=== PATIENT | male | born 1950 | race Caucasian/White ===

== ENCOUNTER 2019-05-10 15:56 | Emergency (ER) | payer OTHER, SELFPAY ==
[2019-05-10 16:48] VITALS: BP 106/58; PULSE 54; RESP 16; TEMP 36.8; O2SAT 94; BMI 34.9
--- NOTE | 2019-05-10 21:15 | W.ED.EXTPRO ---
HPI - Extremity Problem General: Chief complaint: Extremity Injury, Lower Stated complaint: Fractured R ankle-needs cast Time Seen by Provider: 05/10/19 21:09 History of Present Illness: HPI Narrative: Patient comes in for injury to the right lower extremity. Patient was seen [place] [facility] earlier today and was referred to the ER for splinting of the extremity. Patient appears well. Patient appears in no acute distress. Patient reports that he got up and walked through the house and became faint and twisted his ankle when he went to fall. Patient states they have been working to control his blood pressure and has been reducing the medication but it still causes him to become really lightheaded at times. Review of Systems General: Reports: 10 or more systems reviewed and unremarkable except in HPI and below Musc: Reports: joint pain PFSH ED PFSH: Social History Smoking and tobacco status: never smoked Physical Exam Const: COMMON NORMALS: no apparent distress and oriented x3 GENERAL APPEARANCE: cooperative HENMT: COMMON NORMALS: normocephalic, external ears normal, EAC's normal, TM's normal bilaterally and external nose normal HEAD & SCALP: normal to inspection and normocephalic FACE & SINUS: normal facial exam NOSE: external nose normal GENERAL EAR: hearing not grossly impaired EXTERNAL EAR: Yes external ears normal EXTERNAL AUDITORY CANAL: EAC's normal TYMPANIC MEMBRANE: TM's normal bilaterally MOUTH: oral and palatal mucosa normal THROAT: posterior oropharynx normal Eye: COMMON NORMALS: PERRL and EOMs intact bilaterally PUPIL: Yes PERRL Neck/C-Spine: COMMON NORMALS: full ROM and no lymphadenopathy Lymph: LYMPHATIC: no lymphedema noted Chest: COMMONS NORMALS: inspection of chest normal and palpation of chest normal Resp: COMMON NORMALS: normal respiratory effort and clear to auscultation bilaterally AUSCULTATION: clear to auscultation bilaterally Cardio: COMMON NORMALS: regular rate and regular rhythm RATE: regular rate RHYTHM: regular rhythm GI: COMMON NORMALS: normal to inspection, nondistended, normoactive bowel sounds and non-tender : COMMON NORMALS: Yes no CVA tenderness BLADDER/KIDNEY EXAM: Yes no CVA tenderness Back/Pelvis: COMMON NORMALS: no CVA tenderness and thoracic and lumbar spine normal to inspection Extremity: COMMON NORMALS: normal to inspection GENERAL: Yes edema (right lateral ankle, mild ecchymosis) Neuro: COMMON NORMALS: oriented x3, moves all extremities and no focal motor deficits Psych: COMMON NORMALS: mental status grossly normal and cooperative Skin: COMMON NORMALS: no rashes or lesions noted GENERAL SKIN EXAM: no rashes or lesions noted Course Vital Signs: Vital signs: Vital Signs Temperature 98.3 F 05/10/19 16:48 Pulse Rate 54 L 05/10/19 16:48 Respiratory Rate 16 05/10/19 16:48 Blood Pressure 106/58 05/10/19 16:48 Pulse Oximetry 94 05/10/19 16:48 MDM - Extremity (Nontraumatic) MDM Narrative: Medical decision making narrative: Medical decision statement. Well-appearing adult male comes in for evaluation and treatment of fractured distal fibula in the right lower extremity. Patient was seen at the [facility] earlier and was referred here for casting of his fracture. Exam notes some mild ecchymosis and swelling to the lateral right ankle. Pulses are intact. Prompt capillary refill is noted. Differential diagnosis includes fracture, sprain, dislocation. Review of printed x-ray films that patient brought with him from the [facility] noted nondisplaced fracture of the distal fibula. Patient has been weightbearing to the extremity. The injury occurred early this morning. Reviewed the exam with patient patient was Rosalio wrapped and put in a stirrup splint. Patient was recommended to limit activity and use crutches or a walker to assist with ambulation. Patient reports understanding and agreed to plan. Case management was requested for referral to orthopedics. Discharge Plan Discharge Patient Disposition: Home, Self-Care Clinical Impression: Ankle fracture Qualifiers: Encounter type: initial encounter Fracture type: closed Laterality: right Qualified Code(s): S82.891A - Other fracture of right lower leg, initial encounter for closed fracture Condition: Stable Prescriptions: New hydrocodone-acetaminophen 5-325 mg tablet 1 tab PO Q6H PRN (Reason: pain (scale score 7-10)) Qty: 7 RF: 0 Discharge Orders: Discharge Order (Routine); Ordered 05/10/19 Ordered By: Aki Downey Referrals: Grey Bingham [Primary Care Provider] - Discharge Diet: Usual diet Discharge Activity: Increase activity as tolerated Patient Instructions: Ankle Fracture (ED) Activity Restrictions/Additional Instructions: use elastic wrap until swelling is resolved Use stirrup splint until orthopedic boot can be fitted Crutches or walker for ambulation assist use acetaminophen or ibuprofen to control pain, use hydrocodone for severe pain medication as directed Follow-up with orthopedics Coding Level of Care Code ED Database Programmer Analyst for Natalie Fwd Exam Comprehensive
[2019-05-10] MEDS: HYDROcodone-acetaminophen 5-325 mg Tablet 1 TAB PO (21:35)
[2019-05-10 21:59] VITALS: BP 156/79; PULSE 57; RESP 18; O2SAT 99
--- NOTE | 2019-05-11 09:43 | DCPLANNER ---
assistant front office manager had message to schedule a follow up appointment for patient with ortho. assistant front office manager called the ortho clinic, spoke with Pat, gave clinic patients information. assistant front office manager was told that patients information would be printed and reviewed. Clinic will call foster care case manager and patient with appointment information. Patient has [facility], assistant front office manager called [facility], reported that patient was seen in the ER and that he needs a consult placed for ortho. assistant front office manager faxed [facility] to the [facility].
--- NOTE | 2019-05-11 14:19 | DCPLANNER ---
Patient has a follow up appointment scheduled for Sunday, May 12, 2019 at 12:00. assistant farm operations manager called June with the [facility] to inform her that a follow up appointment has been scheduled for patient. Clinic will call patient with appointment information.
--- NOTE | 2019-05-20 10:03 | DCPLANNER ---
Patient did attend appointment scheduled for 05.12.19 with ortho.
== END 2019-05-10 21:53 | disposition home or self-care (01) ==
PROVIDERS: Emergency Provider Nurse Practitioner Family; Family Provider Internal Medicine; PCP Internal Medicine
DX: S82.831A Other fracture of upper and lower end of right fibula, initial encounter for closed fracture (principal); W18.30XA Fall on same level, unspecified, initial encounter; Y92.009 Unspecified place in unspecified non-institutional (private) residence as the place of occurrence of the external cause
CPT/HCPCS: 29515; 99281; 99283

== ENCOUNTER → 2019-05-12 12:44 | Outpatient (BNVA) | payer OTHER, SELFPAY | PROVIDERS: Family Provider Internal Medicine; PCP Internal Medicine; Referring Provider Nurse Practitioner Family; Visit Provider Specialist | DX: S82.831A Other fracture of upper and lower end of right fibula, initial encounter for closed fracture (principal); X58.XXXA Exposure to other specified factors, initial encounter | CPT/HCPCS: 73610 ==

== ENCOUNTER 2019-05-12 15:59 | Outpatient (CLI) | payer OTHER, SELFPAY | END 2019-05-12 16:00 | disposition home or self-care (01) | LOC: SPT 15:59 | PROVIDERS: Family Provider Internal Medicine; PCP Internal Medicine; Visit Provider Specialist | DX: S82.61XD Displaced fracture of lateral malleolus of right fibula, subsequent encounter for closed fracture with routine healing (principal); X58.XXXD Exposure to other specified factors, subsequent encounter | CPT/HCPCS: L4361 ==

== ENCOUNTER → 2019-05-17 14:21 | Outpatient (BNVA) | payer OTHER, SELFPAY | PROVIDERS: Family Provider Internal Medicine; PCP Internal Medicine; Visit Provider Specialist | DX: S82.831A Other fracture of upper and lower end of right fibula, initial encounter for closed fracture (principal); X58.XXXA Exposure to other specified factors, initial encounter | CPT/HCPCS: 73610 ==

== ENCOUNTER → 2019-06-03 11:54 | Outpatient (BNVA) | payer OTHER, SELFPAY | PROVIDERS: Family Provider Internal Medicine; PCP Internal Medicine; Visit Provider Specialist | DX: S82.831A Other fracture of upper and lower end of right fibula, initial encounter for closed fracture (principal); X58.XXXA Exposure to other specified factors, initial encounter | CPT/HCPCS: 73610 ==

== ENCOUNTER → 2019-07-14 08:14 | Outpatient (BNVA) | payer OTHER, SELFPAY | PROVIDERS: Family Provider Internal Medicine; PCP Internal Medicine; Visit Provider Specialist | DX: T14.8XXA Other injury of unspecified body region, initial encounter (principal); S82.831A Other fracture of upper and lower end of right fibula, initial encounter for closed fracture | CPT/HCPCS: 73610 ==

== ENCOUNTER 2019-07-17 23:03 | Emergency (ER) | payer OTHER, SELFPAY ==
[2019-07-17 23:04] VITALS: BP 144/63; PULSE 73; RESP 18; TEMP 37.4; O2SAT 96; BMI 33.0
--- NOTE | 2019-07-17 23:34 | CTR_ITS ---
PROCEDURE INFORMATION: Exam: CT Abdomen And Pelvis With Contrast Exam date and time: 07/17/2019 1:54 AM Age: 69 years old Clinical indication: Abdominal pain; Flank; Right; Prior surgery; Surgery date: 6+ months; Surgery type: Gb, hernia; Additional info: R flank pain TECHNIQUE: Imaging protocol: Computed tomography of the abdomen and pelvis with intravenous contrast. Radiation optimization: All CT scans at this facility use at least one of these dose optimization techniques: automated exposure control; mA and/or kV adjustment per patient size (includes targeted exams where dose is matched to clinical indication); or iterative reconstruction. Contrast material: OMNI 300; Contrast volume: 95 ml; Contrast route: IV; COMPARISON: [place] [id number] 12/25/2012 7:37 AM RADIATION DOSE METRICS: Total DLP: 1964.11 mGy-cm FINDINGS: Lungs: There is compressive atelectasis in the left lung. Pleural space: Small left pleural effusion. Liver: There is mild hypertrophy and subtle nodularity of the left lobe of the liver. There is no focal liver abnormality. Gallbladder and bile ducts: The gallbladder is absent. There is no intrahepatic or extrahepatic bile duct dilation. Pancreas: There is mild atrophy of the pancreas. Spleen: The spleen is unremarkable. Adrenals: The adrenal glands are unremarkable. Kidneys and ureters: There are simple cysts in the right kidney measuring up to 5.7 cm diameter. There is no hydronephrosis or stones. The right ureter is nondilated. The left kidney and ureter are unremarkable. Stomach and bowel: The stomach is unremarkable. The small bowel is nondilated. There is no sign of inflammation. There is moderate distal descending and sigmoid colonic diverticulosis without evidence of diverticulitis. Appendix: The appendix is not definitively identified, although there are no secondary signs of appendicitis. Intraperitoneal space: There is no free air or significant intraperitoneal free fluid. Vasculature: There is severe aortic atherosclerotic disease. Lymph nodes: There is no lymphadenopathy in the retroperitoneum, mesentery, pelvis or inguinal regions. Bladder: The urinary bladder is unremarkable. Reproductive: The prostate and seminal vesicles are unremarkable. Bones/joints: There is moderate degenerative disease in the lumbar spine. The pelvis and hips are unremarkable. Soft tissues: Large multifocal fat containing ventral hernia. CT/CT abdomen pelvis w con* [id number] IMPRESSION: 1. No acute findings. No obstructive uropathy. 2. Small left pleural effusion. 3. Left lobe hypertrophy and subtle nodularity of the liver surface. Possible cirrhosis. COMMENTS: Consistent with the [employer]'s Incidental Findings Committee white paper (J Am Luis Fernando Radiol 2018): Any incidental cystic renal lesion classified in this report as too small to characterize or simple appearing is likely a benign cyst. No follow-up imaging is recommended for these lesions per consensus recommendations based on imaging criteria. Radiation Dose CTDIVOL = (mGy): DLP = 1964.11 (mGy-cm)
--- NOTE | 2019-07-17 23:34 | XR_ITS ---
WS: [id number] XR chest 1V portable [id number] REASON FOR EXAM: weakness FINDINGS: Previous sternotomy changes and coronary bypass findings. Comparisons were made to March 24, 2017 with no interval changes. The peripheral lung show no definite pneumonia, pleural effusion, pulmonary edema, no pneumothorax or mass effect. The hilum and apices normal. XR/XR chest 1V portable [id number] IMPRESSION: Negative chest for acute findings Coronary bypass changes.
[2019-07-17 23:43] VITALS: O2SAT 96
[2019-07-17 23:45] VITALS: O2SAT 90
[2019-07-17 23:50] VITALS: O2SAT 96
[2019-07-17 23:55] VITALS: O2SAT 96
[2019-07-17] MEDS: sodium chloride 0.9% 1,000 ML 999 ML IV (23:59)
[2019-07-17] MEDS: ondansetron 2 mg/ML SDV 2 mL 4 MG IVP (23:59)
[2019-07-18] VITALS (18 sets, daily range): O2SAT 90–97
[2019-07-18 00:30] LABS: Basophils # 0.1 10^3/uL (0.0-0.1); Basophils % 0.4 %; Eosinophils % 0.2 %; Hematocrit 43.2 % (42.0-52.0); Hemoglobin 14.1 g/dL (11.7-16.6); Lymphocytes # 3.1 10^3/uL (0.8-4.8); Lymphocytes % 22.5 %; Mean Corpuscular HGB Conc 32.6 g/dL (30.0-36.0); Mean Corpuscular Hemoglobin 30.5 pg (28.0-34.0); Mean Corpuscular Volume 93.5 fL (80-94); Mean Platelet Volume 10.2 fL (7.4-10.4); Monocytes # 1.1 10^3/uL (0.2-0.9); Monocytes % 7.8 %; Neutrophils # 9.4 10^3/uL (1.8-7.7); Neutrophils % 68.7 %; Nucleated Red Blood Cells % 0 %; Platelet Count 180 10^3/cmm (130-400); Red Blood Count 4.62 10^6/uL (4.1-5.3); Red Cell Distribution Width 13.5 % (12.1-15.1); White Blood Count 13.7 10^3/uL (4.0-10.0)
[2019-07-18 01:19] LABS: Alanine Aminotransferase 17 U/L (0-41); Albumin Level 3.7 g/dL (3.5-5.2); Alkaline Phosphatase 64 IU/L (40-130); Anion Gap 12.8 (5-19); Aspartate Amino Transferase 20 U/L (0-40); Blood Urea Nitrogen 19 mg/dL (8-23); Calcium 8.9 mg/dL (8.5-10.5); Carbon Dioxide 29 mmol/L (22-29); Chloride 102 mmol/L (98-107); Globulin 4.1 g/dL (1.3-4.6); Glomerular Filtration Rate 73.9 mL/min (90-130); Glucose 79 mg/dL (65-115); Lipase 12 U/L (13-60); Osmolality Calculated 285 mOsm/kg (285-295); Potassium 3.8 mmol/L (3.5-5.1); Sodium 140 mmol/L (136-145); Total Bilirubin 0.9 mg/dL (0.15-1.2); Total Protein 7.8 g/dL (6.6-8.7)
[2019-07-18] MEDS: morphine 4 mg/mL SDV 1 mL IVP (01:42)
[2019-07-18 01:46] LABS: C Reactive Protein 84.3 mg/L (0.0-4.9)
[2019-07-18 01:55] LABS: Urine Appearance Cloudy (CLEAR); Urine Color Yellow (Yellow); pH Urine 5 (5-7)
[2019-07-18 01:56] LABS: Add Urine Microscopic? YES; Bilirubin Urine Neg (NEGATIVE); Blood Urine Trace (Negative); Glucose Urine UA Norm (Normal); Ketones Urine Negative (Negative); Leukocyte Esterase Urine 2+ (Negative); Nitrate Urine Positive (Negative); Protein Urine Neg (Negative); Urobilinogen Urine Norm (Negative)
[2019-07-18 01:57] LABS: Add Urine Culture? Yes; Bacteria Urine 3+; RBC Urine 0-4 /hpf (0-2); Squamous Epithelial Cell Urine 0-4 (0-5); WBC Urine >100 /hpf (0-5)
[2019-07-18] MEDS: iohexol 300 mg/mL 100 mL Btl IV (02:05)
[2019-07-18] MEDS: cefTRIAXone 1,000 MG in sodium chloride 0.9% (plus) 50 ML 100 MG IV (03:26)
--- NOTE | 2019-07-18 03:26 | ED_ITS ---
HPI - Weakness General: Chief complaint: Weakness Stated complaint: WEAKNESS Time Seen by Provider: 07/17/19 23:17 History of Present Illness: HPI Narrative: 69-year-old male who has been at home for 3 days. He is experienced increasing weakness over those 3 days. He has not eaten. He has been nauseated. No vomiting. No fever that he knows of, no cough. MD Complaint: generalized weakness Onset (ago): day(s) (3) Duration: constant Location: generalized Migration: none Severity: similar to previous episodes Relieving factors: rest Exacerbating factors: none Associated symptoms: Reports confusion; Denies chest pain, chills, dysuria or vomiting Review of Systems Const: Denies: chills Eyes: Denies: change in vision or blurry vision ENMT: Denies: painful swallowing, bleeding gums, dental pain or facial/sinus pain Card: Denies: chest pain Resp: Denies: shortness of breath, productive cough, non-productive cough or wheezing GI: Denies: vomiting : Reports: difficulty urinating; Denies: painful urination, urinary frequency, urinary urgency or blood in urine Musc: Denies: neck pain, back pain, redness or joint warmth Skin/Breast: Denies: rash, itching or redness Neuro: Reports: confusion Psych: Denies: anxiety PFSH ED PFSH: Medical History (Updated 07/18/19 @ 03:20 by Agus Rivera DO) Closed fracture of distal end of right fibula Diabetes Social History Smoking and tobacco status: never smoked Alcohol intake: never Physical Exam Const: GENERAL APPEARANCE: well developed ORIENTATION/CONSCIOUSNESS: Yes oriented to person, Yes oriented to place and Yes oriented to time HENMT: COMMON NORMALS: normocephalic, external ears normal and external nose normal HEAD & SCALP: normocephalic and scalp tenderness NOSE: external nose normal and no nasal discharge EXTERNAL EAR: Yes external ears normal MOUTH: tongue normal TEETH & GINGIVA: no abnormal tooth and associated gingiva Eye: COMMON NORMALS: PERRL, EOMs intact bilaterally and conjunctivae normal EYELID: eyelids normal CONJUNCTIVA: Yes conjunctivae normal PUPIL: Yes PERRL Neck/C-Spine: COMMON NORMALS: full ROM GENERAL: No tracheal deviation Chest: COMMONS NORMALS: inspection of chest normal CHEST: No tenderness Resp: COMMON NORMALS: clear to auscultation bilaterally EFFORT & INSPECTION: No tachypneic, No respiratory distress, No retractions, No uses accessory muscles and No tracheal deviation AUSCULTATION: clear to auscultation bilaterally, no rhonchi, no wheezes and lung sounds not diminished Cardio: COMMON NORMALS: regular rate and regular rhythm RATE: regular rate RHYTHM: regular rhythm HEART SOUNDS: no murmurs PERIPHERAL PULSES: radial pulses present GI: INSPECTION: No abdominal distension AUSCULTATION: No hyperactive bowel sounds and No hypoactive bowel sounds PALPATION: No guarding and No rigid PERCUSSION: no dullness to percussion and no tympanic to percussion : COMMON NORMALS: Yes no CVA tenderness BLADDER/KIDNEY EXAM: Yes no CVA tenderness and Yes CVA tenderness on the right Back/Pelvis: COMMON NORMALS: no CVA tenderness GENERAL BACK: Yes CVA tenderness Neuro: SENSORIUM/ORIENTATION: Yes oriented to person, Yes oriented to place and Yes oriented to time Psych: COMMON NORMALS: mental status grossly normal Skin: COMMON NORMALS: no rashes or lesions noted GENERAL SKIN EXAM: no rashes or lesions noted Course Vital Signs: Vital signs: Vital Signs Temperature 99.3 F 07/17/19 23:04 Pulse Rate 73 07/17/19 23:04 Respiratory Rate 18 07/17/19 23:04 Blood Pressure 144/63 07/17/19 23:04 Pulse Oximetry 93 07/18/19 03:30 MDM - Weakness MDM Narrative: Medical decision making narrative: 69-year-old male with generalized weakness, white blood cell count of 13.7, and a significant urinary tract infection. His chest x-ray does not show a infiltrate. CT of the abdomen pelvis does not show a renal abscess, or any other significant abnormality. He is not been vomiting. He is received a gram of Rocephin and some fluid here he is feeling better. He will go home on Omnicef. He will be prescribed Zofran for nausea. Lab Data: Labs: Lab Results 07/18/19 07/18/19 07/18/19 Range/Units 00:23 00:55 01:30 WBC 13.7 H (4.0-10.0) 10^3/ uL RBC 4.62 (4.1-5.3) 10^6/u L Hgb 14.1 (11.7-16.6) g/dL Hct 43.2 (42.0-52.0) % MCV 93.5 (80-94) fL MCH 30.5 (28.0-34.0) pg MCHC 32.6 (30.0-36.0) g/dL RDW 13.5 (12.1-15.1) % Plt Count 180 (130-400) 10^3/c mm MPV 10.2 (7.4-10.4) fL Neut % (Auto) 68.7 % Lymph % (Auto) 22.5 % [place] % (Auto) 7.8 % Eos % (Auto) 0.2 % Baso % (Auto) 0.4 % Neut # (Auto) 9.4 H (1.8-7.7) 10^3/u L Lymph # (Auto) 3.1 (0.8-4.8) 10^3/u L [place] # (Auto) 1.1 H (0.2-0.9) 10^3/u L Eos # (Auto) 0.0 (0.0-0.8) 10^3/u L Baso # (Auto) 0.1 (0.0-0.1) 10^3/u L Nucleated RBC % (a uto) 0 % Nucleated RBCs # 0.0 /100WBC Sodium 140 (136-145) mmol/L Potassium 3.8 (3.5-5.1) mmol/L Chloride 102 (98-107) mmol/L Carbon Dioxide 29 (22-29) mmol/L Anion Gap 12.8 (5-19) BUN 19 (8-23) mg/dL Creatinine 1.0 (0.7-1.2) mg/dL GFR Calculation 73.9 L (90-130) mL/min Glucose 79 (65-115) mg/dL Calculated Osmolal ity 285 (285-295) mOsm/k g Calcium 8.9 (8.5-10.5) mg/dL Total Bilirubin 0.9 (0.15-1.2) mg/dL AST 20 (0-40) U/L ALT 17 (0-41) U/L Alkaline Phosphata se 64 (40-130) IU/L C-Reactive Protein 84.3 H (0.0-4.9) mg/L Total Protein 7.8 (6.6-8.7) g/dL Albumin 3.7 (3.5-5.2) g/dL Globulin 4.1 (1.3-4.6) g/dL Lipase 12 L (13-60) U/L Urine Color Yellow (Yellow) Urine Appearance Cloudy (CLEAR) Urine pH 5 (5-7) Ur Specific Gravit y 1.020 (1.005-1.030) Urine Protein Neg (Negative) Urine Glucose (UA) Norm (Normal) Urine Ketones Negative (Negative) Urine Blood Trace H (Negative) Urine Nitrate Positive H (Negative) Urine Bilirubin Neg (NEGATIVE) Urine Urobilinogen Norm (Negative) mg/dL Ur Leukocyte Linda ase 2+ H (Negative) Urine RBC 0-4 H (0-2) /hpf Urine WBC >100 H (0-5) /hpf Ur Squamous Epith Cells 0-4 H (0-5) Urine Bacteria 3+ H (NONE) Discharge Plan Discharge Patient Disposition: Home, Self-Care Clinical Impression: Urinary tract infection Qualifiers: Urinary tract infection type: acute cystitis Hematuria presence: with hematuria Qualified Code(s): N30.01 - Acute cystitis with hematuria Condition: Stable Prescriptions: New Zofran 4 mg tablet 4 mg PO Q6H PRN (Reason: nausea and vomiting) Qty: 10 RF: 0 cefdinir 300 mg capsule 300 mg PO Q12H 10 Days Qty: 20 RF: 0 No Action hydrocodone-acetaminophen [[place]] 7.5-325 mg tablet 1 tab PO Q6H PRNRF: 0 (DME) Cam Walker Qty: 1 RF: 0 Discharge Orders: Discharge Order (Routine); Ordered 07/18/19 Ordered By: Agus Rivera Discharge Diet: Advance as tolerated Discharge Activity: Increase activity as tolerated Patient Instructions: Urinary Tract Infection in Men (ED) Activity Restrictions/Additional Instructions: Return for fever despite 2-3 doses of antibiotics, worsening mental status, worsening weakness, vomiting liquids or medications, other concerning symptoms. Coding Level of Care Code ED Head Athletic Trainer for Natalie Chu
== END 2019-07-18 04:00 | disposition home or self-care (01) ==
PROVIDERS: Emergency Provider Emergency Medicine
DX: N30.01 Acute cystitis with hematuria (principal); E11.9 Type 2 diabetes mellitus without complications
CPT/HCPCS: 12345; 71045; 74177; 80053; 81001; 83690; 85025; 86140; 87077; 87086; 87186; 96365; 96375; 99283; 99284; J0696; J2270; J2405; J7030; Q9967

== ENCOUNTER 2019-09-06 11:00 | Outpatient (CLI) | payer OTHER, SELFPAY ==
--- NOTE | 2019-09-06 11:00 | USCV_ITS ---
Victorino Stevenson Age: 69 Gender: M : 1950 Exam Date: 09/06/2019 11:05 Ordering Phys: Ludmila Gilbert MD ([email or web address]) Technologist: Dionisio Bermudez Exam Location: [facility] [place] Indication: HISTORY: Lower extremity pain. PROCEDURES: Bilateral duplex Venous Insufficiency study of the Deep and Superficial systems was carried out according to normal protocol with the patient in supine positon for deep system and dependent position for the superficial system. FINDINGS: There is no evidence of bilateral deep vein thrombosis. No evidence of superficial thrombosis in the bilateral saphenous system. No venous reflux noted in the bilateral greater saphenous vein. No venous reflux noted in the bilateral small saphenous vein. Venous reflux was demonstrated in the RIGHT SFJ with a spectral display of greater than 500 milliseconds. Venous reflux was demonstrated in the LEFT SFJ with a spectral display of greater than 500 milliseconds. Left GSV below the proximal level is to small to follow. CONCLUSIONS No evidence of DVT in the above-mentioned identifiable veins. Significant venous reflux of greater than 500 ms were noted at the saphenofemoral junction bilaterally-839 ms on the right and 650 ms on the left. The saphenofemoral junctions were greater than 1 cm deep from the surface . The greater saphenous vein distal to the saphenofemoral junction and also the proximal greater saphenous vein segments were 0.6 to 0.9 cm in diameter. The venous dimensions, depth from the surface and reflux times are as mentioned above. No similar previous studies are available for comparison Dr Patricia Joy MD [facility] (Electronically Signed) Final Date: 06 September 2019 19:30 S
== END 2019-09-06 11:01 | disposition home or self-care (01) ==
LOC: RAD 11:02
PROVIDERS: PCP Nurse Practitioner; Visit Provider Internal Medicine Cardiovascular Disease
DX: I83.892 Varicose veins of left lower extremity with other complications (principal); I83.891 Varicose veins of right lower extremity with other complications
CPT/HCPCS: 93970

== ENCOUNTER 2019-09-21 09:00 | Outpatient (CLI) | payer OTHER, SELFPAY ==
--- NOTE | 2019-09-21 09:09 | USCV_ITS ---
Victorino Stevenson Age: 69 Gender: M : 1950 Exam Date: 09/21/2019 09:18 Ordering Phys: Sujata Macedo MD Technologist: Dionisio Bermudez Exam Location: [facility] [place] Indication: AAA HISTORY: AAA Diameter (cm) AP x Transverse x Length Velocity (cm/s) Waveform Prox Aorta: 2.20 x 2.24 x 77.20 Biphasic Mid Aorta: 2.36 x 2.00 x 89.80 Biphasic Distal Aorta: 3.08 x 2.91 x 144.40 Biphasic Right Iliac Prox: 1.37 x 1.71 x 103.20 Biphasic Left Iliac Prox: 1.71 x 1.58 x 105.60 Biphasic Stent Prox Landing x x Aneurysmal Sac Max x x Lt Lat Sac Dim Rt Lat Sac Dim Stent Dist Landing x x Right Iliac Stent x x Left Iliac Stent x x Right Renal Art Left Renal Art FINDINGS: Fusiform dilatation of the distal abdominal aorta measuring 3.08 x 2.91 cm Diffuse plaques in the iliac arteries Near normal Doppler flow velocities CONCLUSIONS 1. Small fusiform aneurysm of the distal abdominal aorta, measuring 3.8 x 2.9 or centimeter. 2. Ectatic proximal, iliac common arteries bilaterally measuring 1.37 x 1.71 on the right side and 1.71 x 1.58 cm on the left side 3. Minimal dense plaques in the common iliac arteries bilaterally. 4. No similar previous studies available for comparison Dr Patricia Joy MD [facility] (Electronically Signed) Final Date: 22 September 2019 21:49 S
== END 2019-09-21 09:01 | disposition home or self-care (01) ==
LOC: US 09:01
PROVIDERS: Family Provider Family Medicine; PCP Nurse Practitioner; Visit Provider Family Medicine
DX: I71.4 Abdominal aortic aneurysm, without rupture (principal)
CPT/HCPCS: 93978

== ENCOUNTER → 2019-10-14 14:17 | Outpatient (BNVA) | payer OTHER, SELFPAY | PROVIDERS: Family Provider Family Medicine; PCP Family Medicine; Referring Provider Family Medicine; Visit Provider Anesthesiology Pain Medicine | DX: M54.16 Radiculopathy, lumbar region (principal); M54.9 Dorsalgia, unspecified; M25.561 Pain in right knee; M25.562 Pain in left knee; Z79.891 Long term (current) use of opiate analgesic | CPT/HCPCS: 99205 ==

== ENCOUNTER 2019-10-21 14:35 | Outpatient (CLI) | payer OTHER, SELFPAY ==
--- NOTE | 2019-10-21 15:15 | MR_ITS ---
WS: [id number] MRI LUMBAR SPINE NONCONTRAST TECHNIQUE: Sagittal T1, T2 and STIR imaging. Axial T1 and T2 imaging. CLINICAL INFORMATION: M54.16 Radiculopathy, lumbar region COMPARISON: None. FINDINGS: Mild lumbar curve. No acute compression. Slight retrolisthesis L1 on L2 and L2 on L3. Disc bulging wo rse at L1-2 and L2-3. L1-L2: Mild disc bulging with moderate central canal stenosis. Small amount of herniated disc materia l with Impingement left subarticular recess. Moderate facet arthropathy. Foramen are patent. L2-L3: Slight retrolisthesis L2 on L3. Moderate to severe central canal stenosis with moderate facet arthropathy. Impingement traversing L3 nerve roots bilaterally. Moderate bilateral foraminal narrowin g. L3-L4: Mild disc bulging with mild central canal stenosis. Impingement traversing right greater than left L4 nerve roots. Moderate facet arthropathy. Moderate right and mild left foraminal narrowing. L4-L5: Mild disc bulging with mild/moderate central canal stenosis. Moderate facet arthropathy with l igamentum flavum hypertrophy. Mild right greater than left foraminal narrowing. L5-S1: Mild disc bulging with slight effacement of ventral thecal sac. Mild facet arthropathy. Spinal canal and foramen are patent. Visualized pelvic bony structures: Normal. Paravertebral soft tissues: Normal. MR/MR lumbar spine wo con* [id number] IMPRESSION: 1. Mild lumbar curve. No acute compression. 2. Moderate central canal stenosis L1-2 and moderate to severe central canal s tenosis L2-3 due to disc bulging with slight retrolisthesis and facet arthropat hy. 3. Mild central canal stenosis L3-4 and [id number] at L4-5. 4. Mild to moderate foraminal narrowing worse at bilateral L2-3 and right L3-4 . 5. Disc bulging L1-2 with a small amount of herniated disc material extending inferiorly. Impingement on the traversing left L2 nerve root in the subarticula r recess with moderate central canal stenosis. 6. Moderate facet arthropathy L3-L5.
== END 2019-10-21 14:36 | disposition home or self-care (01) ==
LOC: RADSHAW 14:38
PROVIDERS: Family Provider Family Medicine; PCP Family Medicine; Visit Provider Anesthesiology Pain Medicine
DX: M54.16 Radiculopathy, lumbar region (principal); M48.061 Spinal stenosis, lumbar region without neurogenic claudication; M47.816 Spondylosis without myelopathy or radiculopathy, lumbar region; M51.26 Other intervertebral disc displacement, lumbar region
CPT/HCPCS: 72148

== ENCOUNTER → 2019-11-12 10:42 | Outpatient (BNVA) | payer OTHER, SELFPAY | PROVIDERS: Family Provider Family Medicine; PCP Family Medicine; Visit Provider Anesthesiology Pain Medicine | DX: M48.062 Spinal stenosis, lumbar region with neurogenic claudication (principal); M54.9 Dorsalgia, unspecified; Z79.891 Long term (current) use of opiate analgesic | CPT/HCPCS: 99213; 99214 ==

== ENCOUNTER → 2019-11-24 13:21 | Outpatient (BNVA) | payer OTHER, SELFPAY | PROVIDERS: Family Provider Family Medicine; PCP Family Medicine; Visit Provider Anesthesiology Pain Medicine | DX: M54.42 Lumbago with sciatica, left side (principal); M54.41 Lumbago with sciatica, right side; M48.062 Spinal stenosis, lumbar region with neurogenic claudication; M54.16 Radiculopathy, lumbar region; M54.9 Dorsalgia, unspecified; Z79.891 Long term (current) use of opiate analgesic | CPT/HCPCS: 64483; 64484; G0463 ==

== ENCOUNTER → 2019-12-10 09:25 | Outpatient (BNVA) | payer OTHER, SELFPAY | PROVIDERS: Family Provider Family Medicine; PCP Family Medicine; Visit Provider Anesthesiology Pain Medicine | DX: M51.16 Intervertebral disc disorders with radiculopathy, lumbar region (principal); M48.062 Spinal stenosis, lumbar region with neurogenic claudication; M47.816 Spondylosis without myelopathy or radiculopathy, lumbar region; M54.9 Dorsalgia, unspecified; I25.810 Atherosclerosis of coronary artery bypass graft(s) without angina pectoris; I10 Essential (primary) hypertension; Z79.891 Long term (current) use of opiate analgesic | CPT/HCPCS: 99213 ==

== ENCOUNTER → 2020-01-07 12:04 | Outpatient (BNVA) | payer OTHER, SELFPAY | PROVIDERS: Family Provider Family Medicine; PCP Family Medicine; Visit Provider Anesthesiology Pain Medicine | DX: G89.29 Other chronic pain (principal); M48.062 Spinal stenosis, lumbar region with neurogenic claudication; M47.816 Spondylosis without myelopathy or radiculopathy, lumbar region; M51.16 Intervertebral disc disorders with radiculopathy, lumbar region; M54.9 Dorsalgia, unspecified; I25.810 Atherosclerosis of coronary artery bypass graft(s) without angina pectoris; I10 Essential (primary) hypertension; Z79.891 Long term (current) use of opiate analgesic | CPT/HCPCS: 99213 ==

== ENCOUNTER 2020-01-27 12:53 | Outpatient (CLI) | payer OTHER, SELFPAY ==
--- NOTE | 2020-01-27 14:00 | CT_ITS ---
WS: [id number] CTA ABDOMINAL AORTA WITH RUNOFF TECHNIQUE: Contrast enhanced CTA of the abdominal aorta with bilateral lower extremity runoff. Multip lanar reformatted images were obtained. MIP reformats were also reviewed. CLINICAL INFORMATION: I83.893 - Varicose veins of bilateral lower extremities with other complication s COMPARISON: CT July 18, 2019 DLP: 1589.[address] scans at [facility] use at least one of these dose optimization techniques: automat ed exposure control; mA and/or kV adjustment per patient size (includes targeted exams where dose is matched to clinical indication); or iterative reconstruction. FINDINGS: Mild aortic calcification. Slightly lobulated bilobed infrarenal abdominal aorta with aneur ysmal dilatation measuring 3.0 x 3.0 CM. Moderate to severe stenosis at the celiac origin. Mild to moderate stenosis at the SMA origin. Mild c alcification both renal artery origins. Small to moderate left pleural effusion. Right lung base is well aerated. Mild diffuse fatty infiltra tion of the liver. Normal spleen. Normal GE junction. Pancreas is unremarkable. Prior cholecystectomy . Adrenal glands are normal. Normal renal parenchymal enhancement. Right renal cysts the largest invo lving the lower pole measuring 5.4 CM. Sigmoid diverticulosis. No evidence of acute diverticulitis. No evidence of small or large bowel obst ruction. Wide mouth umbilical and supraumbilical hernia. Hernia mouth measures approximately 8.7 x 7. 5 CM. Herniated omental fat. No herniated bowel. Incidental fat-containing left inguinal hernia. Disc osteophyte complex L1-2 with severe central canal stenosis. RIGHT: Mild stenosis of the right common iliac artery origin which is patent. External and internal i liac arteries are patent. Common femoral and deep femoral arteries are patent. Superficial femoral ar kevin is patent to the adductor hiatus. Moderate to severe stenosis involving the distal SFA at the ad ductor hiatus with dense calcification. Popliteal artery is patent to the trifurcation. Three-vessel runoff to the ankle with dominant posterior tibial artery. LEFT: Left common iliac artery is patent. External and internal iliac arteries are patent. Common fem oral artery is patent. Superficial femoral artery and deep femoral arteries are patent. Mild to moder ate segmental stenosis involving the superficial femoral artery which is patent to the adductor hiatu s. Popliteal artery is patent to the trifurcation. Segmental two-vessel runoff to the ankle with poor flow in the anterior tibial artery. Tiny peroneal artery. Dominant posterior tibial artery. CT/CT angio abd aorta runof [id number] IMPRESSION: 1. Aneurysmal infrarenal abdominal aorta with bilobed infrarenal aneurysmal di latation measuring 3.0 x 3.0 cm in maximum dimension. 2. RIGHT: Mild stenosis right common iliac artery origin which remains patent. Common femoral and superficial femoral arteries are patent. Moderate to severe stenosis involving the distal SFA at the adductor hiatus. Popliteal artery is patent to the trifurcation with segmental three-vessel runoff to the ankle. Dom inant posterior tibial artery. 3. LEFT: Iliac and femoral arteries are patent. Superficial femoral artery is patent to the adductor hiatus. Popliteal artery is patent to the trifurcation.T hree-vessel runoff to the ankle with occlusion of the anterior tibial artery an d tiny peroneal artery. Dominant posterior tibial artery remains patent. 4. Small to moderate left pleural effusion 5. Large right renal cyst measuring 5.4 CCM. 6. Large umbilical and supraumbilical hernia with wide mouth. Herniated omenta l fat. No herniated bowel. 7. Incidental fat-containing left inguinal hernia. 8. Moderate to severe stenosis at L1-2 due to disc osteophyte complex.
[2020-01-27 14:22] LABS: Blood Urea Nitrogen 11 mg/dL (8-23)
[2020-01-27] MEDS: iohexol 350 mg/mL 100 mL Btl IV (14:35)
== END 2020-01-27 12:54 | disposition home or self-care (01) ==
LOC: RADWPI 12:56
PROVIDERS: PCP Family Medicine; Visit Provider Internal Medicine Cardiovascular Disease
DX: I83.893 Varicose veins of bilateral lower extremities with other complications (principal); I71.4 Abdominal aortic aneurysm, without rupture; M48.061 Spinal stenosis, lumbar region without neurogenic claudication; K40.90 Unilateral inguinal hernia, without obstruction or gangrene, not specified as recurrent; K42.9 Umbilical hernia without obstruction or gangrene; N28.1 Cyst of kidney, acquired; J90 Pleural effusion, not elsewhere classified
CPT/HCPCS: 75635; 82565; 84520; Q9967

== ENCOUNTER → 2020-02-18 07:34 | Outpatient (BNVA) | payer OTHER, SELFPAY | PROVIDERS: PCP Family Medicine; Visit Provider Internal Medicine Cardiovascular Disease | DX: Z20.828 Contact with and (suspected) exposure to other viral communicable diseases (principal); Z01.812 Encounter for preprocedural laboratory examination | CPT/HCPCS: 87635 ==

== ENCOUNTER 2020-02-23 06:59 | Day surgery (SDC) | payer OTHER, SELFPAY ==
[2020-02-22 11:07] VITALS: BMI 34.2
[2020-02-23] VITALS (27 sets, daily range): BP systolic 108–165; BP diastolic 57–98; PULSE 50–65; RESP 13–20; TEMP 36–37; O2SAT 90–96
--- NOTE | 2020-02-23 07:30 | XACV_ITS ---
Wt: 118 kg BSA: 2.47 m2 Any Known Allergies: No known allergies Gender: Male : 1950 Exam Type: Invasive Peripheral Vascular Procedure(s): Procedure Description: Peripheral Cath Diagnostic Procedure Exam Priority: Routine Conclusions Reason for peripheral angiogram: Lifestyle limiting claudication abnormal CTA Abdominal aortogram: Normal abdominal aorta without significant stenosisRight and left renal artery did not show any significant stenosisRight and left common, external and internal iliac arteries did not have any significant stenosisRight and left common femoral arteries has no renal artery stenosisRight and left profunda femoral artery has luminal irregularitiesRight and left SFA has luminal irregularity without significant stenosisRight and left popliteal arteries has no significant stenosisRight and left tibioperoneal trunk has no significant stenosis. Right side below the knee anterior tibial artery is patent throughout its course, right peroneal artery has luminal irregularity without significant stenosis, right posterior tibial artery is occluded in the mid segment with some collaterals in the distal segment without significant reconstitution.Chronically occluded proximal left anterior tibial artery, posterior tibial and peroneal artery is pretty much patent throughout its course except proximally there is mild lesion in the proximal peroneal artery.. Recommendations Continue medical management and usual post-cath care.. Access Site Site: Left Femoral artery Sheath Size: 6 Fr Hemost... Method: Suture Hemost... Success: Successful Procedure Details Findings Procedure Consent Obtained. Admit Source: Out Patient. Pre-Procedure Time Out. Identified patient by full name and date of as verbalized by the patient/guarantor. Does the consent match the physician's order: Yes. Accurate & Complete Informed Consent: Yes. Inpatient/Outpatient History & Physical on Chart: Yes. If H&P is completed, is and addenduem needed: N/A; If yes, is the addendum complete: N/A. Visualize and Verify Site with Patient/Guarantor: N/A. Relevant Radiology Images available: N/A. Pre-op teaching completed and patient verbalized understanding. The risks, benefits, and alternatives of sedation and/or procedure were discussed by physician. The patient agrees to continue. Procedure started. Correct patient, site and procedure confirmed by cath team. PERRLA. Strong, equal hand road driver bilaterally. Lungs clear x 5 lobes. IV Site on Arrival: 20 gauge in the left anticubital. Pre Procedural Pulses: bilateral dorsalis pedis was Doppled. Pre Procedural Pulses: right posterior tibial was Doppled. Pre Procedural Pulses: left posterior tibial was 1+. Pre Procedural Pulses: bilateral radial was Doppled. Oxygen started at 2liters/min via nasal canula. bilateral groins was prepped with chloroprep then draped in the usual sterile fashion. Physician notified. Baseline sample Acquired. HR: 71 BPM. Physician arrived. Physician scrubbed in. Time out performed with cath team. Lidocaine 1% infiltrated to the left groin. Arterial access obtained with micropuncture set. A 5FrFr UF catheter in over wire. Abdominal aortogram performed in AP @ 10 mL/sec for a total of 30 mL. glidewire inserted. glide wire out. runoff performed of the right leg 10mL for a total of 30mL. runoff performed of the right leg 10mL for a total of 30mL. Catheter out. runoff performed of the left leg 10mL for a total of 30mL. Sheath injected in Left common femoral artery and runoff performed. Sheath(s) sutured into position with 2-0 silk and sterile 4x4's and Op-site applied over the site. No oozing or signs and symptoms of hematoma noted. Post Procedure: Pulses reassessed and unchanged. PERRLA. Strong, equal hand road driver bilaterally. No VTE prophylaxis required. Medication's Wasted: Other = versed 1 mg. Medication's Wasted: Heparin = 4000 units. Total IV fluids: 75 mL. Contrast type used: Visipaque 320 mgI/mL, 500 mL bottle. Contrast Material : Visipaque 122 ml. Complications: none. Post-op diagnosis: chronic LE occluded bilaterally and tibial. A Suture was successful obtaining hemostatsis at the Left Femoral artery insertion site. Estimated blood loss: 5mL-10mL. Procedure completed. Patient transferred by bed to ICU. Vital chart was stopped. Procedure Medications Start: 9:28 AM Stop: 9:28 AM Medication: Versed Amount: 1 mg Route: I.V. Start: 9:28 AM Stop: 9:28 AM Medication: Fentanyl Amount: 50 mcg Route: I.V. Start: 9:31 AM Stop: 9:31 AM Medication: Versed Amount: 1 mg Route: I.V. Start: 9:40 AM Stop: 9:40 AM Medication: Versed Amount: 1 mg Route: I.V. Start: 9:55 AM Stop: 9:55 AM Medication: Versed Amount: 1 mg Route: I.V. I, the attending physician, have reviewed and verified all procedure medications. Yes, all medications given per verbal order History/Risk Factors Hypertension: Yes Dyslipidemia: Yes Renal Disease: No Tobacco Use: Former Prior Interventions PCI: No CABG: Yes Report Signatures Finalized by Ludmila Gilbert MD on 02/27/2020 07:24 PM
[2020-02-23] MEDS: diphenhydrAMINE 50 mg Capsule PO (08:01)
[2020-02-23 08:21] LABS: Blood Urea Nitrogen 23 mg/dL (8-23); Calcium 9.3 mg/dL (8.5-10.5); Carbon Dioxide 28 mmol/L (22-29); Chloride 99 mmol/L (98-107); Glucose 228 mg/dL (65-115); Osmolality Calculated 295 mOsm/kg (285-295); Sodium 137 mmol/L (136-145)
[2020-02-23 08:33] LABS: Hematocrit 42.3 % (42.0-52.0); Hemoglobin 13.8 g/dL (11.7-16.6); Mean Corpuscular HGB Conc 32.6 g/dL (30.0-36.0); Mean Corpuscular Hemoglobin 30.5 pg (28.0-34.0); Mean Corpuscular Volume 93.6 fL (80-94); Mean Platelet Volume 11.3 fL (7.4-10.4); Platelet Count 157 10^3/cmm (130-400); Red Blood Count 4.52 10^6/uL (4.1-5.3); Red Cell Distribution Width 12.9 % (12.1-15.1); White Blood Count 5.2 10^3/uL (4.0-10.0)
--- NOTE | 2020-02-23 08:58 | P.HP_ITS ---
Providers/Chief Complaint Primary Care Provider: Sujata Macedo MD Chief Complaint: peripheral diagnostic History of Present Illness Victorino Stevenson is a 70 year old male past medical history significant for coronary artery disease status post CABG, peripheral vascular disease, hypertension hyperlipidemia for worsening of lifestyle limiting claudication patient underwent CTA revealed severe peripheral vascular disease of right SFA and left anterior tibial occluded vessel. It is the reason patient came today for peripheral angiogram and intervention. He continues to have cramps pain of legs walking 100 to 200 feet. He has varicose vein as well. He does not has developed any ulcers for now. Patient understand all the risk benefit and alternative for the procedure. Patient has been discussed in detail regarding drug-coated balloon warning of FDA that it increases mortality in subset of population. If necessary he would like to proceed with it. Patient has been explained in detail by myself all risk benefit and alternative for the procedure. He would like to proceed with it. Review of Systems Musc: Denies: joint warmth All/Imm: Denies: acute wheezing Medications/Allergies Home Medications Medication Instructions Recorded Confirmed Last Taken Type ondansetron HCl [Zofran] 4 mg PO Q6H PRN #10 tab 07/18/19 02/22/20 Unknown Rx clopidogrel 75 mg tablet 75 mg PO DAILY 08/04/19 02/22/20 Unknown History furosemide 20 mg tablet 20 mg PO DAILY 08/04/19 02/22/20 Unknown History insulin glargine 100 unit/mL 100 unit SUBCUT DAILY 08/04/19 02/22/20 Unknown History subcutaneous solution metoprolol tartrate 25 mg tablet 12.5 mg PO BID 08/04/19 02/22/20 Unknown History tamsulosin 0.4 mg capsule 0.4 mg PO DAILY 08/04/19 02/22/20 Unknown History citalopram 40 mg tablet 20 mg PO DAILY 08/05/19 02/22/20 Unknown History nitroglycerin 0.4 mg sublingual 0.4 mg SUBLINGUAL Q5M PRN #25 tab 08/10/19 02/22/20 Unknown Rx tablet aspirin 81 mg tablet,delayed 81 mg PO DAILY 11/08/19 02/22/20 Unknown History release atorvastatin 20 mg tablet 40 mg PO DAILY tab 11/08/19 02/22/20 Unknown History cholecalciferol (vitamin D3) 25 25 mcg PO DAILY 11/08/19 02/22/20 Unknown History mcg (1,000 unit) capsule pantoprazole 40 mg tablet,delayed 40 mg PO DAILY #90 tab 11/08/19 02/22/20 Unknown Rx release gabapentin 300 mg capsule 300 mg PO TID #90 cap 01/07/20 02/22/20 Unknown Rx hydrocodone 10 mg-acetaminophen 1 tab PO Q8H PRN 30 Days #90 tab 01/07/20 1 04/24/19 Unknown Rx 325 mg tablet ascorbic acid (vitamin C) 500 mg mg PO 01/17/20 01/17/20 Unknown History capsule elderberry fruit 200 mg capsule mg PO 01/17/20 01/17/20 Unknown History levalbuterol HCl 0.63 mg/3 mL 0.63 mg INHALATION TID PRN 01/17/20 02/22/20 Unknown History solution for nebulization omega-3 fatty acids 1,000 mg 1,000 mg PO DAILY 01/17/20 02/22/20 Unknown History capsule zinc 50 mg tablet 50 mg PO DAILY 01/17/20 02/22/20 Unknown History Allergies Allergy/AdvReac Type Severity Reaction Status Date / Time No Known Allergies Allergy Verified 01/07/20 12:27 PFSH Acute PFSH: Medical History Accelerated essential hypertension CAD (coronary artery disease) Closed fracture of distal end of right fibula COPD (chronic obstructive pulmonary disease) Diabetes Dyslipidemia GERD (gastroesophageal reflux disease) HTN (hypertension) Lower extremity edema Peripheral Vascular Disease Varicose veins of bilateral lower extremities with other complications Surgical History H/O heart bypass surgery Hx of CABG Hx of cholecystectomy Hx of cholecystectomy Family History Father CAD (coronary artery disease) Diabetes Hypertension Lung disease Grandfather CAD (coronary artery disease) Diabetes Hypertension Son CAD (coronary artery disease) Family history of premature coronary artery disease Grandmother Cancer Denies family history of Clotting disorder Dementia Hyperlipidemia Psychiatric illness Chronic kidney disease (CKD) Suicide Anesthesia complication Bleeding disorder Stroke Social History Smoking and tobacco status: former smoker Alcohol intake: former 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 Vitals/I&O/Wt Last Vital Signs Temp 98.6 F 02/23/20 07:29 Pulse 62 02/23/20 07:29 Resp 18 02/23/20 07:29 BP 159/78 02/23/20 07:29 Pulse Ox 95 02/23/20 07:29 Weight last 48 hrs Weight 260 lb Physical Exam Narrative: EXAM NARRATIVE: GENERAL: Patient is alert, awake and oriented x3. NECK: No jugular vein distension. HEENT: No cyanosis. No icterus. No pallor. HEART: Regular S1 and S2. No murmur, rub or gallop. LUNGS: Clear to auscultate bilaterally. ABDOMEN: Soft, nontender and nondistended. Positive bowel sounds. No guarding, rebound or tenderness. CENTRAL NERVOUS SYSTEM: Grossly nonfocal. EXTREMITIES: Lower extremities without edema bilaterally. Pulses not palpable in the right foot Data : 02/23/20 07:27 02/23/20 07:27 Other Labs: CTA ABDOMINAL AORTA WITH RUNOFF TECHNIQUE: Contrast enhanced CTA of the abdominal aorta with bilateral lower extremity runoff. Multiplanar reformatted images were obtained. MIP reformats were also reviewed. CLINICAL INFORMATION: I83.893 - Varicose veins of bilateral lower extremities with other complications COMPARISON: CT July 18, 2019 DLP: 1589.[address] scans at [facility] use at least one of these dose optimization techniques: automated exposure control; mA and/or kV adjustment per patient size (includes targeted exams where dose is matched to clinical indication); or iterative reconstruction. FINDINGS: Mild aortic calcification. Slightly lobulated bilobed infrarenal abdominal aorta with aneurysmal dilatation measuring 3.0 x 3.0 CM. Moderate to severe stenosis at the celiac origin. Mild to moderate stenosis at the SMA origin. Mild calcification both renal artery origins. Small to moderate left pleural effusion. Right lung base is well aerated. Mild diffuse fatty infiltration of the liver. Normal spleen. Normal GE junction. Pancreas is unremarkable. Prior cholecystectomy. Adrenal glands are normal. Normal renal parenchymal enhancement. Right renal cysts the largest involving the lower pole measuring 5.4 CM. Sigmoid diverticulosis. No evidence of acute diverticulitis. No evidence of small or large bowel obstruction. Wide mouth umbilical and supraumbilical hernia. Hernia mouth measures approximately 8.7 x 7.5 CM. Herniated omental fat. No herniated bowel. Incidental fat-containing left inguinal hernia. Disc osteophyte complex L1-2 with severe central canal stenosis. RIGHT: Mild stenosis of the right common iliac artery origin which is patent. External and internal iliac arteries are patent. Common femoral and deep femoral arteries are patent. Superficial femoral artery is patent to the adductor hiatus. Moderate to severe stenosis involving the distal SFA at the adductor hiatus with dense calcification. Popliteal artery is patent to the trifurcation. Three-vessel runoff to the ankle with dominant posterior tibial artery. LEFT: Left common iliac artery is patent. External and internal iliac arteries are patent. Common femoral artery is patent. Superficial femoral artery and deep femoral arteries are patent. Mild to moderate segmental stenosis involving the superficial femoral artery which is patent to the adductor hiatus. Popliteal artery is patent to the trifurcation. Segmental two-vessel runoff to the ankle with poor flow in the anterior tibial artery. Tiny peroneal artery. Dominant posterior tibial artery. CT/CT angio abd aorta runof [id number] IMPRESSION: 1. Aneurysmal infrarenal abdominal aorta with bilobed infrarenal aneurysmal dilatation measuring 3.0 x 3.0 cm in maximum dimension. 2. RIGHT: Mild stenosis right common iliac artery origin which remains patent. Common femoral and superficial femoral arteries are patent. Moderate to severe stenosis involving the distal SFA at the adductor hiatus. Popliteal artery is patent to the trifurcation with segmental three-vessel runoff to the ankle. Dominant posterior tibial artery. 3. LEFT: Iliac and femoral arteries are patent. Superficial femoral artery is patent to the adductor hiatus. Popliteal artery is patent to the trifurcation.Three-vessel runoff to the ankle with occlusion of the anterior ti bial artery and tiny peroneal artery. Dominant posterior tibial artery remains patent. 4. Small to moderate left pleural effusion 5. Large right renal cyst measuring 5.4 CCM. 6. Large umbilical and supraumbilical hernia with wide mouth. Herniated omental fat. No herniated bowel. 7. Incidental fat-containing left inguinal hernia. 8. Moderate to severe stenosis at L1-2 due to disc osteophyte complex. A&P Assessment and plan (1) Peripheral Vascular Disease: Patient has lifestyle limiting claudication he has a severe distal right SFA disease. We will proceed with peripheral angiogram and intervention such as atherectomy/balloon angioplasty or if needed stent. Patient has been explained all risk benefit and alternative for drug-coated balloon. He would like to proceed with it. Status: Acute (2) CAD (coronary artery disease): Stable doing fine from a cardiac perspective. Continue current regimen Status: Acute Qualifiers: Coronary Disease-Associated Artery/Lesion type: bypass graft Tribal vs. transplanted heart: [place] heart Associated angina: without angina Qualified Code(s): I25.810 - Atherosclerosis of coronary artery bypass graft(s) without angina pectoris (3) HTN (hypertension): Mildly elevated we will optimize his medicine. Status: Acute Qualifiers: Hypertension type: essential hypertension Qualified Code(s): I10 - Essential (primary) hypertension Attestations Medical Necessity Statement*: Expecting his stay not to cross more than 2 midnights. Coding Level of Care Code New Pt Acute Wallpaper Consultant for Natalie Chu Patient Type New History Detailed Exam Detailed Medical Decision Making Moderate Complexity Diagnoses Peripheral Vascular Disease I73.9 CAD (coronary artery disease) I25.810 Coronary Disease-Associated Artery/Lesion type: bypass graft [place] vs. transplanted heart: [place] heart Associated angina: without angina HTN (hypertension) I10 Hypertension type: essential hypertension
--- NOTE | 2020-02-23 09:31 | W.PM.OPSUD ---
Surgery/Procedure H&P Update DATE OF PROCEDURE: February 23, 2020 DATE H&P PERFORMED: 02/23/20 H&P UPDATE INFORMATION: I have examined patient prior to procedure, No changes to prior documentation and Changes to prior documentation as noted here PREOP DIAGNOSIS: life Limiting claudication PLANNED PROCEDURE: Operation Date: 02/23/20 08:30 Proposed Procedures p Peripheral Diagnostic 24016 I73.9(Bilateral) - Ludmila Gilbert MD PATIENT REASSESSED PRIOR TO SEDATION, WITH NO CHANGE NOTED: Yes PHYSICAL EXAM: alert, oriented x 3 and clear to auscultation bilaterally AIRWAY EVAL/ANESTHESIA PLAN: ASA II, Risks, benefits & alternatives of sedation and/or procedure discussed and Patient agrees to continue as planned
[2020-02-23 10:11] LABS: Absolute Eosinophils 0.2 10^3/cmm (0.0-0.7); Absolute Neutrophil 2.5 10^3/cmm (1.4-6.5); Absolute Segmented Neutrophil 2.1 10/cmm (1.6-7.1); Band Neutrophils Absolute 0.4 10^3/cmm (0.0-1.2); Eosinophils 5 %; Lymphocytes 41 %; Monocytes Absolute 0.3 10^3/cmm (0.1-0.6); Platelet Estimate Normal (Normal); Segmented Neutrophils 40 %; Total Cells Counted 100 (0-100)
[2020-02-23] MEDS: sodium chloride 0.9% 1,000 ML 100 ML IV (10:30)
--- NOTE | 2020-02-23 10:30 | PC.NURSE ---
Patient to ICU from semiconductor lab technician at 1030. 2 nurse verification of left groin, asymptomatic. Patient oriented to room and call light and educated on activity restrictions. Verbalized understanding. Nurse to continue to monitor.
--- NOTE | 2020-02-23 11:15 | NUR.SHIFT ---
Sheath pulled at 1050 per verbal order to pull now. Direct pressure held for 20 minutes, hemostasis achieved. Patient tolerated well. Patient reeducated on activity restrictions. Verbalized understanding. Nurse to continue to monitor.
[2020-02-23 15:57] LABS: Glucose Point of Care 233 mg/dL (70-110)
--- NOTE | 2020-02-23 17:30 | PC.NURSE ---
patient ambulated in hallway with nursing staff. insertion site reassessed, asymptomatic. Nurse to continue to monitor.
--- NOTE | 2020-02-23 18:00 | PC.NURSE ---
Discharge instructions given per the physician's orders. Patient verbalized understanding of teaching and did not have any further questions. IV has been removed. Patient dressed self. No further needs identified at this time.
== END 2020-02-23 17:45 | disposition home or self-care (01) ==
LOC: CCL 06:59 → CSU 16:15 → ICU 02-25 10:00 → CSU 02-25 10:01
PROVIDERS: PCP Family Medicine; Visit Provider Internal Medicine Cardiovascular Disease
DX: I73.9 Peripheral vascular disease, unspecified (principal); I77.1 Stricture of artery; I25.810 Atherosclerosis of coronary artery bypass graft(s) without angina pectoris; I10 Essential (primary) hypertension; Z95.1 Presence of aortocoronary bypass graft; E78.5 Hyperlipidemia, unspecified; Z79.82 Long term (current) use of aspirin; E11.9 Type 2 diabetes mellitus without complications; K21.9 Gastro-esophageal reflux disease without esophagitis; Z82.49 Family history of ischemic heart disease and other diseases of the circulatory system; Z87.891 Personal history of nicotine dependence
CPT/HCPCS: 12345; 36415; 36416; 75625; 75716; 80048; 82962; 85007; 85027; C1769; C1887; C1894; J1644; J2250; J3010; J7030; Q0163; Q9967

== ENCOUNTER → 2020-02-29 08:16 | Outpatient (BNVA) | payer OTHER, SELFPAY | PROVIDERS: PCP Family Medicine; Visit Provider Anesthesiology Pain Medicine | DX: M48.062 Spinal stenosis, lumbar region with neurogenic claudication (principal); M54.9 Dorsalgia, unspecified; M47.816 Spondylosis without myelopathy or radiculopathy, lumbar region; M51.16 Intervertebral disc disorders with radiculopathy, lumbar region; I25.10 Atherosclerotic heart disease of native coronary artery without angina pectoris; I10 Essential (primary) hypertension; Z87.891 Personal history of nicotine dependence | CPT/HCPCS: 99213 ==

== ENCOUNTER 2020-03-13 16:09 | Observation (INO) | payer OTHER, MEDICARE, SELFPAY ==
[2020-03-13] VITALS (10 sets, daily range): BP systolic 121–170; BP diastolic 70–84; PULSE 55–103; RESP 12–29; TEMP 36.2–36.9; O2SAT 92–100; BMI 34.8
--- NOTE | 2020-03-13 18:37 | XRR_ITS ---
PROCEDURE INFORMATION: Exam: XR Chest, 1 View Exam date and time: 03/13/2020 6:43 PM Age: 70 years old Clinical indication: Other: Right arm numbness; Prior surgery; Surgery type: Open heart; Additional info: CVA TECHNIQUE: Imaging protocol: XR of the chest Views: 1 view. COMPARISON: CR XR chest 1V portable [id number] 07/17/2019 11:59 PM FINDINGS: Lungs: COPD, interstitial prominence, and questionable left basilar airspace disease. PA and lateral chest radiographs can be performed for improved characterization if clinically indicated. Pleural space: No significant pleural effusion. Heart/Mediastinum: Borderline cardiomegaly and epicardial fat. Bones/joints: Median sternotomy. osteopenia and degenerative change. XR/XR chest 1V portable [id number] IMPRESSION: COPD, interstitial prominence, and questionable left basilar airspace disease. PA and lateral chest radiographs can be performed for improved characterization if clinically indicated.
--- NOTE | 2020-03-13 18:38 | ECG_ITS ---
[facility] Test Date: 2020-03-13 Pat Name: Victorino Stevenson Department: Room: 277 Gender: Male Desulfurizer Hand: : 1950 Requested By: Presley Taylor Order Number: [id number] Katie MD: SHIRA MARES Measurements Intervals [place] Rate: 59 P: 50 [place]: 168 QRS: 51 QRSD: 84 T: 75 QT: 420 QTc: 419 Interpretive Statements SINUS BRADYCARDIA POSSIBLE LEFT ATRIAL ENLARGEMENT [-0.1mV P WAVE IN V1/V2] SEPTAL MYOCARDIAL INFARCTION , OF INDETERMINATE AGE [40+ ms Q WAVE IN V1/V2] Compared to ECG 04/01/2016 02:30:50 Myocardial infarct finding now present Sinus rhythm no longer present Electronically Signed On 03-14-2020 19:59:06 HOUSESMITH by SHIRA MARES [email or web address]/store/[id number]
--- NOTE | 2020-03-13 18:38 | W.ED.NEUROSD ---
HPI - Neuro Symptoms/Deficit General: Chief Complaint: Neuro Symptoms/Deficit Stated Complaint: r arm going numb, history of heart issues Time Seen by Provider: 03/13/20 18:34 Source: patient Mode of arrival: ambulatory Limitations: no limitations History of Present Illness: HPI Narrative: 70-year-old male who states that he woke up this morning at 5 AM with numbness and weakness to his right arm and hand. He states he has been dropping things all day and has not been able to lift his right arm at times. He states he has numbness to the arm as well. Denies any chest pain or neck pain. Denies any headache. Denies any worsening improving factors. Associated symptoms: Deny chest pain, headache(s), nausea or vomiting Review of Systems Const: Denies: fever(s), chills, body aches or change in appetite Eyes: Denies: blurry vision or eye discomfort ENMT: Denies: throat pain or dental pain Card: Denies: chest pain Resp: Denies: dyspnea GI: Denies: abdominal pain, nausea, vomiting or diarrhea : Denies: dysuria Musc: Denies: neck pain or back pain Skin/Breast: Denies: rash Neuro: Reports: numbness in extremities and weakness in extremities; Denies: headache(s) Psych: Denies: depression Redd/Lymph: Denies: easy bruising All/Imm: Denies: urticaria PFSH ED PFSH: Medical History Accelerated essential hypertension CAD (coronary artery disease) Closed fracture of distal end of right fibula COPD (chronic obstructive pulmonary disease) Diabetes Dyslipidemia GERD (gastroesophageal reflux disease) HTN (hypertension) Lower extremity edema Peripheral Vascular Disease Varicose veins of bilateral lower extremities with other complications Surgical History H/O heart bypass surgery Hx of CABG Hx of cholecystectomy Hx of cholecystectomy Family History Father CAD (coronary artery disease) Diabetes Hypertension Lung disease Grandfather CAD (coronary artery disease) Diabetes Hypertension Son CAD (coronary artery disease) Family history of premature coronary artery disease Grandmother Cancer Denies family history of Clotting disorder Dementia Hyperlipidemia Psychiatric illness Chronic kidney disease (CKD) Suicide Anesthesia complication Bleeding disorder Stroke Social History Smoking and tobacco status: former smoker Alcohol intake: former 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 History of recent travel: No NIH stroke score NIHSS: Level Of Consciousness - 1a: 0 Level Of Consciousness Questions - 1b: Both Correct Level Of Consciousness Commands - 1c: Both Correct Best Gaze - 2: Normal Visual Mast - 3: No Visual Loss Facial Palsy - 4: Normal Motor Arm Right - 5: Drift Motor Arm Left - 5: No Drift Motor Leg Right - 6: No Drift Motor Leg Left - 6: No Drift Limb Ataxia - 7: Absent Sensory - 8: Mild To Moderate Loss Best Language - 9: No Aphasia Dysarthia - 10: Normal Extinction And Inattention - 11: 0 Score: Total Score: 2 Physical Exam Const: COMMON NORMALS: no acute distress, patient oriented x3 and healthy appearing HENMT: COMMON NORMALS: normocephalic and atraumatic HEAD & SCALP: normocephalic and atraumatic Eye: COMMON NORMALS: Equal, round and reactive pupils present and EOMs intact bilaterally PUPIL: Yes Equal, round and reactive pupils present Neck/C-Spine: COMMON NORMALS: full ROM and supple Chest: COMMONS NORMALS: normal inspection of the chest and normal palpation of entire chest wall Resp: COMMON NORMALS: normal respiratory effort, No retractions, No use of accessory muscles and clear to auscultation bilaterally AUSCULTATION: clear to auscultation bilaterally Cardio: COMMON NORMALS: regular rate, regular rhythm and No murmurs present (Cardio) RATE: regular rate RHYTHM: regular rhythm GI: COMMON NORMALS: Normal to inspection, nondistended, normoactive bowel sounds present, Soft to palpation, non-tender and no masses PALPATION: Yes Soft to palpation Extremity: COMMON NORMALS: normal to inspection and full ROM Neuro: COMMON NORMALS: patient oriented x3 CRANIAL NERVES: Yes CN normal except as noted SPEECH: speech normal GAIT: Yes Normal gait present OTHER: 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 and does have a arm drift with the right arm numbness to the right arm as well Psych: COMMON NORMALS: mental status grossly normal, Normal thought process present and cooperative THOUGHT PROCESS: Normal thought process present Skin: COMMON NORMALS: no rashes or lesions noted and no wounds GENERAL SKIN EXAM: no rashes or lesions noted Course Vital Signs: Vital signs: Vital Signs Temperature 97.1 F L 03/13/20 16:19 Pulse Rate 58 L 03/13/20 20:30 Respiratory Rate 20 H 03/13/20 20:30 Blood Pressure 146/70 03/13/20 20:30 Pulse Oximetry 100 03/13/20 20:30 MDM - Neuro Symptoms/Deficit MDM Narrative: Medical decision making narrative: Patient presents here with a possible CVA. He does have right-handed weakness and is not a TPA candidate as his last known normal is 5 AM. Patient's work-up here is normal so far. Spoke to hospitalist will admit for observation. Lab Data: Labs: Lab Results 03/13/20 03/13/20 03/13/20 Range/Units 19:22 19:22 19:22 WBC 5.9 (4.0-10.0) 10^3/ uL RBC 4.43 (4.1-5.3) 10^6/u L Hgb 13.6 (11.7-16.6) g/dL Hct 41.5 L (42.0-52.0) % MCV 93.7 (80-94) fL MCH 30.7 (28.0-34.0) pg MCHC 32.8 (30.0-36.0) g/dL RDW 12.8 (12.1-15.1) % Plt Count 151 (130-400) 10^3/c mm MPV 10.5 H (7.4-10.4) fL Neut % (Auto) 40.2 % Lymph % (Auto) 48.4 % Calloway % (Auto) 8.3 % Eos % (Auto) 1.9 % Baso % (Auto) 1.0 % Neut # (Auto) 2.38 (1.8-7.7) 10^3/u L Lymph # (Auto) 2.9 (0.8-4.8) 10^3/u L Calloway # (Auto) 0.5 (0.2-0.9) 10^3/u L Eos # (Auto) 0.1 (0.0-0.8) 10^3/u L Baso # (Auto) 0.1 (0.0-0.1) 10^3/u L Nucleated RBC % (a uto) 0 % Nucleated RBCs # 0.0 /100WBC PT 14.20 (12.1-14.9) SECO NDS INR 1.07 (0.8-1.2) Sodium 138 (136-145) mmol/L Potassium 4.1 (3.5-5.1) mmol/L Chloride 101 (98-107) mmol/L Carbon Dioxide 29 (22-29) mmol/L Anion Gap 12.1 (5-19) BUN 25 H (8-23) mg/dL Creatinine 1.0 (0.7-1.2) mg/dL GFR Calculation Not Reportable Glucose 274 H (65-115) mg/dL Calculated Osmolal ity 300 H (285-295) mOsm/k g Calcium 9.1 (8.5-10.5) mg/dL Total Bilirubin 0.5 (0.15-1.2) mg/dL AST 20 (0-40) U/L ALT 26 (0-41) U/L Alkaline Phosphata se 107 (40-130) IU/L Total Protein 7.7 (6.6-8.7) g/dL Albumin 3.7 (3.5-5.2) g/dL Globulin 4.0 (1.3-4.6) g/dL Imaging Data^: CT Head: Radiologist's impression: [address] [address] [address] Scan Report Signed Patient: Victorino Stevenson Unit #: [id number] : 1950 Age/Sex: 70 / M ADM Date: 03/13/20 Loc: ER Room/Bed: Attending Dr: Ordering Provider/Ordering MD: Presley Taylor MD Date of Service: 03/13/20 Procedure(s): CT head wo con* [id number] Accession Number(s): [id number] Report Number: [id number] PROCEDURE INFORMATION: Exam: CT Head Without Contrast Exam date and time: 03/13/2020 6:43 PM Age: 70 years old Clinical indication: Dizziness and visual disturbance and weakness, extremity; Right; Additional info: CVA TECHNIQUE: Imaging protocol: Computed tomography of the head without contrast. Radiation optimization: All CT scans at this facility use at least one of these dose optimization techniques: automated exposure control; mA and/or kV adjustment per patient size (includes targeted exams where dose is matched to clinical indication); or iterative reconstruction. COMPARISON: No relevant prior studies available. RADIATION DOSE METRICS: Total DLP (mGy-cm): 856.6 FINDINGS: Brain: One or more chronic left lacunar basal ganglia infarcts. Mild cerebral atrophy and ischemic leukoencephalopathy. Cerebral ventricles: No ventriculomegaly. Bones/joints: Severe thoracic spondylosis. Paranasal sinuses: Mild left maxillary sinus disease. Mastoid air cells: Visualized mastoid air cells are well aerated. Vasculature: Severe calcified intracranial atherosclerotic vessel disease. Soft tissues: Unremarkable. CT/CT head wo con* [id number] IMPRESSION: 1. Mild left maxillary sinus disease. 2. No acute intracranial findings. CXR: Attestation: I personally reviewed and interpreted this imaging study as follows: My impression: No acute abnormality EKG Data^: EKG 1: Attestation: I personally reviewed and interpreted this EKG as follows: EKG interpretation date: 03/13/20 EKG interpretation time: 19:23 Interpretation: sinus marta hr [address] or t wave abnormalities qrs 84 qtc 420 Discharge Plan Discharge Patient Disposition: Admitted As Inpatient Clinical Impression: Cerebrovascular accident Condition: Stable Coding Level of Care Code ED Transportation Dispatch Manager for Chg Fwd Exam Comprehensive
[2020-03-13 19:29] LABS: Basophils # 0.1 10^3/uL (0.0-0.1); Eosinophils # 0.1 10^3/uL (0.0-0.8); Eosinophils % 1.9 %; Hematocrit 41.5 % (42.0-52.0); Hemoglobin 13.6 g/dL (11.7-16.6); Lymphocytes # 2.9 10^3/uL (0.8-4.8); Lymphocytes % 48.4 %; Mean Corpuscular HGB Conc 32.8 g/dL (30.0-36.0); Mean Corpuscular Hemoglobin 30.7 pg (28.0-34.0); Mean Corpuscular Volume 93.7 fL (80-94); Mean Platelet Volume 10.5 fL (7.4-10.4); Monocytes # 0.5 10^3/uL (0.2-0.9); Monocytes % 8.3 %; Neutrophils # 2.38 10^3/uL (1.8-7.7); Neutrophils % 40.2 %; Nucleated Red Blood Cells % 0 %; Platelet Count 151 10^3/cmm (130-400); Red Blood Count 4.43 10^6/uL (4.1-5.3); Red Cell Distribution Width 12.8 % (12.1-15.1); White Blood Count 5.9 10^3/uL (4.0-10.0)
[2020-03-13 19:42] LABS: INR 1.07 (0.8-1.2)
[2020-03-13 19:55] LABS: Alanine Aminotransferase 26 U/L (0-41); Albumin Level 3.7 g/dL (3.5-5.2); Alkaline Phosphatase 107 IU/L (40-130); Anion Gap 12.1 (5-19); Aspartate Amino Transferase 20 U/L (0-40); Blood Urea Nitrogen 25 mg/dL (8-23); Calcium 9.1 mg/dL (8.5-10.5); Carbon Dioxide 29 mmol/L (22-29); Chloride 101 mmol/L (98-107); Glucose 274 mg/dL (65-115); Osmolality Calculated 300 mOsm/kg (285-295); Potassium 4.1 mmol/L (3.5-5.1); Sodium 138 mmol/L (136-145); Total Bilirubin 0.5 mg/dL (0.15-1.2); Total Protein 7.7 g/dL (6.6-8.7)
--- NOTE | 2020-03-13 20:11 | PC.NURSE ---
pt to room with c/o numbness to right hand to shoulder since 8AM today
--- NOTE | 2020-03-13 20:11 | PC.NURSE ---
waiting for results, no needs, no change in assessment.
[2020-03-13] MEDS: aspirin 81 mg Chew Tablet 324 MG PO (20:32)
--- NOTE | 2020-03-13 21:28 | PC.NURSE ---
call to . request pt to maintain all rails up secondary to pt's PTSD, he may fall out of bed. Notified LUCIA Reid
--- NOTE | 2020-03-13 22:12 | PM.HP ---
Providers/Chief Complaint Admitting Physician: Luciano Moore Primary Care Provider: Sujata Macedo MD Chief Complaint: r arm going numb, history of heart issues History of Present Illness Very pleasant 70-year-old gentleman with history of CAD, status post CABG, HTN, HLD, PVD, DM 2, HLD, reported COPD, although he is not aware, but does use occasional nebulizer, presents to the hospital due to numbness, weak information assurance analyst in the right hand which started around 5 AM yesterday morning. In ER he underwent assessment by CT of the head with finding of mild left maxillary sinus disease, no acute findings, but with finding of 1 or more chronic left lacunar basal ganglia infarcts, mild cerebral atrophy and ischemic leukoencephalopathy. He received 325 mg aspirin. He reports currently symptoms are little better. He denies knowledge of prior stroke. He says he recently had a visit with his mortar carrier and that his heart was doing well. He says that he occasionally monitors his blood pressure at home. He says that he had quit smoking a while back and has not restarted. Glucose is noted 274. Chest x-ray is pending reading, appears to show cardiomegaly. He otherwise does not have signs or symptoms of acute CHF. Review of Systems Const: Denies: fever(s), chills, body aches or malaise Eyes: Denies: change in vision or eye redness ENMT: Denies: throat pain, oral sores or ear or mastoid pain Card: Denies: chest pain, edema, pre-syncope or dyspnea on exertion Resp: Denies: productive cough, change in phlegm color or hemoptysis GI: Denies: abdominal pain, nausea, vomiting, diarrhea, constipation, hematochezia or melena : Denies: flank pain, difficulty urinating, urinary frequency or hematuria Musc: Denies: back pain, joint swelling or joint redness Skin/Breast: Denies: rash, sores or new lesions Neuro: Reports: numbness in extremities (R hand), weakness in extremities and lack of coordination (R hand); Denies: headache(s), dizziness, vertigo, confusion, Slurred speech present or seizure-like activity Endo: Denies: polyuria or polydipsia Redd/Lymph: Denies: easy bleeding or purpura All/Imm: Denies: urticaria, throat swelling or tongue swelling Medications/Allergies Home Medications Medication Instructions Recorded Confirmed Last Taken Type ondansetron HCl [Zofran] 4 mg PO Q6H PRN #10 tab 07/18/19 03/13/20 Unknown Rx clopidogrel 75 mg tablet 75 mg PO DAILY@99908/04/19 03/13/20 03/13/20 History furosemide 20 mg tablet 20 mg PO DAILY@99908/04/19 03/13/20 03/13/20 History insulin glargine 100 unit/mL 100 unit SUBCUT DAILY@99908/04/19 03/13/20 03/13/20 History subcutaneous solution metoprolol tartrate 25 mg tablet 12.5 mg PO Q12H 08/04/19 03/13/20 03/13/20 History tamsulosin 0.4 mg capsule 0.4 mg PO DAILY@99908/04/19 03/13/20 03/13/20 History citalopram 40 mg tablet 20 mg PO DAILY@99908/05/19 03/13/20 03/13/20 History nitroglycerin 0.4 mg sublingual 0.4 mg SUBLINGUAL Q5M PRN #25 tab 08/10/19 03/13/20 Unknown Rx tablet aspirin 81 mg tablet,delayed 81 mg PO DAILY@99911/08/19 03/13/20 03/13/20 History release atorvastatin 20 mg tablet 40 mg PO DAILY@1000 tab 11/08/19 03/13/20 03/13/20 History cholecalciferol (vitamin D3) 25 25 mcg PO DAILY@99911/08/19 03/13/20 03/13/20 History mcg (1,000 unit) capsule ascorbic acid (vitamin C) 500 mg 500 mg PO DAILY@99901/17/20 03/13/20 03/13/20 History capsule levalbuterol HCl 0.63 mg/3 mL 0.63 mg INHALATION TID PRN 01/17/20 03/13/20 Unknown History solution for nebulization omega-3 fatty acids 1,000 mg 1,000 mg PO DAILY@99901/17/20 03/13/20 03/13/20 History capsule zinc 50 mg tablet 50 mg PO DAILY@99901/17/20 03/13/20 03/13/20 History hydrocodone 10 mg-acetaminophen 1 tab PO Q8H PRN 30 Days #90 tab 02/29/20 03/13/20 03/13/20 Rx 325 mg tablet Protonix 40 mg PO DAILY@1000 03/13/20 03/13/20 03/13/20 History elderberry fruit and flower 1 cap PO DAILY@1000 03/13/20 03/13/20 03/13/20 History gabapentin 300 mg PO TID@10,15,18 03/13/20 03/13/20 03/13/20 History Allergies Allergy/AdvReac Type Severity Reaction Status Date / Time No Known Allergies Allergy Verified 03/13/20 16:22 PFSH Acute PFSH: Medical History Accelerated essential hypertension CAD (coronary artery disease) Closed fracture of distal end of right fibula COPD (chronic obstructive pulmonary disease) Diabetes Dyslipidemia GERD (gastroesophageal reflux disease) HTN (hypertension) Lower extremity edema Peripheral Vascular Disease Varicose veins of bilateral lower extremities with other complications Surgical History H/O heart bypass surgery Hx of CABG Hx of cholecystectomy Hx of cholecystectomy Family History Father CAD (coronary artery disease) Diabetes Hypertension Lung disease Grandfather CAD (coronary artery disease) Diabetes Hypertension Son CAD (coronary artery disease) Family history of premature coronary artery disease Grandmother Cancer Denies family history of Clotting disorder Dementia Hyperlipidemia Psychiatric illness Chronic kidney disease (CKD) Suicide Anesthesia complication Bleeding disorder Stroke Social History Smoking and tobacco status: former smoker Alcohol intake: former 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 Lives independently: Yes History of recent travel: No Vitals/I&O/Wt Last Vital Signs Temp 98.3 F 03/13/20 21:44 Pulse 70 03/13/20 21:44 Resp 14 03/13/20 21:44 BP 170/77 03/13/20 21:44 Pulse Ox 94 03/13/20 21:44 03/13/20 03/13/20 03/13/20 06:59 14:59 22:59 Intake Total 0 / 0 Balance 0 / 0 Weight last 48 hrs Weight 119.748 kg Physical Exam Const: COMMON NORMALS: no acute distress and patient oriented x3 HENMT: COMMON NORMALS: oropharynx normal Neck/C-Spine: COMMON NORMALS: no JVD Resp: COMMON NORMALS: normal respiratory effort and clear to auscultation bilaterally AUSCULTATION: clear to auscultation bilaterally Cardio: COMMON NORMALS: no JVD, regular rhythm, S1 normal heart sound present, S2 normal heart sound present and No murmurs present (Cardio) RHYTHM: regular rhythm HEART SOUNDS: S1 normal heart sound present and S2 normal heart sound present GI: COMMON NORMALS: Normal to inspection, nondistended, normoactive bowel sounds present, Soft to palpation and non-tender PALPATION: Yes Soft to palpation Extremity: COMMON NORMALS: no joint enlargement and no pedal edema Neuro: COMMON NORMALS: patient oriented x3 and moves all extremities MENINGEAL SIGNS: Yes no meningeal signs COORDINATION/BALANCE: other (FNF with minimal dysmetria on the R) SPEECH: speech normal SENSORY EXAM: Yes extremities (Reports sensation symmetrical on exam.) and Normal double simultaneous stimulation for sensation MOTOR EXAM: Pronator motor function not present and Other motor observations present (Power 4/5 RUE, 5/5 otherwise) OTHER: Visual brizuela full to confrontation. Skin: COMMON NORMALS: no rashes or lesions noted GENERAL SKIN EXAM: no rashes or lesions noted Data : 03/13/20 19:22 03/13/20 19:22 A&P Assessment and plan (1) Cerebrovascular accident: He does note some improvement in his symptoms, but says they are not completely gone. He does have it appears some minimal dysmetria in the right upper extremity. Power is 4/5 compared to the left. This appears to have pretty well recovered recovered. He denies numbness asymmetry on exam currently. This symptom appears to have improved as well. Discussed with him finding of prior lacunar infarcts in his left basal ganglia on CT of the head. He says was not aware of prior CVA. Discussed with him importance of management of risk factors as he is at elevated CVA going forward, and especially in the next several weeks. He verbalized understanding. He could definitely benefit from more frequent blood pressure checks at home. Initially his blood pressure was in 120s over 80s-70s, but does have an episode of 170/77. Discussed with him concern regarding possible episodic hypertension. We also discussed other risk factors. His glucose is 274. Will request for A1c. Appears this may benefit from better control. As it appears his CVA has been more than 24 hours ago we will resume his antihypertensive measures. He denies history of atrial fibrillation. Will monitor on telemetry. He does have quite extensive history of vascular disease including CABG, PVD. Discussed with him concern regarding vascular disease at other sites. Will assess carotid duplex. For tomorrow we will also request MRI and MRA of the brain. TTE. Discussed with him that a longer-term monitor may be considered. Encouraged him to follow-up with a neurologist as well. At this time we will continue aspirin, he is also on Plavix will continue this. Discussed with him increasing the dose of atorvastatin and he is agreeable. We will obtain PT, OT evaluation. Bedside swallow evaluation. Status: Acute Additional A&P Information CAD, status post CABG, continue follow-up with cardiology, continue medications HTN HLD DM2: Resume Lantus, although for now at reduced dosing, please monitor glucose and adjust as appropriate. Insulin sliding scale. COPD: He reports is not aware of this diagnosis. Does use occasional nebs at home if he gets more short of breath. Currently does not appear in exacerbation. GERD PVD Other chronic conditions. Attestations Medical Necessity Statement*: Place in observation. Coding Level of Care Code Acute Email Production Specialist for Natalie Chu Diagnoses Cerebrovascular accident I63.9
[2020-03-13] MEDS: metoprolol tartrate 25 mg Tablet 12.5 MG PO (23:32)
[2020-03-14] VITALS (8 sets, daily range): BP systolic 134–170; BP diastolic 68–84; PULSE 54–75; RESP 17–18; TEMP 36.6–36.9; O2SAT 94–97
[2020-03-14 06:15] LABS: Estmated Average Glucose 209; Hemoglobin A1C 8.9 % (4.0-6.0)
[2020-03-14 07:02] LABS: Glucose Point of Care 194 mg/dL (70-110)
--- NOTE | 2020-03-14 09:10 | CT_ITS ---
WS: [id number] CT ANGIOGRAM CEREBRAL AND CAROTID ARTERIES HISTORY: right hand clumsiness TECHNIQUE: CT angiogram is performed of the carotid and cerebral arteries. During arterial injection imaging is obtained from the skull vertex to the aortic arch in 1.25 mm imaging. Coronal and sagittal reformats are submitted. Additional multi planar reformats of the carotid and cerebral arteries are submitted, MIP imaging also reviewed. NASCET criteria utilized. All CT scans at [facility] use at least one of these dose optimization techniques: automated exposure control; mA and/or kV ad justment per patient size (includes targeted exams where dose is matched to clinical indication); or iterative reconstruction. CONTRAST: Omnipaque 350; 95 mL IV. DLP: 2910.65 mGy.cm COMPARISON: Noncontrast CT head 03/13/2020 Carotid Angiogram: Right carotid: Common carotid artery: Arises normally from the innominate artery. No significant plaque or stenosis. Internal carotid artery: Small amount of calcified plaque at the RIGHT bifurcation. External carotid artery: Patent. Left carotid: Common carotid artery: Common carotid artery arises at the base of the innominate. Internal carotid artery: There is extensive soft tissue plaque at the bifurcation and calcified plaqu e and soft plaque measures up to 3.4 mm. There is a small ulceration extending into the lumen of the proximal LEFT ICA. External carotid artery: Patent. Right vertebral artery: Unremarkable. Left vertebral artery: Small caliber LEFT vertebral artery is arising from the aortic arch. Significa nt narrowing of the lumen proximally at the origin from the arch. High-grade stenosis suspected. Subclavian arteries: No stenosis or significant abnormality. Upper thorax: Normal. Thyroid gland: Normal. Osseous structures: Cervical spondylosis. No fractures. CEREBRAL ANGIOGRAM: Intracranial vertebral arteries: Tortuous LEFT vertebral artery crosses the midline and joins the RIG HT vertebral artery. Basilar artery: Small caliber but patent. Intracranial Internal carotid arteries: Scattered calcified plaque through the cavernous sinuses. No aneurysm or occlusion. There is a large dominant artery that arises from the basilar tip extends to t he LEFT to join the cavernous ICA. No occlusions or stenosis. Middle cerebral arteries: Normal. Anterior cerebral arteries and ACOM: Normal. Posterior cerebral arteries and PCOM's: Normal. Dural venous sinuses are normally enhancing. Mastoid air cells: Normal. Paranasal sinuses: Moderate mucoperiosteal thickening in the LEFT maxillary sinus. Calvarium: Normal. CT/CT angio headne* [id number] IMPRESSION: 1. LEFT ICA stenosis 59%. There is a large amount of circumferential soft plaq ue and a few scattered calcified plaques. 2. Less than 50% RIGHT ICA stenosis. 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 4. High-grade stenosis involving the proximal LEFT vertebral artery at its rey gin from the aorta. Otherwise small caliber LEFT vertebral artery.
--- NOTE | 2020-03-14 09:26 | PC.CHAP ---
Pastoral Care Encounter/Spiritual Assessment Type of Contact [] Declined careers counsellor visit [] Patient/Family/Request visit [] Outpatient visit [] Follow-up visit [] Physician referral [] Code/Alert [] Routine visit [] Staff referral [] Actively dying [] Patient sleeping [] Family support [] [] Out of room [] Palliative care [] [] Receiving care in room [] Pre-surgical visit [] Trauma [] Long length of stay [] ICU visit [] Other: Relational/Emotional Strength [] Patient feels connected with others/family/visitors/staff [] Distress [] Loneliness/isolation [] Abandonment Spirituality of Patient [] Person of [place] [] Attends Mandaeism of their [place] [] Believes in Prayer [] Reads Bible or Congregation materials [] There are Spiritual issues to be addressed International Marketing Intern Interventions [] Prayer [] Active listening [] Non-anxious presence [] Spiritual/emotional support [] Crisis/trauma care [] Spiritual counseling [] Bereavement support [] Provided bereavement packet [] Provided Bible/devotional materials [] Provided toy/stuffed animal, coloring book to patient or family member [] Provided Communion [] Anointing/[place] [] Salvation [] Completed spiritual assessment [] Other: Impact on Illness or Injury [] Angry [] Fearful [] Anxious [] Often cries [] Exhaustion [] Unable to work [] Unable to attend shinto [] Unable to walk/stand [] Unable to read [] Unable to drive [] Unable to eat/drink [] Unable to sleep [] Unable to be with family [] Patient intubated [] Other: Summary Time spent with patient
[2020-03-14] MEDS: iohexol 350 mg/mL 100 mL Btl IV (09:53)
[2020-03-14] MEDS: tamsulosin 0.4 mg Capsule PO (10:17)
[2020-03-14] MEDS: atorvastatin 40 mg Tablet 80 MG PO (10:17)
[2020-03-14] MEDS: aspirin 81 mg EC Tablet PO (10:17)
[2020-03-14] MEDS: FUROsemide 20 mg Tablet PO (10:18)
[2020-03-14] MEDS: citalopram 20 mg Tablet PO (10:18)
[2020-03-14] MEDS: clopidogrel 75 mg Tablet PO (10:18)
[2020-03-14] MEDS: pantoprazole DR 40 mg Tablet PO (10:18)
[2020-03-14] MEDS: metoprolol tartrate 25 mg Tablet 12.5 MG PO (10:18)
[2020-03-14] MEDS: insulin glargine 100 units/1 mL 60 UNIT SUBCUT (10:23)
--- NOTE | 2020-03-14 10:55 | PM.DCS ---
Discharge Providers Date of Admission: 03/13/20 20:33 Date of Discharge: March 14, 2020 Attending Provider at Admission: Luciano Moore Attending Provider at Discharge: Adam Willams MD Primary Care Provider: Sujata Macedo MD Diagnoses at Discharge Discharge Diagnosis (1) Cerebrovascular accident: Status: Acute Reason for Visit Reason for Visit: r arm going numb, history of heart issues Hospital Course Hospital Course This is a 70-year-old male with a past medical history of insulin-dependent type 2 diabetes mellitus, hypertension, hyperlipidemia, CHF, vasculopathy, CAD status post CABG, peripheral vascular disease, carotid artery disease, COPD, quit smoking over 20 years ago who presents to [facility] for right hand weakness and clumsiness, dropping, slight right facial droop since 5 AM on 03/13/2020. Likely lacunar infarct. NIH stroke scale was 2-3, patient was out of TPA window, CT of the head showed chronic left lacunar basal ganglia infarcts, mild cerebral atrophy and ischemic leukoencephalopathy, CT angiogram of the head and neck showed left ICA stenosis 59%, large amount of circumferential soft plaque and few scattered calcific plaques, less than 50% right ICA stenosis, high-grade stenosis involving the proximal left vertebral artery at its origin from the aorta. Patient was managed as inpatient with aspirin, statin, Plavix, fluid therapy, blood pressure monitoring. EKG did not show any evidence of atrial fibrillation. Echocardiogram is pending on day of discharge. On the day of discharge, he continued to have right hand weakness, right hand clumsiness, trouble coordinating, slight right facial droop, no other focal neurologic deficits. Ambulating, no slurring of his speech, no visual loss, no trouble swallowing. Patient will be discharged with aspirin and Plavix dual antiplatelet therapy for at least 21 days, followed by 81 mg of aspirin, high-dose statin, physical therapy, and outpatient MRI has been ordered, with follow-up with neurology. I have discussed the case with Dr. Winter, she agrees with the plan. Physical Exam Const: COMMON NORMALS: no acute distress and patient oriented x3 GENERAL APPEARANCE: cooperative and comfortable HENMT: COMMON NORMALS: normocephalic HEAD & SCALP: normocephalic Eye: COMMON NORMALS: Equal, round and reactive pupils present, EOMs intact bilaterally and no papilledema GENERAL EYE: appearance normal, both eyes and all related structures PUPIL: Yes Equal, round and reactive pupils present DIRECT OPHTHALMOSCOPY: Yes no papilledema Neck/C-Spine: COMMON NORMALS: full ROM, no lymphadenopathy, no JVD and Thyroid normal THYROID: Thyroid normal Lymph: LYMPHATIC: no lymphadenopathy noted Resp: COMMON NORMALS: normal respiratory effort, No retractions, No use of accessory muscles and clear to auscultation bilaterally AUSCULTATION: clear to auscultation bilaterally Cardio: COMMON NORMALS: no JVD, regular rate, regular rhythm, S1 normal heart sound present, S2 normal heart sound present, No gallops present (Cardio), No clicks present (Cardio) and No murmurs present (Cardio) RATE: regular rate RHYTHM: regular rhythm HEART SOUNDS: S1 normal heart sound present and S2 normal heart sound present GI: COMMON NORMALS: Normal to inspection, nondistended, normoactive bowel sounds present, Soft to palpation, non-tender and No hepatosplenomegaly present PALPATION: Yes Soft to palpation and Yes No hepatosplenomegaly present Extremity: COMMON NORMALS: normal to inspection, full ROM and no pedal edema Neuro: COMMON NORMALS: patient oriented x3, CN's II-XII intact bilaterally and moves all extremities OTHER: Right hand clumsiness, strength 3 out of 5 compared to 5 out of 5 on the left, trouble coordinating right hand, no loss of sensation, abnormal [id number] on the right slight right facial droop, no forearm weakness, no shoulder weakness compared to the left, no right leg weakness compared to the left nose, no slurring of his speech, no visual loss Psych: COMMON NORMALS: mental status grossly normal, Normal thought process present and cooperative THOUGHT PROCESS: Normal thought process present Discharge Data Data Completed and Pending: Completed Studies During Hospitalization Category Date Time Status CT angio headneck * [id number] Stat Cat Scan 03/14/20 09:[address] head wo con* [id number] Urgent Cat Scan 03/13/20 18:37 Completed XR chest 1V fay ble [id number] Urgent Exams 03/13/20 18:37 Completed Pending at discharge Category Date Time Status CV carotid duplex BI* [id number] Routine Ultrasound 03/14/20 22:09 Ordered CV echo complete* [id number] Routine Ultrasound 03/14/20 22:09 Ordered Labs from last 24 hours 03/14/20 03/14/20 03/13/20 06:52 04:42 19:22 WBC RBC Hgb Hct MCV MCH MCHC RDW Plt Count MPV Neut % (Auto) Lymph % (Auto) [place] % (Auto) Eos % (Auto) Baso % (Auto) Neut # (Auto) Lymph # (Auto) [place] # (Auto) Eos # (Auto) Baso # (Auto) Nucleated RBC % (a uto) Nucleated RBCs # PT INR Sodium 138 Potassium 4.1 Chloride 101 Carbon Dioxide 29 Anion Gap 12.1 BUN 25 H Creatinine 1.0 GFR Calculation Not Reportable Glucose 274 H POC Glucose 194 H Estimat Average Gl ucose 209 Hemoglobin A1c 8.9 H Calculated Osmolal ity 300 H Calcium 9.1 Total Bilirubin 0.5 AST 20 ALT 26 Alkaline Phosphata se 107 Total Protein 7.7 Albumin 3.7 Globulin 4.0 03/13/20 03/13/20 19:22 19:22 WBC 5.9 RBC 4.43 Hgb 13.6 Hct 41.5 L MCV 93.7 MCH 30.7 MCHC 32.8 RDW 12.8 Plt Count 151 MPV 10.5 H Neut % (Auto) 40.2 Lymph % (Auto) 48.4 [place] % (Auto) 8.3 Eos % (Auto) 1.9 Baso % (Auto) 1.0 Neut # (Auto) 2.38 Lymph # (Auto) 2.9 [place] # (Auto) 0.5 Eos # (Auto) 0.1 Baso # (Auto) 0.1 Nucleated RBC % (a uto) 0 Nucleated RBCs # 0.0 PT 14.20 INR 1.07 Sodium Potassium Chloride Carbon Dioxide Anion Gap BUN Creatinine GFR Calculation Glucose POC Glucose Estimat Average Gl ucose Hemoglobin A1c Calculated Osmolal ity Calcium Total Bilirubin AST ALT Alkaline Phosphata se Total Protein Albumin Globulin Vitals: Last Vital Signs Temp 97.9 F 03/14/20 07:44 Pulse 54 L 03/14/20 07:44 Resp 17 03/14/20 07:44 BP 161/78 03/14/20 07:44 Pulse Ox 94 03/14/20 07:44 Discharge Plan Discharge Patient Disposition: Home Condition: Stable Prescriptions: No Action citalopram 40 mg tablet 20 mg PO DAILY@1000 RF: 0 nitroglycerin [Nitrostat] 0.4 mg tablet, sublingual 0.4 mg SUBLINGUAL Q5M PRN (Reason: chest pain) Qty: 25 RF: 4 atorvastatin 20 mg tablet 40 mg PO DAILY@1000 RF: 0 zinc 50 mg tablet 50 mg PO DAILY@1000 RF: 0 omega-3 fatty acids [Fish Oil Concentrate] 1,000 mg capsule 1,000 mg PO DAILY@1000 RF: 0 ascorbic acid (vitamin C) 500 mg capsule 500 mg PO DAILY@1000 RF: 0 aspirin [Adult Aspirin Regimen] 81 mg tablet,delayed release (DR/EC) 81 mg PO DAILY@1000 RF: 0 cholecalciferol (vitamin D3) 25 mcg (1,000 unit) capsule 25 mcg PO DAILY@1000 RF: 0 hydrocodone-acetaminophen 10-325 mg tablet 1 tab PO Q8H PRN (Reason: pain (scale score 7-10)) 30 Days Qty: 90 RF: 0 clopidogrel 75 mg tablet 75 mg PO DAILY@1000 RF: 0 furosemide 20 mg tablet 20 mg PO DAILY@1000 RF: 0 insulin glargine 100 unit/mL solution 100 unit SUBCUT DAILY@1000 RF: 0 metoprolol tartrate 25 mg tablet 12.5 mg PO Q12H RF: 0 tamsulosin 0.4 mg capsule 0.4 mg PO DAILY@1000 RF: 0 levalbuterol HCl 0.63 mg/3 mL solution for nebulization 0.63 mg INHALATION TID PRN (Reason: Shortness Of Breath) RF: 0 elderberry fruit and flower 460-115 mg Capsule 1 cap PO DAILY@1000 RF: 0 Protonix 40 mg tablet,delayed release (DR/EC) 40 mg PO DAILY@1000 RF: 0 gabapentin 300 mg capsule 300 mg PO TID@10,15,18 RF: 0 ondansetron HCl [Zofran] 4 mg tablet 4 mg PO Q6H PRN (Reason: nausea and vomiting) Qty: 10 RF: 0 Referrals: Sujata Macedo MD [Primary Care Provider] - Discharge Attestations Time Spent in Discharge Care*: greater than 30 min Quality Metrics Clinical Quality Measures During this hospital stay, did patient experience: Stroke Contraindication to Antithrombotic: Antithrombotic prescribed Contraindication to Anticoagulation: Overlap treatment not indicated Contraindication to Statin: Statin prescribed Coding Level of Care Code Acute Transplant Immunologist for [facility] Diagnoses Cerebrovascular accident I63.9
[2020-03-14 11:04] LABS: Glucose Point of Care 205 mg/dL (70-110)
--- NOTE | 2020-03-14 11:16 | PC.NURSE ---
DR MERINO PT COMPLAINED OF BRIEF NUMBNESS IN RIGHT UPPER LIP AREA - DR HUSTON - REORDERING MRI
[2020-03-14] MEDS: gabapentin 300 mg Capsule PO (11:18)
[2020-03-14] MEDS: LORazepam 2 mg/mL INJ 1 mL 0.5 MG IVP ×2 (11:40→13:11)
--- NOTE | 2020-03-14 13:12 | PC.NURSE ---
MRI PER [facility] - PT UNABLE TO HOLD STILL DURING MRI - PER THIS NURSE - SECOND DOSE GIVEN IN [facility]
--- NOTE | 2020-03-14 13:56 | PC.NURSE ---
MRI DR MERINO NOTIFIED PER [place] IN MRI - PT UNABLE TO COMPLETE MRI - CANCELLED PER
--- NOTE | 2020-03-14 14:03 | PC.NURSE ---
RETURN FROM MRI RETURN FROM MRI - PT NOTED TO HAVE SLIGHT CONFUSION - AT SIDE - X3 RAILS UP
--- NOTE | 2020-03-14 22:09 | USCV_ITS ---
Graham Victorino Age: 70 Gender: M : 1950 Exam Date: 03/14/2020 14:03 Ordering Phys: Luciano Moore MD Technologist: Dionisio Bermudez Exam Location: [facility] [place] Indication: cva BP: 134 / 76 HR: 80 Rhythm: Sinus Technical Quality: Fair MEASUREMENTS (Male / Female) Normal Values 2D ECHO LV Diastolic Diameter PLAX 3.7 cm 4.2 - 5.9 / 3.9 - 5.3 cm LV Systolic Diameter PLAX 2.0 cm IVS Diastolic Thickness 1.4 cm 0.6 - 1.0 / 0.6 - 0.9 cm IVS Systolic Thickness 1.7 cm LVPW Diastolic Thickness 1.2 cm 0.6 - 1.0 / 0.6 - 0.9 cm LVPW Systolic Thickness 2.0 cm LVOT Diameter 2.0 cm LV Ejection Fraction 2D Teich 77.5 % LA Diameter 4.3 cm LA Width 3.8 cm LA Height 5.5 cm RA Width 4.2 cm RA Height 5.1 cm M-MODE LV Diastolic Diameter MM 4.2 cm 4.2 - 5.9 / 3.9 - 5.3 cm LV Systolic Diameter MM 2.6 cm LV Ejection Fraction MM Teich 67.2 % IVS Diastolic Thickness MM 1.2 cm 0.6 - 1.0 / 0.6 - 0.9 cm IVS Systolic Thickness MM 1.6 cm LVPW Diastolic Thickness MM 1.3 cm 0.6 - 1.0 / 0.6 - 0.9 cm LVPW Systolic Thickness MM 2.1 cm RV Diastolic Diameter MM 2.5 cm Aortic Annulus Diameter 3.6 cm LA Ao Ratio MM 1.4 MV E Point Septal Separation 0.9 cm DOPPLER AV Peak Velocity 142.0 cm/s LVOT Peak Velocity 88.0 cm/s AV Area Cont Eq vti 2.7 cm squared AV Area Cont Eq pk 2.0 cm squared MV Area PHT 5.0 cm squared Mitral E to A Ratio 1.1 MV E' Velocity 47.5 cm/s Mitral E to MV E' Ratio 11.8 Mitral E to LV E' Lateral Ratio 10.2 Mitral E to LV E' Septal Ratio 14.4 TR Peak Velocity 173.3 cm/s TR Peak Gradient 12.0 mmHg TV Peak E Velocity 99.0 cm/s Right Atrial Pressure 3.0 mmHg Pulmonary Artery Systolic Pressu 15.0 mmHg FINDINGS Left Ventricle Normal left ventricular size and systolic function, EF 65% . Mild left ventricular hypertrophy. No gross wall motion abnormalities noted Right Ventricle Normal right ventricular size and systolic function. Right Atrium Normal right atrial size. Left Atrium Mildly increased left atrial size. Mitral Valve Thickened mitral valve. Mild mitral annular calcification. Mild mitral valve regurgitation. Aortic Valve Thickened aortic valve. Tricuspid Valve Not visualized well Pulmonic Valve No gross abnormalities noted Pericardium No pericardial effusion. Aorta Normal aortic annulus size. CONCLUSIONS Normal left ventricular size and systolic function, EF 65% . Mild left ventricular hypertrophy. No gross wall motion abnormalities noted. Normal right ventricular size and systolic function. Mildly increased left atrial size. Thickened mitral valve. Mild mitral annular calcification. Mild mitral valve regurgitation. Thickened aortic valve. There is no pericardial effusion. There are no intracardiac masses. Compared to the previous study from May 13, 2015, there may not be a significant change Dr Patricia Joy MD [facility] (Electronically Signed) Final Date: 14 March 2020 17:49 S
--- NOTE | 2020-03-14 22:09 | USCV_ITS ---
Victorino Stevenson Age: 70 Gender: M : 1950 Exam Date: 03/14/2020 14:16 Ordering Phys: Luciano Moore MD Technologist: Dionisio Bermudez Exam Location: [facility] [place] Indication: cva Risk Factors: smoker Previous Vascular Surgery: Right Brachial BP: / Left Brachial BP: / Right Left Velocity (cm/s) Spectral Plaque Velocity (cm/s) Spectral Plaque Syst/Diast Broadening Syst/Diast Broadening 48.90/ 8.00 Prox CCA 92.10 / 14.20 35.30/ 3.00 Hetro Mid CCA 82.00 / 14.20 Hetro 38.90/ 6.00 Hetro Distal CCA 87.00 / 18.20 Hetro 34.10/ 4.20 Hetro Prox ICA 94.30 / 15.40 Hetro 30.50/ 4.80 Hetro Mid ICA 71.20 / 15.40 Hetro 182.90/47.40 Distal ICA 84.00 / 17.20 None 44.30 ECA 98.20 3.74 ICA/CCA 1.02 Antegrade Vertebral Occluded 81.40/ 12.10 cm/s / cm/s Bi Subclavian Bi 93.00 92.60 FINDINGS Minimal plaques at the right bifurcation and proximal internal carotid artery. Low velocity Doppler waveforms in the right common carotid internal carotid arteries The mid and distal ICA on the right side could not be visualized well. Elevated velocity in the distal right internal carotid artery Moderate heterogeneous plaques at the left bifurcation and proximal internal carotid artery. No Doppler flow signals were noted in the left vertebral artery. Intimal thickening in the common carotid arteries bilaterally. CONCLUSIONS 1. Relatively diminished Doppler velocities in the right common carotid and internal carotid arteries, suggestive of proximal high-grade stenosis. 2. Elevated velocity in the distal right internal carotid artery may suggest hemodynamically significant stenosis 3. Features of occlusion of the left vertebral artery. 4. Moderate heterogeneous plaques at the left bifurcation and proximal internal carotid artery with velocity elevation consistent with 16-49% stenosis. Consider CTA, to better evaluate the proximal arch vessels and the distal ICA on the right side. No similar previous studies are available for comparison Dr Patricia Joy MD [facility] (Electronically Signed) Final Date: 14 March 2020 20:27 S
--- NOTE | 2020-03-15 10:03 | PC.RESP ---
Pulmonary Rehab information sent to patient.
--- NOTE | 2020-03-15 10:03 | PC.RESP ---
Pulmonary Rehab information sent to patient.
== END 2020-03-14 16:30 | disposition home or self-care (01) ==
LOC: ER 20:34 → MEDSURG 21:02
PROVIDERS: Admitting Provider Internal Medicine; Emergency Provider Emergency Medicine; PCP Family Medicine; Visit Provider Family Medicine
DX: I63.9 Cerebral infarction, unspecified (principal); I25.10 Atherosclerotic heart disease of native coronary artery without angina pectoris; I65.23 Occlusion and stenosis of bilateral carotid arteries; Z95.1 Presence of aortocoronary bypass graft; I10 Essential (primary) hypertension; E78.5 Hyperlipidemia, unspecified; E11.9 Type 2 diabetes mellitus without complications; J44.9 Chronic obstructive pulmonary disease, unspecified; Z79.82 Long term (current) use of aspirin; Z79.4 Long term (current) use of insulin; Z87.891 Personal history of nicotine dependence
CPT/HCPCS: 12345; 36415; 36416; 70450; 70496; 70498; 71045; 80053; 82962; 83036; 85025; 85610; 93005; 93306; 93880; 96372; 96374; 97161; 97165; 99283; 99285; G0378; J1815 ×2; J2060; Q9967

== ENCOUNTER → 2020-03-28 08:48 | Outpatient (BNVA) | payer OTHER, SELFPAY | PROVIDERS: PCP Family Medicine; Visit Provider Anesthesiology Pain Medicine | DX: M48.062 Spinal stenosis, lumbar region with neurogenic claudication (principal); M47.816 Spondylosis without myelopathy or radiculopathy, lumbar region; M51.16 Intervertebral disc disorders with radiculopathy, lumbar region; M54.9 Dorsalgia, unspecified; I25.810 Atherosclerosis of coronary artery bypass graft(s) without angina pectoris; I10 Essential (primary) hypertension; I63.9 Cerebral infarction, unspecified; Z79.891 Long term (current) use of opiate analgesic | CPT/HCPCS: 99214 ==

== ENCOUNTER → 2020-04-03 14:19 | Outpatient (BNVA) | payer OTHER, SELFPAY | PROVIDERS: PCP Family Medicine; Visit Provider Nurse Practitioner | DX: I99.8 Other disorder of circulatory system (principal); I65.29 Occlusion and stenosis of unspecified carotid artery; Z87.891 Personal history of nicotine dependence | CPT/HCPCS: 99205 ==

== ENCOUNTER 2020-04-10 20:36 | Emergency (ER) | payer OTHER, MEDICARE, SELFPAY ==
--- NOTE | 2020-04-10 20:40 | ECG_ITS ---
[facility] Test Date: 2020-04-10 Pat Name: Victorino Stevenson Department: Room: Gender: Male [employer]: : 1950 Requested By: Presley Taylor Order Number: [id number] Reading MD: SHIRA MARES Measurements Intervals [place] Rate: 54 P: 51 KS: 186 QRS: 51 QRSD: 93 T: 79 QT: 432 QTc: 411 Interpretive Statements SINUS BRADYCARDIA POSSIBLE LEFT ATRIAL ENLARGEMENT [-0.1mV P WAVE IN V1/V2] Compared to ECG 03/13/2020 19:23:20 Myocardial infarct finding no longer present Electronically Signed On 04-11-2020 18:03:07 INSIGHTS STRATEGIST by SHIRA MARES [id number] f
--- NOTE | 2020-04-10 20:40 | CTR_ITS ---
PROCEDURE INFORMATION: Exam: CT Head Without Contrast Exam date and time: 04/10/2020 8:44 PM Age: 70 years old Clinical indication: Visual disturbance; Additional info: CVA TECHNIQUE: Imaging protocol: Computed tomography of the head without contrast. Radiation optimization: All CT scans at this facility use at least one of these dose optimization techniques: automated exposure control; mA and/or kV adjustment per patient size (includes targeted exams where dose is matched to clinical indication); or iterative reconstruction. COMPARISON: CT head wo con* [id number] 03/13/2020 6:41 PM RADIATION DOSE METRICS: Total DLP (mGy-cm): 893.12 FINDINGS: Brain: Chronic lacune left caudate head. No hemorrhage. Unchanged white matter. No mass effect. Cerebral ventricles: No ventriculomegaly. Bones/joints: No acute findings. Paranasal sinuses: Left maxillary sinus wall thickening and mucosal thickening similar to prior study. Mastoid air cells: Visualized mastoid air cells are well aerated. Soft tissues: Unremarkable. Nasopharynx: Pneumatized middle turbinates. CT/CT head wo con* [id number] IMPRESSION: No acute intracranial abnormality. Radiation Dose CTDIVOL = (mGy): DLP = 893.12 (mGy-cm)
[2020-04-10 20:44] VITALS: BP 128/72; PULSE 56; RESP 17; TEMP 36.9; O2SAT 97; BMI 33.9
[2020-04-10 20:47] VITALS: BP 128/72; PULSE 55; RESP 17; O2SAT 95
--- NOTE | 2020-04-10 20:52 | ED_ITS ---
HPI - Neuro Symptoms/Deficit General: Chief Complaint: Neuro Symptoms/Deficit Stated Complaint: DOUBLE VISON Time Seen by Provider: 04/10/20 20:39 Source: patient and EMS Mode of arrival: EMS Limitations: no limitations History of Present Illness: HPI Narrative: 70-year-old male has a history of a stroke in the past. He states that starting tonight at 7 he had double vision that lasted roughly 30 minutes to an hour. He states since resolved and he feels completely fine. He had no numbness or weakness with his double vision. Denies any difficulty talking. Denies any worsening improving factors. He denies headache. Denies vomiting or diarrhea. Associated symptoms: Deny chest pain, headache(s), nausea or vomiting Review of Systems Const: Denies: fever(s), chills, body aches or change in appetite Eyes: Reports: blurry vision; Denies: eye discomfort ENMT: Denies: throat pain or dental pain Card: Denies: chest pain Resp: Denies: dyspnea GI: Denies: abdominal pain, nausea, vomiting or diarrhea : Denies: dysuria Musc: Denies: neck pain or back pain Skin/Breast: Denies: rash Neuro: Denies: headache(s) Psych: Denies: depression Redd/Lymph: Denies: easy bruising All/Imm: Denies: urticaria PFSH ED PFSH: Medical History Accelerated essential hypertension CAD (coronary artery disease) Carotid artery stenosis, symptomatic Closed fracture of distal end of right fibula COPD (chronic obstructive pulmonary disease) Diabetes Dyslipidemia GERD (gastroesophageal reflux disease) HTN (hypertension) Lower extremity edema Peripheral Vascular Disease Varicose veins of bilateral lower extremities with other complications Surgical History H/O heart bypass surgery Hx of CABG Hx of cholecystectomy Hx of cholecystectomy Family History Father CAD (coronary artery disease) Diabetes Hypertension Lung disease Grandfather CAD (coronary artery disease) Diabetes Hypertension Son CAD (coronary artery disease) Family history of premature coronary artery disease Grandmother Cancer Denies family history of Clotting disorder Dementia Hyperlipidemia Psychiatric illness Chronic kidney disease (CKD) Suicide Anesthesia complication Bleeding disorder Stroke Social History Smoking and tobacco status: former smoker Alcohol intake: former 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 Lives independently: Yes History of recent travel: No NIH stroke score NIHSS: Level Of Consciousness - 1a: 0 Level Of Consciousness Questions - 1b: Both Correct Level Of Consciousness Commands - 1c: Both Correct Best Gaze - 2: Normal Visual Mast - 3: No Visual Loss Facial Palsy - 4: Normal Motor Arm Right - 5: No Drift Motor Arm Left - 5: No Drift Motor Leg Right - 6: No Drift Motor Leg Left - 6: No Drift Limb Ataxia - 7: Absent Sensory - 8: Normal Best Language - 9: No Aphasia Dysarthia - 10: Normal Extinction And Inattention - 11: 0 Score: Total Score: 0 Physical Exam Const: COMMON NORMALS: no acute distress, patient oriented x3 and healthy appearing HENMT: COMMON NORMALS: normocephalic and atraumatic HEAD & SCALP: normocephalic and atraumatic Eye: COMMON NORMALS: Equal, round and reactive pupils present and EOMs intact bilaterally PUPIL: Yes Equal, round and reactive pupils present Neck/C-Spine: COMMON NORMALS: full ROM and supple Chest: COMMONS NORMALS: normal inspection of the chest and normal palpation of entire chest wall Resp: COMMON NORMALS: normal respiratory effort, No retractions, No use of accessory muscles and clear to auscultation bilaterally AUSCULTATION: clear to auscultation bilaterally Cardio: COMMON NORMALS: regular rate, regular rhythm and No murmurs present (Cardio) RATE: regular rate RHYTHM: regular rhythm GI: COMMON NORMALS: Normal to inspection, nondistended, normoactive bowel sounds present, Soft to palpation, non-tender and no masses PALPATION: Yes Soft to palpation Extremity: COMMON NORMALS: normal to inspection and full ROM Neuro: COMMON NORMALS: patient oriented x3, moves all extremities and no focal motor deficits CRANIAL NERVES: Yes CN normal except as noted SPEECH: speech normal GAIT: Yes Normal gait present MOTOR EXAM: 5/5 motor strength present throughout Psych: COMMON NORMALS: mental status grossly normal, Normal thought process present and cooperative THOUGHT PROCESS: Normal thought process present Skin: COMMON NORMALS: no rashes or lesions noted and no wounds GENERAL SKIN EXAM: no rashes or lesions noted Course Vital Signs: Vital signs: Vital Signs Temperature 98.5 F 04/10/20 20:44 Pulse Rate 4 L 04/10/20 22:01 Respiratory Rate 17 04/10/20 20:47 Blood Pressure 123/82 04/10/20 22:01 Pulse Oximetry 95 04/10/20 22:01 MDM - Neuro Symptoms/Deficit MDM Narrative: Medical decision making narrative: Victorino presents here with likely TIA. He had some blurred vision. He has no visual deficits here and his NIH is 0. He is on aspirin and a blood thinner along with atorvastatin. He is to follow-up this week with Dr. Trujillo. He is stable for discharge is return if he has any further symptoms. He understands and agrees the plan. Lab Data: Labs: Lab Results 04/10/20 04/10/20 04/10/20 Range/Units 21:00 21:00 21:00 WBC 5.4 (4.0-10.0) 10^3/ uL RBC 4.33 (4.1-5.3) 10^6/u L Hgb 13.0 (11.7-16.6) g/dL Hct 40.4 L (42.0-52.0) % MCV 93.3 (80-94) fL MCH 30.0 (28.0-34.0) pg MCHC 32.2 (30.0-36.0) g/dL RDW 13.0 (12.1-15.1) % Plt Count 158 (130-400) 10^3/c mm MPV 10.7 H (7.4-10.4) fL Neut % (Auto) 40.0 % Lymph % (Auto) 47.8 % Braxton % (Auto) 9.2 % Eos % (Auto) 1.7 % Baso % (Auto) 0.9 % Neut # (Auto) 2.18 (1.8-7.7) 10^3/u L Lymph # (Auto) 2.6 (0.8-4.8) 10^3/u L Braxton # (Auto) 0.5 (0.2-0.9) 10^3/u L Eos # (Auto) 0.1 (0.0-0.8) 10^3/u L Baso # (Auto) 0.1 (0.0-0.1) 10^3/u L Nucleated RBC % (a uto) 0 % Nucleated RBCs # 0.0 /100WBC PT 14.10 (12.1-14.9) SECO NDS INR 1.05 (0.8-1.2) Sodium 136 (136-145) mmol/L Potassium 4.0 (3.5-5.1) mmol/L Chloride 102 (98-107) mmol/L Carbon Dioxide 28 (22-29) mmol/L Anion Gap 10.0 (5-19) BUN 22 (8-23) mg/dL Creatinine 1.0 (0.7-1.2) mg/dL GFR Calculation Not Reportable Glucose 265 H (65-115) mg/dL Calculated Osmolal ity 295 (285-295) mOsm/k g Calcium 9.0 (8.5-10.5) mg/dL Total Bilirubin 0.3 (0.15-1.2) mg/dL AST 27 (0-40) U/L ALT 33 (0-41) U/L Alkaline Phosphata se 111 (40-130) IU/L Total Protein 7.3 (6.6-8.7) g/dL Albumin 3.5 (3.5-5.2) g/dL Globulin 3.8 (1.3-4.6) g/dL Imaging Data^: CT Head: Attestation: I personally reviewed and interpreted this imaging study as follows: Radiologist's impression: [address] [address] [address] Scan Report Signed Patient: Victorino Stevenson Unit #: [id number] : 1950 Age/Sex: 70 / M ADM Date: 04/10/20 Loc: ER Room/Bed: Attending Dr: Ordering Provider/Ordering MD: Presley Taylor MD Date of Service: 04/10/20 Procedure(s): CT head wo con* [id number] Accession Number(s): [id number] Report Number: [id number] PROCEDURE INFORMATION: Exam: CT Head Without Contrast Exam date and time: 04/10/2020 8:44 PM Age: 70 years old Clinical indication: Visual disturbance; Additional info: CVA TECHNIQUE: Imaging protocol: Computed tomography of the head without contrast. Radiation optimization: All CT scans at this facility use at least one of these dose optimization techniques: automated exposure control; mA and/or kV adjustment per patient size (includes targeted exams where dose is matched to clinical indication); or iterative reconstruction. COMPARISON: CT head wo con* [id number] 03/13/2020 6:41 PM RADIATION DOSE METRICS: Total DLP (mGy-cm): 893.12 FINDINGS: Brain: Chronic lacune left caudate head. No hemorrhage. Unchanged white matter. No mass effect. Cerebral ventricles: No ventriculomegaly. Bones/joints: No acute findings. Paranasal sinuses: Left maxillary sinus wall thickening and mucosal thickening similar to prior study. Mastoid air cells: Visualized mastoid air cells are well aerated. Soft tissues: Unremarkable. Nasopharynx: Pneumatized middle turbinates. CT/CT head wo con* [id number] IMPRESSION: No acute intracranial abnormality. Discharge Plan Discharge Patient Disposition: Home Clinical Impression: Transient cerebral ischemia Condition: Stable Prescriptions: No Action citalopram 40 mg tablet 20 mg PO DAILY@1000 RF: 0 nitroglycerin [Nitrostat] 0.4 mg tablet, sublingual 0.4 mg SUBLINGUAL Q5M PRN (Reason: chest pain) Qty: 25 RF: 4 zinc 50 mg tablet 50 mg PO DAILY@1000 RF: 0 omega-3 fatty acids [Fish Oil Concentrate] 1,000 mg capsule 1,000 mg PO DAILY@1000 RF: 0 ascorbic acid (vitamin C) 500 mg capsule 500 mg PO DAILY@1000 RF: 0 cholecalciferol (vitamin D3) 25 mcg (1,000 unit) capsule 25 mcg PO DAILY@1000 RF: 0 clopidogrel 75 mg tablet 75 mg PO DAILY@1000 RF: 0 furosemide 20 mg tablet 20 mg PO DAILY@1000 RF: 0 insulin glargine 100 unit/mL solution 90 unit SUBCUT BID@1000,2200 RF: 0 metoprolol tartrate 25 mg tablet 12.5 mg PO Q12H RF: 0 tamsulosin 0.4 mg capsule 0.4 mg PO DAILY@1000 RF: 0 levalbuterol HCl 0.63 mg/3 mL solution for nebulization 0.63 mg INHALATION TID PRN (Reason: Shortness Of Breath) RF: 0 hydrocodone-acetaminophen 10-325 mg tablet 1 tab PO Q8H PRN (Reason: pain (scale score 7-10)) 30 Days Qty: 90 RF: 0 aspirin 325 mg tablet 325 mg PO DAILY@1000 RF: 0 atorvastatin 40 mg tablet 80 mg PO DAILY@1000 Qty: 180 RF: 3 elderberry fruit and flower 460-115 mg Capsule 1 cap PO DAILY@1000 RF: 0 pantoprazole [Protonix] 40 mg tablet,delayed release (DR/EC) 40 mg PO DAILY@1000 RF: 0 gabapentin 300 mg capsule 300 mg PO TID@10,15,18 RF: 0 ondansetron HCl [Zofran] 4 mg tablet 4 mg PO Q6H PRN (Reason: nausea and vomiting) Qty: 10 RF: 0 Discharge Orders: Discharge ED (Routine); Ordered 04/10/20 Ordered By: Presley Taylor Referrals: Sujata Macedo MD [Primary Care Provider] - Discharge Diet: Advance as tolerated Discharge Activity: Resume usual activity Patient Instructions: Transient Ischemic Attack (ED) Coding Level of Care Code 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
[2020-04-10 21:16] LABS: Basophils # 0.1 10^3/uL (0.0-0.1); Basophils % 0.9 %; Eosinophils # 0.1 10^3/uL (0.0-0.8); Eosinophils % 1.7 %; Hematocrit 40.4 % (42.0-52.0); Lymphocytes # 2.6 10^3/uL (0.8-4.8); Lymphocytes % 47.8 %; Mean Corpuscular HGB Conc 32.2 g/dL (30.0-36.0); Mean Corpuscular Volume 93.3 fL (80-94); Mean Platelet Volume 10.7 fL (7.4-10.4); Monocytes # 0.5 10^3/uL (0.2-0.9); Monocytes % 9.2 %; Neutrophils # 2.18 10^3/uL (1.8-7.7); Nucleated Red Blood Cells % 0 %; Platelet Count 158 10^3/cmm (130-400); Red Blood Count 4.33 10^6/uL (4.1-5.3); White Blood Count 5.4 10^3/uL (4.0-10.0)
[2020-04-10 21:43] LABS: Alanine Aminotransferase 33 U/L (0-41); Albumin Level 3.5 g/dL (3.5-5.2); Alkaline Phosphatase 111 IU/L (40-130); Aspartate Amino Transferase 27 U/L (0-40); Blood Urea Nitrogen 22 mg/dL (8-23); Carbon Dioxide 28 mmol/L (22-29); Chloride 102 mmol/L (98-107); Creatinine Clr Calc Pharmacy 90.6288; Globulin 3.8 g/dL (1.3-4.6); Glucose 265 mg/dL (65-115); Osmolality Calculated 295 mOsm/kg (285-295); Sodium 136 mmol/L (136-145); Total Bilirubin 0.3 mg/dL (0.15-1.2); Total Protein 7.3 g/dL (6.6-8.7)
[2020-04-10 22:01] VITALS: BP 123/82; PULSE 4; O2SAT 95
[2020-04-10 22:15] LABS: INR 1.05 (0.8-1.2)
[2020-04-10 22:47] VITALS: BP 124/63; PULSE 62; PULSE 75; RESP 16; RESP 17; O2SAT 97
== END 2020-04-10 22:48 | disposition home or self-care (01) ==
PROVIDERS: Emergency Provider Emergency Medicine; PCP Family Medicine
DX: G45.9 Transient cerebral ischemic attack, unspecified (principal); Z79.02 Long term (current) use of antithrombotics/antiplatelets; Z79.82 Long term (current) use of aspirin; Z79.4 Long term (current) use of insulin; I25.10 Atherosclerotic heart disease of native coronary artery without angina pectoris; J44.9 Chronic obstructive pulmonary disease, unspecified; E11.9 Type 2 diabetes mellitus without complications; E78.5 Hyperlipidemia, unspecified; I10 Essential (primary) hypertension; Z95.1 Presence of aortocoronary bypass graft; Z87.891 Personal history of nicotine dependence
CPT/HCPCS: 12345; 70450; 80053; 85025; 85610; 93005; 99282; 99283

== ENCOUNTER 2020-05-02 14:02 | Outpatient (CLI) | payer OTHER, MEDICARE, SELFPAY ==
--- NOTE | 2020-05-02 15:00 | CT_ITS ---
WS: [id number] CTA THORACIC AORTA WITH AND WITHOUT CONTRAST. HISTORY: I65.21 - Occlusion and stenosis of right carotid artery TECHNIQUE: CT imaging of the thorax is performed with and without contrast. After noncontrast imaging is performed, CT angiogram is performed during injection of Omnipaque 300; 95 mL IV.. Sagittal and c oronal reconstructions, sagittal and coronal MIP imaging is submitted. All CT scans at [facility] use at least one of these dose optimization techniques: automated exposure control; mA and/o r kV adjustment per patient size (includes targeted exams where dose is matched to clinical indicatio n); or iterative reconstruction. DLP: 1529.63 mGycm COMPARISON: 06/25/2015 Atherosclerosis aorta. No aneurysmal dilatation. Intimal thickening and a few scattered calcified navin ques. Normal size pulmonary artery. Heart size is normal. Moderate coronary artery atherosclerosis. B ovine arch. Patient has a known occluded RIGHT carotid artery. Normal RIGHT vertebral artery is not i dentified and may be very small caliber or occluded. There is a small layering LEFT pleural effusion. No mass or pulmonary nodules. There are several smal l mediastinal and hilar lymph nodes. No adenopathy. Prior CABG. Cyst upper pole RIGHT kidney measures 2.3 cm. Visualized liver and spleen are normal on this early ar terial enhancement phase. Gallbladder appears to have been surgically removed. Atherosclerotic plaque at the origin of the celiac axis and SMA. Moderate spondylitic changes in the thoracic spine. CT/CT angio chest [id number] IMPRESSION: 1. Mild atherosclerosis thoracic aorta. No aneurysm. 2. Small layering LEFT pleural effusion. 3. Prior CABG.
[2020-05-02] MEDS: iohexol 350 mg/mL 100 mL Btl IV (15:18)
== END 2020-05-02 14:03 | disposition home or self-care (01) ==
PROVIDERS: PCP Family Medicine; Visit Provider Thoracic Surgery (Cardiothoracic Vascular Surgery)
DX: I65.21 Occlusion and stenosis of right carotid artery (principal); I70.0 Atherosclerosis of aorta; J90 Pleural effusion, not elsewhere classified; Z95.1 Presence of aortocoronary bypass graft
CPT/HCPCS: 71275; Q9967

== ENCOUNTER → 2020-05-03 09:46 | Outpatient (BNVA) | payer OTHER, SELFPAY | PROVIDERS: PCP Family Medicine; Visit Provider Anesthesiology Pain Medicine | DX: M51.16 Intervertebral disc disorders with radiculopathy, lumbar region (principal); M47.816 Spondylosis without myelopathy or radiculopathy, lumbar region; M48.062 Spinal stenosis, lumbar region with neurogenic claudication; M54.9 Dorsalgia, unspecified; I63.9 Cerebral infarction, unspecified; I25.810 Atherosclerosis of coronary artery bypass graft(s) without angina pectoris; I10 Essential (primary) hypertension; Z79.899 Other long term (current) drug therapy; Z79.891 Long term (current) use of opiate analgesic | CPT/HCPCS: 99214 ==

== ENCOUNTER 2020-06-01 11:16 | Observation (INO) | payer OTHER, MEDICARE, SELFPAY ==
[2020-06-01] VITALS (8 sets, daily range): BP systolic 116–165; BP diastolic 63–91; PULSE 54–64; RESP 15–18; TEMP 36.1–37; O2SAT 92–96; BMI 33.0
--- NOTE | 2020-06-01 11:35 | XR_ITS ---
WS: [id number] Exam: XR chest 1V portable [id number] Date/Time of Exam: 06/01/2020 11:35 AM Reason For Exam: AMS Comparison 03/13/2020 There is increased density in the left retrocardiac region medially that may represent infiltrate in the left lower lobe. This is an equivocal finding. Remaining lung brizuela are clear. Heart and mediast inal contours are unremarkable. Signs of previous CABG surgery. Recommendations: A detailed PA and lateral chest radiograph would yield more detailed information if thought to be clinically warranted. XR/XR chest 1V portable [id number] IMPRESSION: 1. Increased pulmonary density in the left retrocardiac region. This could repr esent infiltrate in the left lower lobe. Remaining aspects the chest are unrema rkable.
--- NOTE | 2020-06-01 11:35 | CT_ITS ---
WS: [id number] CT HEAD NONCONTRAST HISTORY: Fluctuating sensorium TECHNIQUE: Contiguous axial imaging performed through the brain in 2.5 mm imaging. Bone and soft tiss ue windows. Sagittal and coronal reformats reviewed. All CT scans at [facility] use at ast one of these dose optimization techniques: automated exposure control; mA and/or kV adjustment pe r patient size (includes targeted exams where dose is matched to clinical indication); or iterative r econstruction. DLP: 992.56 mGy.cm COMPARISON: 04/10/2020 No acute intracranial hemorrhage, midline shift or mass effect. Mild atrophy and mild chronic microvascular ischemic disease. Prior lacunar infarct in the LEFT cauda te head. Mild small vessel ischemic disease otherwise. Ventricles: Normal size with no hydrocephalus. Extensive atherosclerotic plaque within the intracranial carotid arteries, greatest on the LEFT. Paranasal sinuses: Diffuse mucoperiosteal thickening throughout the LEFT visualized maxillary sinus c avity. Mastoid air cells: Well pneumatized. Calvarium and scalp: Hyperostosis frontalis interna. CT/CT head wo con* [id number] IMPRESSION: 1. No acute intracranial hemorrhage or edema. 2. Remote LEFT caudate head lacunar infarct. 3. Moderate to severe intracranial carotid artery atherosclerosis.
--- NOTE | 2020-06-01 11:57 | W.ED.AMS ---
HPI - Altered Mental Status General: Chief Complaint: Altered Mental Status Stated Complaint: ALOC/ CONFUSED Time Seen by Provider: 06/01/20 11:26 History of Present Illness: HPI narrative: Patient is a 70-year-old male with poorly controlled diabetes who presents to the emergency department with confusion. He states that he woke up this morning and was confused and so called for an ambulance. The EMS crew said he was initially confused but got better, when he got to the emergency department the nurse said he was alert and oriented to her. However when I spoke to him he did have some confusion and memory issues. He denies any pain, cough, difficulty breathing, chest pain, nausea or vomiting. He denies any urinary symptoms. He says his blood sugar is always elevated, normal for him is in the 300s and when EMS arrived it was only about 192. He has lost his appetite and has not eaten anything today and has not used any of his medications. MD complaint: confusion Timing confirmed by: spouse Severity: moderate Consistency of symptoms: Waxing and Waning Associated symptoms: Deny auditory hallucinations, visual hallucinations, delusions, depression, homicidal ideation, racing thoughts or suicidal ideation Review of Systems General: Reports: 10 or more systems reviewed and unremarkable except in HPI and below Const: Denies: fever(s), chills or body aches Eyes: Denies: change in vision or blurry vision ENMT: Denies: throat pain, enlarged tonsils, odynophagia, hoarseness, mouth pain or swelling of lips/tongue Card: Denies: palpitations, irregular heart rhythm, edema or swelling of feet/ankles Resp: Denies: dyspnea, productive cough or non-productive cough GI: Denies: abdominal pain, nausea or vomiting : Denies: flank pain, dysuria, urinary frequency, urinary urgency or urinary hesitancy Musc: Denies: neck pain, back pain or extremity swelling Skin/Breast: Denies: rash, pruritus or erythema Neuro: Reports: confusion; Denies: headache(s), numbness in extremities or weakness in extremities Psych: Denies: depression, visual hallucinations, auditory hallucinations, suicidal ideation or homicidal ideation Endo: Denies: polyuria, polydipsia or tired all the time [facility] ED PFSH: Medical History (Reviewed 06/01/20 @ 17:59 by Maira Shen [place] [facility] [place] Accelerated essential hypertension CAD (coronary artery disease) Carotid artery stenosis, symptomatic Closed fracture of distal end of right fibula COPD (chronic obstructive pulmonary disease) Diabetes Dyslipidemia GERD (gastroesophageal reflux disease) HTN (hypertension) Lower extremity edema Peripheral Vascular Disease Varicose veins of bilateral lower extremities with other complications Surgical History (Reviewed 06/01/20 @ 17:59 by Maira Shen [place], [facility] [place] H/O heart bypass surgery Hx of CABG Hx of cholecystectomy Hx of cholecystectomy Family History (Reviewed 06/01/20 @ 17:59 by Maira Shen [place], [facility] [place] Father CAD (coronary artery disease) Diabetes Hypertension Lung disease Grandfather CAD (coronary artery disease) Diabetes Hypertension Son CAD (coronary artery disease) Family history of premature coronary artery disease Grandmother Cancer Denies family history of Clotting disorder Dementia Hyperlipidemia Psychiatric illness Chronic kidney disease (CKD) Suicide Anesthesia complication Bleeding disorder Stroke Social History (Reviewed 06/01/20 @ 17:59 by Maira Shen [place], [facility] [place] Smoking and tobacco status: former smoker Alcohol intake: former 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 Lives independently: Yes History of recent travel: No Physical Exam Const: COMMON NORMALS: no acute distress, average body habitus, no limitations, healthy appearing, alert and well nourished ORIENTATION/CONSCIOUSNESS: Yes oriented to place and Yes oriented to time; not oriented to person HENMT: COMMON NORMALS: normocephalic, atraumatic and moist oral mucous membranes HEAD & SCALP: normocephalic and atraumatic Neck/C-Spine: COMMON NORMALS: full ROM, supple, no meningeal signs, no JVD and No carotid bruits Resp: COMMON NORMALS: normal respiratory effort, No retractions, No use of accessory muscles, clear to auscultation bilaterally and percussion normal AUSCULTATION: clear to auscultation bilaterally PERCUSSION: percussion normal Cardio: COMMON NORMALS: no JVD, regular rate, regular rhythm, S1 normal heart sound present, S2 normal heart sound present, No gallops present (Cardio), No clicks present (Cardio), No murmurs present (Cardio), No rub (Cardio) and Peripheral pulses 2+ throughout RATE: regular rate RHYTHM: regular rhythm HEART SOUNDS: S1 normal heart sound present and S2 normal heart sound present PERIPHERAL PULSES: Peripheral pulses 2+ throughout GI: COMMON NORMALS: Normal to inspection, nondistended, normoactive bowel sounds present, Soft to palpation, non-tender, No hepatosplenomegaly present, no masses and no bruits PALPATION: Yes Soft to palpation and Yes No hepatosplenomegaly present Extremity: COMMON NORMALS: normal to inspection, full ROM, capillary refill normal, no calf tenderness and no pedal edema Neuro: SENSORIUM/ORIENTATION: Yes alert, No oriented to person, Yes oriented to place, Yes oriented to time and Yes Orientation impaired (He was unable to tell me his date of or age) MENINGEAL SIGNS: Yes no meningeal signs Psych: THOUGHT CONTENT: No delusions Skin: COMMON NORMALS: no rashes or lesions noted, no wounds, turgor normal, no jaundice, no petechiae and no mottling GENERAL SKIN EXAM: no rashes or lesions noted and turgor normal Course Reevaluation(s): Reevaluation #1: Discussed his lab and imaging findings with the patient and his . Explained that he has pneumonia and his curb 65 score is 3 which is concerning and would require inpatient management. Will admit to the hospitalist service for further evaluation and management. He voiced understanding and they are in agreement with the plan. Time: 13:30 Consultations: Consultation #1: Discussed the patient with Dr. Willams, hospitalist and he kindly accepted patient to his service. Time: 13:33 Vital Signs: Vital signs: Vital Signs Temperature 98.2 F 06/01/20 19:57 Pulse Rate 64 06/01/20 19:57 Respiratory Rate 18 06/01/20 19:57 Blood Pressure 146/76 06/01/20 19:57 Pulse Oximetry 94 06/01/20 19:57 MDM - Altered Mental Status MDM Narrative: Medical decision making narrative: 70-year-old male who presented to the emergency department with confusion. He also has carotid artery disease and he is states that he is being worked up for surgery by the vascular surgeon. Evaluation in the emergency department showed he has a left lower lobe pneumonia and his curb 65 score is 3 for confusion, uremia and age. He therefore meets criteria for inpatient admission and he is being admitted for IV antibiotics and other management. Medical Records: Attestation: I reviewed the patient's medical records. Lab Data: Attestation: I reviewed the patient's lab results. Labs: Lab Results 06/01/20 06/01/20 06/01/20 Range/Units 12:25 12:25 12:50 WBC 4.6 (4.0-10.0) 10^3/ uL RBC 4.61 (4.1-5.3) 10^6/u L Hgb 13.8 (11.7-16.6) g/dL Hct 43.1 (42.0-52.0) % MCV 93.5 (80-94) fL MCH 29.9 (28.0-34.0) pg MCHC 32.0 (30.0-36.0) g/dL RDW 13.2 (12.1-15.1) % Plt Count 166 (130-400) 10^3/c mm MPV 10.3 (7.4-10.4) fL Neut % (Auto) 42.3 % Lymph % (Auto) 41.4 % [place] % (Auto) 11.5 % Eos % (Auto) 3.5 % Baso % (Auto) 1.1 % Neut # (Auto) 1.95 (1.8-7.7) 10^3/u L Lymph # (Auto) 1.9 (0.8-4.8) 10^3/u L [place] # (Auto) 0.5 (0.2-0.9) 10^3/u L Eos # (Auto) 0.2 (0.0-0.8) 10^3/u L Baso # (Auto) 0.1 (0.0-0.1) 10^3/u L Nucleated RBC % (a uto) 0 % Nucleated RBCs # 0.0 /100WBC Sodium 138 (136-145) mmol/L Potassium 4.6 (3.5-5.1) mmol/L Chloride 102 (98-107) mmol/L Carbon Dioxide 29 (22-29) mmol/L Anion Gap 11.6 (5-19) BUN 27 H (8-23) mg/dL Creatinine 1.1 (0.7-1.2) mg/dL GFR Calculation Not Reportable Glucose 166 H (65-115) mg/dL Calculated Osmolal ity 295 (285-295) mOsm/k g Calcium 9.1 (8.5-10.5) mg/dL Total Bilirubin 0.6 (0.15-1.2) mg/dL AST 39 (0-40) U/L ALT 41 (0-41) U/L Alkaline Phosphata se 88 (40-130) IU/L C-Reactive Protein 1.7 (0.0-4.9) mg/L Total Protein 8.0 (6.6-8.7) g/dL Albumin 3.9 (3.5-5.2) g/dL Globulin 4.1 (1.3-4.6) g/dL TSH 5.52 H (0.27-4.20) uIU/ mL Urine Color Yellow (Yellow) Urine Appearance Clear (CLEAR) Urine pH 5 (5-7) Ur Specific Gravit y 1.025 (1.005-1.030) Urine Protein Neg (Negative) Urine Glucose (UA) Norm (Normal) Urine Ketones Negative (Negative) Urine Blood Neg (Negative) Urine Nitrate Negative (Negative) Urine Bilirubin Neg (Negative) Urine Urobilinogen Norm (Negative) mg/dL Ur Leukocyte Linda ase Negative (Negative) Urine Opiates Scre en (Negative) ng/mL Ur Barbiturates Sc reen (Negative) ng/mL Ur Phencyclidine S crn (Negative) ng/mL Ur Amphetamines Sc reen (Negative) ng/mL U Benzodiazepines Scrn (Negative) ng/mL Urine Cocaine Scre en (Negative) ng/mL U Marijuana (THC) Screen (Negative) ng/mL Ethyl Alcohol < 10 (0-10) mg/dL 06/01/20 Range/Units 12:50 WBC (4.0-10.0) 10^3/ uL RBC (4.1-5.3) 10^6/u L Hgb (11.7-16.6) g/dL Hct (42.0-52.0) % MCV (80-94) fL MCH (28.0-34.0) pg MCHC (30.0-36.0) g/dL RDW (12.1-15.1) % Plt Count (130-400) 10^3/c mm MPV (7.4-10.4) fL Neut % (Auto) % Lymph % (Auto) % [place] % (Auto) % Eos % (Auto) % Baso % (Auto) % Neut # (Auto) (1.8-7.7) 10^3/u L Lymph # (Auto) (0.8-4.8) 10^3/u L [place] # (Auto) (0.2-0.9) 10^3/u L Eos # (Auto) (0.0-0.8) 10^3/u L Baso # (Auto) (0.0-0.1) 10^3/u L Nucleated RBC % (a uto) % Nucleated RBCs # /100WBC Sodium (136-145) mmol/L Potassium (3.5-5.1) mmol/L Chloride (98-107) mmol/L Carbon Dioxide (22-29) mmol/L Anion Gap (5-19) BUN (8-23) mg/dL Creatinine (0.7-1.2) mg/dL GFR Calculation Glucose (65-115) mg/dL Calculated Osmolal ity (285-295) mOsm/k g Calcium (8.5-10.5) mg/dL Total Bilirubin (0.15-1.2) mg/dL AST (0-40) U/L ALT (0-41) U/L Alkaline Phosphata se (40-130) IU/L C-Reactive Protein (0.0-4.9) mg/L Total Protein (6.6-8.7) g/dL Albumin (3.5-5.2) g/dL Globulin (1.3-4.6) g/dL TSH (0.27-4.20) uIU/ mL Urine Color (Yellow) Urine Appearance (CLEAR) Urine pH (5-7) Ur Specific Gravit y (1.005-1.030) Urine Protein (Negative) Urine Glucose (UA) (Normal) Urine Ketones (Negative) Urine Blood (Negative) Urine Nitrate (Negative) Urine Bilirubin (Negative) Urine Urobilinogen (Negative) mg/dL Ur Leukocyte Linda ase (Negative) Urine Opiates Scre en Positive H (Negative) ng/mL Ur Barbiturates Sc reen Negative (Negative) ng/mL Ur Phencyclidine S crn Negative (Negative) ng/mL Ur Amphetamines Sc reen Negative (Negative) ng/mL U Benzodiazepines Scrn Negative (Negative) ng/mL Urine Cocaine Scre en Negative (Negative) ng/mL U Marijuana (THC) Screen Negative (Negative) ng/mL Ethyl Alcohol (0-10) mg/dL Imaging Data^: CXR: Attestation: I personally reviewed and interpreted this imaging study as follows: Radiologist's impression: [employer] [address] [place] [address]. [place] [address] XRay Report Signed Patient: Victorino Stevenson #: [id number] : 1950cct#:[id number] Age/Sex: 70 / MADM Date: 06/01/20 Loc: ERRoom/Bed: Attending Dr: Ordering Provider/Ordering MD: Maira Shen [place], [facility] [place] of Service: 06/01/20 Procedure(s): XR chest 1V portable [id number] Accession Number(s): [id number] Report Number: [id number] WS: [id number] Exam: XR chest 1V portable [id number] Date/Time of Exam: 06/01/2020 11:35 AM Reason For Exam: AMS Comparison 03/13/2020 There is increased density in the left retrocardiac region medially that may represent infiltrate in the left lower lobe. This is an equivocal finding. Remaining lung brizuela are clear. Heart and mediastinal contours are unremarkable. Signs of previous CABG surgery. Recommendations: A detailed PA and lateral chest radiograph would yield more detailed information if thought to be clinically warranted. XR/XR chest 1V portable [id number] IMPRESSION: 1. Increased pulmonary density in the left retrocardiac region. This could represent infiltrate in the left lower lobe. Remaining aspects the chest are unremarkable. Dictated By:Rufino Slaughter DO Signed By:Kayla Tariq Date/Time:06/01/20 1204 DD/ 1154 CT Head: Attestation: I personally reviewed and interpreted this imaging study as follows: Radiologist's impression: [employer] [address] [place] [address]. [place] [address] CT Scan Report Signed Patient: Victorino Stevenson #: [id number] : 9Acct#:[id number] Age/Sex: 70 / MADM Date: 06/01/20 Loc: ERRoom/Bed: Attending Dr: Ordering Provider/Ordering MD: Maira Shen MD, [facility] [place] of Service: 06/01/20 Procedure(s): CT head wo con* [id number] Accession Number(s): [id number] Report Number: [id number] WS: [id number] CT HEAD NONCONTRAST HISTORY: Fluctuating sensorium TECHNIQUE: Contiguous axial imaging performed through the brain in 2.5 mm imaging. Bone and soft tissue windows. Sagittal and coronal reformats reviewed. All CT scans at use at least one of these dose optimization techniques: automated exposure control; mA and/or kV adjustment per patient size (includes targeted exams where dose is matched to clinical indication); or iterative reconstruction. DLP: 992.56 mGy.cm COMPARISON: 04/10/2020 No acute intracranial hemorrhage, midline shift or mass effect. Mild atrophy and mild chronic microvascular ischemic disease. Prior lacunar infarct in the LEFT caudate head. Mild small vessel ischemic disease otherwise. Ventricles: Normal size with no hydrocephalus. Extensive atherosclerotic plaque within the intracranial carotid arteries, greatest on the LEFT. Paranasal sinuses: Diffuse mucoperiosteal thickening throughout the LEFT visualized maxillary sinus cavity. Mastoid air cells: Well pneumatized. Calvarium and scalp: Hyperostosis frontalis interna. CT/CT head wo con* [id number] IMPRESSION: 1. No acute intracranial hemorrhage or edema. 2. Remote LEFT caudate head lacunar infarct. 3. Moderate to severe intracranial carotid artery atherosclerosis. Dictated By:Celsa Anderson DO Signed By:Celsa Anderson DOSigned Date/Time:06/01/20 1222 DD/ 1218 Discharge Plan Discharge Patient Disposition: Admitted As Inpatient Admit Provider: Adam Willams Clinical Impression: Delirium due to general medical condition Pneumonia Qualifiers: Pneumonia type: due to unspecified organism Laterality: left Lung location: lower lobe of lung Qualified Code(s): J18.9 - Pneumonia, unspecified organism Condition: Stable Coding Level of Care Code ED Profiling Machine Setup Operator for g Fwd Exam Comprehensive
[2020-06-01 12:38] LABS: Basophils # 0.1 10^3/uL (0.0-0.1); Basophils % 1.1 %; Eosinophils # 0.2 10^3/uL (0.0-0.8); Eosinophils % 3.5 %; Hematocrit 43.1 % (42.0-52.0); Hemoglobin 13.8 g/dL (11.7-16.6); Lymphocytes # 1.9 10^3/uL (0.8-4.8); Lymphocytes % 41.4 %; Mean Corpuscular Hemoglobin 29.9 pg (28.0-34.0); Mean Corpuscular Volume 93.5 fL (80-94); Mean Platelet Volume 10.3 fL (7.4-10.4); Monocytes # 0.5 10^3/uL (0.2-0.9); Monocytes % 11.5 %; Neutrophils # 1.95 10^3/uL (1.8-7.7); Neutrophils % 42.3 %; Nucleated Red Blood Cells % 0 %; Platelet Count 166 10^3/cmm (130-400); Red Blood Count 4.61 10^6/uL (4.1-5.3); Red Cell Distribution Width 13.2 % (12.1-15.1); White Blood Count 4.6 10^3/uL (4.0-10.0)
[2020-06-01 13:02] LABS: Add Urine Microscopic? NO
[2020-06-01 13:07] LABS: Alanine Aminotransferase 41 U/L (0-41); Albumin Level 3.9 g/dL (3.5-5.2); Alkaline Phosphatase 88 IU/L (40-130); Anion Gap 11.6 (5-19); Aspartate Amino Transferase 39 U/L (0-40); Blood Urea Nitrogen 27 mg/dL (8-23); C Reactive Protein 1.7 mg/L (0.0-4.9); Calcium 9.1 mg/dL (8.5-10.5); Carbon Dioxide 29 mmol/L (22-29); Chloride 102 mmol/L (98-107); Globulin 4.1 g/dL (1.3-4.6); Glucose 166 mg/dL (65-115); Osmolality Calculated 295 mOsm/kg (285-295); Potassium 4.6 mmol/L (3.5-5.1); Sodium 138 mmol/L (136-145); Thyroid Stimulating Hormone 5.52 uIU/mL (0.27-4.20); Total Bilirubin 0.6 mg/dL (0.15-1.2)
[2020-06-01 13:07] LABS: Bilirubin Urine Neg (Negative); Blood Urine Neg (Negative); Glucose Urine UA Norm (Normal); Ketones Urine Negative (Negative); Leukocyte Esterase Urine Negative (Negative); Nitrate Urine Negative (Negative); Protein Urine Neg (Negative); Specific Gravity, Urine 1.025 (1.005-1.030); Urine Appearance Clear (CLEAR); Urine Color Yellow (Yellow); Urobilinogen Urine Norm (Negative); pH Urine 5 (5-7)
[2020-06-01 13:09] LABS: Alcohol Level < 10 mg/dL (0-10)
[2020-06-01 13:15] LABS: Amphetamines Screen Urine Negative (Negative); Barbiturates Screen Urine Negative (Negative); Benzodiazepines Screen Urine Negative (Negative); Cocaine Screen Urine Negative (Negative); Opiate Screen Urine Positive (Negative); PCP Screen Urine Negative (Negative); THC Screen Urine Negative (Negative)
[2020-06-01] MEDS: cefTRIAXone 2,000 MG in sodium chloride 0.9% (plus) 50 ML 100 MG IV (13:43)
--- NOTE | 2020-06-01 14:47 | PM.HP ---
Providers/Chief Complaint Primary Care Provider: Sujata Macedo MD Chief Complaint: ALOC/ CONFUSED History of Present Illness Victorino Stevenson is a 70 year old male with a past medical history of insulin-dependent type 2 diabetes mellitus, on insulin, hypertension, hyperlipidemia, CHF, vasculopath, CAD status post CABG, peripheral vascular disease, carotid artery disease, COPD, recent history of CVA on dual antiplatelet therapy who presents to [facility] due to confusion. Patient tells me that he has been doing fine since his stroke, nothing out of the ordinary, this morning he was sleeping, when his woke him up, she tells him that he just was not acting appropriately, she told him that they needed to go to his appointment with Dr. Shrestha, again he was not responding appropriately, no slurring of speech, no facial droop, no paralysis, no seizure-like episode, no focal neurologic deficits, EMS was called patient was brought to the emergency room. Here in the emergency room according to emergency room physician, patient was alert to person, to place, but not to time, was having intermittent episodes of confusion, but the confusion is significantly improved, chest x-ray showed infiltrate on the left side, given his confusion and his age greater than 65 they were concerned for pneumonia, and hospitalist team was called for admission. Upon my arrival patient is alert oriented x3, answers all questions appropriately no focal logic deficits, no paresthesias, he tells me just does not remember the morning, his long-term memory is intact, upon questioning, I can discern some short-term memory lapses, no slurring of her speech, no facial droop, no focal neurologic deficits no paresthesias, no muscle aches or pains, no falls, no injuries, no bruising, no shortness of breath, no cough, no fevers, no known exposure to COVID-19 Review of Systems Const: Denies: fever(s), chills, fatigue or malaise Eyes: Denies: change in vision or blurry vision ENMT: Denies: nasal congestion Card: Denies: chest pain Resp: Denies: dyspnea, productive cough, non-productive cough or wheezing GI: Denies: abdominal pain, nausea, vomiting, hematemesis, diarrhea, constipation, hematochezia or melena : Denies: flank pain, difficulty urinating, dysuria or urinary frequency Musc: Denies: neck pain or back pain Skin/Breast: Denies: rash Neuro: Reports: confusion; Denies: headache(s), numbness in extremities, weakness in extremities, sensory changes, lack of coordination, difficulty walking, frequent falls, dizziness, vertigo, behavioral changes, Slurred speech present, difficulty communicating thoughts, seizure-like activity or involuntary movements Psych: Denies: anxiety or depression Endo: Denies: polyuria or polydipsia Medications/Allergies Home Medications Medication Instructions Recorded Confirmed Last Taken Type ondansetron HCl [Zofran] 4 mg PO Q6H PRN #10 tab 07/18/19 05/03/20 Unknown Rx clopidogrel 75 mg tablet 75 mg PO DAILY@99908/04/19 05/03/20 04/10/20 History furosemide 20 mg tablet 20 mg PO DAILY@99908/04/19 05/03/20 03/13/20 History insulin glargine 100 unit/mL 90 unit SUBCUT BID@1000,2200 08/04/19 05/03/20 04/10/20 History subcutaneous solution metoprolol tartrate 25 mg tablet 12.5 mg PO Q12H 08/04/19 05/03/20 04/10/20 History tamsulosin 0.4 mg capsule 0.4 mg PO DAILY@99908/04/19 05/03/20 04/10/20 History citalopram 40 mg tablet 20 mg PO DAILY@99908/05/19 05/03/20 04/10/20 History nitroglycerin 0.4 mg sublingual 0.4 mg SUBLINGUAL Q5M PRN #25 tab 08/10/19 05/03/20 Unknown Rx tablet cholecalciferol (vitamin D3) 25 25 mcg PO DAILY@99911/08/19 05/03/20 04/10/20 History mcg (1,000 unit) capsule ascorbic acid (vitamin C) 500 mg 500 mg PO DAILY@99901/17/20 05/03/20 04/10/20 History capsule levalbuterol HCl 0.63 mg/3 mL 0.63 mg INHALATION TID PRN 01/17/20 05/03/20 Unknown History solution for nebulization omega-3 fatty acids 1,000 mg 1,000 mg PO DAILY@99901/17/20 05/03/20 04/10/20 History capsule zinc 50 mg tablet 50 mg PO DAILY@1000 01/17/20 05/03/20 03/13/20 History elderberry fruit and flower 1 cap PO DAILY@1000 03/13/20 05/03/20 03/13/20 History gabapentin 300 mg PO TID@10,15,18 03/13/20 05/03/20 04/10/20 History pantoprazole [Protonix] 40 mg PO DAILY@1000 03/13/20 05/03/20 04/10/20 History aspirin 325 mg tablet 325 mg PO DAILY@1000 04/03/20 05/03/20 04/10/20 History atorvastatin 40 mg tablet 80 mg PO DAILY@1000 #180 tab 04/24/20 05/03/20 Unknown Rx hydrocodone 10 mg-acetaminophen 1 tab PO Q8H PRN 30 Days #90 tab 05/03/20 05/03/20 Unknown Rx 325 mg tablet Allergies Allergy/AdvReac Type Severity Reaction Status Date / Time fluoxetine [From Prozac] AdvReac Intermediate ADR-Irritab Verified 05/03/20 10:58 le PFSH Acute PFSH: Medical History Accelerated essential hypertension CAD (coronary artery disease) Carotid artery stenosis, symptomatic Closed fracture of distal end of right fibula COPD (chronic obstructive pulmonary disease) Diabetes Dyslipidemia GERD (gastroesophageal reflux disease) HTN (hypertension) Lower extremity edema Peripheral Vascular Disease Varicose veins of bilateral lower extremities with other complications Surgical History H/O heart bypass surgery Hx of CABG Hx of cholecystectomy Hx of cholecystectomy Family History Father CAD (coronary artery disease) Diabetes Hypertension Lung disease Grandfather CAD (coronary artery disease) Diabetes Hypertension Son CAD (coronary artery disease) Family history of premature coronary artery disease Grandmother Cancer Denies family history of Clotting disorder Dementia Hyperlipidemia Psychiatric illness Chronic kidney disease (CKD) Suicide Anesthesia complication Bleeding disorder Stroke Social History Smoking and tobacco status: former smoker Alcohol intake: former 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 Lives independently: Yes History of recent travel: No Vitals/I&O/Wt Last Vital Signs Temp 98.6 F 06/01/20 11:18 Pulse 54 L 06/01/20 12:27 Resp 17 06/01/20 12:27 BP 116/63 06/01/20 11:18 Pulse Ox 94 06/01/20 12:27 Weight last 48 hrs Weight 113.398 kg Physical Exam Const: COMMON NORMALS: no acute distress and patient oriented x3 GENERAL APPEARANCE: cooperative and comfortable HENMT: COMMON NORMALS: normocephalic HEAD & SCALP: normocephalic Eye: COMMON NORMALS: Equal, round and reactive pupils present and EOMs intact bilaterally GENERAL EYE: appearance normal, both eyes and all related structures PUPIL: Yes Equal, round and reactive pupils present Neck/C-Spine: COMMON NORMALS: full ROM, no lymphadenopathy, no JVD and Thyroid normal THYROID: Thyroid normal Lymph: LYMPHATIC: no lymphadenopathy noted Resp: COMMON NORMALS: normal respiratory effort, No retractions, No use of accessory muscles and clear to auscultation bilaterally AUSCULTATION: clear to auscultation bilaterally Cardio: COMMON NORMALS: no JVD, regular rate, regular rhythm, S1 normal heart sound present, S2 normal heart sound present, No gallops present (Cardio), No clicks present (Cardio) and No murmurs present (Cardio) RATE: regular rate RHYTHM: regular rhythm HEART SOUNDS: S1 normal heart sound present and S2 normal heart sound present GI: COMMON NORMALS: Normal to inspection, nondistended, normoactive bowel sounds present, Soft to palpation, non-tender and No hepatosplenomegaly present PALPATION: Yes Soft to palpation and Yes No hepatosplenomegaly present Extremity: COMMON NORMALS: normal to inspection, full ROM and no pedal edema Neuro: COMMON NORMALS: patient oriented x3, CN's II-XII intact bilaterally, moves all extremities and no focal motor deficits Psych: COMMON NORMALS: mental status grossly normal, Normal thought process present and cooperative THOUGHT PROCESS: Normal thought process present Data : 06/01/20 12:25 06/01/20 12:25 A&P Assessment and plan (1) Altered mental status: -Based upon patient's symptomatology sounds a lot like a transient global amnesia -CT of the head shows old lacunar infarct, no new infarct, no intracranial bleed -Will admit, neurochecks, NIH stroke evaluation, seizure precautions, will perform EEG -Patient is unable to tolerate an MRI on last admission, will be unable to tolerate MRI on this admission -Possibly could be related to pneumonia, although I feel unlikely, will do a CT of the chest -Continue aspirin, statin, Plavix, Lovenox for DVT prophylaxis full code Status: Acute (2) Transient global amnesia: -Clinically sounds a lot like transient global amnesia Status: Acute (3) Pneumonia: Will do CT of the chest Sputum cultures, blood cultures, urine bacterial antigens Rocephin azithromycin Status: Acute (4) Carotid artery stenosis, symptomatic: Status: Acute (5) Accelerated essential hypertension: Status: Acute (6) Peripheral Vascular Disease: Status: Acute (7) Hx of CABG: Status: Acute (8) Lumbar stenosis with neurogenic claudication: Status: Acute (9) CAD (coronary artery disease): Status: Acute Qualifiers: Coronary Disease-Associated Artery/Lesion type: bypass graft [place] vs. 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 transplanted heart: [place] heart Associated angina: without angina HTN (hypertension) I10 Hypertension type: essential hypertension
--- NOTE | 2020-06-01 15:55 | CTR_ITS ---
PROCEDURE INFORMATION: Exam: CT Chest Without Contrast; Diagnostic Exam date and time: 06/01/2020 4:23 PM Age: 70 years old Clinical indication: Shortness of breath; Prior surgery; Surgery type: Cabg, gb TECHNIQUE: Imaging protocol: Diagnostic computed tomography of the chest without contrast. Radiation optimization: All CT scans at this facility use at least one of these dose optimization techniques: automated exposure control; mA and/or kV adjustment per patient size (includes targeted exams where dose is matched to clinical indication); or iterative reconstruction. COMPARISON: CT angio chest [id number] 05/02/2020 3:12 PM RADIATION DOSE METRICS: Total DLP (mGy-cm): 1128.09 FINDINGS: Lungs: Mild emphysema. No focal pulmonary consolidation. Mild left lower lobe compressive atelectasis. Pleural spaces: Small right pleural effusion. Negative for pneumothorax. Heart: Prior CABG. Mediastinal space: No mediastinal collection. Aorta: Scattered atherosclerotic wall plaques of thoracic aorta. No aneurysm. Lymph nodes: Unremarkable. No enlarged lymph nodes. Bones/joints: Unremarkable. No acute fracture. Soft tissues: Soft tissue chest wall are unremarkable. CT/CT chest [facility] [address] IMPRESSION: 1. Small left pleural effusion. 2. No significant airspace disease identified. Radiation Dose CTDIVOL = (mGy): DLP = 1128.09 (mGy-cm)
[2020-06-01 16:52] LABS: Glucose Point of Care 209 mg/dL (70-110)
[2020-06-01] MEDS: azithromycin 500 MG in sodium chloride 0.9% 250 ML 250 MG IV (18:19)
[2020-06-01] MEDS: enoxaparin 40 mg/0.4 mL Syringe SUBCUT (18:19)
[2020-06-01] MEDS: gabapentin 300 mg Capsule PO (18:20)
[2020-06-01 20:05] LABS: Procalcitonin 0.07 ng/mL (0-0.5)
[2020-06-01 20:09] LABS: Glucose Point of Care 251 mg/dL (70-110)
[2020-06-01] MEDS: metoprolol tartrate 25 mg Tablet 12.5 MG PO (20:24)
[2020-06-01] MEDS: insulin glargine 100 units/1 mL 80 UNIT SUBCUT (21:49)
[2020-06-02 03:59] VITALS: BP 120/72; PULSE 62; RESP 18; TEMP 36.9; O2SAT 90
[2020-06-02 06:41] LABS: Thyroid Stimulating Hormone 2.12 uIU/mL (0.27-4.20)
[2020-06-02 07:25] LABS: Glucose Point of Care 76 mg/dL (70-110)
[2020-06-02 07:55] VITALS: BP 160/75; PULSE 64; RESP 18; TEMP 36.5; O2SAT 93
[2020-06-02] MEDS: metoprolol tartrate 25 mg Tablet 12.5 MG PO (08:14)
[2020-06-02] MEDS: clopidogrel 75 mg Tablet PO (09:12)
[2020-06-02] MEDS: tamsulosin 0.4 mg Capsule PO (09:12)
[2020-06-02] MEDS: ascorbic acid 500 mg Tablet PO (09:12)
[2020-06-02] MEDS: cholecalciferol (vitamin D3) 1,000 unit Tablet 1000 UNIT PO (09:12)
[2020-06-02] MEDS: gabapentin 300 mg Capsule PO (09:12)
[2020-06-02] MEDS: FUROsemide 20 mg Tablet PO (09:12)
[2020-06-02] MEDS: aspirin 81 mg EC Tablet PO (09:12)
[2020-06-02] MEDS: atorvastatin 40 mg Tablet 80 MG PO (09:12)
[2020-06-02] MEDS: pantoprazole DR 40 mg Tablet PO (09:12)
[2020-06-02] MEDS: citalopram 20 mg Tablet PO (09:13)
[2020-06-02] MEDS: insulin glargine 100 units/1 mL 80 UNIT SUBCUT (09:13)
--- NOTE | 2020-06-02 09:48 | PC.OT ---
OT NOTE: OT EVALUATION ORDERS RECEIVED. OT SCREEN COMPLETED. PATIENT DOES NOT REQUIRE FURTHER SKILLED OT.
[2020-06-02 10:40] LABS: Glucose Point of Care 210 mg/dL (70-110)
[2020-06-02 11:13] VITALS: BP 136/69; PULSE 56; RESP 18; TEMP 36.6; O2SAT 94
[2020-06-02 11:17] VITALS: BP 138/84; PULSE 73; RESP 18; TEMP 36.6; O2SAT 97
--- NOTE | 2020-06-02 11:41 | P.DS_ITS ---
Discharge Providers Date of Admission: 06/01/20 14:11 Date of Discharge: June 02, 2020 Attending Provider at Admission: Adam Willams MD Attending Provider at Discharge: Adam Willams MD Primary Care Provider: Sujata Macedo MD Diagnoses at Discharge Discharge Diagnosis (1) Altered mental status: Status: Acute (2) Transient global amnesia: Status: Acute (3) Pneumonia: Status: Acute Qualifiers: Laterality: left Lung location: lower lobe of lung Pneumonia type: due to unspecified organism Qualified Code(s): J18.9 - Pneumonia, unspecified organism (4) Carotid artery stenosis, symptomatic: Status: Acute (5) Accelerated essential hypertension: Status: Acute (6) Peripheral Vascular Disease: Status: Acute (7) Hx of CABG: Status: Acute (8) Lumbar stenosis with neurogenic claudication: Status: Acute (9) CAD (coronary artery disease): Status: Acute Qualifiers: Coronary Disease-Associated Artery/Lesion type: bypass graft [place] vs. transplanted heart: [place] heart Associated angina: without angina Qualified Code(s): I25.810 - Atherosclerosis of coronary artery bypass graft(s) without angina pectoris (10) HTN (hypertension): Status: Acute Qualifiers: Hypertension type: essential hypertension Qualified Code(s): I10 - Essential (primary) hypertension Reason for Visit Reason for Visit: ALOC/ CONFUSED Hospital Course Hospital Course Victorino Stevenson is a 70 year old male with a past medical history of insulin- dependent type 2 diabetes mellitus, on insulin, hypertension, hyperlipidemia, CHF, vasculopath, CAD status post CABG, peripheral vascular disease, carotid artery disease, COPD, recent history of CVA on dual antiplatelet therapy who presents to [facility] due to confusion. Confusion, likely secondary to transient global amnesia, patient did not have any focal neurologic deficits, no paresthesia, no facial droop, no slurring of her speech, CT of the head showed remote left caudate head lacunar infarct, UA no evidence of UTI, no significant metabolic abnormalities, he possibly had a pneumonia on imaging which required antibiotic therapy. Patient was monitored for the next 24 hours, no significant changes, no focal neurologic deficits, no paresthesias, no facial droop, no memory lapses, no slurring of her speech. Patient was discharged with close follow-up with neurology as outpatient, with decision to pursue EEG, he is already on aspirin, statin, Plavix which he should continue Patient was found to have a pneumonia on imaging, CT of the chest was really not convincing, no significant leukocytosis, he was kept as inpatient received IV antibiotic therapy, discharged on 5 remaining days of doxycycline Physical Exam Const: COMMON NORMALS: no acute distress and patient oriented x3 HENMT: COMMON NORMALS: normocephalic HEAD & SCALP: normocephalic Neck/C-Spine: COMMON NORMALS: no JVD Resp: COMMON NORMALS: normal respiratory effort, No retractions, No use of accessory muscles and clear to auscultation bilaterally AUSCULTATION: clear to auscultation bilaterally Cardio: COMMON NORMALS: no JVD, regular rate, regular rhythm, S1 normal heart sound present and S2 normal heart sound present RATE: regular rate RHYTHM: regular rhythm HEART SOUNDS: S1 normal heart sound present and S2 normal heart sound present GI: COMMON NORMALS: Normal to inspection, nondistended, normoactive bowel sounds present, Soft to palpation, non-tender, No hepatosplenomegaly present, no masses and no bruits PALPATION: Yes Soft to palpation and Yes No hepatosplenomegaly present Extremity: COMMON NORMALS: capillary refill normal, no clubbing, cyanosis or edema, no calf tenderness and no pedal edema Neuro: COMMON NORMALS: patient oriented x3 Psych: COMMON NORMALS: mental status grossly normal Discharge Data Data Completed and Pending: Completed Studies During Hospitalization Category Date Time Status CT chest wo con 7 1250 Urgent Cat Scan 06/01/20 15:[address] head wo con* 7 0450 Urgent Cat Scan 06/01/20 11:35 Completed XR chest 1V fay ble [id number] Urgent Exams 06/01/20 11:35 Completed Pending at discharge Category Date Time Status EEG electroenceph alogram Routine Exams 06/01/20 15:55 Ordered Bacterial Antigen Stat Lab 06/01/20 15:55 Uncollected Blood Culture Sta t Lab 06/01/20 19:11 Results Sputum Culture an d Gram Stain Stat Lab 06/01/20 15:55 Uncollected Labs from last 24 hours 06/02/20 06/02/20 06/02/20 10:33 06:54 05:40 WBC RBC Hgb Hct MCV MCH MCHC RDW Plt Count MPV Neut % (Auto) Lymph % (Auto) Summers % (Auto) Eos % (Auto) Baso % (Auto) Neut # (Auto) Lymph # (Auto) Summers # (Auto) Eos # (Auto) Baso # (Auto) Nucleated RBC % (a uto) Nucleated RBCs # Sodium Potassium Chloride Carbon Dioxide Anion Gap BUN Creatinine GFR Calculation Glucose POC Glucose 210 H 76 Calculated Osmolal ity Calcium Total Bilirubin AST ALT Alkaline Phosphata se C-Reactive Protein Total Protein Albumin Globulin Procalcitonin TSH 2.12 Urine Color Urine Appearance Urine pH Ur Specific Gravit y Urine Protein Urine Glucose (UA) Urine Ketones Urine Blood Urine Nitrate Urine Bilirubin Urine Urobilinogen Ur Leukocyte Linda ase Urine Opiates Scre en Ur Barbiturates Sc reen Ur Phencyclidine S crn Ur Amphetamines Sc reen U Benzodiazepines Scrn Urine Cocaine Scre en U Marijuana (THC) Screen Ethyl Alcohol 06/01/20 06/01/20 06/01/20 19:55 19:07 16:38 WBC RBC Hgb Hct MCV MCH MCHC RDW Plt Count MPV Neut % (Auto) Lymph % (Auto) Summers % (Auto) Eos % (Auto) Baso % (Auto) Neut # (Auto) Lymph # (Auto) Summers # (Auto) Eos # (Auto) Baso # (Auto) Nucleated RBC % (a uto) Nucleated RBCs # Sodium Potassium Chloride Carbon Dioxide Anion Gap BUN Creatinine GFR Calculation Glucose POC Glucose 251 H 209 H Calculated Osmolal ity Calcium Total Bilirubin AST ALT Alkaline Phosphata se C-Reactive Protein Total Protein Albumin Globulin Procalcitonin 0.07 TSH Urine Color Urine Appearance Urine pH Ur Specific Gravit y Urine Protein Urine Glucose (UA) Urine Ketones Urine Blood Urine Nitrate Urine Bilirubin Urine Urobilinogen Ur Leukocyte [place] Urine Opiates Scre en Ur Barbiturates Sc reen Ur Phencyclidine S crn Ur Amphetamines Sc reen U Benzodiazepines Scrn Urine Cocaine Scre en U Marijuana (THC) Screen Ethyl Alcohol 06/01/20 06/01/20 06/01/20 12:50 12:50 12:25 WBC RBC Hgb Hct MCV MCH MCHC RDW Plt Count MPV Neut % (Auto) Lymph % (Auto) Summers % (Auto) Eos % (Auto) Baso % (Auto) Neut # (Auto) Lymph # (Auto) Summers # (Auto) Eos # (Auto) Baso # (Auto) Nucleated RBC % (a uto) Nucleated RBCs # Sodium 138 Potassium 4.6 Chloride 102 Carbon Dioxide 29 Anion Gap 11.6 BUN 27 H Creatinine 1.1 GFR Calculation Not Reportable Glucose 166 H POC Glucose Calculated Osmolal ity 295 Calcium 9.1 Total Bilirubin 0.6 AST 39 ALT 41 Alkaline Phosphata se 88 C-Reactive Protein 1.7 Total Protein 8.0 Albumin 3.9 Globulin 4.1 Procalcitonin TSH 5.52 H Urine Color Yellow Urine Appearance Clear Urine pH 5 Ur Specific Gravit y 1.025 Urine Protein Neg Urine Glucose (UA) Norm Urine Ketones Negative Urine Blood Neg Urine Nitrate Negative Urine Bilirubin Neg Urine Urobilinogen Norm Ur Leukocyte Linda ase Negative Urine Opiates Scre en Positive H Ur Barbiturates Sc reen Negative Ur Phencyclidine S crn Negative Ur Amphetamines Sc reen Negative U Benzodiazepines Scrn Negative Urine Cocaine Scre en Negative U Marijuana (THC) Screen Negative Ethyl Alcohol < 10 06/01/20 12:25 WBC 4.6 RBC 4.61 Hgb 13.8 Hct 43.1 MCV 93.5 MCH 29.9 MCHC 32.0 RDW 13.2 Plt Count 166 MPV 10.3 Neut % (Auto) 42.3 Lymph % (Auto) 41.4 Summers % (Auto) 11.5 Eos % (Auto) 3.5 Baso % (Auto) 1.1 Neut # (Auto) 1.95 Lymph # (Auto) 1.9 Summers # (Auto) 0.5 Eos # (Auto) 0.2 Baso # (Auto) 0.1 Nucleated RBC % (a uto) 0 Nucleated RBCs # 0.0 Sodium Potassium Chloride Carbon Dioxide Anion Gap BUN Creatinine GFR Calculation Glucose POC Glucose Calculated Osmolal ity Calcium Total Bilirubin AST ALT Alkaline Phosphata se C-Reactive Protein Total Protein Albumin Globulin Procalcitonin TSH Urine Color Urine Appearance Urine pH Ur Specific Gravit y Urine Protein Urine Glucose (UA) Urine Ketones Urine Blood Urine Nitrate Urine Bilirubin Urine Urobilinogen Ur Leukocyte [place] Urine Opiates Scre en Ur Barbiturates Sc reen Ur Phencyclidine S crn Ur Amphetamines Sc reen U Benzodiazepines Scrn Urine Cocaine Scre en U Marijuana (THC) Screen Ethyl Alcohol Vitals: Last Vital Signs Temp 97.8 F 06/02/20 11:17 Pulse 73 06/02/20 11:17 Resp 18 06/02/20 11:17 BP 138/84 06/02/20 11:17 Pulse Ox 97 06/02/20 11:17 Discharge Plan Discharge Patient Disposition: Home Condition: Stable Prescriptions: New doxycycline hyclate 100 mg capsule 100 mg PO BID 5 Days Qty: 10 RF: 0 Continued citalopram 40 mg tablet 20 mg PO DAILY@1000 RF: 0 nitroglycerin [Nitrostat] 0.4 mg tablet, sublingual 0.4 mg SUBLINGUAL Q5M PRN (Reason: chest pain) Qty: 25 RF: 4 zinc 50 mg tablet 50 mg PO DAILY@1000 RF: 0 omega-3 fatty acids [Fish Oil Concentrate] 1,000 mg capsule 1,000 mg PO DAILY@1000 RF: 0 ascorbic acid (vitamin C) 500 mg capsule 500 mg PO DAILY@1000 RF: 0 cholecalciferol (vitamin D3) 25 mcg (1,000 unit) capsule 75 mcg PO DAILY@1000 RF: 0 clopidogrel 75 mg tablet 75 mg PO DAILY@1000 RF: 0 furosemide 20 mg tablet 20 mg PO DAILY@1000 RF: 0 insulin glargine 100 unit/mL solution 90 unit SUBCUT BID@1000,2200 RF: 0 metoprolol tartrate 25 mg tablet 12.5 mg PO Q12H RF: 0 tamsulosin 0.4 mg capsule 0.4 mg PO DAILY@1000 RF: 0 levalbuterol HCl 0.63 mg/3 mL solution for nebulization 0.63 mg INHALATION TID PRN (Reason: Shortness Of Breath) RF: 0 aspirin 325 mg tablet 325 mg PO DAILY@1000 RF: 0 hydrocodone-acetaminophen 10-325 mg tablet 1 tab PO Q8H PRN (Reason: pain (scale score 7-10)) 30 Days Qty: 90 RF: 0 atorvastatin 40 mg tablet 80 mg PO DAILY@1000 Qty: 180 RF: 3 elderberry fruit and flower 460-115 mg Capsule 1 cap PO DAILY@1000 RF: 0 pantoprazole [Protonix] 40 mg tablet,delayed release (DR/EC) 40 mg PO DAILY@1000 RF: 0 gabapentin 300 mg capsule 300 mg PO TID RF: 0 ondansetron HCl [Zofran] 4 mg tablet 4 mg PO Q6H PRN (Reason: nausea and vomiting) Qty: 10 RF: 0 levothyroxine 75 mcg Tablet 37.5 mcg PO DAILY RF: 0 nystatin 100,000 unit/gram Cream 1 applic TOPICAL TID RF: 0 Discharge Orders: Discharge Order (Routine); Ordered 06/02/20 Ordered By: Adam Willams Referrals: Malka Winter MD [Physician] - 1 month (TGA, need a eeg) Discharge Diet: Cardiac Discharge Activity: Resume usual activity Activity Restrictions/Additional Instructions: -Continue antibiotics for the next 6 days -If you have any strokelike symptoms please call 911 -If you have any symptoms of forgetfulness, losing track of time please come back to the emergency room -Follow-up with neurology in 1 month, decision to proceed EEG Discharge Attestations Time Spent in Discharge Care*: greater than 30 min Quality Metrics Clinical Quality Measures During this hospital stay, did patient experience: None Coding Level of Care Code Acute [facility] note Diagnoses Altered mental status R41.82 Transient global amnesia G45.4 Pneumonia J18.9 Laterality: left Lung location: lower lobe of lung Pneumonia type: due to unspecified organism Carotid artery stenosis, symptomatic I65.29 Accelerated essential hypertension I10 Peripheral Vascular Disease I73.9 Hx of CABG Z95.1 Lumbar stenosis with neurogenic claudication M48.062 CAD (coronary artery disease) I25.810 Coronary Disease-Associated Artery/Lesion type: bypass graft [place] vs. transplanted heart: [place] heart Associated angina: without angina HTN (hypertension) I10 Hypertension type: essential hypertension
--- NOTE | 2020-06-02 12:21 | PC.CHAP ---
Pastoral Care Encounter/Spiritual Assessment Type of Contact [] Declined reference test clerk visit [] Patient/Family/Request visit [] Outpatient visit [] Follow-up visit [] Physician referral [] Code/Alert [xx] Routine visit [] Staff referral [] Actively dying [] Patient sleeping [] Family support [] [] Out of room [] Palliative care [] [] Receiving care in room [] Pre-surgical visit [] Trauma [] Long length of stay [] ICU visit [] Other: Relational/Emotional Strength [] Patient feels connected with others/family/visitors/staff [] Distress [] Loneliness/isolation [] Abandonment Spirituality of Patient [] Person of [place]inda [] Attends Spiritism of their [place] [xx] Believes in Prayer [] Reads Bible or Buddhism materials [] There are Spiritual issues to be addressed Auto Mechanics Teacher Interventions [xx] Prayer [xx] Active listening [xx] Non-anxious presence [] Spiritual/emotional support [] Crisis/trauma care [] Spiritual counseling [] Bereavement support [] Provided bereavement packet [xx] Provided Bible/devotional materials [] Provided toy/stuffed animal, coloring book to patient or family member [] Provided Communion [] Anointing/Harmony [] Salvation [xx] Completed spiritual assessment [] Other: Impact on Illness or Injury [] Angry [] Fearful [] Anxious [] Often cries [] Exhaustion [] Unable to work [] Unable to attend druze [] Unable to walk/stand [] Unable to read [] Unable to drive [] Unable to eat/drink [] Unable to sleep [] Unable to be with family [] Patient intubated [] Other: Summary Patient is being discharged today. He requested special prayer due to loss of his adult son to heart attack a year ago. He is still grieving. Patient stated he had bereavement material at home but did accept the [employer] devotional to take home. Time spent with patient 8 minutes
[2020-06-02 13:23] VITALS: BP 138/84; PULSE 73; RESP 18; TEMP 36.6; O2SAT 97
== END 2020-06-02 13:24 | disposition home or self-care (01) ==
LOC: ER 12:20 → MEDSURG 15:34
PROVIDERS: Admitting Provider Family Medicine; Emergency Provider Family Medicine; PCP Family Medicine; Visit Provider Family Medicine
DX: R41.82 Altered mental status, unspecified (principal); G45.4 Transient global amnesia; J18.9 Pneumonia, unspecified organism; I65.29 Occlusion and stenosis of unspecified carotid artery; I73.9 Peripheral vascular disease, unspecified; Z95.1 Presence of aortocoronary bypass graft; M48.062 Spinal stenosis, lumbar region with neurogenic claudication; I25.810 Atherosclerosis of coronary artery bypass graft(s) without angina pectoris; E11.9 Type 2 diabetes mellitus without complications; Z79.4 Long term (current) use of insulin; E78.5 Hyperlipidemia, unspecified; I11.0 Hypertensive heart disease with heart failure; I50.9 Heart failure, unspecified; Z87.891 Personal history of nicotine dependence
CPT/HCPCS: 36415; 36416; 70450; 71045; 71250; 80053; 80306; 80307; 81003; 82962; 84145; 84443; 85025; 86140; 87040; 94664; 96365; 96367; 96372; 97161; 99285; G0378; J0456; J0696; J1650; J1815 ×2; J7050

== ENCOUNTER 2020-06-04 20:59 | Emergency (ER) | payer OTHER, MEDICARE, SELFPAY ==
--- NOTE | 2020-06-04 03:22 | XRR_ITS ---
PROCEDURE INFORMATION: Exam: XR Chest Exam date and time: 06/04/2020 10:09 PM Age: 70 years old Clinical indication: Cough and fever; Prior surgery; Surgery type: Cabg; Additional info: Fever cough TECHNIQUE: Imaging protocol: XR of the chest Views: 1 view. COMPARISON: CT chest con [id number] 06/01/2020 4:23 PM FINDINGS: Lungs: Pulmonary venous congestion without overt edema. Minor interstitial opacities of lower lungs. Pleural spaces: Blunting of the left costophrenic angle which could reflect small effusion or pleural thickening. Heart/Mediastinum: Cardiomegaly. Vasculature: Calcified thoracic aorta. Bones/joints: Postoperative sternotomy. Degenerative change of the spine and both shoulders. XR/XR chest 1V portable [id number] IMPRESSION: 1. Minor interstitial opacities of lower lungs which could reflect atelectasis greater on the left. 2. Pleural thickening or small left effusion. 3. Pulmonary venous congestion.
[2020-06-04 21:05] VITALS: BP 124/53; PULSE 81; RESP 14; TEMP 38.3; O2SAT 93; BMI 33.0
[2020-06-04 21:18] VITALS: BP 120/58; PULSE 74; RESP 22; O2SAT 96
[2020-06-04] MEDS: sodium chloride 0.9% 1,000 ML 999 ML IV (21:34)
[2020-06-04 21:35] LABS: Basophils % 0.4 %; Eosinophils % 0.2 %; Hematocrit 44.6 % (42.0-52.0); Hemoglobin 14.6 g/dL (11.7-16.6); Lymphocytes # 0.6 10^3/uL (0.8-4.8); Lymphocytes % 11.4 %; Mean Corpuscular HGB Conc 32.7 g/dL (30.0-36.0); Mean Corpuscular Hemoglobin 30.9 pg (28.0-34.0); Mean Corpuscular Volume 94.5 fL (80-94); Mean Platelet Volume 10.3 fL (7.4-10.4); Monocytes # 0.3 10^3/uL (0.2-0.9); Monocytes % 5.2 %; Neutrophils # 3.99 10^3/uL (1.8-7.7); Neutrophils % 82.4 %; Nucleated Red Blood Cells % 0 %; Platelet Count 165 10^3/cmm (130-400); Red Blood Count 4.72 10^6/uL (4.1-5.3); Red Cell Distribution Width 13.3 % (12.1-15.1); White Blood Count 4.8 10^3/uL (4.0-10.0)
[2020-06-04 21:58] LABS: Lactate (Lactic Acid level) 1.5 mmol/L (0.5-2.2)
[2020-06-04 21:59] LABS: Alanine Aminotransferase 50 U/L (0-41); Albumin Level 3.5 g/dL (3.5-5.2); Alkaline Phosphatase 76 IU/L (40-130); Anion Gap 12.5 (5-19); Aspartate Amino Transferase 42 U/L (0-40); Blood Urea Nitrogen 29 mg/dL (8-23); C Reactive Protein 6.2 mg/L (0.0-4.9); Calcium 8.1 mg/dL (8.5-10.5); Carbon Dioxide 27 mmol/L (22-29); Chloride 106 mmol/L (98-107); Creatine Phosphokinase 44 U/L (39-308); Globulin 3.7 g/dL (1.3-4.6); Glucose 116 mg/dL (65-115); Lipase 16 U/L (13-60); Osmolality Calculated 299 mOsm/kg (285-295); Potassium 4.5 mmol/L (3.5-5.1); Sodium 141 mmol/L (136-145); Total Bilirubin 0.7 mg/dL (0.15-1.2); Total Protein 7.2 g/dL (6.6-8.7)
[2020-06-04 22:01] VITALS: BP 101/53; PULSE 74; RESP 19; O2SAT 96
[2020-06-04 22:57] LABS: SARS Covid-2 Antigen Negative (Negative)
[2020-06-04 23:30] VITALS: BP 116/58; PULSE 78; RESP 18; O2SAT 97
--- NOTE | 2020-06-04 23:40 | ED_ITS ---
HPI - Nausea/Vomiting/Diarrhea General: Chief complaint: Nausea/Vomiting/Diarrhea Stated complaint: n/v/d/fatigue and weakness Time Seen by Provider: 06/04/20 21:17 History of Present Illness: HPI Narrative: 70-year-old gentleman who left the hospital yesterday. He was being treated for pneumonia at that point. He had clinically improved. Since coming home, he developed nausea vomiting and diarrhea with some generalized weakness. Thrown up several times today. He is had a continued temperature he has been generally weak MD elicited complaint: nausea, vomiting and diarrhea Onset (ago): hour(s) Associated nausea: Yes Location of pain: Diffuse Radiation: diffuse Pain consistency: intermittent Severity: moderate Quality: cramping Relieving factors: vomiting Associated symtoms: Reports bloating, cough, dizziness, fevers/chills, malaise, nausea and weakness (generalized); Denies anxiety, change in vision, chest pain, dysuria, fecal incontinence or headache(s) Review of Systems Const: Reports: malaise Eyes: Denies: change in vision or blurry vision ENMT: Denies: odynophagia or sinus pain Card: Denies: chest pain Resp: Reports: non-productive cough; Denies: dyspnea or wheezing GI: Reports: nausea and bloating; Denies: fecal incontinence : Denies: difficulty urinating or dysuria Musc: Denies: neck pain Skin/Breast: Denies: rash or erythema Neuro: Reports: dizziness; Denies: headache(s) Psych: Denies: anxiety PFSH ED PFSH: Medical History Accelerated essential hypertension CAD (coronary artery disease) Carotid artery stenosis, symptomatic Closed fracture of distal end of right fibula COPD (chronic obstructive pulmonary disease) Diabetes Dyslipidemia GERD (gastroesophageal reflux disease) HTN (hypertension) Lower extremity edema Peripheral Vascular Disease Varicose veins of bilateral lower extremities with other complications Surgical History H/O heart bypass surgery Hx of CABG Hx of cholecystectomy Hx of cholecystectomy Family History Father CAD (coronary artery disease) Diabetes Hypertension Lung disease Grandfather CAD (coronary artery disease) Diabetes Hypertension Son CAD (coronary artery disease) Family history of premature coronary artery disease Grandmother Cancer Denies family history of Clotting disorder Dementia Hyperlipidemia Psychiatric illness Chronic kidney disease (CKD) Suicide Anesthesia complication Bleeding disorder Stroke Social History Smoking and tobacco status: former smoker Alcohol intake: former 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 Lives independently: Yes History of recent travel: No Physical Exam Const: GENERAL APPEARANCE: well developed ORIENTATION/CONSCIOUSNESS: Yes oriented to person, Yes oriented to place and Yes oriented to time HENMT: COMMON NORMALS: normocephalic, external ears normal and Normal external nose present HEAD & SCALP: normocephalic FACE & SINUS: normal facial exam NOSE: Normal external nose present and No nasal discharge present EXTERNAL EAR: Yes external ears normal Eye: COMMON NORMALS: Equal, round and reactive pupils present, EOMs intact bilaterally and conjunctivae normal EYELID: eyelids normal CONJUNCTIVA: Yes conjunctivae normal PUPIL: Yes Equal, round and reactive pupils present Chest: COMMONS NORMALS: normal inspection of the chest CHEST: No tenderness Resp: COMMON NORMALS: clear to auscultation bilaterally EFFORT & INSPECTION: No tachypneic, No respiratory distress, No retractions, No uses accessory muscles and No tracheal deviation AUSCULTATION: clear to auscultation bilaterally, no rhonchi, no wheezes and lung sounds not diminished Cardio: COMMON NORMALS: regular rate and regular rhythm RATE: regular rate RHYTHM: regular rhythm HEART SOUNDS: no murmurs PERIPHERAL PULSES: radial pulses present GI: INSPECTION: No abdominal distension AUSCULTATION: No Hyperactive bowel sounds present and No Hypoactive bowel sounds present PALPATION: Yes Tenderness to palpation present (GI) (diffuse), No Guarding due to palpation present (GI) and No Rigid due to palpation PERCUSSION: no dullness to percussion and no tympanic to percussion Neuro: SENSORIUM/ORIENTATION: Yes oriented to person, Yes oriented to place and Yes oriented to time Psych: COMMON NORMALS: mental status grossly normal Skin: COMMON NORMALS: no rashes or lesions noted GENERAL SKIN EXAM: no rashes or lesions noted Course Vital Signs: Vital signs: Vital Signs Temperature 100.9 F H 06/04/20 21:05 Pulse Rate 71 06/05/20 01:00 Respiratory Rate 19 H 06/05/20 01:00 Blood Pressure 94/51 06/05/20 01:00 Pulse Oximetry 93 06/05/20 01:00 MDM - Nausea/Vomiting/Diarrhea MDM Narrative: Medical decision making narrative: Vomiting and diarrhea with low-grade fever in a patient just released from the hospital yesterday. He is improved at this point. No more episodes of diarrhea or vomiting. He has had some fluid. His blood pressure is 108/65 with a heart rate of 65. Saturations are 90 to 95% his white blood cell count is 4.8. His BUN is [address] shows a small left pleural effusion, and no other acute findings. No evidence of colitis, etc. The patient is feeling quite a bit better. We will allow him home. Lab Data: Labs: Lab Results 06/04/20 06/04/20 06/04/20 Range/Units 21:28 21:28 21:28 WBC 4.8 (4.0-10.0) 10^3/ uL RBC 4.72 (4.1-5.3) 10^6/u L Hgb 14.6 (11.7-16.6) g/dL Hct 44.6 (42.0-52.0) % MCV 94.5 H (80-94) fL MCH 30.9 (28.0-34.0) pg MCHC 32.7 (30.0-36.0) g/dL RDW 13.3 (12.1-15.1) % Plt Count 165 (130-400) 10^3/c mm MPV 10.3 (7.4-10.4) fL Neut % (Auto) 82.4 % Lymph % (Auto) 11.4 % [place] % (Auto) 5.2 % Eos % (Auto) 0.2 % Baso % (Auto) 0.4 % Neut # (Auto) 3.99 (1.8-7.7) 10^3/u L Lymph # (Auto) 0.6 L (0.8-4.8) 10^3/u L [place] # (Auto) 0.3 (0.2-0.9) 10^3/u L Eos # (Auto) 0.0 (0.0-0.8) 10^3/u L Baso # (Auto) 0.0 (0.0-0.1) 10^3/u L Nucleated RBC % (a uto) 0 % Nucleated RBCs # 0.0 /100WBC Sodium 141 (136-145) mmol/L Potassium 4.5 (3.5-5.1) mmol/L Chloride 106 (98-107) mmol/L Carbon Dioxide 27 (22-29) mmol/L Anion Gap 12.5 (5-19) BUN 29 H (8-23) mg/dL Creatinine 1.1 (0.7-1.2) mg/dL GFR Calculation Not Reportable Glucose 116 H (65-115) mg/dL Calculated Osmolal ity 299 H (285-295) mOsm/k g Lactate 1.5 (0.5-2.2) mmol/L Calcium 8.1 L (8.5-10.5) mg/dL Total Bilirubin 0.7 (0.15-1.2) mg/dL AST 42 H (0-40) U/L ALT 50 H (0-41) U/L Alkaline Phosphata se 76 (40-130) IU/L Creatine Kinase 44 (39-308) U/L C-Reactive Protein 6.2 H (0.0-4.9) mg/L Total Protein 7.2 (6.6-8.7) g/dL Albumin 3.5 (3.5-5.2) g/dL Globulin 3.7 (1.3-4.6) g/dL Lipase 16 (13-60) U/L Urine Color (Yellow) Urine Appearance (CLEAR) Urine pH (5-7) Ur Specific Gravit y (1.005-1.030) Urine Protein (Negative) Urine Glucose (UA) (Normal) Urine Ketones (Negative) Urine Blood (Negative) Urine Nitrate (Negative) Urine Bilirubin (Negative) Urine Urobilinogen (Negative) mg/dL Ur Leukocyte Linda ase (Negative) SARS-CoV-2 Ag (Rap id) (Negative) 06/04/20 06/05/20 Range/Units 22:16 00:02 WBC (4.0-10.0) 10^3/ uL RBC (4.1-5.3) 10^6/u L Hgb (11.7-16.6) g/dL Hct (42.0-52.0) % MCV (80-94) fL MCH (28.0-34.0) pg MCHC (30.0-36.0) g/dL RDW (12.1-15.1) % Plt Count (130-400) 10^3/c mm MPV (7.4-10.4) fL Neut % (Auto) % Lymph % (Auto) % [place] % (Auto) % Eos % (Auto) % Baso % (Auto) % Neut # (Auto) (1.8-7.7) 10^3/u L Lymph # (Auto) (0.8-4.8) 10^3/u L [place] # (Auto) (0.2-0.9) 10^3/u L Eos # (Auto) (0.0-0.8) 10^3/u L Baso # (Auto) (0.0-0.1) 10^3/u L Nucleated RBC % (a uto) % Nucleated RBCs # /100WBC Sodium (136-145) mmol/L Potassium (3.5-5.1) mmol/L Chloride (98-107) mmol/L Carbon Dioxide (22-29) mmol/L Anion Gap (5-19) BUN (8-23) mg/dL Creatinine (0.7-1.2) mg/dL GFR Calculation Glucose (65-115) mg/dL Calculated Osmolal ity (285-295) mOsm/k g Lactate (0.5-2.2) mmol/L Calcium (8.5-10.5) mg/dL Total Bilirubin (0.15-1.2) mg/dL AST (0-40) U/L ALT (0-41) U/L Alkaline Phosphata se (40-130) IU/L Creatine Kinase (39-308) U/L C-Reactive Protein (0.0-4.9) mg/L Total Protein (6.6-8.7) g/dL Albumin (3.5-5.2) g/dL Globulin (1.3-4.6) g/dL Lipase (13-60) U/L Urine Color Yellow (Yellow) Urine Appearance Clear (CLEAR) Urine pH 5 (5-7) Ur Specific Gravit y 1.020 (1.005-1.030) Urine Protein Neg (Negative) Urine Glucose (UA) Norm (Normal) Urine Ketones Negative (Negative) Urine Blood Neg (Negative) Urine Nitrate Negative (Negative) Urine Bilirubin 1+ H (Negative) Urine Urobilinogen 1 H (Negative) mg/dL Ur Leukocyte Linda ase Negative (Negative) SARS-CoV-2 Ag (Rap id) Negative (Negative) Discharge Plan Discharge Patient Disposition: Home Clinical Impression: Dehydration Diarrhea Qualifiers: Diarrhea type: unspecified type Qualified Code(s): R19.7 - Diarrhea, unspecified Condition: Stable Prescriptions: No Action citalopram 40 mg tablet 20 mg PO DAILY@1000 RF: 0 nitroglycerin [Nitrostat] 0.4 mg tablet, sublingual 0.4 mg SUBLINGUAL Q5M PRN (Reason: chest pain) Qty: 25 RF: 4 zinc 50 mg tablet 50 mg PO DAILY@1000 RF: 0 omega-3 fatty acids [Fish Oil Concentrate] 1,000 mg capsule 1,000 mg PO DAILY@1000 RF: 0 ascorbic acid (vitamin C) 500 mg capsule 500 mg PO DAILY@1000 RF: 0 cholecalciferol (vitamin D3) 25 mcg (1,000 unit) capsule 75 mcg PO DAILY@1000 RF: 0 clopidogrel 75 mg tablet 75 mg PO DAILY@1000 RF: 0 furosemide 20 mg tablet 20 mg PO DAILY@1000 RF: 0 insulin glargine 100 unit/mL solution 90 unit SUBCUT BID@1000,2200 RF: 0 metoprolol tartrate 25 mg tablet 12.5 mg PO Q12H RF: 0 tamsulosin 0.4 mg capsule 0.4 mg PO DAILY@1000 RF: 0 levalbuterol HCl 0.63 mg/3 mL solution for nebulization 0.63 mg INHALATION TID PRN (Reason: Shortness Of Breath) RF: 0 hydrocodone-acetaminophen 10-325 mg tablet 1 tab PO Q8H PRN (Reason: pain (scale score 7-10)) 30 Days Qty: 90 RF: 0 atorvastatin 40 mg tablet 80 mg PO DAILY@1000 Qty: 180 RF: 3 elderberry fruit and flower 460-115 mg Capsule 1 cap PO DAILY@1000 RF: 0 pantoprazole [Protonix] 40 mg tablet,delayed release (DR/EC) 40 mg PO DAILY@1000 RF: 0 gabapentin 300 mg capsule 300 mg PO TID RF: 0 ondansetron HCl [Zofran] 4 mg tablet 4 mg PO Q6H PRN (Reason: nausea and vomiting) Qty: 10 RF: 0 levothyroxine 75 mcg Tablet 37.5 mcg PO DAILY RF: 0 nystatin 100,000 unit/gram Cream 1 applic TOPICAL TID RF: 0 doxycycline hyclate 100 mg capsule 100 mg PO BID 5 Days Qty: 10 RF: 0 aspirin 81 mg Tablet,Delayed Release (Dr/Ec) 81 mg PO DAILY@1000 30 Days Qty: 30 RF: 0 Discharge Orders: Discharge ED (Routine); Ordered 06/05/20 Ordered By: Agus Rivera Referrals: Sujata Macedo MD [Primary Care Provider] - 1-3 days Discharge Diet: Advance as tolerated and Clear Liquid Discharge Activity: Increase activity as tolerated Patient Instructions: Gastroenteritis (ED), Acute Diarrhea (ED) Activity Restrictions/Additional Instructions: Return for worsening vomiting or diarrhea, continued temperatures above 100, shortness of breath, other concerning symptoms Coding Level of Care Code ED Photographer Lithographic for Chg Fwd Exam Comprehensive
--- NOTE | 2020-06-04 23:42 | CTR_ITS ---
PROCEDURE INFORMATION: Exam: CT Abdomen And Pelvis Without Contrast Exam date and time: 06/04/2020 12:05 AM Age: 70 years old Clinical indication: Fever and nausea and vomiting; Prior surgery; Surgery date: 6+ months; Surgery type: Gb; Patient HX: Fever, weakness, n/v/d; Additional info: Diarrhea TECHNIQUE: Imaging protocol: Computed tomography of the abdomen and pelvis without contrast. Radiation optimization: All CT scans at this facility use at least one of these dose optimization techniques: automated exposure control; mA and/or kV adjustment per patient size (includes targeted exams where dose is matched to clinical indication); or iterative reconstruction. COMPARISON: No relevant prior studies available. RADIATION DOSE METRICS: Total DLP (mGy-cm): 1872.39 FINDINGS: Lungs: The visualized lung bases are clear. Pleural spaces: Small left pleural effusion. Liver: Normal size and density. No focal mass. Gallbladder and bile ducts: Status post cholecystectomy. No biliary dilatation. Pancreas: No evidence of mass. No ductal dilation. Spleen: No splenomegaly or mass. Adrenal glands: Normal. Kidneys and ureters: A 5.7 cm simple appearing right renal cyst and a 2 cm simple appearing right renal cyst. No stones or hydronephrosis. Stomach and bowel: Few sigmoid colon diverticula. No signs of acute diverticulitis. No focal bowel wall thickening or mass. No signs of obstruction. Appendix: No evidence of appendicitis. Intraperitoneal space: No free air. No free fluid or evidence of abscess. Vasculature: Multiple vascular calcifications. The aorta has a lobulated contour measuring up to 2.8 cm. Lymph nodes: No lymphadenopathy. Urinary bladder: Normal CT appearance. Reproductive: Normal CT appearance for age. Bones/joints: No acute abnormality. Soft tissues: Fat containing left inguinal hernia. Fat containing ventral wall hernia. Injection Site the right lower quadrant. CT/CT abdomen pelvis wo con [id number] IMPRESSION: 1. Small left pleural effusion. 2. Mild diverticulosis. No signs of acute diverticulitis. 3. Lobulated aortic contour measuring up to 2.8 cm which is just below the size cutoff for aortic aneurysm. Consider following this with a CT in 12 months to verify stability. 4. Fat containing ventral abdominal wall hernia. COMMENTS: Consistent with the [employer]'s Incidental Findings Committee white paper (J Am Luis Fernando Radiol 2018): Any incidental renal lesion less than 1 cm or classified as too small to characterize, or any incidental cystic renal lesion characterized as simple-appearing, is likely benign. No follow-up imaging is recommended for these lesions per consensus recommendations based on imaging criteria. Radiation Dose CTDIVOL = (mGy): DLP = 1872.39 (mGy-cm)
[2020-06-04] MEDS: ondansetron 2 mg/ML SDV 2 mL 4 MG IVP (23:57)
[2020-06-04] MEDS: acetaminophen 500 mg Tablet 1000 MG PO (23:58)
[2020-06-05] VITALS: BP 116/58; PULSE 76; RESP 25; O2SAT 95
[2020-06-05 00:19] LABS: Add Urine Microscopic? NO
[2020-06-05 00:27] LABS: Bilirubin Urine 1+ (Negative); Blood Urine Neg (Negative); Glucose Urine UA Norm (Normal); Ketones Urine Negative (Negative); Leukocyte Esterase Urine Negative (Negative); Nitrate Urine Negative (Negative); Protein Urine Neg (Negative); Urine Appearance Clear (CLEAR); Urine Color Yellow (Yellow); Urobilinogen Urine 1 mg/dL (Negative); pH Urine 5 (5-7)
[2020-06-05 01:00] VITALS: BP 94/51; PULSE 71; RESP 19; O2SAT 93
[2020-06-05 02:00] VITALS: BP 102/58; PULSE 57; RESP 17; O2SAT 97
[2020-06-05 02:54] VITALS: BP 102/58; PULSE 60; RESP 16; TEMP 37.2; O2SAT 98
== END 2020-06-05 03:28 | disposition home or self-care (01) ==
PROVIDERS: Emergency Provider Emergency Medicine; PCP Family Medicine
DX: R19.7 Diarrhea, unspecified (principal); E86.0 Dehydration; Z79.02 Long term (current) use of antithrombotics/antiplatelets; Z79.82 Long term (current) use of aspirin; Z79.4 Long term (current) use of insulin; I25.10 Atherosclerotic heart disease of native coronary artery without angina pectoris; J44.9 Chronic obstructive pulmonary disease, unspecified; E11.9 Type 2 diabetes mellitus without complications; E78.5 Hyperlipidemia, unspecified; I10 Essential (primary) hypertension; Z95.1 Presence of aortocoronary bypass graft; Z87.891 Personal history of nicotine dependence
CPT/HCPCS: 71045; 74176; 80053; 81003; 82550; 83605; 83690; 85025; 86140; 87426; 96361; 96374; 99284; J2405; J7030

== ENCOUNTER → 2020-06-15 09:17 | Outpatient (BNVA) | payer OTHER, SELFPAY | PROVIDERS: PCP Family Medicine; Visit Provider Anesthesiology Pain Medicine | DX: G89.29 Other chronic pain (principal); M51.16 Intervertebral disc disorders with radiculopathy, lumbar region; M47.816 Spondylosis without myelopathy or radiculopathy, lumbar region; M48.062 Spinal stenosis, lumbar region with neurogenic claudication; M54.9 Dorsalgia, unspecified; I25.810 Atherosclerosis of coronary artery bypass graft(s) without angina pectoris; I63.9 Cerebral infarction, unspecified; I10 Essential (primary) hypertension; Z79.891 Long term (current) use of opiate analgesic | CPT/HCPCS: 99214 ==

== ENCOUNTER → 2020-06-29 09:16 | Outpatient (BNVA) | payer OTHER, SELFPAY | PROVIDERS: PCP Family Medicine; Visit Provider Specialist | DX: I69.811 Memory deficit following other cerebrovascular disease (principal); F03.90 Unspecified dementia, unspecified severity, without behavioral disturbance, psychotic disturbance, mood disturbance, and anxiety; Z87.891 Personal history of nicotine dependence | CPT/HCPCS: 95816 ==

== ENCOUNTER → 2020-07-13 13:23 | Outpatient (BNVA) | payer OTHER, SELFPAY | PROVIDERS: PCP Family Medicine; Visit Provider Anesthesiology Pain Medicine | DX: G89.29 Other chronic pain (principal); M51.16 Intervertebral disc disorders with radiculopathy, lumbar region; M48.062 Spinal stenosis, lumbar region with neurogenic claudication; M47.816 Spondylosis without myelopathy or radiculopathy, lumbar region; M54.9 Dorsalgia, unspecified; I63.9 Cerebral infarction, unspecified; I25.810 Atherosclerosis of coronary artery bypass graft(s) without angina pectoris; I10 Essential (primary) hypertension; M19.011 Primary osteoarthritis, right shoulder; M19.012 Primary osteoarthritis, left shoulder; Z79.891 Long term (current) use of opiate analgesic | CPT/HCPCS: 99214 ==

== ENCOUNTER → 2020-07-18 11:41 | Outpatient (BNVA) | payer OTHER, SELFPAY | PROVIDERS: PCP Family Medicine; Visit Provider Specialist | DX: I99.8 Other disorder of circulatory system (principal); I65.29 Occlusion and stenosis of unspecified carotid artery; I65.09 Occlusion and stenosis of unspecified vertebral artery; F40.240 Claustrophobia; E66.9 Obesity, unspecified; Z68.36 Body mass index [BMI] 36.0-36.9, adult; Z87.891 Personal history of nicotine dependence | CPT/HCPCS: 99215 ==

== ENCOUNTER → 2020-08-10 12:08 | Outpatient (BNVA) | payer OTHER, SELFPAY | PROVIDERS: PCP Family Medicine; Visit Provider Anesthesiology Pain Medicine | DX: G89.29 Other chronic pain (principal); M51.16 Intervertebral disc disorders with radiculopathy, lumbar region; M48.062 Spinal stenosis, lumbar region with neurogenic claudication; M47.816 Spondylosis without myelopathy or radiculopathy, lumbar region; M54.9 Dorsalgia, unspecified; M25.511 Pain in right shoulder; M25.512 Pain in left shoulder; E11.9 Type 2 diabetes mellitus without complications; I63.9 Cerebral infarction, unspecified; I25.810 Atherosclerosis of coronary artery bypass graft(s) without angina pectoris; I10 Essential (primary) hypertension; Z79.891 Long term (current) use of opiate analgesic | CPT/HCPCS: 99214 ==

== ENCOUNTER 2020-08-11 06:51 | Outpatient (CLI) | payer OTHER, SELFPAY ==
--- NOTE | 2020-08-11 07:37 | MR_ITS ---
WS: [id number] MRA CAROTID WITHOUT AND WITH GADOLINIUM ENHANCEMENT TECHNIQUE: Axial 2-D TOF and gadolinium bolus images obtained with axial images and axial, sagittal, and coronal 2-D reformatted images. CLINICAL INFORMATION: G45.9 - Transient cerebral ischemic attack, unspecified COMPARISON: CTA March 14, 2020 FINDINGS: Right: Right common carotid artery is patent. No significant right ICA stenosis. ICA is patent to the skull base. Left: Left common carotid artery is patent. Less than 50% left ICA stenosis. Left ICA is patent to th e skull base. Moderate stenosis left vertebral artery origin. Both vertebral arteries are patent. Right dominant ve rtebral artery. Partially visualized persistent left trigeminal artery. MR/MR angio neck w con* [id number] IMPRESSION: 1. No significant right ICA stenosis. 2. Less than 50% left ICA stenosis. Left ICA is patent to the skull base. 3. Moderate stenosis involving the left vertebral artery origin which remains patent. Right dominant vertebral artery which is patent. 4. Partially visualized persistent trigeminal artery.
--- NOTE | 2020-08-11 07:37 | MR_ITS ---
WS: [id number] MRA HEAD TECHNIQUE: Axial 3-D TOF images obtained with axial images and axial, sagittal, and coronal 2-D refor matted images. CLINICAL INFORMATION: G45.9 - Transient cerebral ischemic attack, unspecified COMPARISON: CT head June 01, 2020 FINDINGS: Dominant distal left vertebral artery. Basilar artery is patent. Tortuous basilar artery. Persistent left trigeminal artery. Normal vascularity to the [employer] territory bilaterally. Both ICAs are patent at the skull base. Normal vascularity to the YURIDIA and MCA territories bilaterally . No evidence of flow-limiting stenosis or aneurysm. Patent anterior communicating artery. MR/MR angio head wo con [id number] IMPRESSION: 1. No evidence of flow-limiting stenosis or aneurysm. 2. Persistent left trigeminal artery. 3. Otherwise normal intracranial MRA.
[2020-08-11] MEDS: gadobenate dimeglumine 20 mL vial IV (11:24)
== END 2020-08-11 06:52 | disposition home or self-care (01) ==
LOC: RADSHAW 06:53
PROVIDERS: PCP Family Medicine; Visit Provider Specialist
DX: G45.9 Transient cerebral ischemic attack, unspecified (principal)
CPT/HCPCS: 70544; 70548; A9577

== ENCOUNTER → 2020-09-07 09:14 | Outpatient (BNVA) | payer OTHER, SELFPAY | PROVIDERS: PCP Family Medicine; Visit Provider Anesthesiology Pain Medicine | DX: G89.29 Other chronic pain (principal); M48.062 Spinal stenosis, lumbar region with neurogenic claudication; M51.16 Intervertebral disc disorders with radiculopathy, lumbar region; M47.816 Spondylosis without myelopathy or radiculopathy, lumbar region; M54.9 Dorsalgia, unspecified; I63.9 Cerebral infarction, unspecified; I25.810 Atherosclerosis of coronary artery bypass graft(s) without angina pectoris; I10 Essential (primary) hypertension; Z79.899 Other long term (current) drug therapy | CPT/HCPCS: 99214 ==

== ENCOUNTER → 2020-10-05 09:08 | Outpatient (BNVA) | payer OTHER, SELFPAY | PROVIDERS: PCP Family Medicine; Visit Provider Anesthesiology Pain Medicine | DX: G89.29 Other chronic pain (principal); M51.16 Intervertebral disc disorders with radiculopathy, lumbar region; M48.062 Spinal stenosis, lumbar region with neurogenic claudication; M47.816 Spondylosis without myelopathy or radiculopathy, lumbar region; I63.9 Cerebral infarction, unspecified; I25.810 Atherosclerosis of coronary artery bypass graft(s) without angina pectoris; I10 Essential (primary) hypertension; Z79.899 Other long term (current) drug therapy; Z87.891 Personal history of nicotine dependence | CPT/HCPCS: 99214 ==

== ENCOUNTER 2020-10-11 10:30 | Outpatient (CLI) | payer OTHER, SELFPAY ==
--- NOTE | 2020-10-11 11:00 | USCV_ITS ---
GrahamVictorino roth Age: 70 Gender: M : 1950 Exam Date: 10/11/2020 11:05 Ordering Phys: Aki Trujillo MD (Andy) ([email or web address]) Technologist: Cady [place] Exam Location: [facility] [place] Indication: stenosis of bilateral carotid arteries Risk Factors: Previous Vascular Surgery: Right Brachial BP: / Left Brachial BP: / Right Left Velocity (cm/s) Spectral Plaque Velocity (cm/s) Spectral Plaque Syst/Diast Broadening Syst/Diast Broadening 83.10/ 12.60 Prox CCA 97.80 / 15.70 77.20/ 11.10 Mid CCA 77.20 / 15.70 68.20/ 11.10 Distal CCA 85.70 / 12.10 88.00/ 6.80 Prox ICA 95.30 / 19.30 82.90/ 14.50 Mid ICA 106.20/ 13.30 81.20/ 14.50 Distal ICA 73.60 / 15.70 61.40 ECA 117.10 1.06 ICA/CCA 1.09 Not Vertebral Not Visualized Visualized / cm/s / cm/s Tri Subclavian Tri 149.9 134.1 0 0 FINDINGS Comparison:. 03/14/20. No significant elevation of systolic or diastolic velocities. Mild bilateral plaque in the bifurcations. Neither vertebral artery is seen. CONCLUSIONS Bilateral ICA stenosis less than 50%. Mild atherosclerotic plaque, no progression of disease. Dr. Celsa Anderson DO (Electronically Signed) Final Date: 13 October 2020 08:14 S
== END 2020-10-11 10:31 | disposition home or self-care (01) ==
LOC: RAD 10:34
PROVIDERS: PCP Family Medicine; Visit Provider Internal Medicine Cardiovascular Disease
DX: I65.23 Occlusion and stenosis of bilateral carotid arteries (principal)
CPT/HCPCS: 93880

== ENCOUNTER 2020-10-23 07:58 | Outpatient (CLI) | payer OTHER, SELFPAY ==
--- NOTE | 2020-10-23 08:09 | USCV_ITS ---
Victorino Stevenson Age: 70 Gender: M : 1950 Exam Date: 10/23/2020 08:34 Ordering Phys: Ludmila Gilbert MD ([email or web address]) Technologist: Dionisio Bermudez Exam Location: [facility] [place] Indication: HISTORY: Lower extremity swelling. PROCEDURES: Bilateral duplex Venous Insufficiency study of the Deep and Superficial systems was carried out according to normal protocol with the patient in supine positon for deep system and dependent position for the superficial system. FINDINGS: All deep veins demonstrated compressibility without evidence of intraluminal thrombus or increased echogenicity. Spectral analysis of Doppler signals demonstrates normal response to compression maneuvers indicating patency without obstruction. Reflux determinations were made with the patient in the dependent position, the weight being on the contralateral leg. Vein measurements and reflux times are listed below were applicable. No notable reflux was seen at this time. The veins were found to be easily compressible with spontaneous blood flow. Non pulsatile flow pattern. CONCLUSIONS No evidence of DVT in the above-mentioned identifiable veins. No significant venous reflux either in the deep or in the superficial veins. Dr Patricia Joy MD FAC (Electronically Signed) Final Date: 24 October 2020 18:01 S
== END 2020-10-23 07:59 | disposition home or self-care (01) ==
PROVIDERS: PCP Family Medicine; Visit Provider Internal Medicine Cardiovascular Disease
DX: I73.9 Peripheral vascular disease, unspecified (principal); M79.89 Other specified soft tissue disorders
CPT/HCPCS: 93970

== ENCOUNTER → 2020-11-06 08:37 | Outpatient (BNVA) | payer OTHER, SELFPAY | PROVIDERS: PCP Family Medicine; Visit Provider Anesthesiology Pain Medicine | DX: G89.29 Other chronic pain (principal); M48.062 Spinal stenosis, lumbar region with neurogenic claudication; M47.816 Spondylosis without myelopathy or radiculopathy, lumbar region; M51.16 Intervertebral disc disorders with radiculopathy, lumbar region; M79.604 Pain in right leg; M79.605 Pain in left leg; I63.9 Cerebral infarction, unspecified; I25.810 Atherosclerosis of coronary artery bypass graft(s) without angina pectoris; I10 Essential (primary) hypertension; Z79.891 Long term (current) use of opiate analgesic; Z87.891 Personal history of nicotine dependence | CPT/HCPCS: 99214 ==

== ENCOUNTER 2020-11-24 21:15 | Inpatient (IN) | payer OTHER, MEDICARE, SELFPAY ==
[2020-11-24 21:27] VITALS: PULSE 65; RESP 18; TEMP 37.6; O2SAT 99; BMI 35.6
[2020-11-24 21:30] VITALS: BP 117/77; PULSE 77; RESP 24; TEMP 37.2; O2SAT 90
--- NOTE | 2020-11-24 21:43 | ED_ITS ---
HPI - Abdominal Pain General: Chief Complaint: Abdominal Pain Stated Complaint: abd pain, weakness Time Seen by Provider: 11/24/20 21:34 Source: patient Mode of arrival: ambulatory Limitations: no limitations History of Present Illness: HPI narrative: 70-year-old male states he been having abdominal pain and not feeling very well over the last 4 to 5 days days. He states she has had issues like this in the past and actually supposed to be scheduled to get an EGD but has not yet. He denies any fever. Denies any vomiting or diarrhea. Denies any worsening improving factors. Denies any chest pain. States the pain is diffuse in nature but mainly in the epigastric region. Associated Symptoms: Denies chills, dysuria and fever(s) Review of Systems Const: Denies: fever(s), chills, body aches or change in appetite Eyes: Denies: blurry vision or eye discomfort ENMT: Denies: throat pain or dental pain Card: Denies: chest pain Resp: Denies: dyspnea GI: Reports: abdominal pain : Denies: dysuria Musc: Denies: neck pain or back pain Skin/Breast: Denies: rash Neuro: Denies: headache(s) Psych: Denies: depression Redd/Lymph: Denies: easy bruising All/Imm: Denies: urticaria PFSH ED PFSH: Medical History Accelerated essential hypertension CAD (coronary artery disease) Carotid artery stenosis, symptomatic Closed fracture of distal end of right fibula COPD (chronic obstructive pulmonary disease) Diabetes Dyslipidemia GERD (gastroesophageal reflux disease) HTN (hypertension) Lower extremity edema Peripheral Vascular Disease Varicose veins of bilateral lower extremities with other complications Surgical History H/O heart bypass surgery Hx of CABG Hx of cholecystectomy Hx of cholecystectomy Family History Father CAD (coronary artery disease) Diabetes Hypertension Lung disease Grandfather CAD (coronary artery disease) Diabetes Hypertension Son CAD (coronary artery disease) Family history of premature coronary artery disease Grandmother Cancer Denies family history of Clotting disorder Dementia Hyperlipidemia Psychiatric illness Chronic kidney disease (CKD) Suicide Anesthesia complication Bleeding disorder Stroke Social History Quit status (tobacco): has quit using tobacco Year quit tobacco: 20 YEARS AGO Alcohol intake: former 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 Lives independently: Yes History of recent travel: No Physical Exam Const: COMMON NORMALS: no acute distress, patient oriented x3 and healthy appearing HENMT: COMMON NORMALS: normocephalic and atraumatic HEAD & SCALP: normocephalic and atraumatic Eye: COMMON NORMALS: Equal, round and reactive pupils present and EOMs intact bilaterally PUPIL: Yes Equal, round and reactive pupils present Neck/C-Spine: COMMON NORMALS: full ROM and supple Chest: COMMONS NORMALS: normal inspection of the chest and normal palpation of entire chest wall Resp: COMMON NORMALS: normal respiratory effort, No retractions, No use of accessory muscles and clear to auscultation bilaterally AUSCULTATION: clear to auscultation bilaterally Cardio: COMMON NORMALS: regular rate, regular rhythm and No murmurs present (Cardio) RATE: regular rate RHYTHM: regular rhythm GI: COMMON NORMALS: Normal to inspection, nondistended, normoactive bowel sounds present, Soft to palpation and no masses PALPATION: Yes Soft to palpation OTHER: mild diffuse tenderness Extremity: COMMON NORMALS: normal to inspection and full ROM Neuro: COMMON NORMALS: patient oriented x3, moves all extremities and no focal motor deficits Psych: COMMON NORMALS: mental status grossly normal, Normal thought process present and cooperative THOUGHT PROCESS: Normal thought process present Skin: COMMON NORMALS: no rashes or lesions noted and no wounds GENERAL SKIN EXAM: no rashes or lesions noted Course Vital Signs: Vital signs: Vital Signs Temperature 98.6 F 11/25/20 00:38 Pulse Rate 54 L 11/25/20 00:38 Respiratory Rate 18 11/25/20 00:38 Blood Pressure 97/54 11/25/20 00:38 Pulse Oximetry 93 11/25/20 00:38 MDM - Abdominal Pain MDM Narrative: Medical decision making narrative: Patient presents here with Covid pneumonia along with a pleural effusion. Patient been stable on the ER. Hospitalist seen patient in ED and will admit. Patient given Decadron along with them does appear. Requiring 4 L oxygen at this time. Lab Data: Labs: Lab Results 11/24/20 11/24/20 11/24/20 Range/Units 22:00 22:15 22:15 WBC 3.1 L (4.0-10.0) 10^3/ uL RBC 4.71 (4.1-5.3) 10^6/u L Hgb 14.1 (11.7-16.6) g/dL Hct 44.0 (42.0-52.0) % MCV 93.4 (80-94) fl MCH 29.9 (28.0-34.0) pg MCHC 32.0 (30.0-36.0) g/dL RDW 14.0 (12.1-15.1) % Plt Count 114 L (130-400) 10^3/c mm MPV 10.6 H (7.4-10.4) fL Neut % (Auto) 51.1 % Lymph % (Auto) 38.3 % [place] % (Auto) 9.7 % Eos % (Auto) 0.3 % Baso % (Auto) 0.3 % Neut # (Auto) 1.57 L (1.8-7.7) 10^3/u L Lymph # (Auto) 1.2 (0.8-4.8) 10^3/u L [place] # (Auto) 0.3 (0.2-0.9) 10^3/u L Eos # (Auto) 0.0 (0.0-0.8) 10^3/u L Baso # (Auto) 0.0 (0.0-0.1) 10^3/u L Nucleated RBC % (a uto) 0 % Nucleated RBCs # 0.0 /100WBC Sodium 136 (136-145) mmol/L Potassium 3.6 (3.5-5.1) mmol/L Chloride 101 (98-107) mmol/L Carbon Dioxide 25 (22-29) mmol/L Anion Gap 13.6 (5-19) BUN 20 (8-23) mg/dL Creatinine 1.2 (0.7-1.2) mg/dL GFR Calculation Not Reportable Glucose 150 H (65-115) mg/dL Calculated Osmolal ity 287 (285-295) mOsm/k g Lactate (0.5-2.2) mmol/L Calcium 8.6 (8.5-10.5) mg/dL Total Bilirubin 0.7 (0.15-1.2) mg/dL AST 143 H (0-40) U/L ALT 63 H (0-41) U/L Alkaline Phosphata se 79 (40-130) IU/L C-Reactive Protein (0.0-4.9) mg/L NT-Pro-B Natriuret Pep (0-125) pg/mL Total Protein 7.2 (6.6-8.7) g/dL Albumin 3.7 (3.5-5.2) g/dL Globulin 3.5 (1.3-4.6) g/dL Lipase 19 (13-60) U/L Urine Color Yellow (Yellow) Urine Appearance Sl hazy (CLEAR) Urine pH 5 (5-7) Ur Specific Gravit y 1.020 (1.005-1.030) Urine Protein 1+ H (Negative) Urine Glucose (UA) Trace H (Normal) Urine Ketones 1+ H (Negative) Urine Blood 3+ H (Negative) Urine Nitrate Negative (Negative) Urine Bilirubin 1+ H (Negative) Urine Urobilinogen 8 H (Negative) mg/dL Ur Leukocyte Linda ase Trace H (Negative) Urine RBC 5-10 H (0-2) /hpf Urine WBC 5-10 H (0-5) /hpf Ur Squamous Epith Cells 5-10 H (0-5) /hpf Amorphous Sediment Trace /hpf Urine Bacteria Trace (NONE) /hpf Hyaline Casts 0-4 H /lpf Urine Mucus 1+ /hpf SARS-CoV-2 Ag (Rap id) (Negative) 11/24/20 11/24/20 11/24/20 Range/Units 22:15 23:53 23:53 WBC (4.0-10.0) 10^3/ uL RBC (4.1-5.3) 10^6/u L Hgb (11.7-16.6) g/dL Hct (42.0-52.0) % MCV (80-94) fl MCH (28.0-34.0) pg MCHC (30.0-36.0) g/dL RDW (12.1-15.1) % Plt Count (130-400) 10^3/c mm MPV (7.4-10.4) fL Neut % (Auto) % Lymph % (Auto) % [place] % (Auto) % Eos % (Auto) % Baso % (Auto) % Neut # (Auto) (1.8-7.7) 10^3/u L Lymph # (Auto) (0.8-4.8) 10^3/u L [place] # (Auto) (0.2-0.9) 10^3/u L Eos # (Auto) (0.0-0.8) 10^3/u L Baso # (Auto) (0.0-0.1) 10^3/u L Nucleated RBC % (a uto) % Nucleated RBCs # /100WBC Sodium (136-145) mmol/L Potassium (3.5-5.1) mmol/L Chloride (98-107) mmol/L Carbon Dioxide (22-29) mmol/L Anion Gap (5-19) BUN (8-23) mg/dL Creatinine (0.7-1.2) mg/dL GFR Calculation Glucose (65-115) mg/dL Calculated Osmolal ity (285-295) mOsm/k g Lactate 0.7 (0.5-2.2) mmol/L Calcium (8.5-10.5) mg/dL Total Bilirubin (0.15-1.2) mg/dL AST (0-40) U/L ALT (0-41) U/L Alkaline Phosphata se (40-130) IU/L C-Reactive Protein 23.2 H (0.0-4.9) mg/L NT-Pro-B Natriuret Pep 162 H (0-125) pg/mL Total Protein (6.6-8.7) g/dL Albumin (3.5-5.2) g/dL Globulin (1.3-4.6) g/dL Lipase (13-60) U/L Urine Color (Yellow) Urine Appearance (CLEAR) Urine pH (5-7) Ur Specific Gravit y (1.005-1.030) Urine Protein (Negative) Urine Glucose (UA) (Normal) Urine Ketones (Negative) Urine Blood (Negative) Urine Nitrate (Negative) Urine Bilirubin (Negative) Urine Urobilinogen (Negative) mg/dL Ur Leukocyte Linda ase (Negative) Urine RBC (0-2) /hpf Urine WBC (0-5) /hpf Ur Squamous Epith Cells (0-5) /hpf Amorphous Sediment /hpf Urine Bacteria (NONE) /hpf Hyaline Casts /lpf Urine Mucus /hpf SARS-CoV-2 Ag (Rap id) Positive H (Negative) Imaging Data ^: CT Chest: Attestation: I personally reviewed and interpreted this imaging study as follows: Radiologist's impression: [facility] [place] [address] CT Scan Report Signed Patient: Victorino Stevenson Unit #: [id number] : 1950 Age/Sex: 70 / M ADM Date: 11/24/20 Loc: ER Room/Bed: Attending Dr: Ordering Provider/Ordering MD: Presley Taylor MD Date of Service: 11/24/20 Procedure(s): CT angio chest w abd pel w con Accession Number(s): [id number] Report Number: [id number] PROCEDURE INFORMATION: Exam: CTA Chest With Contrast Exam date and time: 11/24/2020 11:22 PM Age: 70 years old Clinical indication: Abdominal pain; Shortness of breath; Prior surgery; Surgery type: Gb. Cabg; Patient HX: Hypoxia with generalized abd pain. ; Additional info: SOB, abd pain TECHNIQUE: Imaging protocol: Computed tomographic angiography of the chest with contrast. 3D rendering (Not supervised by radiologist): MIP and/or 3D reconstructed images were created by the technologist. Radiation optimization: All CT scans at this facility use at least one of these dose optimization techniques: automated exposure control; mA and/or kV adjustment per patient size (includes targeted exams where dose is matched to clinical indication); or iterative reconstruction. Contrast material: VISI 320; Contrast volume: 95 ml; Contrast route: INTRAVENOUS (IV); COMPARISON: CT angio chest [id number] 05/02/2020 3:12 PM RADIATION DOSE METRICS: Total DLP (mGy-cm): 1970.51 FINDINGS: Pulmonary arteries: Normal. No pulmonary emboli. Aorta: Unremarkable. No aortic aneurysm. No aortic dissection. Lungs: Patchy bilateral airspace opacities likely reflects an infectious process. Pleural spaces: Large left pleural effusion. Heart: Localized right pericardial effusion measuring 3 cm. Lymph nodes: Scattered enlarged mediastinal lymph nodes measuring up 12 mm, nonspecific. Bones/joints: Sternotomy wires. Soft tissues: Unremarkable. IMPRESSION: 1. Negative for pulmonary embolus. 2. Large left pleural effusion. 3. Localized right pericardial effusion measuring 3 cm. 4. Patchy bilateral airspace opacities likely reflects an infectious process. 5. Scattered enlarged mediastinal lymph nodes measuring up 12 mm, nonspecific. PROCEDURE INFORMATION: Exam: CT Abdomen And Pelvis With Contrast Exam date and time: 11/24/2020 11:22 PM Age: 70 years old Clinical indication: Abdominal pain; Shortness of breath; Prior surgery; Surgery type: Gb. Cabg; Patient HX: Hypoxia with generalized abd pain. ; Additional info: SOB, abd pain TECHNIQUE: Imaging protocol: Computed tomography of the abdomen and pelvis with contrast. Radiation optimization: All CT scans at this facility use at least one of these dose optimization techniques: automated exposure control; mA and/or kV adjustment per patient size (includes targeted exams where dose is matched to clinical indication); or iterative reconstruction. Contrast material: VISI 320; Contrast volume: 95 ml; Contrast route: INTRAVENOUS (IV); COMPARISON: CT angio chest [id number] 05/02/2020 3:12 PM RADIATION DOSE METRICS: Total DLP (mGy-cm): 1970.51 FINDINGS: Liver: Normal. No mass. Gallbladder and bile ducts: Minimal intrahepatic biliary dilation. Cholecystectomy. Pancreas: Normal. No ductal dilation. Spleen: Normal. No splenomegaly. Adrenal glands: Normal. No mass. Kidneys and ureters: Bilateral renal cysts, negative for follow-up advised. Stomach and bowel: Diverticulosis without diverticulitis. Appendix: No evidence of appendicitis. Intraperitoneal space: Unremarkable. No free air. No significant fluid collection. Vasculature: Infrarenal fusiform abdominal aortic aneurysm measuring up to 2.7 cm without findings of rupture. Lymph nodes: Unremarkable. No enlarged lymph nodes. Urinary bladder: Unremarkable as visualized. Reproductive: Unremarkable as visualized. Bones/joints: Unremarkable. No acute fracture. Soft tissues: Large umbilical to supraumbilical ventral midline abdominal hernia containing omentum without bowel. CT/CT angio chest w abd pel w con IMPRESSION: 1. Negative for acute inflammatory process in the abdomen or pelvis. 2. Minimal intrahepatic biliary dilation. 3. Bilateral renal cysts, negative for follow-up advised. 4. Cholecystectomy. 5. Large umbilical to supraumbilical ventral midline abdominal hernia containing omentum without bowel. 6. Diverticulosis without diverticulitis. EKG Data ^: EKG 1: Attestation: I personally reviewed and interpreted this EKG as follows: EKG interpretation date: 11/24/20 EKG interpretation time: 21:33 Interpretation: nsr hr [address] or t wave abnormalities qrs 85 qtc 447 Discharge Plan Discharge Patient Disposition: Admitted As Inpatient Clinical Impression: Pneumonia due to 2019-nCoV Condition: Stable Coding Level of Care Code ED Service Girl for Chg Fwd Exam Comprehensive
[2020-11-24] MEDS: sodium chloride 0.9% 1,000 ML 999 ML IV (21:51)
[2020-11-24] MEDS: morphine 4 mg/mL SDV 1 mL IVP (21:52)
[2020-11-24] MEDS: ondansetron 2 mg/ML SDV 2 mL 4 MG IVP (21:52)
[2020-11-24 22:06] LABS: Urine Appearance SL Hazy (CLEAR); Urine Color Yellow (Yellow)
[2020-11-24 22:07] LABS: Add Urine Microscopic? YES; Bilirubin Urine 1+ (Negative); Blood Urine 3+ (Negative); Glucose Urine UA Trace (Normal); Ketones Urine 1+ (Negative); Leukocyte Esterase Urine Trace (Negative); Nitrate Urine Negative (Negative); Protein Urine 1+ (Negative); Urobilinogen Urine 8 mg/dL (Negative); pH Urine 5 (5-7)
[2020-11-24 22:15] LABS: Amorphous Sediment Urine TRACE /hpf; Bacteria Urine TRACE /hpf; Hyaline Casts Urine 0-4 /lpf; Mucus Urine 1+ /hpf
[2020-11-24 22:16] LABS: Add Urine Culture? No
[2020-11-24 22:26] LABS: Basophils % 0.3 %; Eosinophils % 0.3 %; Hemoglobin 14.1 g/dL (11.7-16.6); Lymphocytes # 1.2 10^3/uL (0.8-4.8); Lymphocytes % 38.3 %; Mean Corpuscular Hemoglobin 29.9 pg (28.0-34.0); Mean Corpuscular Volume 93.4 fl (80-94); Mean Platelet Volume 10.6 fL (7.4-10.4); Monocytes # 0.3 10^3/uL (0.2-0.9); Monocytes % 9.7 %; Neutrophils # 1.57 10^3/uL (1.8-7.7); Neutrophils % 51.1 %; Nucleated Red Blood Cells % 0 %; Platelet Count 114 10^3/cmm (130-400); Red Blood Count 4.71 10^6/uL (4.1-5.3); White Blood Count 3.1 10^3/uL (4.0-10.0)
[2020-11-24 22:41] VITALS: RESP 22
[2020-11-24] MEDS: HYDROmorphone 1 mg/mL INJ 1 mL IVP (22:41)
[2020-11-24 22:42] LABS: Alanine Aminotransferase 63 U/L (0-41); Albumin Level 3.7 g/dL (3.5-5.2); Alkaline Phosphatase 79 IU/L (40-130); Anion Gap 13.6 (5-19); Aspartate Amino Transferase 143 U/L (0-40); Blood Urea Nitrogen 20 mg/dL (8-23); Calcium 8.6 mg/dL (8.5-10.5); Carbon Dioxide 25 mmol/L (22-29); Chloride 101 mmol/L (98-107); Globulin 3.5 g/dL (1.3-4.6); Glucose 150 mg/dL (65-115); Lipase 19 U/L (13-60); Osmolality Calculated 287 mOsm/kg (285-295); Potassium 3.6 mmol/L (3.5-5.1); Sodium 136 mmol/L (136-145); Total Bilirubin 0.7 mg/dL (0.15-1.2); Total Protein 7.2 g/dL (6.6-8.7)
--- NOTE | 2020-11-24 23:22 | CTR_ITS ---
PROCEDURE INFORMATION: Exam: CTA Chest With Contrast Exam date and time: 11/24/2020 11:22 PM Age: 70 years old Clinical indication: Abdominal pain; Shortness of breath; Prior surgery; Surgery type: Gb. Cabg; Patient HX: Hypoxia with generalized abd pain. ; Additional info: SOB, abd pain TECHNIQUE: Imaging protocol: Computed tomographic angiography of the chest with contrast. 3D rendering (Not supervised by radiologist): MIP and/or 3D reconstructed images were created by the technologist. Radiation optimization: All CT scans at this facility use at least one of these dose optimization techniques: automated exposure control; mA and/or kV adjustment per patient size (includes targeted exams where dose is matched to clinical indication); or iterative reconstruction. Contrast material: VISI 320; Contrast volume: 95 ml; Contrast route: INTRAVENOUS (IV); COMPARISON: CT angio chest [id number] 05/02/2020 3:12 PM RADIATION DOSE METRICS: Total DLP (mGy-cm): 1970.51 FINDINGS: Pulmonary arteries: Normal. No pulmonary emboli. Aorta: Unremarkable. No aortic aneurysm. No aortic dissection. Lungs: Patchy bilateral airspace opacities likely reflects an infectious process. Pleural spaces: Large left pleural effusion. Heart: Localized right pericardial effusion measuring 3 cm. Lymph nodes: Scattered enlarged mediastinal lymph nodes measuring up 12 mm, nonspecific. Bones/joints: Sternotomy wires. Soft tissues: Unremarkable. IMPRESSION: 1. Negative for pulmonary embolus. 2. Large left pleural effusion. 3. Localized right pericardial effusion measuring 3 cm. 4. Patchy bilateral airspace opacities likely reflects an infectious process. 5. Scattered enlarged mediastinal lymph nodes measuring up 12 mm, nonspecific. PROCEDURE INFORMATION: Exam: CT Abdomen And Pelvis With Contrast Exam date and time: 11/24/2020 11:22 PM Age: 70 years old Clinical indication: Abdominal pain; Shortness of breath; Prior surgery; Surgery type: Gb. Cabg; Patient HX: Hypoxia with generalized abd pain. ; Additional info: SOB, abd pain TECHNIQUE: Imaging protocol: Computed tomography of the abdomen and pelvis with contrast. Radiation optimization: All CT scans at this facility use at least one of these dose optimization techniques: automated exposure control; mA and/or kV adjustment per patient size (includes targeted exams where dose is matched to clinical indication); or iterative reconstruction. Contrast material: VISI 320; Contrast volume: 95 ml; Contrast route: INTRAVENOUS (IV); COMPARISON: CT angio chest [id number] 05/02/2020 3:12 PM RADIATION DOSE METRICS: Total DLP (mGy-cm): 1970.51 FINDINGS: Liver: Normal. No mass. Gallbladder and bile ducts: Minimal intrahepatic biliary dilation. Cholecystectomy. Pancreas: Normal. No ductal dilation. Spleen: Normal. No splenomegaly. Adrenal glands: Normal. No mass. Kidneys and ureters: Bilateral renal cysts, negative for follow-up advised. Stomach and bowel: Diverticulosis without diverticulitis. Appendix: No evidence of appendicitis. Intraperitoneal space: Unremarkable. No free air. No significant fluid collection. Vasculature: Infrarenal fusiform abdominal aortic aneurysm measuring up to 2.7 cm without findings of rupture. Lymph nodes: Unremarkable. No enlarged lymph nodes. Urinary bladder: Unremarkable as visualized. Reproductive: Unremarkable as visualized. Bones/joints: Unremarkable. No acute fracture. Soft tissues: Large umbilical to supraumbilical ventral midline abdominal hernia containing omentum without bowel. CT/CT angio chest w abd pel w con IMPRESSION: 1. Negative for acute inflammatory process in the abdomen or pelvis. 2. Minimal intrahepatic biliary dilation. 3. Bilateral renal cysts, negative for follow-up advised. 4. Cholecystectomy. 5. Large umbilical to supraumbilical ventral midline abdominal hernia containing omentum without bowel. 6. Diverticulosis without diverticulitis. 7. Infrarenal fusiform abdominal aortic aneurysm measuring up to 2.7 cm without findings of rupture. Radiation Dose CTDIVOL = (mGy): DLP = 1970.51~1970.51 (mGy-cm)
[2020-11-24] MEDS: acetaminophen 500 mg Tablet 1000 MG PO (23:48)
[2020-11-24] MEDS: iodixanol 320 mg/mL 100mL Btl IV (23:55)
[2020-11-25] VITALS (52 sets, daily range): BP systolic 93–178; BP diastolic 49–138; PULSE 48–75; RESP 0–31; TEMP 36.3–37; O2SAT 82–97
[2020-11-25 00:29] LABS: Lactate (Lactic Acid level) 0.7 mmol/L (0.5-2.2); SARS Covid-2 Antigen Positive (Negative)
[2020-11-25] MEDS: dexamethasone 10 mg/mL INJ IVP (00:45)
[2020-11-25 01:11] LABS: C Reactive Protein 23.2 mg/L (0.0-4.9); NT Pro B Type Natriuretic Pept 162 pg/mL (0-125)
[2020-11-25] MEDS: remdesivir 200 MG in sodium chloride 0.9% (100 ml) 60 ML 100 MG IV (01:13)
[2020-11-25] MEDS: cefTRIAXone 1,000 MG in sodium chloride 0.9% (plus) 50 ML 100 MG IV (01:45)
[2020-11-25] MEDS: azithromycin 500 MG in sodium chloride 0.9% 250 ML 250 MG IV (01:50)
[2020-11-25] MEDS: midodrine 5 mg TABLET 10 MG PO ×4 (02:05→20:48)
--- NOTE | 2020-11-25 02:22 | ECG_ITS ---
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 Measurements Intervals [place] Rate: 63 P: 36 ND: 150 QRS: 45 QRSD: 85 T: 54 QT: 440 QTc: 451 Interpretive Statements SINUS RHYTHM POSSIBLE LEFT ATRIAL ENLARGEMENT [-0.1mV P-WAVE IN V1/V2] Compared to ECG 04/10/2020 20:53:06 Sinus bradycardia no longer present Electronically Signed On 11-25-2020 8:36:13 CDT by Esther Yanez M.D. [email or web address]
--- NOTE | 2020-11-25 02:26 | PM.HP ---
Providers/Chief Complaint Primary Care Provider: Sujata Macedo MD Chief Complaint: abd pain, weakness History of Present Illness Victorino Stevenson is a 70 year old male with past medical history of CAD status post CABG, peripheral vascular disease, vasculopathy, COPD, carotid artery disease, history of 2 CVAs, insulin-dependent type 2 diabetes mellitus, hypertension, hyperlipidemia, CHF, chronic back pain who presents to [facility] due to concerns for fatigue, weakness, abdominal pain, shortness of breath. Patient presents to [facility] as for the last few days, he has been feeling weak, fatigued, tired, increased shortness of breath, no fevers, no chills, no nausea, no vomiting, no diarrhea, but does have diffuse abdominal pain, does feel a bit lightheaded, no dizziness, denies any chest pain, no palpitations, he does admit to these been urinating more frequently, his urine appears more concentrated, has a foul order to it, no falls. Work-up in the emergency room for the abdominal pain showed a large ventral hernia, not incarcerated, this does not seem to be the source of his abdominal complaints, his tells me that his primary care provider has referred him for an EGD, he has had a negative colonoscopy in the last 10 years. CAT scan of the chest shows a large left pleural effusion with diffuse patchy infiltrates, his COVID-19 is positive, he is requiring 4 L. He was given morphine, Dilaudid, his blood pressures are 90s over 50s, map is 62, after liter bolus, map remains in the low 60s, his lactic acid is within normal limits, no significant leukocytosis, to source of infections could be secondary bacterial pneumonia from COVID-19 and UTI. He has bradycardia, has sepsis markers present. CT of the chest does show a large left pleural effusion, also a localized right pericardial effusion, patient will be moved to the ICU for closer evaluation, not requiring pressors at this time, midodrine has been started Review of Systems Const: Reports: fatigue and malaise; Denies: fever(s) or chills Eyes: Denies: change in vision or blurry vision ENMT: Denies: nasal congestion Card: Reports: lightheadedness, dyspnea on exertion and orthopnea; Denies: chest pain, palpitations, irregular heart rhythm, edema or syncope Resp: Reports: dyspnea; Denies: productive cough, non-productive cough or wheezing GI: Reports: abdominal pain and heartburn; Denies: nausea, vomiting, hematemesis, diarrhea, constipation, change in bowel habits, hematochezia or melena : Reports: urinary frequency; Denies: flank pain, difficulty urinating, dysuria, urinary urgency or urinary hesitancy Musc: Reports: back pain; Denies: neck pain Skin/Breast: Denies: rash Neuro: Reports: dizziness; Denies: headache(s) or vertigo Endo: Reports: polyuria; Denies: polydipsia Medications/Allergies Home Medications Medication Instructions Recorded Confirmed Last Taken Type ondansetron HCl [Zofran] 4 mg PO Q6H PRN #10 tab 07/18/19 11/06/20 Unknown Rx clopidogrel 75 mg tablet 75 mg PO DAILY@99908/04/19 11/06/20 06/01/20 History furosemide 20 mg tablet 20 mg PO DAILY@99908/04/19 11/06/20 06/01/20 History insulin glargine 100 unit/mL 90 unit SUBCUT BID@1000,2200 08/04/19 11/06/20 06/01/20 History subcutaneous solution metoprolol tartrate 25 mg tablet 12.5 mg PO Q12H 08/04/19 11/06/20 06/01/20 History tamsulosin 0.4 mg capsule 0.4 mg PO DAILY@99908/04/19 11/06/20 06/01/20 History citalopram 40 mg tablet 20 mg PO DAILY@99908/05/19 11/06/20 06/01/20 History nitroglycerin 0.4 mg sublingual 0.4 mg SUBLINGUAL Q5M PRN #25 tab 08/10/19 11/06/20 Unknown Rx tablet cholecalciferol (vitamin D3) 25 75 mcg PO DAILY@99911/08/19 11/06/20 06/01/20 History mcg (1,000 unit) capsule ascorbic acid (vitamin C) 500 mg 500 mg PO DAILY@99901/17/20 11/06/20 06/01/20 History capsule levalbuterol HCl 0.63 mg/3 mL 0.63 mg INHALATION TID PRN 01/17/20 11/06/20 Unknown History solution for nebulization omega-3 fatty acids 1,000 mg 1,000 mg PO DAILY@1000 01/17/20 11/06/20 06/01/20 History capsule zinc 50 mg tablet 50 mg PO DAILY@1000 01/17/20 11/06/20 06/01/20 History elderberry fruit and flower 1 cap PO DAILY@1000 03/13/20 11/06/20 06/01/20 History gabapentin 300 mg PO TID 03/13/20 11/06/20 06/01/20 History pantoprazole [Protonix] 40 mg PO DAILY@1000 03/13/20 11/06/20 06/01/20 History atorvastatin 40 mg tablet 80 mg PO DAILY@1000 #180 tab 04/24/20 11/06/20 06/01/20 Rx levothyroxine 37.5 mcg PO DAILY 06/01/20 11/06/20 06/01/20 History nystatin 1 applic TOPICAL TID 06/01/20 11/06/20 Unknown History omeprazole 40 mg capsule,delayed 40 mg PO DAILY 07/13/20 11/06/20 Unknown History release diazepam 5 mg tablet 10 mg PO ONCE #4 tab 08/09/20 11/06/20 Unknown Rx diazepam 2 mg tablet 2 mg PO ONCE PRN #1 tab 10/11/20 11/06/20 Unknown Rx hydrocodone 10 mg-acetaminophen 1 tab PO Q8H PRN 30 Days #90 tab 11/06/20 11/06/20 Unknown Rx 325 mg tablet Allergies Allergy/AdvReac Type Severity Reaction Status Date / Time fluoxetine [From Prozac] AdvReac Intermediate ADR-Irritab Verified 11/24/20 21:30 le PFSH Acute PFSH: Medical History Accelerated essential hypertension CAD (coronary artery disease) Carotid artery stenosis, symptomatic Closed fracture of distal end of right fibula COPD (chronic obstructive pulmonary disease) Diabetes Dyslipidemia GERD (gastroesophageal reflux disease) HTN (hypertension) Lower extremity edema Peripheral Vascular Disease Varicose veins of bilateral lower extremities with other complications Surgical History H/O heart bypass surgery Hx of CABG Hx of cholecystectomy Hx of cholecystectomy Family History Father CAD (coronary artery disease) Diabetes Hypertension Lung disease Grandfather CAD (coronary artery disease) Diabetes Hypertension Son CAD (coronary artery disease) Family history of premature coronary artery disease Grandmother Cancer Denies family history of Clotting disorder Dementia Hyperlipidemia Psychiatric illness Chronic kidney disease (CKD) Suicide Anesthesia complication Bleeding disorder Stroke Social History Quit status (tobacco): has quit using tobacco Year quit tobacco: 20 YEARS AGO Alcohol intake: former 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 Lives independently: Yes History of recent travel: No Vitals/I&O/Wt Last Vital Signs Temp 98.6 F 11/25/20 00:38 Pulse 54 L 11/25/20 00:38 Resp 18 11/25/20 00:38 BP 97/54 11/25/20 00:38 Pulse Ox 93 11/25/20 00:38 11/24/20 11/24/20 11/25/20 14:59 22:59 06:59 Intake Total 1000 / 1000 60 / 1060 Balance 1000 / 1000 60 / 1060 Weight last 48 hrs Weight 122.47 kg Physical Exam Const: COMMON NORMALS: no acute distress and patient oriented x3 GENERAL APPEARANCE: cooperative and comfortable HENMT: COMMON NORMALS: normocephalic HEAD & SCALP: normocephalic Eye: COMMON NORMALS: Equal, round and reactive pupils present and EOMs intact bilaterally GENERAL EYE: appearance normal, both eyes and all related structures PUPIL: Yes Equal, round and reactive pupils present Neck/C-Spine: COMMON NORMALS: full ROM and no lymphadenopathy THYROID: Thyroid normal Lymph: LYMPHATIC: no lymphadenopathy noted Resp: COMMON NORMALS: normal respiratory effort, No retractions, No use of accessory muscles and clear to auscultation bilaterally AUSCULTATION: crackles Cardio: COMMON NORMALS: regular rate, regular rhythm, S1 normal heart sound present, S2 normal heart sound present, No gallops present (Cardio), No clicks present (Cardio) and No murmurs present (Cardio) RATE: bradycardic RHYTHM: regular rhythm HEART SOUNDS: S1 normal heart sound present, S2 normal heart sound present and Murmur heart sound present systolic Location: apex GI: COMMON NORMALS: Normal to inspection, nondistended, normoactive bowel sounds present, Soft to palpation, non-tender and No hepatosplenomegaly present PALPATION: Yes Soft to palpation and Yes No hepatosplenomegaly present Extremity: COMMON NORMALS: normal to inspection, full ROM and no pedal edema Neuro: COMMON NORMALS: patient oriented x3, CN's II-XII intact bilaterally, moves all extremities and no focal motor deficits Psych: COMMON NORMALS: mental status grossly normal, Normal thought process present and cooperative THOUGHT PROCESS: Normal thought process present Data : 11/24/20 22:15 11/24/20 22:15 A&P Assessment and plan (1) Pneumonia due to 2019-nCoV: Hypoxia secondary to COVID-19 pneumonia -Rapid Covid positive -Start remdesivir -Start Decadron -Vitamin C, zinc, vitamin D - Rocephin, azithromycin for secondary bacterial pneumonia -Follow blood cultures, urine cultures, urine bacterial antigens, sputum cultures, MRSA -Follow inflammatory markers -Oxygen therapy -Full code -Lovenox for DVT prophylaxis Sepsis? -Low-grade fevers, 4 L, MAP less than 65, leukopenic, normal lactic acid -Low blood pressures possibly secondary to pain medications -For now continue midodrine 10 mg 3 times daily, monitor pressures in the ICU UTI, urine culture, Rocephin as above Large left pleural effusion, will consider discussing with radiology for diagnostic and therapeutic thoracocentesis Does have a pericardial effusion, right, does have a murmur on exam, no fluctuations in blood pressures, will continue to monitor, cardiac echo ordered Bradycardia, likely secondary to pain medication, asymptomatic, continue to monitor, serial troponins, serial EKGs, telemetry monitoring Transaminitis, likely secondary to COVID-19 Leukopenia, likely due to COVID-19 COPD, no oxygen at baseline, Decadron as above CHF, echocardiogram showed on March 14, 2020 EF 65%, mild LVH Type 2 diabetes mellitus, low-dose sliding scale History of CVA, TIA, continue Plavix, hold off on statin until CPK comes back CABG, CAD, as above Status: Acute (2) Secondary bacterial pneumonia: Status: Acute (3) Hypoxia: Status: Acute (4) Pleural effusion, left: Status: Acute (5) Pericardial effusion: Status: Acute (6) Dyslipidemia: Status: Acute (7) Diabetes: Status: Acute (8) COPD (chronic obstructive pulmonary disease): Status: Acute (9) TIA (transient ischemic attack): Status: Acute (10) Carotid artery stenosis, symptomatic: Status: Acute (11) Peripheral Vascular Disease: Status: Acute (12) Hx of CABG: Status: Acute (13) HTN (hypertension): Status: Acute Qualifiers: Hypertension type: essential hypertension Qualified Code(s): I10 - Essential (primary) hypertension Attestations Medical Necessity Statement*: Patient requires hospitalization, inpatient, greater than 2 minutes, for hypoxia secondary COVID-19, sepsis, UTI, large left pleural effusion, Coding Level of Care Code Acute Implementation Consultant for [facility] Fwd Diagnoses Pneumonia due to 2019-nCoV U07.1; J12.82 Secondary bacterial pneumonia J15.9 Hypoxia R09.02 Pleural effusion, left J90 Pericardial effusion I31.3 Dyslipidemia E78.5 Diabetes E11.9 COPD (chronic obstructive pulmonary disease) J44.9 TIA (transient ischemic attack) G45.9 Carotid artery stenosis, symptomatic I65.29 Peripheral Vascular Disease I73.9 Hx of CABG Z95.1 HTN (hypertension) I10 Hypertension type: essential hypertension
--- NOTE | 2020-11-25 02:47 | USCV_ITS ---
Victorino Stevenson Age: 70 Gender: M : 1950 Exam Date: 11/25/2020 08:57 Ordering Phys: Adam Willams MD Technologist: Adriana Thrasher Exam Location: [facility] [place] Indication: SOB BP: 114 / 53 HR: 64 Rhythm: Sinus bradycardia Technical Quality: Suboptimal MEASUREMENTS (Male / Female) Normal Values 2D ECHO LV Diastolic Diameter PLAX 3.3 cm 4.2 - 5.9 / 3.9 - 5.3 cm LV Systolic Diameter PLAX 2.0 cm LV Chamber Size 4.2 cm IVS Diastolic Thickness 1.3 cm 0.6 - 1.0 / 0.6 - 0.9 cm IVS Systolic Thickness 1.5 cm LVPW Diastolic Thickness 1.3 cm 0.6 - 1.0 / 0.6 - 0.9 cm LVPW Systolic Thickness 1.6 cm RV Chamber Size 3.2 cm LVOT Diameter 2.0 cm LV Ejection Fraction 2D Teich 70.5 % LV Ejection Fraction MOD 2C 69.2 % LV Ejection Fraction 2C AL 69.7 % LA Diameter 4.3 cm LA Width 3.0 cm LA Height 6.3 cm RA Width 2.8 cm RA Height 4.7 cm Aorta at Sinotubular Diameter 3.5 cm M-MODE LV Diastolic Diameter MM 3.9 cm 4.2 - 5.9 / 3.9 - 5.3 cm LV Systolic Diameter MM 2.0 cm LV Ejection Fraction MM Teich 80.6 % IVS Diastolic Thickness MM 1.3 cm 0.6 - 1.0 / 0.6 - 0.9 cm IVS Systolic Thickness MM 1.9 cm LVPW Diastolic Thickness MM 1.6 cm 0.6 - 1.0 / 0.6 - 0.9 cm LVPW Systolic Thickness MM 2.3 cm RV Diastolic Diameter MM 2.7 cm Aortic Annulus Diameter 3.9 cm LA Ao Ratio MM 1.3 MV E Point Septal Separation 0.6 cm DOPPLER AV Peak Velocity 120.0 cm/s LVOT Peak Velocity 86.0 cm/s AV Area Cont Eq vti 2.0 cm squared AV Area Cont Eq pk 2.2 cm squared MV Area PHT 2.8 cm squared Mitral E to A Ratio 1.0 MV E' Velocity 54.0 cm/s Mitral E to MV E' Ratio 15.9 Mitral E to LV E' Lateral Ratio 19.1 Mitral E to LV E' Septal Ratio 13.7 TR Peak Velocity 187.0 cm/s TR Peak Gradient 14.0 mmHg TV Peak E Velocity 93.0 cm/s Right Atrial Pressure 3.0 mmHg Pulmonary Artery Systolic Pressu 17.0 mmHg PV Peak Velocity 94.0 cm/s RV Acceleration Time 0.1 s RV Ejection Time 0.3 s RV AcT/ET 0.3 FINDINGS Left Ventricle Normal left ventricular size and systolic function, EF 67 %. Mild left ventricular hypertrophy. No regional wall motion abnormalities. Right Ventricle The right ventricle is normal in size and function. Right Atrium The right atrium is normal in size. Left Atrium Mildly increased left atrial size. Mitral Valve Thickened mitral valve. Moderate mitral annular calcification. Trace mitral valve regurgitation. Aortic Valve Thickened aortic valve. Tricuspid Valve Could not be visualized properly. Pulmonic Valve Pulmonic valve not well visualized. Pericardium Normal pericardium without effusion. Aorta Normal ascending aorta dimension. CONCLUSIONS Normal left ventricular size and systolic function, EF 67 %. Mild left ventricular hypertrophy. No regional wall motion abnormalities. Thickened mitral valve. Moderate mitral annular calcification. Possibly normal chamber sizes Trace of tricuspid and mitral regurgitation There is no pericardial effusion. Technically difficult study because of the poor ultrasonic window. Compared to the study from 03/14/2020, there may not be a significant change Dr Patricia Joy MD FAC (Electronically Signed) Final Date: 25 November 2020 12:25 S
[2020-11-25 02:51] LABS: Procalcitonin 0.08 ng/mL (0-0.5)
[2020-11-25 02:56] LABS: Creatine Phosphokinase 2134 U/L (39-308)
[2020-11-25 03:13] LABS: Estmated Average Glucose 220; Hemoglobin A1C 9.3 % (4.0-6.0)
[2020-11-25 03:14] LABS: Troponin(5th) Baseline 37 ng/L (0-15)
[2020-11-25 03:24] LABS: Thyroid Stimulating Hormone 7.02 uIU/mL (0.27-4.20)
[2020-11-25] MEDS: enoxaparin 40 mg/0.4 mL Syringe SUBCUT (03:24)
[2020-11-25] MEDS: pantoprazole 40 mg SDV IVP ×2 (03:25→14:43)
[2020-11-25] MEDS: HYDROcodone-acetaminophen 10-325 mg Tablet 1 TAB PO (03:25)
--- NOTE | 2020-11-25 04:16 | ECG_ITS ---
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 Measurements Intervals [place] Rate: 50 P: 12 [place]: 202 QRS: 12 QRSD: 90 T: -8 QT: 447 QTc: 408 Interpretive Statements SINUS BRADYCARDIA POSSIBLE LEFT ATRIAL ENLARGEMENT [-0.1mV P-WAVE IN V1/V2] POSSIBLE ANTERIOR MYOCARDIAL INFARCTION , OF INDETERMINATE AGE [30 ms Q WAVE IN V3/V4, OR R < 0.2 mV IN V4] Compared to ECG 04/10/2020 20:53:06 Myocardial infarct finding now present Electronically Signed On 11-25-2020 16:13:40 CDT by Patricia Joy M.D. [id number]
[2020-11-25 04:48] LABS: Troponin 5 2HR 36.36 ng/L (0-15)
[2020-11-25 04:52] LABS: Troponin 5 2HR Delta -0.64 ABS# (0-10)
--- NOTE | 2020-11-25 06:38 | PC.NURSE ---
Patient arrived from ED at approx 0445. Patient was able to walk from stretcher to bed with standby assistance. Patient oxygen saturation remains stable on 4L NC. Able to turn off levophed, BP remains stable. Patient AOX4, and able to answer admission questions. Afebrile. No concerns at this time.
[2020-11-25 07:56] LABS: Glucose Point of Care 229 mg/dL (70-110)
--- NOTE | 2020-11-25 08:16 | ECG_ITS ---
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 Measurements Intervals [place] Rate: 53 P: 35 [place]: 181 QRS: 39 QRSD: 88 T: 62 QT: 435 QTc: 410 Interpretive Statements SINUS BRADYCARDIA POSSIBLE LEFT ATRIAL ENLARGEMENT [-0.1mV P-WAVE IN V1/V2] Compared to ECG 11/25/2020 04:39:32 Myocardial infarct finding no longer present Electronically Signed On 11-25-2020 16:15:13 CDT by Patricia Joy M.D. [id number]
[2020-11-25 08:42] LABS: Troponin 5 6HR 29.09 ng/L (0-15)
[2020-11-25] MEDS: cholecalciferol (vitamin D3) 1,000 unit Tablet 3000 UNIT PO (08:59)
[2020-11-25] MEDS: ascorbic acid 500 mg Tablet PO (08:59)
[2020-11-25] MEDS: clopidogrel 75 mg Tablet PO (08:59)
[2020-11-25] MEDS: gabapentin 300 mg Capsule PO ×3 (08:59→20:48)
[2020-11-25] MEDS: citalopram 20 mg Tablet PO (08:59)
[2020-11-25] MEDS: zinc gluconate 50 mg Tablet PO (08:59)
[2020-11-25] MEDS: levothyroxine 75 mcg Tablet 37.5 MCG PO (09:00)
[2020-11-25 11:29] LABS: Glucose Point of Care 336 mg/dL (70-110)
--- NOTE | 2020-11-25 16:39 | PM.PN ---
Subjective Subjective: Interval history: 70 year old male with past medical history of CAD status post CABG, peripheral vascular disease, vasculopathy, COPD, carotid artery disease, history of 2 CVAs, insulin-dependent type 2 diabetes mellitus, hypertension, hyperlipidemia, CHF, chronic back pain who presents to [facility] due to concerns for fatigue, weakness, abdominal pain, shortness of breath. Upon admission to the hospital His initial laboratory workup showed a WBC of 3.1, hemoglobin of 14.1, hematocrit 44.0 and a platelet count of 114.Sodium 136, potassium 3.6, chloride 101, bicarb 25, BUN 20 and creatinine of 1.2. Glucose of 150. AST of 143, ALT of 63, alkaline phosphatase of 79. CPK level was elevated 2134. Troponin T baseline 37, subsequent 36.3 and 6 hour level at 29.0. CRP was mildly elevated 23.2 with a proBNP 162. TSH of 7.02. UA showed trace leukocyte esterase, neg nitrates. COVID-19 Rapid ag was positive. Imaging studies included a CT chest which showed no evidence of pulmonary embolism, however was note to have a large left pleural effusion with localized right pericardial effusion measuring 3 cm in addition to patchy bilateral airspace opacities. Also scattered mediastinal lymph node enlargement. CT abd/Pelvis showed large umbilical to supra umbilical ventral hernia containing omentum with out bowel. Upon admission to the hospital patient was started on Remdesivir 5 day protocol, Decadron 6 mg IV daily, ceftriazone 1g IV q24hr and Azithromycin 500mg IV daily. Initially patient required pressor support for hypotension however this was weaned off. He was started on Midodrine. Echocardiogram was performed which showed pEF, with no evidence of pericardial effusion. He was weaned to 2L of o2 via NC. Patient stated he felt better. No chest pain. no fever, or chills. Medications: Reviewed: Yes Vitals/I&O/Wt Last Vital Signs Temp 97.7 F 11/25/20 12:00 Pulse 48 L 11/25/20 14:00 Resp 18 11/25/20 12:15 BP 118/65 11/25/20 12:15 Pulse Ox 93 11/25/20 11:15 11/25/20 11/25/20 11/25/20 06:59 14:59 22:59 Intake Total 203.493 / 1203.493 600 / 600 Output Total 150 / 150 750 / 750 Balance 53.493 / 1053.493 -150 / -150 Weight last 48 hrs Weight 122.47 kg Physical Exam Narrative: EXAM NARRATIVE: General: alert, awake, oriented x 3, NAD HEENT: Grossly unremarkable CVS : NSR Chest : Non-labored respiration Abd: Not distended Ext: no edema Data : 11/24/20 22:15 11/24/20 22:15 Micro: Microbiology 11/25/20 06:35 MRSA Culture - Final Nose 11/25/20 08:00 Bacterial Antigens - Final Urine,Clean Catch 11/25/20 07:57 Blood Culture - Preliminary Blood SPECIMEN COLLECTED 11/25/20 07:55 Blood Culture - Preliminary Blood SPECIMEN COLLECTED A&P Assessment and plan (1) Pneumonia due to 2019-nCoV: Hypoxia secondary to COVID-19 pneumonia -Rapid Covid positive -Continue Remdesivir x 5 days -Decadron 6 mg IV daily -Vitamin C, zinc, vitamin D -Emperically on Rocephin, azithromycin for secondary bacterial pneumonia -Follow blood cultures, urine cultures, urine bacterial antigens, sputum cultures, MRSA - pending -Follow inflammatory markers- melyssa reorder for am -Oxygen therapy - wean as tolerated -Repeat chest xray Sepsis? -Low-grade fevers, 4 L, MAP less than 65, leukopenic, normal lactic acid -Low blood pressures possibly secondary to pain medications -For now continue midodrine 10 mg 3 times daily, monitor pressures in the ICU -Off pressor - careful use of midodrine given cardiac history UTI -F/u on urine culture -Abx as abovel Large left pleural effusion, - will consider discussing with radiology for diagnostic and therapeutic thoracocentesis - Repeat cxray today Suspected Pericardial effusion -Ruled out -Not noted on echo Bradycardia -Holding home metoprolol Transaminitis, likely secondary to COVID-19 plus rhabdo - Repeat in am Mild Rhabdo -Repeat CPK in am Leukopenia, likely due to COVID-19 COPD, no oxygen at baseline, Decadron as above - Continue neb CHF -echocardiogram showed on March 14, 2020 EF 65%, mild LVH -repeat echo - stable EF Type 2 diabetes mellitus -low-dose sliding scale History of CVA, TIA, continue Plavix, hold off on statin until CPK comes back CABG, CAD, as above Status: Acute (2) Secondary bacterial pneumonia: Status: Acute (3) Hypoxia: Status: Acute (4) Pleural effusion, left: Status: Acute (5) Pericardial effusion: Status: Acute (6) Dyslipidemia: Status: Acute (7) Diabetes: Status: Acute (8) COPD (chronic obstructive pulmonary disease): Status: Acute (9) TIA (transient ischemic attack): Status: Acute (10) Carotid artery stenosis, symptomatic: Status: Acute (11) Peripheral Vascular Disease: Status: Acute (12) Hx of CABG: Status: Acute (13) HTN (hypertension): Status: Acute Qualifiers: Hypertension type: essential hypertension Qualified Code(s): I10 - Essential (primary) hypertension Attestations Medical Necessity Statement*: Will require over 2 midnight stay in hospital for eval and treatment Time Spent in Patient Care: Greater than 35 minutes (>than 50% of time spent in counselling and/or direct pt care on unit). Coding Level of Care Code Acute General Office Associate for [facility] Fwd Diagnoses Pneumonia due to 2019-nCoV U07.1; J12.82 Secondary bacterial pneumonia J15.9 Hypoxia R09.02 Pleural effusion, left J90 Pericardial effusion I31.3 Dyslipidemia E78.5 Diabetes E11.9 COPD (chronic obstructive pulmonary disease) J44.9 TIA (transient ischemic attack) G45.9 Carotid artery stenosis, symptomatic I65.29 Peripheral Vascular Disease I73.9 Hx of CABG Z95.1 HTN (hypertension) I10 Hypertension type: essential hypertension
[2020-11-25 17:18] LABS: Glucose Point of Care 218 mg/dL (70-110)
--- NOTE | 2020-11-25 17:41 | PC.NURSE ---
Shift Note Frequent safety and comfort rounds continue. Orders and nursing care completed as indicated. Patient titrated down to 2L NC and levophed stopped this am. Patient up to chair with every meal. Orders to transfer patient to CSU room 106. Report called to LUCIA Alvarez on CSU. Family called and notified of patient's transfer orders and activities throughout the day, verbalized understanding. Pt transferred to CSU room 106 by wheelchair and transferred to bed with one assist. Patient tolerated well and A&Ox4 at time of transfer. Kim notified of patient's arrival.
[2020-11-25 20:17] LABS: Glucose Point of Care 249 mg/dL (70-110)
[2020-11-25] MEDS: budesonide 0.5 mg/2 mL Neb INHALATION (20:58)
[2020-11-26] VITALS (14 sets, daily range): BP systolic 120–155; BP diastolic 55–80; PULSE 49–59; RESP 16–21; TEMP 36.4–36.9; O2SAT 88–96
[2020-11-26] MEDS: HYDROcodone-acetaminophen 10-325 mg Tablet 1 TAB PO ×2 (00:21→23:44)
[2020-11-26] MEDS: azithromycin 500 MG in sodium chloride 0.9% 250 ML 250 MG IV (03:31)
[2020-11-26] MEDS: enoxaparin 40 mg/0.4 mL Syringe SUBCUT (03:31)
[2020-11-26] MEDS: cefTRIAXone 1,000 MG in sodium chloride 0.9% (plus) 50 ML 100 MG IV (03:32)
[2020-11-26 03:33] LABS: ABG PCO2 42.9 mmHg (35-45); ABG PH Result 7.39 (7.35-7.45); Arterial Blood Gas Hematocrit 42.2 % (42-52); Base Excess ABG 0.5 mmol/L (-2.0-2.0); Blood Gas Allen Test Pos; Blood Gas Sample Site Radial, left; Blood Gas Sample Type Arterial; HCO3 ABG 25.8 mmol/L (22-26); Oxygen Device ROOM AIR; PO2 ABG 58.5 mmHg (80.0-100.0)
[2020-11-26] MEDS: dexamethasone 10 mg/mL INJ 6 MG IVP (03:42)
[2020-11-26] MEDS: pantoprazole 40 mg SDV IVP ×2 (03:43→14:29)
[2020-11-26 05:28] LABS: INR 1.12 (0.8-1.2)
[2020-11-26 05:29] LABS: Basophils % 0.1 %; Hematocrit 43.3 % (42.0-52.0); Hemoglobin 14.1 g/dL (11.7-16.6); Lymphocytes % 11.7 %; Mean Corpuscular HGB Conc 32.6 g/dL (30.0-36.0); Mean Corpuscular Hemoglobin 30.4 pg (28.0-34.0); Mean Corpuscular Volume 93.3 fl (80-94); Monocytes # 0.5 10^3/uL (0.2-0.9); Monocytes % 5.7 %; Neutrophils # 6.93 10^3/uL (1.8-7.7); Neutrophils % 81.7 %; Nucleated Red Blood Cells % 0 %; Platelet Count 125 10^3/cmm (130-400); Red Blood Count 4.64 10^6/uL (4.1-5.3); Red Cell Distribution Width 13.8 % (12.1-15.1); White Blood Count 8.5 10^3/uL (4.0-10.0)
[2020-11-26 05:31] LABS: D Dimer 1.57 ug/mIFEU (0-0.59)
[2020-11-26] MEDS: remdesivir 100 MG in sodium chloride 0.9% (100 ml) 80 ML IV (05:50)
[2020-11-26 05:56] LABS: Alanine Aminotransferase 72 U/L (0-41); Albumin Level 3.1 g/dL (3.5-5.2); Alkaline Phosphatase 72 IU/L (40-130); Anion Gap 14.6 (5-19); Aspartate Amino Transferase 139 U/L (0-40); Blood Urea Nitrogen 21 mg/dL (8-23); C Reactive Protein 19.4 mg/L (0.0-4.9); Calcium 8.5 mg/dL (8.5-10.5); Carbon Dioxide 23 mmol/L (22-29); Chloride 105 mmol/L (98-107); Ferritin 913 ng/mL (30-400); Glucose 265 mg/dL (65-115); Magnesium 1.9 mg/dL (1.7-2.3); Osmolality Calculated 298 mOsm/kg (285-295); Phosphorus 2.3 mg/dL (2.5-4.5); Potassium 4.6 mmol/L (3.5-5.1); Sodium 138 mmol/L (136-145); Total Bilirubin 0.3 mg/dL (0.15-1.2); Total Protein 7.1 g/dL (6.6-8.7)
[2020-11-26 06:50] LABS: Glucose Point of Care 247 mg/dL (70-110)
--- NOTE | 2020-11-26 07:00 | XRR_ITS ---
PROCEDURE INFORMATION: Exam: XR Chest Exam date and time: 11/26/2020 7:00 AM Age: 70 years old Clinical indication: Patient HX: Follow up covid; Additional info: Respiratory failure TECHNIQUE: Imaging protocol: XR of the chest. Views: 1 view. COMPARISON: CT angio chest w abd pel w con 11/24/2020 11:22 PM FINDINGS: Lungs: Low lung volumes. There is bilateral airspace opacities, right greater than left, corresponding to known multifocal pneumonia. There is a small left pleural effusion with adjacent atelectasis. No pneumothorax. Pleural spaces: See Lungs finding. Heart/Mediastinum: Stable cardiomediastinal silhouette. Bones/joints: Median sternotomy changes seen. XR/XR chest 1V portable [id number] IMPRESSION: 1. Imaging findings of multifocal pneumonia. 2. Left pleural effusion with adjacent atelectasis.
[2020-11-26] MEDS: clopidogrel 75 mg Tablet PO (07:47)
[2020-11-26] MEDS: zinc gluconate 50 mg Tablet PO (07:48)
[2020-11-26] MEDS: cholecalciferol (vitamin D3) 1,000 unit Tablet 3000 UNIT PO (07:48)
[2020-11-26] MEDS: levothyroxine 75 mcg Tablet 37.5 MCG PO (07:48)
[2020-11-26] MEDS: ascorbic acid 500 mg Tablet PO (07:48)
[2020-11-26] MEDS: midodrine 5 mg TABLET 10 MG PO (07:48)
[2020-11-26] MEDS: gabapentin 300 mg Capsule PO ×3 (07:49→21:53)
[2020-11-26] MEDS: citalopram 20 mg Tablet PO (07:49)
--- NOTE | 2020-11-26 09:47 | P.PN_ITS ---
Subjective Subjective: Interval history: 70 year old male with past medical history of CAD status post CABG, peripheral vascular disease, vasculopathy, COPD, carotid artery disease, history of 2 CVAs, insulin-dependent type 2 diabetes mellitus, hypertension, hyperlipidemia, CHF, chronic back pain who presents to [facility] due to concerns for fatigue, weakness, abdominal pain, shortness of breath. Upon admission to the hospital His initial laboratory workup showed a WBC of 3.1, hemoglobin of 14.1, hematocrit 44.0 and a platelet count of 114.Sodium 136, potassium 3.6, chloride 101, bicarb 25, BUN 20 and creatinine of 1.2. Glucose of 150. AST of 143, ALT of 63, alkaline phosphatase of 79. CPK level was elevated 2134. Troponin T baseline 37, subsequent 36.3 and 6 hour level at 29.0. CRP was mildly elevated 23.2 with a proBNP 162. TSH of 7.02. UA showed trace leukocyte esterase, neg nitrates. COVID-19 Rapid ag was positive. Imaging studies included a CT chest which showed no evidence of pulmonary embolism, however was note to have a large left pleural effusion with localized right pericardial effusion measuring 3 cm in addition to patchy bilateral airspace opacities. Also scattered mediastinal lymph node enlargement. CT abd/Pelvis showed large umbilical to supra umbilical ventral hernia containing omentum with out bowel. Upon admission to the hospital patient was started on Remdesivir 5 day protocol, Decadron 6 mg IV daily, ceftriazone 1g IV q24hr and Azithromycin 500mg IV daily. Initially patient required pressor support for hypotension however this was we aned off. He was started on Midodrine. Echocardiogram was performed which showed pEF, with no evidence of pericardial effusion. He was weaned to 2L of o2 via NC. Patient stated he felt better. No chest pain. no fever, or chills. subjective 11/25/2020 Patient remained on 2 L of O2 via nasal cannula. Did not have any respiratory distress. Sitting in chair. Denies chest pain. No fever, chills, nausea vomiting. Medications: Reviewed: Yes Vitals/I&O/Wt Last Vital Signs Temp 97.8 F 11/26/20 07:49 Pulse 54 L 11/26/20 07:49 Resp 18 11/26/20 07:49 BP 154/66 11/26/20 07:49 Pulse Ox 92 11/26/20 07:49 11/25/20 11/26/20 11/26/20 22:59 06:59 14:59 Intake Total 410.507 / 1010.507 380 / 1390.507 360 / 360 Output Total 100 / 850 250 / 1100 250 / 250 Balance 310.507 / 160.507 130 / 290.507 110 / 110 Weight last 48 hrs Weight 122.47 kg Physical Exam Narrative: EXAM NARRATIVE: General: alert, awake, oriented x 3, NAD On 2 L HEENT: Grossly unremarkable CVS : NSR Chest : Non-labored respiration Abd: Not distended Ext: no edema Data : 11/26/20 05:00 11/26/20 05:00 Micro: Microbiology 11/25/20 07:57 Blood Culture - Preliminary Blood NEGATIVE TO DATE 11/25/20 07:55 Blood Culture - Preliminary Blood NEGATIVE TO DATE 11/25/20 06:35 MRSA Culture - Final Nose 11/25/20 08:00 Bacterial Antigens - Final Urine,Clean Catch A&P Assessment and plan (1) Pneumonia due to 2019-nCoV: Hypoxia secondary to COVID-19 pneumonia -Rapid Covid positive -Continue Remdesivir x 5 days -Decadron 6 mg IV daily -Vitamin C, zinc, vitamin D -Empirically on Rocephin, azithromycin for secondary bacterial pneumonia -Follow blood cultures, urine cultures, urine bacterial antigens, sputum cultures, MRSA - NGTD -Follow inflammatory markers. -Oxygen therapy - wean as tolerated -Repeat chest xray Sepsis due to COVID 19 pneumonia / possible UTI -Low-grade fevers, 4 L, MAP less than 65, leukopenic, normal lactic acid -Low blood pressures possibly secondary to pain medications vs infectious -Off pressor - careful use of midodrine given cardiac history - will hold for now -F/u on urine culture -Abx as above Large left pleural effusion, - Will consider discussing with radiology for diagnostic and therapeutic t horacocentesis - Repeat cxray - showed small effusion. - US chest in am Suspected Pericardial effusion -Ruled out -Not noted on echo Bradycardia -Possibly due to increase intra-thoracic vagal tone -Holding home metoprolol Transaminitis, likely secondary to COVID-19 plus rhabdo - Will continue to trend Mild Rhabdo -Repeat CPK in am Leukopenia, likely due to COVID-19 COPD, no oxygen at baseline, Decadron as above -Continue neb -Supplemental o2 as needed CHF -Echocardiogram showed on March 14, 2020 EF 65%, mild LVH -Repeat echo - stable EF -If Bp tolerates will resume diuretics -Monitor daily weights Type 2 diabetes mellitus - Increase sliding scale insulin - Will add lantus 5 units qhs - Qachs check s History of CVA, TIA, continue Plavix, Hyperlipidemia -Statin resumed once stable LFT CABG, CAD, as above -Meds as noted above. Status: Acute (2) Secondary bacterial pneumonia: Status: Acute (3) Hypoxia: Status: Acute (4) Pleural effusion, left: Status: Acute (5) Pericardial effusion: Status: Acute (6) Dyslipidemia: Status: Acute (7) Diabetes: Status: Acute (8) COPD (chronic obstructive pulmonary disease): Status: Acute (9) TIA (transient ischemic attack): Status: Acute (10) Carotid artery stenosis, symptomatic: Status: Acute (11) Peripheral Vascular Disease: Status: Acute (12) Hx of CABG: Status: Acute (13) HTN (hypertension): Status: Acute Qualifiers: Hypertension type: essential hypertension Qualified Code(s): I10 - Essential (primary) hypertension Attestations Medical Necessity Statement*: Will require further hospitalization for management of covid19 pneumonia Time Spent in Patient Care: Greater than 35 minutes (>than 50% of time spent in counselling and/or direct pt care on unit) . Coding Level of Care Code Acute [employer] Supervisor for [facility] Fwd Diagnoses Pneumonia due to 2019-nCoV U07.1; J12.82 Secondary bacterial pneumonia J15.9 Hypoxia R09.02 Pleural effusion, left J90 Pericardial effusion I31.3 Dyslipidemia E78.5 Diabetes E11.9 COPD (chronic obstructive pulmonary disease) J44.9 TIA (transient ischemic attack) G45.9 Carotid artery stenosis, symptomatic I65.29 Peripheral Vascular Disease I73.9 Hx of CABG Z95.1 HTN (hypertension) I10 Hypertension type: essential hypertension
[2020-11-26 11:32] LABS: Glucose Point of Care 262 mg/dL (70-110)
[2020-11-26 17:01] LABS: Glucose Point of Care 308 mg/dL (70-110)
[2020-11-26 23:00] LABS: Glucose Point of Care 352 mg/dL (70-110)
[2020-11-27] VITALS (11 sets, daily range): BP systolic 131–146; BP diastolic 68–98; PULSE 51–65; RESP 15–26; TEMP 36.4–36.8; O2SAT 91–96
[2020-11-27] MEDS: cefTRIAXone 1,000 MG in sodium chloride 0.9% (plus) 50 ML 100 MG IV (02:08)
[2020-11-27] MEDS: azithromycin 500 MG in sodium chloride 0.9% 250 ML 250 MG IV (02:51)
[2020-11-27] MEDS: dexamethasone 10 mg/mL INJ 6 MG IVP (02:52)
[2020-11-27] MEDS: pantoprazole 40 mg SDV IVP (02:52)
[2020-11-27] MEDS: enoxaparin 40 mg/0.4 mL Syringe SUBCUT (02:52)
[2020-11-27 04:20] LABS: Basophils % 0.1 %; Hematocrit 40.2 % (42.0-52.0); Hemoglobin 13.2 g/dL (11.7-16.6); Lymphocytes # 1.6 10^3/uL (0.8-4.8); Lymphocytes % 14.7 %; Mean Corpuscular HGB Conc 32.8 g/dL (30.0-36.0); Mean Corpuscular Volume 91.4 fl (80-94); Mean Platelet Volume 11.1 fL (7.4-10.4); Monocytes # 0.6 10^3/uL (0.2-0.9); Monocytes % 5.3 %; Neutrophils # 8.42 10^3/uL (1.8-7.7); Neutrophils % 79.1 %; Nucleated Red Blood Cells % 0 %; Platelet Count 128 10^3/cmm (130-400); Red Cell Distribution Width 13.7 % (12.1-15.1); White Blood Count 10.7 10^3/uL (4.0-10.0)
[2020-11-27 04:30] LABS: INR 1.11 (0.8-1.2)
[2020-11-27 04:33] LABS: D Dimer 1.34 ug/mIFEU (0-0.59)
[2020-11-27 04:45] LABS: Alanine Aminotransferase 66 U/L (0-41); Alkaline Phosphatase 66 IU/L (40-130); Anion Gap 12.4 (5-19); Aspartate Amino Transferase 89 U/L (0-40); Blood Urea Nitrogen 23 mg/dL (8-23); C Reactive Protein 8.2 mg/L (0.0-4.9); Calcium 8.5 mg/dL (8.5-10.5); Carbon Dioxide 25 mmol/L (22-29); Chloride 105 mmol/L (98-107); Creatine Phosphokinase 288 U/L (39-308); Ferritin 844 ng/mL (30-400); Globulin 3.5 g/dL (1.3-4.6); Glucose 273 mg/dL (65-115); Magnesium 1.9 mg/dL (1.7-2.3); Osmolality Calculated 299 mOsm/kg (285-295); Phosphorus 2.4 mg/dL (2.5-4.5); Potassium 4.4 mmol/L (3.5-5.1); Sodium 138 mmol/L (136-145); Total Bilirubin 0.3 mg/dL (0.15-1.2); Total Protein 6.5 g/dL (6.6-8.7)
[2020-11-27 04:48] LABS: Procalcitonin 0.04 ng/mL (0-0.5)
[2020-11-27] MEDS: remdesivir 100 MG in sodium chloride 0.9% (100 ml) 80 ML IV (06:28)
[2020-11-27 06:40] LABS: Glucose Point of Care 257 mg/dL (70-110)
[2020-11-27] MEDS: zinc gluconate 50 mg Tablet PO (07:37)
[2020-11-27] MEDS: gabapentin 300 mg Capsule PO ×3 (07:37→21:31)
[2020-11-27] MEDS: citalopram 20 mg Tablet PO (07:37)
[2020-11-27] MEDS: cholecalciferol (vitamin D3) 1,000 unit Tablet 3000 UNIT PO (07:37)
[2020-11-27] MEDS: ascorbic acid 500 mg Tablet PO (07:38)
[2020-11-27] MEDS: levothyroxine 75 mcg Tablet 37.5 MCG PO (07:38)
[2020-11-27] MEDS: clopidogrel 75 mg Tablet PO (07:38)
--- NOTE | 2020-11-27 08:38 | US_ITS ---
WS: [id number] INDICATION: Ultrasound chest TECHNIQUE: Ultrasound left chest FINDINGS: Ultrasound left chest. Small left pleural effusion with compressive atelectasis. This is si milar in appearance to the prior CT. US/US chest [id number] IMPRESSION: Small left pleural effusion with compressive atelectasis left lower lobe
[2020-11-27] MEDS: ipratropium-albuterol 3 mL Neb INHALATION ×3 (09:10→20:15)
[2020-11-27] MEDS: insulin glargine 100 units/1 mL 40 UNIT SUBCUT ×2 (10:08→21:31)
[2020-11-27] MEDS: docusate sodium 100 mg Capsule PO ×2 (10:08→17:11)
--- NOTE | 2020-11-27 10:28 | P.PN_ITS ---
Subjective Subjective: Interval history: Victorino reports he feels okay. He is got some of his strength back. He is not short of breath on oxygen. He denies any chest discomfort. History and physical and hospital course reviewed. Medications: Reviewed: Yes Vitals/I&O/Wt Last Vital Signs Temp 97.7 F 11/27/20 08:00 Pulse 59 L 11/27/20 09:10 Resp 17 11/27/20 09:10 BP 146/70 11/27/20 08:00 Pulse Ox 94 11/27/20 09:10 11/26/20 11/27/20 11/27/20 22:59 06:59 14:59 Intake Total 236 / 596 450 / 1046 320 / 320 Output Total 1150 / 1650 300 / 1950 Balance -914 / -1054 150 / -904 320 / 320 Physical Exam Narrative: EXAM NARRATIVE: General exam no distress Neck is supple Cardiovascular regular rate and rhythm, no murmur Lungs slightly coarse at the bases. Abdomen is soft with positive bowel sounds Extremities no cyanosis clubbing or edema Data : 11/27/20 03:46 11/27/20 03:46 Micro: Microbiology 11/25/20 08:00 Urine Culture - Final Urine,Clean Catch Bacterial Antigens - Final 11/25/20 07:57 Blood Culture - Preliminary Blood NEGATIVE TO DATE 11/25/20 07:55 Blood Culture - Preliminary Blood NEGATIVE TO DATE A&P Assessment and plan (1) Pneumonia due to 2019-nCoV: Continue remdesivir Continue dexamethasone Pulmonary toilet Incentive spirometry Empiric Rocephin and azithromycin Wean oxygen as tolerated Cultures negative to date Status: Acute (2) Pleural effusion, left: Ultrasound today demonstrated lower end of volume for successful thoracentesis. For now we will hold off unless clinically worsens. If still requiring oxygen consider repeating ultrasound Friday Status: Acute (3) COPD (chronic obstructive pulmonary disease): No evidence of exacerbation Status: Acute (4) CAD (coronary artery disease): Continue Plavix, statin 20 mg of Lasix IV now and resume his home Lasix dose. Status: Acute Qualifiers: Coronary Disease-Associated Artery/Lesion type: bypass graft [place] vs. transplanted heart: [place] heart Associated angina: without angina Qualified Code(s): I25.810 - Atherosclerosis of coronary artery bypass graft(s) without angina pectoris (5) TIA (transient ischemic attack): Continue Plavix Status: Acute Additional A&P Information Abdominal discomfort, resolved Full code Lovenox for DVT prophylaxis Attestations Medical Necessity Statement*: Needs continued hospitalization for COVID-19 pneumonia. Coding Level of Care Code Acute Hospital Intern for [facility] Fwd Diagnoses Pneumonia due to 2019-nCoV U07.1; J12.82 Pleural effusion, left J90 COPD (chronic obstructive pulmonary disease) J44.9 CAD (coronary artery disease) I25.810 Coronary Disease-Associated Artery/Lesion type: bypass graft [place] vs. transplanted heart: [place] heart Associated angina: without angina TIA (transient ischemic attack) G45.9
[2020-11-27 11:34] LABS: Glucose Point of Care 455 mg/dL (70-110)
[2020-11-27] MEDS: FUROsemide 10 mg/mL SDV 2mL 20 MG IVP (11:46)
--- NOTE | 2020-11-27 14:34 | PC.RESP ---
PULMONARY REHAB INFORMATION SENT TO PATIENT.
[2020-11-27 16:57] LABS: Glucose Point of Care 553 mg/dL (70-110)
[2020-11-27 16:57] LABS: Glucose Point of Care 505 mg/dL (70-110)
[2020-11-27] MEDS: pantoprazole DR 40 mg Tablet PO (17:11)
[2020-11-27] MEDS: insulin glargine 100 units/1 mL 20 UNIT SUBCUT (17:11)
[2020-11-28] VITALS (7 sets, daily range): BP systolic 131–137; BP diastolic 74–98; PULSE 64–75; RESP 16–20; O2SAT 90–94
[2020-11-28] MEDS: cefTRIAXone 1,000 MG in sodium chloride 0.9% (plus) 50 ML 100 MG IV (02:00)
[2020-11-28] MEDS: dexamethasone 10 mg/mL INJ 6 MG IVP (02:39)
[2020-11-28] MEDS: azithromycin 500 MG in sodium chloride 0.9% 250 ML 250 MG IV (02:39)
[2020-11-28] MEDS: enoxaparin 40 mg/0.4 mL Syringe SUBCUT (02:40)
[2020-11-28] MEDS: ipratropium-albuterol 3 mL Neb INHALATION (02:53)
[2020-11-28 03:53] LABS: Basophils % 0.1 %; Hematocrit 39.7 % (42.0-52.0); Hemoglobin 13.1 g/dL (11.7-16.6); Lymphocytes # 1.6 10^3/uL (0.8-4.8); Lymphocytes % 18.4 %; Mean Corpuscular Hemoglobin 30.3 pg (28.0-34.0); Mean Corpuscular Volume 91.7 fl (80-94); Mean Platelet Volume 10.9 fL (7.4-10.4); Monocytes # 0.6 10^3/uL (0.2-0.9); Monocytes % 6.5 %; Neutrophils # 6.62 10^3/uL (1.8-7.7); Neutrophils % 74.4 %; Nucleated Red Blood Cells % 0 %; Platelet Count 156 10^3/cmm (130-400); Red Blood Count 4.33 10^6/uL (4.1-5.3); Red Cell Distribution Width 13.8 % (12.1-15.1); White Blood Count 8.9 10^3/uL (4.0-10.0)
[2020-11-28 04:15] LABS: Alanine Aminotransferase 70 U/L (0-41); Albumin Level 3.1 g/dL (3.5-5.2); Alkaline Phosphatase 70 IU/L (40-130); Anion Gap 15.7 (5-19); Aspartate Amino Transferase 63 U/L (0-40); Blood Urea Nitrogen 26 mg/dL (8-23); Carbon Dioxide 25 mmol/L (22-29); Chloride 100 mmol/L (98-107); Globulin 3.8 g/dL (1.3-4.6); Glucose 306 mg/dL (65-115); Magnesium 1.9 mg/dL (1.7-2.3); Osmolality Calculated 300 mOsm/kg (285-295); Potassium 3.7 mmol/L (3.5-5.1); Sodium 137 mmol/L (136-145); Total Bilirubin 0.3 mg/dL (0.15-1.2); Total Protein 6.9 g/dL (6.6-8.7)
[2020-11-28] MEDS: remdesivir 100 MG in sodium chloride 0.9% (100 ml) 80 ML IV (05:48)
[2020-11-28 06:37] LABS: Glucose Point of Care 309 mg/dL (70-110)
--- NOTE | 2020-11-28 08:25 | P.DS_ITS ---
Discharge Providers Date of Admission: 11/25/20 02:16 Date of Discharge: November 28, 2020 Attending Provider at Admission: Adam Willams MD Attending Provider at Discharge: Colin Black MD Primary Care Provider: Sujata Macedo MD Diagnoses at Discharge Discharge Diagnosis (1) Pneumonia due to 2019-nCoV: Status: Acute (2) Pleural effusion, left: Status: Acute (3) COPD (chronic obstructive pulmonary disease): Status: Acute (4) CAD (coronary artery disease): Status: Acute Qualifiers: Coronary Disease-Associated Artery/Lesion type: bypass graft [place] vs. transplanted heart: [place] heart Associated angina: without angina Qualified Code(s): I25.810 - Atherosclerosis of coronary artery bypass graft(s) without angina pectoris (5) TIA (transient ischemic attack): Status: Acute Reason for Visit Reason for Visit: abd pain, weakness Hospital Course Hospital Course Mr. Stevenson presented to the hospital on November 25 with weakness, and GI symptomatology. Some shortness of breath was present as well. Rapid Covid was positive. He was started on remdesivir and dexamethasone. Rocephin and azithromycin were initiated. Left pleural effusion was noted on CT. Echocardiogram was obtained which demonstrated preserved ejection fraction, no significant pericardial effusion. Procalcitonin was negative. With the above treatment, he had significant gradual improvement. He came off oxygen November 27. He was monitored further until November 28. He did not qualify for home oxygen. He had not been febrile in over 48 hours. His blood cultures were negative, and white blood cell count was normal. On November 27 he had a ultrasound of his chest which showed only a small pleural effusion. This was not amenable to thoracentesis at that time. As he had significant improvement, wished to go home, had clinical improvement warranting it he was discharged home on November 28. He will follow-up at the end of this week with his primary care provider and have a chest x-ray at that time to continue to follow his left pleural effusion to resolution. He will finish 5 days of cefdinir. He will not need further dexamethasone, or remdesivir at this point as he has improved to room air. He has no active wheezing. Physical Exam Narrative: EXAM NARRATIVE: General exam no apparent distress Neck is supple Cardiovascular regular rate and rhythm Lungs clear no wheezing or crackles Abdomen is soft, positive bowel sounds Extremities no cyanosis clubbing or edema. Discharge Data Data Completed and Pending: Completed Studies During Hospitalization Category Date Time Status CT angio chest w abd pel w con Urge nt Cat Scan 11/24/20 23:22 Completed XR chest 1V fay ble [id number] Routine Exams 11/26/20 07:00 Completed CV. echo complete * [id number] Routine Ultrasound 11/25/20 02:47 [place] chest [id number] Ro utine Ultrasound 11/27/20 08:38 Completed Pending at discharge Category Date Time Status Blood Culture Rou corie Lab 11/25/20 07:57 Results Sputum Culture an d Gram Stain Stat Lab 11/25/20 02:22 Uncollected Labs from last 24 hours 11/28/20 11/28/20 11/28/20 06:11 03:13 03:13 WBC 8.9 RBC 4.33 Hgb 13.1 Hct 39.7 L MCV 91.7 MCH 30.3 MCHC 33.0 RDW 13.8 Plt Count 156 MPV 10.9 H Neut % (Auto) 74.4 Lymph % (Auto) 18.4 [place] % (Auto) 6.5 Eos % (Auto) 0.0 Baso % (Auto) 0.1 Neut # (Auto) 6.62 Lymph # (Auto) 1.6 [place] # (Auto) 0.6 Eos # (Auto) 0.0 Baso # (Auto) 0.0 Nucleated RBC % (a uto) 0 Nucleated RBCs # 0.0 Sodium 137 Potassium 3.7 Chloride 100 Carbon Dioxide 25 Anion Gap 15.7 BUN 26 H Creatinine 0.9 GFR Calculation Not Reportable Glucose 306 H POC Glucose 309 H Calculated Osmolal ity 300 H Calcium 9.0 Magnesium 1.9 Total Bilirubin 0.3 AST 63 H ALT 70 H Alkaline Phosphata se 70 Total Protein 6.9 Albumin 3.1 L Globulin 3.8 11/27/20 11/27/20 11/27/20 16:49 16:48 11:13 WBC RBC Hgb Hct MCV MCH MCHC RDW Plt Count MPV Neut % (Auto) Lymph % (Auto) [place] % (Auto) Eos % (Auto) Baso % (Auto) Neut # (Auto) Lymph # (Auto) [place] # (Auto) Eos # (Auto) Baso # (Auto) Nucleated RBC % (a uto) Nucleated RBCs # Sodium Potassium Chloride Carbon Dioxide Anion Gap BUN Creatinine GFR Calculation Glucose POC Glucose 505 H* 553 H* 455 H Calculated Osmolal ity Calcium Magnesium Total Bilirubin AST ALT Alkaline Phosphata se Total Protein Albumin Globulin Vitals: Last Vital Signs Temp 98 F 11/27/20 19:32 Pulse 64 11/28/20 06:00 Resp 18 11/28/20 04:00 BP 131/98 11/28/20 00:00 Pulse Ox 93 11/28/20 08:02 Discharge Plan Discharge Patient Disposition: Home Condition: Stable Prescriptions: New cefdinir 300 mg capsule 300 mg PO BID 5 Days Qty: 10 RF: 0 Continued citalopram 40 mg tablet 20 mg PO DAILY@1000 RF: 0 nitroglycerin [Nitrostat] 0.4 mg tablet, sublingual 0.4 mg SUBLINGUAL Q5M PRN (Reason: chest pain) Qty: 25 RF: 4 omega-3 fatty acids [Fish Oil Concentrate] 1,000 mg capsule 1,000 mg PO DAILY@1000 RF: 0 cholecalciferol (vitamin D3) 25 mcg (1,000 unit) capsule 75 mcg PO DAILY@1000 RF: 0 hydrocodone-acetaminophen 10-325 mg tablet 1 tab PO Q8H PRN (Reason: pain (scale score 7-10)) 30 Days Qty: 90 RF: 0 clopidogrel 75 mg tablet 75 mg PO DAILY@1000 RF: 0 furosemide 20 mg tablet 20 mg PO DAILY@1000 RF: 0 insulin glargine 100 unit/mL solution 90 unit SUBCUT BID@1000,2200 RF: 0 metoprolol tartrate 25 mg tablet 12.5 mg PO Q12H RF: 0 tamsulosin 0.4 mg capsule 0.4 mg PO DAILY@1000 RF: 0 levalbuterol HCl 0.63 mg/3 mL solution for nebulization 0.63 mg INHALATION TID PRN (Reason: Shortness Of Breath) RF: 0 atorvastatin 40 mg tablet 80 mg PO DAILY@1000 Qty: 180 RF: 3 diazepam [Valium] 5 mg tablet 10 mg PO ONCE Qty: 4 RF: 0 diazepam [Valium] 2 mg tablet 2 mg PO ONCE PRN (Reason: anxiety) Qty: 1 RF: 0 elderberry fruit and flower 460-115 mg Capsule 1 cap PO DAILY@1000 RF: 0 pantoprazole [Protonix] 40 mg tablet,delayed release (DR/EC) 40 mg PO DAILY@1000 RF: 0 gabapentin 300 mg capsule 300 mg PO TID RF: 0 ondansetron HCl [Zofran] 4 mg tablet 4 mg PO Q6H PRN (Reason: nausea and vomiting) Qty: 10 RF: 0 levothyroxine 75 mcg Tablet 37.5 mcg PO DAILY RF: 0 nystatin 100,000 unit/gram Cream 1 applic TOPICAL TID RF: 0 Discontinued zinc 50 mg tablet 50 mg PO DAILY@1000 RF: 0 ascorbic acid (vitamin C) 500 mg capsule 500 mg PO DAILY@1000 RF: 0 omeprazole 40 mg capsule,delayed release(DR/EC) 40 mg PO DAILY RF: 0 Discharge Orders: Discharge Order (Routine); Ordered 11/28/20 Ordered By: Colin Black Referrals: Sujata Macedo MD [Primary Care Provider] - 4-7 days (Follow-up by telehealth secondary to need for further quarantine for Covid in 3 to 5 days.Should have chest x-ray PA and lateral for follow-up of left pleural effusion in 3 to 5 days.) Discharge Diet: Cardiac and Diabetic Discharge Activity: Increase activity as tolerated Patient Instructions: Opioid Safety Activity Restrictions/Additional Instructions: Take all medicine as prescribed. Return for any worsening Keep follow-up with primary care provider Continue to quarantine for 14 days from onset of symptoms. Discharge Attestations Time Spent in Discharge Care*: greater than 30 min Quality Metrics Clinical Quality Measures During this hospital stay, did patient experience: None Coding Level of Care Code Acute Chg FW DC note Diagnoses Pneumonia due to 2019-nCoV U07.1; J12.82 Pleural effusion, left J90 COPD (chronic obstructive pulmonary disease) J44.9 CAD (coronary artery disease) I25.810 Coronary Disease-Associated Artery/Lesion type: bypass graft [place] vs. transplanted heart: [place] heart Associated angina: without angina TIA (transient ischemic attack) G45.9
--- NOTE | 2020-11-28 08:34 | PC.SOCIAL ---
IMM Update Pg. 2 of IMM updated and reviewed with patient, who verbalized understanding. Initialed, dated, and timed copy in chart.
[2020-11-28] MEDS: insulin glargine 100 units/1 mL 40 UNIT SUBCUT (09:15)
[2020-11-28] MEDS: levothyroxine 75 mcg Tablet 37.5 MCG PO (09:16)
[2020-11-28] MEDS: gabapentin 300 mg Capsule PO (09:16)
[2020-11-28] MEDS: cholecalciferol (vitamin D3) 1,000 unit Tablet 3000 UNIT PO (09:16)
[2020-11-28] MEDS: FUROsemide 20 mg Tablet PO (09:17)
[2020-11-28] MEDS: clopidogrel 75 mg Tablet PO (09:17)
[2020-11-28] MEDS: citalopram 20 mg Tablet PO (09:17)
[2020-11-28] MEDS: pantoprazole DR 40 mg Tablet PO (09:17)
[2020-11-28] MEDS: atorvastatin 40 mg Tablet 80 MG PO (09:17)
--- NOTE | 2020-11-28 10:40 | PC.NURSE ---
Discharge Note Patient discharged to [home] via [w/c] accompanied by [spouse]. Discharge instructions reviewed with patient and/or ambulatory services representative. Mobile pharmacy medications and/or prescriptions provided. Belongings/home medications returned.
--- NOTE | 2020-11-29 11:31 | PC.SOCIAL ---
discharge follow up call made. spoke with patients , reports patient is still very weak. patient is taking medications as prescribed. patient has follow up appointment with pcp 12-01 this will be a telehealth visit. patient remains in quarantine until 12-09-20, discussed this with . patient needs outpatient chest xray due to pleural effusion, orders were placed per dr. garcia verbal ok. directions given to that due to patient being covid positive xray would be done in the ambulance bay and to call prior to arrival and to not enter the building. verbal understanding.
== END 2020-11-28 10:43 | disposition home or self-care (01) | DRG 177 ==
LOC: ER 11-25 01:49 → ICU 11-25 02:37 → CSU 11-25 17:40
PROVIDERS: Hospitalist; Admitting Provider Family Medicine; Emergency Provider Emergency Medicine; PCP Family Medicine; Visit Provider Internal Medicine
DX: U07.1 COVID-19 (principal); J12.82 Pneumonia due to coronavirus disease 2019; J15.9 Unspecified bacterial pneumonia; I50.30 Unspecified diastolic (congestive) heart failure; N39.0 Urinary tract infection, site not specified; M62.82 Rhabdomyolysis; J90 Pleural effusion, not elsewhere classified; I11.0 Hypertensive heart disease with heart failure; I25.10 Atherosclerotic heart disease of native coronary artery without angina pectoris; Z95.1 Presence of aortocoronary bypass graft; I65.29 Occlusion and stenosis of unspecified carotid artery; J44.9 Chronic obstructive pulmonary disease, unspecified; E11.51 Type 2 diabetes mellitus with diabetic peripheral angiopathy without gangrene; E78.5 Hyperlipidemia, unspecified; K21.9 Gastro-esophageal reflux disease without esophagitis; Z87.891 Personal history of nicotine dependence; Z86.73 Personal history of transient ischemic attack (TIA), and cerebral infarction without residual deficits; G89.29 Other chronic pain; M54.9 Dorsalgia, unspecified; K43.9 Ventral hernia without obstruction or gangrene; Z79.02 Long term (current) use of antithrombotics/antiplatelets; Z79.891 Long term (current) use of opiate analgesic
CPT/HCPCS: 36415; 36416; 36600; 71045; 71275; 74177; 76604; 80053; 81001; 82550; 82728; 82803; 82962; 83036; 83605; 83690; 83735; 83880; 84100; 84145; 84443; 84484; 85025; 85378; 85610; 86140; 86403; 87040; 87086; 87426; 87641; 93005; 93306; 94640; 94664; 96365; 96367; 96372; 96375; 99291; C9113; J0456; J0696; J1100; J1170; J1650; J1815 ×2; J1940; J2270; J2405; J7030; J7050; J7626; Q9967

== ENCOUNTER 2020-11-30 11:30 | Outpatient (CLI) | payer MEDICARE, SELFPAY ==
--- NOTE | 2020-11-30 11:51 | XRR_ITS ---
PROCEDURE INFORMATION: Exam: XR Chest Exam date and time: 11/30/2020 11:51 AM Age: 70 years old Clinical indication: Condition or disease; Lung condition and disease; Pleural effusion; Other: Covid; Additional info: Pleural effusion, patient is covid positive. ^please send results to [facility]. TECHNIQUE: Imaging protocol: XR of the chest. Views: 1 view. COMPARISON: CR XR chest 1V portable [id number] 11/26/2020 6:01 AM FINDINGS: Lungs: There is airspace opacities throughout both lungs, highly concerning for multifocal pneumonia. No pleural effusion or pneumothorax. Pleural spaces: See Lungs finding. Heart/Mediastinum: Stable cardiomediastinal silhouette. Bones/joints: Median sternotomy changes seen. XR/XR chest 1V [id number] IMPRESSION: Imaging findings of multifocal pneumonia.
== END 2020-11-30 11:31 | disposition home or self-care (01) ==
LOC: RAD 11:47
PROVIDERS: PCP Family Medicine; Visit Provider Internal Medicine
DX: J90 Pleural effusion, not elsewhere classified (principal); J18.9 Pneumonia, unspecified organism
CPT/HCPCS: 71045

== ENCOUNTER → 2020-12-04 08:34 | Outpatient (BNVA) | payer OTHER, SELFPAY | PROVIDERS: PCP Family Medicine; Visit Provider Anesthesiology Pain Medicine | DX: G89.29 Other chronic pain (principal); M48.062 Spinal stenosis, lumbar region with neurogenic claudication; M47.816 Spondylosis without myelopathy or radiculopathy, lumbar region; M51.16 Intervertebral disc disorders with radiculopathy, lumbar region; I25.810 Atherosclerosis of coronary artery bypass graft(s) without angina pectoris; I10 Essential (primary) hypertension; I63.9 Cerebral infarction, unspecified; Z79.891 Long term (current) use of opiate analgesic | CPT/HCPCS: 99214 ==

== ENCOUNTER 2020-12-08 20:17 | Emergency (ER) | payer OTHER, MEDICARE, SELFPAY ==
[2020-12-08 20:17] VITALS: BP 135/70; PULSE 55; RESP 18; TEMP 37.1; O2SAT 96; BMI 31.6
--- NOTE | 2020-12-08 20:28 | W.ED.WEAKNES ---
HPI - Weakness General: Chief complaint: Weakness Stated complaint: GENERALIZED WEAKNESS Time Seen by Provider: 12/08/20 20:28 History of Present Illness: HPI Narrative: Mr. Stevenson is a 70-year-old gentleman with significant past medical history of hypertension, hyperlipidemia, history of CABG, COPD, diabetes, and TIA who presents emergency department due to weakness and fall. He reports that he has been recovering from Covid however felt like he was improved. Today he felt more weak than normal and had what sounds like a mechanical fall. There was no prodromal symptoms including specifically denying shortness of breath, chest pain, lightheadedness, dizziness. It was a somewhat controlled fall and he did not have head strike or loss of consciousness. He feels like he just had no strength associated with it and decided to come in for further evaluation. He currently denies complaints other than weakness, no pain related to a traumatic injury. No other specific provoking, exacerbating, or relieving factors identified. He denies history of frequent falls. Review of Systems General: Reports: 10 or more systems reviewed and unremarkable except in HPI and below PFSH ED PFSH: Medical History Accelerated essential hypertension CAD (coronary artery disease) Carotid artery stenosis, symptomatic Closed fracture of distal end of right fibula COPD (chronic obstructive pulmonary disease) Diabetes Dyslipidemia GERD (gastroesophageal reflux disease) HTN (hypertension) Lower extremity edema Peripheral Vascular Disease Varicose veins of bilateral lower extremities with other complications Surgical History H/O heart bypass surgery Hx of CABG Hx of cholecystectomy Hx of cholecystectomy Family History Father CAD (coronary artery disease) Diabetes Hypertension Lung disease Grandfather CAD (coronary artery disease) Diabetes Hypertension Son CAD (coronary artery disease) Family history of premature coronary artery disease Grandmother Cancer Denies family history of Clotting disorder Dementia Hyperlipidemia Psychiatric illness Chronic kidney disease (CKD) Suicide Anesthesia complication Bleeding disorder Stroke Social History Quit status (tobacco): has quit using tobacco Year quit tobacco: 20 YEARS AGO Alcohol intake: former 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 Lives independently: Yes History of recent travel: No Physical Exam Narrative: EXAM NARRATIVE: GENERAL/CONSTITUTIONAL - well-appearing. No acute distress. Eyes - PERRL, no conjunctival injection ENMT - Atraumatic external nose and ears. Moist mucous membranes NECK - supple. trachea midline CARDIOVASCULAR - regular rate and rhythm. Peripheral pulses 2+ and equal RESPIRATORY -clear to auscultation bilaterally. No retractions or accessory muscle use. ABDOMEN/GI - Nontender. Nondistended. No tenderness to percussion or evidence of peritonitis MSK - Extremities without obvious deformity or tenderness to palpation SKIN - Warm, Dry NEURO - alert and appropriately oriented. Cranial nerve II through XII intact. Strength and sensation intact. Moves all extremities equally. PSYCH - Appropriate mood and affect Course ED course: - Patient was seen and evaluated by me at bedside - Patient placed on cardiac monitors, IV access obtained - Initial evaluation notable for no acute distress, nontoxic appearance. No traumatic injury noted on exam. - Labs notable for no leukocytosis, normal hemoglobin. Thrombocytopenia noted however recent levels have also been low. No significant metabolic abnormality to explain patient's symptoms. Delta troponin negative. - Imaging notable for overall improved from prior though mild increased left opacities which in the context of negative procalcitonin is felt to not be clinically significant - Upon serial reexamination after treatment the patient was improved - Based on patient history, evaluation, labs, and imaging as interpreted the most likely cause of the patient's condition is unclear, may still be sequelae from Covid. - The results of ED evaluation were discussed with the patient including prescriptions and/or symptomatic cares (if applicable) including appropriate and responsible use, followup plan, and return precautions. The patient verbalized understanding and felt safe for discharge. - Patient discharged in satisfactory condition. Vital Signs: Vital signs: Vital Signs Temperature 98.7 F 12/08/20 20:17 Pulse Rate 57 L 12/08/20 23:07 Respiratory Rate 18 12/08/20 23:07 Blood Pressure 134/74 12/08/20 23:07 Pulse Oximetry 98 12/08/20 23:07 MDM - Weakness Medical Records: Attestation: I reviewed the patient's medical records. Lab Data: Attestation: I reviewed the patient's lab results. Labs: Lab Results 12/08/20 12/08/20 12/08/20 20:30 20:30 20:30 WBC 4.2 10^3/uL 10^3/ uL (4.0-10.0) RBC 4.15 10^6/uL 10^6 /uL (4.1-5.3) Hgb 12.3 g/dL g/dL (11.7-16.6) Hct 38.6 % L % (42.0-52.0) MCV 93.0 fl fl (80-94) MCH 29.6 pg pg (28.0-34.0) MCHC 31.9 g/dL g/dL (30.0-36.0) RDW 13.8 % % (12.1-15.1) Plt Count 82 10^3/cmm L 10^ 3/cmm (130-400) MPV 11.0 fL H fL (7.4-10.4) Neut % (Auto) 56.6 % % Lymph % (Auto) 31.9 % % [place] % (Auto) 8.7 % % Eos % (Auto) 1.4 % % Baso % (Auto) 1.2 % % Neut # (Auto) 2.39 10^3/uL 10^3 /uL (1.8-7.7) Lymph # (Auto) 1.4 10^3/uL 10^3/ uL (0.8-4.8) [place] # (Auto) 0.4 10^3/uL 10^3/ uL (0.2-0.9) Eos # (Auto) 0.1 10^3/uL 10^3/ uL (0.0-0.8) Baso # (Auto) 0.1 10^3/uL 10^3/ uL (0.0-0.1) Nucleated RBC % (a uto) 0 % % Nucleated RBCs # 0.0 /100WBC /100W BC Sodium 141 mmol/L mmol/L (136-145) Potassium 4.1 mmol/L mmol/L (3.5-5.1) Chloride 108 mmol/L H mmol /L (98-107) Carbon Dioxide 27 mmol/L mmol/L (22-29) Anion Gap 10.1 (5-19) BUN 14 mg/dL mg/dL (8-23) Creatinine 0.8 mg/dL mg/dL (0.7-1.2) GFR Calculation Not Reportable Glucose 247 mg/dL H mg/dL (65-115) Calculated Osmolal ity 301 mOsm/kg H mOs m/kg (285-295) Calcium 7.9 mg/dL L mg/dL (8.5-10.5) Total Bilirubin 0.4 mg/dL mg/dL (0.15-1.2) AST 45 U/L H U/L (0-40) ALT 43 U/L H U/L (0-41) Alkaline Phosphata se 83 IU/L IU/L (40-130) Troponin T Baselin e 17 ng/L H ng/L (0-15) Troponin T 120 Min [place] Delta Troponin T Total Protein 6.6 g/dL g/dL (6.6-8.7) Albumin 2.6 g/dL L g/dL (3.5-5.2) Globulin 4.0 g/dL g/dL (1.3-4.6) Procalcitonin Urine Color Urine Appearance Urine pH Ur Specific Gravit y Urine Protein Urine Glucose (UA) Urine Ketones Urine Blood Urine Nitrate Urine Bilirubin Urine Urobilinogen Ur Leukocyte Linda ase 12/08/20 12/08/20 12/08/20 20:30 22:05 22:15 WBC RBC Hgb Hct MCV MCH MCHC RDW Plt Count MPV Neut % (Auto) Lymph % (Auto) [place] % (Auto) Eos % (Auto) Baso % (Auto) Neut # (Auto) Lymph # (Auto) [place] # (Auto) Eos # (Auto) Baso # (Auto) Nucleated RBC % (a uto) Nucleated RBCs # Sodium Potassium Chloride Carbon Dioxide Anion Gap BUN Creatinine GFR Calculation Glucose Calculated Osmolal ity Calcium Total Bilirubin AST ALT Alkaline Phosphata se Troponin T Baselin e Troponin T 120 Min [place] 15.57 ng/L H ng/L (0-15) Delta Troponin T -1.43 ABS# L ABS# (0-10) Total Protein Albumin Globulin Procalcitonin 0.08 ng/mL ng/mL (0-0.5) Urine Color Yellow (Yellow) Urine Appearance Clear (CLEAR) Urine pH 5 (5-7) Ur Specific Gravit y 1.020 (1.005-1.030) Urine Protein Neg (Negative) Urine Glucose (UA) 4+ H (Normal) Urine Ketones Negative (Negative) Urine Blood Neg (Negative) Urine Nitrate Negative (Negative) Urine Bilirubin 1+ H (Negative) Urine Urobilinogen 1 mg/dL H mg/dL (Negative) Ur Leukocyte Linda ase Negative (Negative) Discharge Plan Discharge Patient Disposition: Home Clinical Impression: Fall, Weakness generalized Condition: Stable Prescriptions: No Action citalopram 40 mg tablet 20 mg PO DAILY@1000 RF: 0 nitroglycerin [Nitrostat] 0.4 mg tablet, sublingual 0.4 mg SUBLINGUAL Q5M PRN (Reason: chest pain) Qty: 25 RF: 4 omega-3 fatty acids [Fish Oil Concentrate] 1,000 mg capsule 1,000 mg PO DAILY@1000 RF: 0 cholecalciferol (vitamin D3) 25 mcg (1,000 unit) capsule 75 mcg PO DAILY@1000 RF: 0 clopidogrel 75 mg tablet 75 mg PO DAILY@1000 RF: 0 furosemide 20 mg tablet 20 mg PO DAILY@1000 RF: 0 insulin glargine 100 unit/mL solution 90 unit SUBCUT BID@1000,2200 RF: 0 metoprolol tartrate 25 mg tablet 12.5 mg PO Q12H RF: 0 tamsulosin 0.4 mg capsule 0.4 mg PO DAILY@1000 RF: 0 levalbuterol HCl 0.63 mg/3 mL solution for nebulization 0.63 mg INHALATION TID PRN (Reason: Shortness Of Breath) RF: 0 hydrocodone-acetaminophen 10-325 mg tablet 1 tab PO Q8H PRN (Reason: pain (scale score 7-10)) 30 Days Qty: 90 RF: 0 atorvastatin 40 mg tablet 80 mg PO DAILY@1000 Qty: 180 RF: 3 diazepam [Valium] 5 mg tablet 10 mg PO ONCE Qty: 4 RF: 0 diazepam [Valium] 2 mg tablet 2 mg PO ONCE PRN (Reason: anxiety) Qty: 1 RF: 0 elderberry fruit and flower 460-115 mg Capsule 1 cap PO DAILY@1000 RF: 0 pantoprazole [Protonix] 40 mg tablet,delayed release (DR/EC) 40 mg PO DAILY@1000 RF: 0 gabapentin 300 mg capsule 300 mg PO TID RF: 0 ondansetron HCl [Zofran] 4 mg tablet 4 mg PO Q6H PRN (Reason: nausea and vomiting) Qty: 10 RF: 0 levothyroxine 75 mcg Tablet 37.5 mcg PO DAILY RF: 0 nystatin 100,000 unit/gram Cream 1 applic TOPICAL TID RF: 0 Discharge Orders: Discharge ED (Routine); Ordered 12/08/20 Ordered By: Kannan Sierra Referrals: Sujata Macedo MD [Primary Care Provider] - Discharge Diet: Usual diet Discharge Activity: Resume usual activity Patient Instructions: Weakness (ED), Fall Prevention (ED) Activity Restrictions/Additional Instructions: Thank you for visiting the emergency department. You were seen and evaluated for weakness and fall. The exact cause of your symptoms is unclear, it is possible that you have an additional viral infection however no bacterial infection was identified. It is also possible that you are mildly dehydrated. Please follow-up with your primary care provider. Please return to the emergency department for anything that you are concerned about and feel needs emergency department evaluation. 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
--- NOTE | 2020-12-08 20:33 | XRR_ITS ---
PROCEDURE INFORMATION: Exam: XR Chest Exam date and time: 12/08/2020 8:33 PM Age: 70 years old Clinical indication: Shortness of breath and other: Weakness; Prior surgery; Surgery type: Open heart; Additional info: Weakness. Covid 10 days ago. TECHNIQUE: Imaging protocol: XR of the chest. Views: 1 view. COMPARISON: CR XR chest 1V [id number] 11/30/2020 11:50 AM FINDINGS: Lungs: There has been mild reduction in extent of previously noted infiltrates. Some of the infiltrates seen previously have increased in density which may indicate some developing consolidation. No new areas of infiltrate. Pleural spaces: Unremarkable. No pleural effusion. No pneumothorax. Heart/Mediastinum: Unremarkable. No cardiomegaly. Bones/joints: Sternotomy wires are in place. XR/XR chest 1V portable [id number] IMPRESSION: Reduction in overall extent of previously noted infiltrates with suggestion of some developing consolidation in some of the previously noted infiltrates.
[2020-12-08 20:37] VITALS: BP 155/92; PULSE 52; O2SAT 96
--- NOTE | 2020-12-08 20:40 | ECG_ITS ---
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
[2020-12-08 20:42] LABS: Basophils # 0.1 10^3/uL (0.0-0.1); Basophils % 1.2 %; Eosinophils # 0.1 10^3/uL (0.0-0.8); Eosinophils % 1.4 %; Hematocrit 38.6 % (42.0-52.0); Hemoglobin 12.3 g/dL (11.7-16.6); Lymphocytes # 1.4 10^3/uL (0.8-4.8); Lymphocytes % 31.9 %; Mean Corpuscular HGB Conc 31.9 g/dL (30.0-36.0); Mean Corpuscular Hemoglobin 29.6 pg (28.0-34.0); Monocytes # 0.4 10^3/uL (0.2-0.9); Monocytes % 8.7 %; Neutrophils # 2.39 10^3/uL (1.8-7.7); Neutrophils % 56.6 %; Nucleated Red Blood Cells % 0 %; Platelet Count 82 10^3/cmm (130-400); Red Blood Count 4.15 10^6/uL (4.1-5.3); Red Cell Distribution Width 13.8 % (12.1-15.1); White Blood Count 4.2 10^3/uL (4.0-10.0)
[2020-12-08 21:09] LABS: Troponin(5th) Baseline 17 ng/L (0-15)
[2020-12-08 21:13] LABS: Alanine Aminotransferase 43 U/L (0-41); Albumin Level 2.6 g/dL (3.5-5.2); Alkaline Phosphatase 83 IU/L (40-130); Anion Gap 10.1 (5-19); Aspartate Amino Transferase 45 U/L (0-40); Blood Urea Nitrogen 14 mg/dL (8-23); Calcium 7.9 mg/dL (8.5-10.5); Carbon Dioxide 27 mmol/L (22-29); Chloride 108 mmol/L (98-107); Glucose 247 mg/dL (65-115); Osmolality Calculated 301 mOsm/kg (285-295); Potassium 4.1 mmol/L (3.5-5.1); Sodium 141 mmol/L (136-145); Total Bilirubin 0.4 mg/dL (0.15-1.2); Total Protein 6.6 g/dL (6.6-8.7)
[2020-12-08 21:37] LABS: Procalcitonin 0.08 ng/mL (0-0.5)
[2020-12-08 21:55] VITALS: BP 145/79; PULSE 52; RESP 19; O2SAT 94
[2020-12-08 22:14] LABS: Add Urine Microscopic? NO; Charge for UA Resulting for Rev
[2020-12-08 22:24] LABS: Bilirubin Urine 1+ (Negative); Blood Urine Neg (Negative); Glucose Urine UA 4+ (Normal); Ketones Urine Negative (Negative); Leukocyte Esterase Urine Negative (Negative); Nitrate Urine Negative (Negative); Protein Urine Neg (Negative); Urine Appearance Clear (CLEAR); Urine Color Yellow (Yellow); Urobilinogen Urine 1 mg/dL (Negative); pH Urine 5 (5-7)
[2020-12-08 22:37] LABS: Troponin 5 2HR 15.57 ng/L (0-15)
[2020-12-08 22:38] LABS: Troponin 5 2HR Delta -1.43 ABS# (0-10)
[2020-12-08 23:07] VITALS: BP 134/74; PULSE 57; RESP 18; O2SAT 98
== END 2020-12-08 23:10 | disposition home or self-care (01) ==
PROVIDERS: Emergency Provider Emergency Medicine; PCP Family Medicine
DX: R53.1 Weakness (principal); Z79.02 Long term (current) use of antithrombotics/antiplatelets; Z79.4 Long term (current) use of insulin; I25.10 Atherosclerotic heart disease of native coronary artery without angina pectoris; J44.9 Chronic obstructive pulmonary disease, unspecified; E11.9 Type 2 diabetes mellitus without complications; E78.5 Hyperlipidemia, unspecified; I10 Essential (primary) hypertension; Z95.1 Presence of aortocoronary bypass graft; Z87.891 Personal history of nicotine dependence
CPT/HCPCS: 71045; 80053; 81003; 84145; 84484; 85025; 93005; 99283

== ENCOUNTER 2020-12-15 10:54 | Emergency (ER) | payer OTHER, MEDICARE, SELFPAY ==
[2020-12-15 10:58] VITALS: BP 111/58; PULSE 52; RESP 18; TEMP 37; O2SAT 94; BMI 33.3
--- NOTE | 2020-12-15 11:05 | XR_ITS ---
WS: [id number] XR chest 1V portable [id number] REASON FOR EXAM: dyspnea/cough FINDINGS: Compared to the previous examination of 12/08/2020, peripheral interstitial and groundglass infiltrate s persist with some improvement noted in the right lung. In the left lung minimal interstitial change s significantly improved compared to the 12/08/2020 examination. Prominent bulge in the mediastinal contour projected over the right lung is the previously defined lo culated fluid collection within the anterior mediastinum anterior to the superior vena cava. Rotation of the chest the right produces the mass effect. No new abnormalities identified. XR/XR chest 1V portable [id number] IMPRESSION: Resolving infiltrates in both lungs. Mediastinal fluid collection as above.
--- NOTE | 2020-12-15 11:06 | ECG_ITS ---
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 Measurements Intervals [place] Rate: 50 P: 40 CA: 184 QRS: 39 QRSD: 81 T: 69 QT: 382 QTc: 349 Interpretive Statements SINUS BRADYCARDIA POSSIBLE LEFT ATRIAL ENLARGEMENT [-0.1mV P-WAVE IN V1/V2] NONSPECIFIC T-WAVE ABNORMALITY Compared to ECG 12/08/2020 21:01:59 No significant changes Electronically Signed On 12-15-2020 19:22:30 CDT by Esther Yanez M.D. [id number] f
[2020-12-15 11:23] LABS: Basophils % 0.9 %; Eosinophils # 0.1 10^3/uL (0.0-0.8); Eosinophils % 2.9 %; Hematocrit 36.8 % (42.0-52.0); Hemoglobin 11.9 g/dL (11.7-16.6); Lymphocytes # 1.7 10^3/uL (0.8-4.8); Lymphocytes % 39.5 %; Mean Corpuscular HGB Conc 32.3 g/dL (30.0-36.0); Mean Corpuscular Hemoglobin 29.8 pg (28.0-34.0); Mean Corpuscular Volume 92.2 fl (80-94); Mean Platelet Volume 12.1 fL (7.4-10.4); Monocytes # 0.5 10^3/uL (0.2-0.9); Neutrophils # 1.96 10^3/uL (1.8-7.7); Neutrophils % 44.5 %; Nucleated Red Blood Cells % 0 %; Platelet Count 114 10^3/cmm (130-400); Red Blood Count 3.99 10^6/uL (4.1-5.3); Red Cell Distribution Width 13.8 % (12.1-15.1); White Blood Count 4.4 10^3/uL (4.0-10.0)
[2020-12-15 11:26] VITALS: BP 111/58; PULSE 55; O2SAT 98
[2020-12-15 11:27] VITALS: PULSE 50
[2020-12-15 11:47] LABS: Alanine Aminotransferase 24 U/L (0-41); Alkaline Phosphatase 91 IU/L (40-130); Anion Gap 9.8 (5-19); Aspartate Amino Transferase 18 U/L (0-40); Blood Urea Nitrogen 15 mg/dL (8-23); Calcium 7.8 mg/dL (8.5-10.5); Carbon Dioxide 30 mmol/L (22-29); Chloride 102 mmol/L (98-107); Creatine Phosphokinase 21 U/L (39-308); Globulin 3.5 g/dL (1.3-4.6); Glucose 287 mg/dL (65-115); Magnesium 1.8 mg/dL (1.7-2.3); Osmolality Calculated 295 mOsm/kg (285-295); Potassium 4.8 mmol/L (3.5-5.1); Slide Review Slide Review Perform; Sodium 137 mmol/L (136-145); Total Bilirubin 0.6 mg/dL (0.15-1.2); Total Protein 6.5 g/dL (6.6-8.7)
[2020-12-15 11:48] LABS: Troponin(5th) Baseline 16 ng/L (0-15)
--- NOTE | 2020-12-15 11:57 | ED_ITS ---
HPI - General Adult General: Chief complaint: General Medical Stated complaint: GENERALIZED WEAKNESS/ BRADYCARDIA Time Seen by Provider: 12/15/20 11:03 History of Present Illness: HPI narrative: [id number] male presents to the emergency room [facility]. At the [facility] reports he presented there hypotensive and bradycardic. Hospitalized for Covid he was dismissed after 1 to 2 days. He is complaining now some generalized weakness which has been ongoing since he was dismissed he denies any chest pain or particular shortness of breath. Is not had any nausea vomiting or diarrhea he did take all his medications this morning. Relieving factors: none Exacerbating factors: none Associated symptoms: Deny chest pain, confusion, cough, diaphoresis, decreased appetite, dyspnea, fevers/chills, headache(s), malaise, nausea, rash, palpitations, seizures, short of breath, syncope, vomiting or weakness Treatments prior to arrival: none Review of Systems Const: Denies: malaise or diaphoresis ENMT: Denies: throat pain, ear or mastoid pain, nasal discharge or nasal congestion Card: Denies: chest pain, palpitations or syncope Resp: Denies: dyspnea GI: Denies: nausea or vomiting : Denies: flank pain, dysuria, urinary frequency or urinary urgency Skin/Breast: Denies: rash Neuro: Denies: headache(s) or confusion PFSH ED PFSH: Medical History Accelerated essential hypertension CAD (coronary artery disease) Carotid artery stenosis, symptomatic Closed fracture of distal end of right fibula COPD (chronic obstructive pulmonary disease) Diabetes Dyslipidemia GERD (gastroesophageal reflux disease) HTN (hypertension) Lower extremity edema Peripheral Vascular Disease Varicose veins of bilateral lower extremities with other complications Surgical History H/O heart bypass surgery Hx of CABG Hx of cholecystectomy Hx of cholecystectomy Family History Father CAD (coronary artery disease) Diabetes Hypertension Lung disease Grandfather CAD (coronary artery disease) Diabetes Hypertension Son CAD (coronary artery disease) Family history of premature coronary artery disease Grandmother Cancer Denies family history of Clotting disorder Dementia Hyperlipidemia Psychiatric illness Chronic kidney disease (CKD) Suicide Anesthesia complication Bleeding disorder Stroke Social History Quit status (tobacco): has quit using tobacco Year quit tobacco: 20 YEARS AGO Alcohol intake: former 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 Lives independently: Yes History of recent travel: No Physical Exam Const: COMMON NORMALS: no acute distress GENERAL APPEARANCE: cooperative and comfortable ORIENTATION/CONSCIOUSNESS: Yes awake, Yes oriented to person, Yes oriented to place and Yes oriented to time HENMT: COMMON NORMALS: normocephalic, atraumatic and hearing grossly normal bilaterally HEAD & SCALP: normocephalic and atraumatic Resp: COMMON NORMALS: normal respiratory effort, No retractions, No use of accessory muscles and clear to auscultation bilaterally AUSCULTATION: clear to auscultation bilaterally Cardio: COMMON NORMALS: regular rhythm and No murmurs present (Cardio) RATE: bradycardic RHYTHM: regular rhythm GI: COMMON NORMALS: Soft to palpation and No hepatosplenomegaly present AUSCULTATION: Yes normoactive bowel sounds PALPATION: Yes Soft to palpation, No Tenderness to palpation present (GI), No Guarding due to palpation present (GI) and Yes No hepatosplenomegaly present Extremity: COMMON NORMALS: normal to inspection, capillary refill normal, no clubbing, cyanosis or edema, no calf tenderness and no pedal edema Neuro: SENSORIUM/ORIENTATION: Yes oriented to person, Yes oriented to place and Yes oriented to time Skin: COMMON NORMALS: no rashes or lesions noted GENERAL SKIN EXAM: no rashes or lesions noted Course Vital Signs: Vital signs: Vital Signs Temperature 98.6 F 12/15/20 10:58 Pulse Rate 56 L 12/15/20 13:17 Respiratory Rate 15 12/15/20 13:17 Blood Pressure 136/68 12/15/20 13:17 Pulse Oximetry 98 12/15/20 13:17 MDM - General Adult MDM Narrative: Medical decision making narrative: Mildly bradycardic bradycardic and hypotensive but otherwise asymptomatic reviewed labs imaging and EKGs monitor will discharge home stop the metoprolol follow-up with primary care doctor next week. Return if has further problems Lab Data: Labs: Lab Results 12/15/20 12/15/20 12/15/20 11:10 11:10 11:10 WBC 4.4 10^3/uL 10^3/ uL (4.0-10.0) RBC 3.99 10^6/uL L 10 ^6/uL (4.1-5.3) Hgb 11.9 g/dL g/dL (11.7-16.6) Hct 36.8 % L % (42.0-52.0) MCV 92.2 fl fl (80-94) MCH 29.8 pg pg (28.0-34.0) MCHC 32.3 g/dL g/dL (30.0-36.0) RDW 13.8 % % (12.1-15.1) Plt Count 114 10^3/cmm L 10 ^3/cmm (130-400) MPV 12.1 fL H fL (7.4-10.4) Neut % (Auto) 44.5 % % Lymph % (Auto) 39.5 % % [place] % (Auto) 12.0 % % Eos % (Auto) 2.9 % % Baso % (Auto) 0.9 % % Neut # (Auto) 1.96 10^3/uL 10^3 /uL (1.8-7.7) Lymph # (Auto) 1.7 10^3/uL 10^3/ uL (0.8-4.8) [place] # (Auto) 0.5 10^3/uL 10^3/ uL (0.2-0.9) Eos # (Auto) 0.1 10^3/uL 10^3/ uL (0.0-0.8) Baso # (Auto) 0.0 10^3/uL 10^3/ uL (0.0-0.1) Nucleated RBC % (a uto) 0 % % Nucleated RBCs # 0.0 /100WBC /100W BC Sodium 137 mmol/L mmol/L (136-145) Potassium 4.8 mmol/L mmol/L (3.5-5.1) Chloride 102 mmol/L mmol/L (98-107) Carbon Dioxide 30 mmol/L H mmol/ L (22-29) Anion Gap 9.8 (5-19) BUN 15 mg/dL mg/dL (8-23) Creatinine 1.0 mg/dL mg/dL (0.7-1.2) GFR Calculation Not Reportable Glucose 287 mg/dL H mg/dL (65-115) Calculated Osmolal ity 295 mOsm/kg mOsm/ kg (285-295) Lactic Acid 1.0 mmol/L mmol/L (0.5-2.2) Calcium 7.8 mg/dL L mg/dL (8.5-10.5) Magnesium 1.8 mg/dL mg/dL (1.7-2.3) Total Bilirubin 0.6 mg/dL mg/dL (0.15-1.2) AST 18 U/L U/L (0-40) ALT 24 U/L U/L (0-41) Alkaline Phosphata se 91 IU/L IU/L (40-130) Creatine Kinase 21 U/L L U/L (39-308) Troponin T Baselin e Total Protein 6.5 g/dL L g/dL (6.6-8.7) Albumin 3.0 g/dL L g/dL (3.5-5.2) Globulin 3.5 g/dL g/dL (1.3-4.6) Urine Color Urine Appearance Urine pH Ur Specific Gravit y Urine Protein Urine Glucose (UA) Urine Ketones Urine Blood Urine Nitrate Urine Bilirubin Urine Urobilinogen Ur Leukocyte Linda ase 12/15/20 12/15/20 11:10 12:40 WBC RBC Hgb Hct MCV MCH MCHC RDW Plt Count MPV Neut % (Auto) Lymph % (Auto) [place] % (Auto) Eos % (Auto) Baso % (Auto) Neut # (Auto) Lymph # (Auto) [place] # (Auto) Eos # (Auto) Baso # (Auto) Nucleated RBC % (a uto) Nucleated RBCs # Sodium Potassium Chloride Carbon Dioxide Anion Gap BUN Creatinine GFR Calculation Glucose Calculated Osmolal ity Lactic Acid Calcium Magnesium Total Bilirubin AST ALT Alkaline Phosphata se Creatine Kinase Troponin T Baselin e 16 ng/L H ng/L (0-15) Total Protein Albumin Globulin Urine Color Yellow (Yellow) Urine Appearance Clear (CLEAR) Urine pH 6 (5-7) Ur Specific Gravit y 1.015 (1.005-1.030) Urine Protein Neg (Negative) Urine Glucose (UA) 2+ H (Normal) Urine Ketones Negative (Negative) Urine Blood Neg (Negative) Urine Nitrate Negative (Negative) Urine Bilirubin Neg (Negative) Urine Urobilinogen 4 mg/dL H mg/dL (Negative) Ur Leukocyte Linda ase Negative (Negative) Discharge Plan Discharge Patient Disposition: Home Clinical Impression: Hypotension, Bradycardia Condition: Stable Prescriptions: Discontinued metoprolol tartrate 25 mg tablet 12.5 mg PO Q12H RF: 0 No Action citalopram 40 mg tablet 20 mg PO DAILY@1000 RF: 0 nitroglycerin [Nitrostat] 0.4 mg tablet, sublingual 0.4 mg SUBLINGUAL Q5M PRN (Reason: chest pain) Qty: 25 RF: 4 omega-3 fatty acids [Fish Oil Concentrate] 1,000 mg capsule 1,000 mg PO DAILY@1000 RF: 0 cholecalciferol (vitamin D3) 25 mcg (1,000 unit) capsule 75 mcg PO DAILY@1000 RF: 0 clopidogrel 75 mg tablet 75 mg PO DAILY@1000 RF: 0 furosemide 20 mg tablet 20 mg PO DAILY@1000 RF: 0 insulin glargine 100 unit/mL solution 90 unit SUBCUT BID@1000,2200 RF: 0 tamsulosin 0.4 mg capsule 0.4 mg PO DAILY@1000 RF: 0 levalbuterol HCl 0.63 mg/3 mL solution for nebulization 0.63 mg INHALATION TID PRN (Reason: Shortness Of Breath) RF: 0 hydrocodone-acetaminophen 10-325 mg tablet 1 tab PO Q8H PRN (Reason: pain (scale score 7-10)) 30 Days Qty: 90 RF: 0 atorvastatin 40 mg tablet 80 mg PO DAILY@1000 Qty: 180 RF: 3 diazepam [Valium] 5 mg tablet 10 mg PO ONCE Qty: 4 RF: 0 diazepam [Valium] 2 mg tablet 2 mg PO ONCE PRN (Reason: anxiety) Qty: 1 RF: 0 elderberry fruit and flower 460-115 mg Capsule 1 cap PO DAILY@1000 RF: 0 pantoprazole [Protonix] 40 mg tablet,delayed release (DR/EC) 40 mg PO DAILY@1000 RF: 0 gabapentin 300 mg capsule 300 mg PO TID RF: 0 ondansetron HCl [Zofran] 4 mg tablet 4 mg PO Q6H PRN (Reason: nausea and vomiting) Qty: 10 RF: 0 levothyroxine 75 mcg Tablet 37.5 mcg PO DAILY RF: 0 nystatin 100,000 unit/gram Cream 1 applic TOPICAL TID RF: 0 Discharge Orders: Discharge ED (Routine); Ordered 12/15/20 Ordered By: Yamil Nuñez Referrals: Sujata Macedo MD [Primary Care Provider] - Discharge Diet: Usual diet Discharge Activity: Increase activity as tolerated Patient Instructions: Opioid Safety Coding Level of Care Code ED 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
[2020-12-15 12:26] VITALS: BP 127/63; PULSE 54; RESP 16; O2SAT 95
[2020-12-15 12:45] LABS: Add Urine Microscopic? NO; Charge for UA Resulting for Rev
[2020-12-15 12:53] LABS: Specific Gravity, Urine 1.015 (1.005-1.030); Urine Appearance Clear (CLEAR); Urine Color Yellow (Yellow); pH Urine 6 (5-7)
[2020-12-15 12:54] LABS: Bilirubin Urine Neg (Negative); Blood Urine Neg (Negative); Glucose Urine UA 2+ (Normal); Ketones Urine Negative (Negative); Leukocyte Esterase Urine Negative (Negative); Nitrate Urine Negative (Negative); Protein Urine Neg (Negative); Urobilinogen Urine 4 mg/dL (Negative)
[2020-12-15 13:05] VITALS: BP 136/68; PULSE 56; RESP 15; O2SAT 98
[2020-12-15 13:17] VITALS: BP 136/68; PULSE 56; RESP 15; O2SAT 98
== END 2020-12-15 13:17 | disposition home or self-care (01) ==
PROVIDERS: Emergency Provider Family Medicine; PCP Family Medicine
DX: R00.1 Bradycardia, unspecified (principal); I95.9 Hypotension, unspecified; Z79.02 Long term (current) use of antithrombotics/antiplatelets; Z79.4 Long term (current) use of insulin; I25.10 Atherosclerotic heart disease of native coronary artery without angina pectoris; J44.9 Chronic obstructive pulmonary disease, unspecified; E11.9 Type 2 diabetes mellitus without complications; E78.5 Hyperlipidemia, unspecified; Z95.1 Presence of aortocoronary bypass graft; Z87.891 Personal history of nicotine dependence
CPT/HCPCS: 71045; 80053; 81003; 82550; 83605; 83735; 84484; 85025; 93005; 99283

== ENCOUNTER 2020-12-19 21:56 | Emergency (ER) | payer OTHER, MEDICARE, SELFPAY ==
[2020-12-19 21:57] VITALS: BP 164/67; PULSE 56; RESP 16; TEMP 36.3; O2SAT 96; BMI 31.6
[2020-12-19 22:13] LABS: Basophils % 0.3 %; Hematocrit 39.2 % (42.0-52.0); Hemoglobin 12.9 g/dL (11.7-16.6); Lymphocytes % 25.9 %; Mean Corpuscular HGB Conc 32.9 g/dL (30.0-36.0); Mean Corpuscular Hemoglobin 30.2 pg (28.0-34.0); Mean Corpuscular Volume 91.8 fl (80-94); Mean Platelet Volume 10.8 fL (7.4-10.4); Monocytes # 0.6 10^3/uL (0.2-0.9); Monocytes % 7.2 %; Neutrophils # 4.99 10^3/uL (1.8-7.7); Neutrophils % 65.7 %; Nucleated Red Blood Cells % 0 %; Platelet Count 151 10^3/cmm (130-400); Red Blood Count 4.27 10^6/uL (4.1-5.3); Red Cell Distribution Width 13.9 % (12.1-15.1); White Blood Count 7.6 10^3/uL (4.0-10.0)
[2020-12-19 22:17] LABS: Glucose Point of Care 527 mg/dL (70-110)
--- NOTE | 2020-12-19 22:21 | ED_ITS ---
HPI - General Adult General: Chief complaint: General Medical Stated complaint: hyperglycemia Time Seen by Provider: 12/19/20 21:58 Source: patient and EMS Mode of arrival: EMS Limitations: no limitations History of Present Illness: HPI narrative: 70-year-old male has a history of diabetes states that he been running close to 600 tonight was getting concerned. He denies any vomiting diarrhea and has no medical complaints denies any pain anywhere denies any fever. He does take insulin. He states he has been on prednisone over the last 5 days he is unsure why has been taking it. He states he did have a UTI he is finished antibiotics for denies any dysuria Associated symptoms: Deny chest pain, dyspnea, headache(s), nausea, rash or vomiting Review of Systems Const: Denies: fever(s), chills, body aches or change in appetite Eyes: Denies: blurry vision or eye discomfort ENMT: Denies: throat pain or dental pain Card: Denies: chest pain Resp: Denies: dyspnea GI: Denies: abdominal pain, nausea, vomiting or diarrhea : Denies: dysuria Musc: Denies: neck pain or back pain Skin/Breast: Denies: rash Neuro: Denies: headache(s) Psych: Denies: depression Redd/Lymph: Denies: easy bruising All/Imm: Denies: urticaria PFSH ED PFSH: Medical History Accelerated essential hypertension CAD (coronary artery disease) Carotid artery stenosis, symptomatic Closed fracture of distal end of right fibula COPD (chronic obstructive pulmonary disease) Diabetes Dyslipidemia GERD (gastroesophageal reflux disease) HTN (hypertension) Lower extremity edema Peripheral Vascular Disease Varicose veins of bilateral lower extremities with other complications Surgical History H/O heart bypass surgery Hx of CABG Hx of cholecystectomy Hx of cholecystectomy Family History Father CAD (coronary artery disease) Diabetes Hypertension Lung disease Grandfather CAD (coronary artery disease) Diabetes Hypertension Son CAD (coronary artery disease) Family history of premature coronary artery disease Grandmother Cancer Denies family history of Clotting disorder Dementia Hyperlipidemia Psychiatric illness Chronic kidney disease (CKD) Suicide Anesthesia complication Bleeding disorder Stroke Social History Quit status (tobacco): has quit using tobacco Year quit tobacco: 20 YEARS AGO Alcohol intake: former 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 Lives independently: Yes History of recent travel: No Physical Exam Const: COMMON NORMALS: no acute distress, patient oriented x3 and healthy appearing HENMT: COMMON NORMALS: normocephalic and atraumatic HEAD & SCALP: normocephalic and atraumatic Eye: COMMON NORMALS: Equal, round and reactive pupils present and EOMs intact bilaterally PUPIL: Yes Equal, round and reactive pupils present Neck/C-Spine: COMMON NORMALS: full ROM and supple Chest: COMMONS NORMALS: normal inspection of the chest and normal palpation of entire chest wall Resp: COMMON NORMALS: normal respiratory effort, No retractions, No use of accessory muscles and clear to auscultation bilaterally AUSCULTATION: clear to auscultation bilaterally Cardio: COMMON NORMALS: regular rate, regular rhythm and No murmurs present (Cardio) RATE: regular rate RHYTHM: regular rhythm GI: COMMON NORMALS: Normal to inspection, nondistended, normoactive bowel sounds present, Soft to palpation, non-tender and no masses PALPATION: Yes Soft to palpation Extremity: COMMON NORMALS: normal to inspection and full ROM Neuro: COMMON NORMALS: patient oriented x3, moves all extremities and no focal motor deficits Psych: COMMON NORMALS: mental status grossly normal, Normal thought process present and cooperative THOUGHT PROCESS: Normal thought process present Skin: COMMON NORMALS: no rashes or lesions noted and no wounds GENERAL SKIN EXAM: no rashes or lesions noted Course Vital Signs: Vital signs: Vital Signs Temperature 97.3 F L 12/19/20 21:57 Pulse Rate 56 L 12/19/20 21:57 Respiratory Rate 16 12/19/20 21:57 Blood Pressure 164/67 12/19/20 21:57 Pulse Oximetry 96 12/19/20 21:57 MDM - General Adult MDM Narrative: Medical decision making narrative: Patient presents with hypoglycemia likely due to steroid use with prednisone he took his last dose today his blood glucose here is improved he has no signs of DKA he is stable for discharge is return if worsening. Lab Data: Labs: Lab Results 12/19/20 12/19/20 12/19/20 22:09 22:09 22:13 WBC 7.6 10^3/uL 10^3/ uL (4.0-10.0) RBC 4.27 10^6/uL 10^6 /uL (4.1-5.3) Hgb 12.9 g/dL g/dL (11.7-16.6) Hct 39.2 % L % (42.0-52.0) MCV 91.8 fl fl (80-94) MCH 30.2 pg pg (28.0-34.0) MCHC 32.9 g/dL g/dL (30.0-36.0) RDW 13.9 % % (12.1-15.1) Plt Count 151 10^3/cmm 10^3 /cmm (130-400) MPV 10.8 fL H fL (7.4-10.4) Neut % (Auto) 65.7 % % Lymph % (Auto) 25.9 % % [place] % (Auto) 7.2 % % Eos % (Auto) 0.0 % % Baso % (Auto) 0.3 % % Neut # (Auto) 4.99 10^3/uL 10^3 /uL (1.8-7.7) Lymph # (Auto) 2.0 10^3/uL 10^3/ uL (0.8-4.8) [place] # (Auto) 0.6 10^3/uL 10^3/ uL (0.2-0.9) Eos # (Auto) 0.0 10^3/uL 10^3/ uL (0.0-0.8) Baso # (Auto) 0.0 10^3/uL 10^3/ uL (0.0-0.1) Nucleated RBC % (a uto) 0 % % Nucleated RBCs # 0.0 /100WBC /100W BC Sodium 132 mmol/L L mmol /L (136-145) Potassium 4.2 mmol/L mmol/L (3.5-5.1) Chloride 96 mmol/L L mmol/ L (98-107) Carbon Dioxide 24 mmol/L mmol/L (22-29) Anion Gap 16.2 (5-19) BUN 29 mg/dL H mg/dL (8-23) Creatinine 1.1 mg/dL mg/dL (0.7-1.2) GFR Calculation Not Reportable Glucose 416 mg/dL H mg/dL (65-115) POC Glucose 527 mg/dL H* mg/d L (70-110) Calculated Osmolal ity 297 mOsm/kg H mOs m/kg (285-295) Calcium 8.6 mg/dL mg/dL (8.5-10.5) Total Bilirubin 0.5 mg/dL mg/dL (0.15-1.2) AST 51 U/L H U/L (0-40) ALT 55 U/L H U/L (0-41) Alkaline Phosphata se 103 IU/L IU/L (40-130) Total Protein 7.3 g/dL g/dL (6.6-8.7) Albumin 3.1 g/dL L g/dL (3.5-5.2) Globulin 4.2 g/dL g/dL (1.3-4.6) Lipase 19 U/L U/L (13-60) 12/19/20 12/20/20 23:24 00:48 WBC RBC Hgb Hct MCV MCH MCHC RDW Plt Count MPV Neut % (Auto) Lymph % (Auto) [place] % (Auto) Eos % (Auto) Baso % (Auto) Neut # (Auto) Lymph # (Auto) [place] # (Auto) Eos # (Auto) Baso # (Auto) Nucleated RBC % (a uto) Nucleated RBCs # Sodium Potassium Chloride Carbon Dioxide Anion Gap BUN Creatinine GFR Calculation Glucose POC Glucose 412 mg/dL H mg/dL 319 mg/dL H mg/dL (70-110) (70-110) Calculated Osmolal ity Calcium Total Bilirubin AST ALT Alkaline Phosphata se Total Protein Albumin Globulin Lipase Discharge Plan Discharge Patient Disposition: Home Clinical Impression: Hyperglycemia Condition: Stable Prescriptions: No Action citalopram 40 mg tablet 20 mg PO DAILY@1000 RF: 0 nitroglycerin [Nitrostat] 0.4 mg tablet, sublingual 0.4 mg SUBLINGUAL Q5M PRN (Reason: chest pain) Qty: 25 RF: 4 omega-3 fatty acids [Fish Oil Concentrate] 1,000 mg capsule 1,000 mg PO DAILY@1000 RF: 0 cholecalciferol (vitamin D3) 25 mcg (1,000 unit) capsule 75 mcg PO DAILY@1000 RF: 0 clopidogrel 75 mg tablet 75 mg PO DAILY@1000 RF: 0 furosemide 20 mg tablet 20 mg PO DAILY@1000 RF: 0 insulin glargine 100 unit/mL solution 90 unit SUBCUT BID@1000,2200 RF: 0 tamsulosin 0.4 mg capsule 0.4 mg PO DAILY@1000 RF: 0 levalbuterol HCl 0.63 mg/3 mL solution for nebulization 0.63 mg INHALATION TID PRN (Reason: Shortness Of Breath) RF: 0 hydrocodone-acetaminophen 10-325 mg tablet 1 tab PO Q8H PRN (Reason: pain (scale score 7-10)) 30 Days Qty: 90 RF: 0 atorvastatin 40 mg tablet 80 mg PO DAILY@1000 Qty: 180 RF: 3 diazepam [Valium] 5 mg tablet 10 mg PO ONCE Qty: 4 RF: 0 diazepam [Valium] 2 mg tablet 2 mg PO ONCE PRN (Reason: anxiety) Qty: 1 RF: 0 elderberry fruit and flower 460-115 mg Capsule 1 cap PO DAILY@1000 RF: 0 pantoprazole [Protonix] 40 mg tablet,delayed release (DR/EC) 40 mg PO DAILY@1000 RF: 0 gabapentin 300 mg capsule 300 mg PO TID RF: 0 ondansetron HCl [Zofran] 4 mg tablet 4 mg PO Q6H PRN (Reason: nausea and vomiting) Qty: 10 RF: 0 levothyroxine 75 mcg Tablet 37.5 mcg PO DAILY RF: 0 nystatin 100,000 unit/gram Cream 1 applic TOPICAL TID RF: 0 Discharge Orders: Discharge ED (Routine); Ordered 12/20/20 Ordered By: Presley Taylor Referrals: Sujata Macedo MD [Primary Care Provider] - 1-3 days Discharge Diet: Advance as tolerated Discharge Activity: Resume usual activity Patient Instructions: Diabetic Hyperglycemia (ED) Coding Level of Care Code ED Ceramic Plater for Chg Fwd Exam Comprehensive
[2020-12-19 22:30] LABS: Alanine Aminotransferase 55 U/L (0-41); Albumin Level 3.1 g/dL (3.5-5.2); Alkaline Phosphatase 103 IU/L (40-130); Anion Gap 16.2 (5-19); Aspartate Amino Transferase 51 U/L (0-40); Blood Urea Nitrogen 29 mg/dL (8-23); Calcium 8.6 mg/dL (8.5-10.5); Carbon Dioxide 24 mmol/L (22-29); Chloride 96 mmol/L (98-107); Globulin 4.2 g/dL (1.3-4.6); Glucose 416 mg/dL (65-115); Lipase 19 U/L (13-60); Osmolality Calculated 297 mOsm/kg (285-295); Potassium 4.2 mmol/L (3.5-5.1); Sodium 132 mmol/L (136-145); Total Bilirubin 0.5 mg/dL (0.15-1.2); Total Protein 7.3 g/dL (6.6-8.7)
[2020-12-19] MEDS: insulin regular-human 100 units/1 mL 10 UNIT IVP (22:30)
[2020-12-19] MEDS: sodium chloride 0.9% 1,000 ML 999 ML IV ×2 (22:31→23:50)
[2020-12-19 23:28] LABS: Glucose Point of Care 412 mg/dL (70-110)
[2020-12-19 23:40] VITALS: BP 162/88; PULSE 78; RESP 20; O2SAT 97
[2020-12-19] MEDS: insulin regular-human 100 units/1 mL 6 UNIT IVP (23:45)
[2020-12-20 00:52] LABS: Glucose Point of Care 319 mg/dL (70-110)
[2020-12-20 01:25] VITALS: BP 161/82; PULSE 78; RESP 20; O2SAT 97
== END 2020-12-20 01:20 | disposition home or self-care (01) ==
PROVIDERS: Emergency Provider Emergency Medicine; PCP Family Medicine
DX: E11.65 Type 2 diabetes mellitus with hyperglycemia (principal); Z79.02 Long term (current) use of antithrombotics/antiplatelets; Z79.4 Long term (current) use of insulin; I25.10 Atherosclerotic heart disease of native coronary artery without angina pectoris; I10 Essential (primary) hypertension; J44.9 Chronic obstructive pulmonary disease, unspecified; E78.5 Hyperlipidemia, unspecified; Z95.1 Presence of aortocoronary bypass graft; Z87.891 Personal history of nicotine dependence
CPT/HCPCS: 36416; 80053; 82962; 83690; 85025; 96361; 96374; 96375; 99284; J1815; J7030

== ENCOUNTER 2020-12-22 15:05 | Emergency (ER) | payer OTHER, MEDICARE, SELFPAY ==
[2020-12-22 15:30] VITALS: BP 83/54; PULSE 66; RESP 18; TEMP 36.6; O2SAT 97; BMI 30.3
--- NOTE | 2020-12-22 15:45 | PC.NURSE ---
Dr. Delarosa in triage. Have pt drink. Accu ck done 244. provided pt with water
--- NOTE | 2020-12-22 18:21 | ED_ITS ---
HPI - Altered Mental Status General: Chief Complaint: Altered Mental Status Stated Complaint: DEHYDRATED P/VA: DIZZY WHEN STANDS Time Seen by Provider: 12/22/20 18:10 History of Present Illness: HPI narrative: This patient comes to the emergency department because he has had had low blood pressure and gets near syncopal with changing in position. He has had no change in his normal mental status. He has had no associated chest pain. He apparently has a history of coronary artery disease and takes diuretics and other prescribed medications. His reports that he does not seem to take in enough fluids as he should. He is not had any vomiting or diarrhea. He did have a fall a couple of days ago from a lightheadedness when he stood and struck his right chest. He states he still has soreness in that area. He denies any fevers or chills. He recently had Covid and his thinks he has not quite bounced back from that illness. Review of Systems Const: Denies: fever(s), chills or body aches Eyes: Denies: change in vision ENMT: Denies: throat pain, mouth pain or dental pain Card: Reports: lightheadedness; Denies: chest pain, palpitations, irregular heart rhythm, edema or swelling of feet/ankles Resp: Denies: dyspnea, productive cough or non-productive cough GI: Denies: abdominal pain, nausea or vomiting : Denies: flank pain, difficulty urinating, urinary urgency or urinary hesitancy Musc: Reports: joint pain (Both knees have history of osteoarthritis); Denies: neck pain, back pain, extremity pain or joint swelling Skin/Breast: Denies: rash, pruritus or erythema Neuro: Reports: dizziness; Denies: headache(s), numbness in extremities, weakness in extremities, sensory changes, lack of coordination, vertigo or seizure-like activity Psych: Reports: anxiety Endo: Denies: polyuria or polydipsia Redd/Lymph: Reports: easy bruising; Denies: easy bleeding PFS ED PFSH: Medical History Accelerated essential hypertension CAD (coronary artery disease) Carotid artery stenosis, symptomatic Closed fracture of distal end of right fibula COPD (chronic obstructive pulmonary disease) Diabetes Dyslipidemia GERD (gastroesophageal reflux disease) HTN (hypertension) Lower extremity edema Peripheral Vascular Disease Varicose veins of bilateral lower extremities with other complications Surgical History H/O heart bypass surgery Hx of CABG Hx of cholecystectomy Hx of cholecystectomy Family History Father CAD (coronary artery disease) Diabetes Hypertension Lung disease Grandfather CAD (coronary artery disease) Diabetes Hypertension Son CAD (coronary artery disease) Family history of premature coronary artery disease Grandmother Cancer Denies family history of Clotting disorder Dementia Hyperlipidemia Psychiatric illness Chronic kidney disease (CKD) Suicide Anesthesia complication Bleeding disorder Stroke Social History Quit status (tobacco): has quit using tobacco Year quit tobacco: 20 YEARS AGO Alcohol intake: former 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 Lives independently: Yes History of recent travel: No Physical Exam Const: COMMON NORMALS: no acute distress and patient oriented x3 GENERAL APPEARANCE: cooperative HENMT: COMMON NORMALS: normocephalic, Normal external nose present, Normal nasal mucous membranes and turbinates present, moist oral mucous membranes and oropharynx normal HEAD & SCALP: normocephalic NOSE: Normal external nose present and Normal nasal mucous membranes and turbinates present Eye: COMMON NORMALS: Equal, round and reactive pupils present, EOMs intact bilaterally, conjunctivae normal and no scleral icterus CONJUNCTIVA: Yes conjunctivae normal PUPIL: Yes Equal, round and reactive pupils present Neck/C-Spine: COMMON NORMALS: full ROM, supple, no JVD and No carotid bruits Lymph: LYMPHATIC: no lymphadenopathy noted Chest: COMMONS NORMALS: normal inspection of the chest OTHER: He has tenderness right lateral and inferior chest. No ecchymosis. No palpable crepitance. No subcutaneous emphysema. Resp: COMMON NORMALS: normal respiratory effort, No use of accessory muscles and clear to auscultation bilaterally EFFORT & INSPECTION: Yes able to speak in complete sentences AUSCULTATION: clear to auscultation bilaterally Cardio: COMMON NORMALS: no JVD, regular rhythm, No murmurs present (Cardio) and Peripheral pulses 2+ throughout RHYTHM: regular rhythm PERIPHERAL PULSES: Peripheral pulses 2+ throughout GI: COMMON NORMALS: Normal to inspection, nondistended, normoactive bowel sounds present, Soft to palpation, non-tender, No hepatosplenomegaly present and no masses PALPATION: Yes Soft to palpation and Yes No hepatosplenomegaly present : COMMON NORMALS: Yes no CVA tenderness BLADDER/KIDNEY EXAM: Yes no CVA tenderness Back/Pelvis: COMMON NORMALS: no CVA tenderness, thoracic and lumbar spine normal to inspection, no thoracic nor lumbar tenderness and thoraco-lumbar ROM normal Extremity: COMMON NORMALS: normal to inspection, capillary refill normal, no joint enlargement, no calf tenderness and no pedal edema Neuro: COMMON NORMALS: patient oriented x3, no focal motor deficits, no sensory deficits noted and gait normal Psych: COMMON NORMALS: mental status grossly normal, Normal thought process present and cooperative THOUGHT PROCESS: Normal thought process present Skin: COMMON NORMALS: no rashes or lesions noted GENERAL SKIN EXAM: no rashes or lesions noted Course Reevaluation(s): Reevaluation #1: Patient subjectively feels much better. He ambulated about the emergency department and went to the bathroom without any d ifficulty while unaided. His laboratories are reassuring. Chest x-ray is reassuring. We discussed expected course. I do not feel that he needs the Lasix on a regular basis and this may be contributing to his subjective symptoms and relatively low blood pressure. This combined with his admitted low intake of water and other fluids. I advised him to stop the Lasix and monitor his weight at home and if he gains more than 5 pounds he should take the Lasix for 2 to 3 days and then monitor his weight. Also advised him he should follow-up with his regular physician for further medication reconciliation. Stable at this time for discharge. Vital Signs: Vital signs: Vital Signs Temperature 97.9 F 12/22/20 15:30 Pulse Rate 66 12/22/20 15:30 Respiratory Rate 18 12/22/20 15:30 Blood Pressure 83/54 12/22/20 15:30 Pulse Oximetry 97 12/22/20 15:30 MDM - Altered Mental Status Lab Data: Labs: Lab Results 12/22/20 12/22/20 18:36 18:36 WBC Cancelled Corrected WBC Cancelled RBC Cancelled Hgb Cancelled Hct Cancelled MCV Cancelled MCH Cancelled MCHC Cancelled RDW Cancelled Plt Count Cancelled MPV Cancelled Gran % Cancelled Neut % (Auto) Cancelled Lymph % (Auto) Cancelled [place] % (Auto) Cancelled Eos % (Auto) Cancelled Baso % (Auto) Cancelled Neut # (Auto) Cancelled Lymph # (Auto) Cancelled [place] # (Auto) Cancelled Eos # (Auto) Cancelled Baso # (Auto) Cancelled Absolute Gran (aut o) Cancelled Nucleated RBC % (a uto) Cancelled Nucleated RBCs # Cancelled Sodium 134 mmol/L L mmol /L (136-145) Potassium 4.4 mmol/L mmol/L (3.5-5.1) Chloride 99 mmol/L mmol/L (98-107) Carbon Dioxide 27 mmol/L mmol/L (22-29) Anion Gap 12.4 (5-19) BUN 16 mg/dL mg/dL (8-23) Creatinine 1.3 mg/dL H mg/dL (0.7-1.2) GFR Calculation Not Reportable Glucose 232 mg/dL H mg/dL (65-115) Calculated Osmolal ity 287 mOsm/kg mOsm/ kg (285-295) Calcium 8.6 mg/dL mg/dL (8.5-10.5) Magnesium 2.1 mg/dL mg/dL (1.7-2.3) Total Bilirubin 0.6 mg/dL mg/dL (0.15-1.2) AST 33 U/L U/L (0-40) ALT 45 U/L H U/L (0-41) Alkaline Phosphata se 82 IU/L IU/L (40-130) NT-Pro-B Natriuret Pep 318 pg/mL H pg/mL (0-125) Total Protein 6.9 g/dL g/dL (6.6-8.7) Albumin 3.1 g/dL L g/dL (3.5-5.2) Globulin 3.8 g/dL g/dL (1.3-4.6) Discharge Plan Discharge Patient Disposition: Home Clinical Impression: Hypotension, Volume depletion Condition: Stable Prescriptions: Held furosemide 20 mg tablet 20 mg PO DAILY@1000 RF: 0 Hold Instructions: monitor your weight and if you gain 5lbs or more or notice swelling of your feet and legs you may take furosamide (lasix) for 3 days then stop No Action citalopram 40 mg tablet 20 mg PO DAILY@1000 RF: 0 nitroglycerin [Nitrostat] 0.4 mg tablet, sublingual 0.4 mg SUBLINGUAL Q5M PRN (Reason: chest pain) Qty: 25 RF: 4 omega-3 fatty acids [Fish Oil Concentrate] 1,000 mg capsule 1,000 mg PO DAILY@1000 RF: 0 cholecalciferol (vitamin D3) 25 mcg (1,000 unit) capsule 75 mcg PO DAILY@1000 RF: 0 clopidogrel 75 mg tablet 75 mg PO DAILY@1000 RF: 0 insulin glargine 100 unit/mL solution 90 unit SUBCUT BID@1000,2200 RF: 0 tamsulosin 0.4 mg capsule 0.4 mg PO DAILY@1000 RF: 0 levalbuterol HCl 0.63 mg/3 mL solution for nebulization 0.63 mg INHALATION TID PRN (Reason: Shortness Of Breath) RF: 0 hydrocodone-acetaminophen 10-325 mg tablet 1 tab PO Q8H PRN (Reason: pain (scale score 7-10)) 30 Days Qty: 90 RF: 0 atorvastatin 40 mg tablet 80 mg PO DAILY@1000 Qty: 180 RF: 3 diazepam [Valium] 5 mg tablet 10 mg PO ONCE Qty: 4 RF: 0 diazepam [Valium] 2 mg tablet 2 mg PO ONCE PRN (Reason: anxiety) Qty: 1 RF: 0 elderberry fruit and flower 460-115 mg Capsule 1 cap PO DAILY@1000 RF: 0 pantoprazole [Protonix] 40 mg tablet,delayed release (DR/EC) 40 mg PO DAILY@1000 RF: 0 gabapentin 300 mg capsule 300 mg PO TID RF: 0 ondansetron HCl [Zofran] 4 mg tablet 4 mg PO Q6H PRN (Reason: nausea and vomiting) Qty: 10 RF: 0 levothyroxine 75 mcg Tablet 37.5 mcg PO DAILY RF: 0 nystatin 100,000 unit/gram Cream 1 applic TOPICAL TID RF: 0 Discharge Orders: Discharge ED (Routine); Ordered 12/22/20 Ordered By: Seven Delarosa Referrals: Sujata Macedo MD [Primary Care Provider] - Discharge Diet: Usual diet Discharge Activity: Resume usual activity Patient Instructions: Opioid Safety Activity Restrictions/Additional Instructions: As we discussed do not take your furosemide/Lasix until you notice swelling of your lower extremities, shortness of breath or gain more than 5 pounds. Call your doctor for follow-up appointment in 2 weeks for discussion of your medications and other care. If you develop any new persistent or worsening symptoms return to this or the nearest emergency department. Coding Level of Care Code ED Mainframe Developer for Natalie Fwóscar Exam Comprehensive
--- NOTE | 2020-12-22 18:26 | XRR_ITS ---
PROCEDURE INFORMATION: Exam: XR Chest Exam date and time: 12/22/2020 6:26 PM Age: 70 years old Clinical indication: Other: Dizzy; Prior surgery; Surgery date: 6+ months; Surgery type: Pacer; Additional info: Chest pain right sided after fall TECHNIQUE: Imaging protocol: XR of the chest. Views: 1 view. COMPARISON: CR XR chest 1V portable [id number] 12/15/2020 11:15 AM FINDINGS: Lungs: There is been further improvement in the interstitial pulmonary infiltrates compared with 12/15/2020. There is some residual peripheral infiltrate or fibrosis more on the right than on the left. Pleural spaces: No pneumothorax is identified. Heart/Mediastinum: See Bones/joints finding. Bones/joints: Sternotomy wires and mediastinal surgical clips are present, consistent with previous coronary arterial bypass grafting. XR/XR chest 1V portable [id number] IMPRESSION: Pulmonary infiltrates improved compared with 12/15/2020. Radiation Dose CTDIVOL = (mGy): DLP = (mGy-cm)
[2020-12-22] MEDS: sodium chloride 0.9% 1,000 ML 999 ML IV (18:35)
[2020-12-22 19:15] LABS: Alanine Aminotransferase 45 U/L (0-41); Albumin Level 3.1 g/dL (3.5-5.2); Alkaline Phosphatase 82 IU/L (40-130); Anion Gap 12.4 (5-19); Aspartate Amino Transferase 33 U/L (0-40); Blood Urea Nitrogen 16 mg/dL (8-23); Calcium 8.6 mg/dL (8.5-10.5); Carbon Dioxide 27 mmol/L (22-29); Chloride 99 mmol/L (98-107); Globulin 3.8 g/dL (1.3-4.6); Glucose 232 mg/dL (65-115); Magnesium 2.1 mg/dL (1.7-2.3); NT Pro B Type Natriuretic Pept 318 pg/mL (0-125); Osmolality Calculated 287 mOsm/kg (285-295); Potassium 4.4 mmol/L (3.5-5.1); Sodium 134 mmol/L (136-145); Total Bilirubin 0.6 mg/dL (0.15-1.2); Total Protein 6.9 g/dL (6.6-8.7)
[2020-12-22 20:20] VITALS: BP 132/78; PULSE 85; RESP 20
[2020-12-22 20:38] LABS: Basophils % 0.4 %; Eosinophils # 0.2 10^3/uL (0.0-0.8); Eosinophils % 2.2 %; Hematocrit 42.1 % (42.0-52.0); Hemoglobin 13.6 g/dL (11.7-16.6); Lymphocytes # 2.7 10^3/uL (0.8-4.8); Lymphocytes % 38.4 %; Mean Corpuscular HGB Conc 32.3 g/dL (30.0-36.0); Mean Corpuscular Hemoglobin 30.6 pg (28.0-34.0); Mean Corpuscular Volume 94.8 fl (80-94); Monocytes # 0.7 10^3/uL (0.2-0.9); Monocytes % 9.7 %; Neutrophils # 3.33 10^3/uL (1.8-7.7); Neutrophils % 48.3 %; Nucleated Red Blood Cells % 0 %; Red Blood Count 4.44 10^6/uL (4.1-5.3); White Blood Count 6.9 10^3/uL (4.0-10.0)
[2020-12-22 20:53] LABS: Mean Platelet Volume 9.5 fL (7.4-10.4); Platelet Count 169 10^3/cmm (130-400)
== END 2020-12-22 21:10 | disposition home or self-care (01) ==
PROVIDERS: Emergency Provider Emergency Medicine; PCP Family Medicine
DX: I95.9 Hypotension, unspecified (principal); E86.9 Volume depletion, unspecified; Z79.02 Long term (current) use of antithrombotics/antiplatelets; Z79.4 Long term (current) use of insulin; I10 Essential (primary) hypertension; I25.10 Atherosclerotic heart disease of native coronary artery without angina pectoris; J44.9 Chronic obstructive pulmonary disease, unspecified; E11.9 Type 2 diabetes mellitus without complications; E78.5 Hyperlipidemia, unspecified; Z95.1 Presence of aortocoronary bypass graft; Z87.891 Personal history of nicotine dependence
CPT/HCPCS: 71045; 80053; 83735; 83880; 85025; 96360; 99283; J7030

== ENCOUNTER → 2021-01-01 08:58 | Outpatient (BNVA) | payer OTHER, SELFPAY | PROVIDERS: PCP Family Medicine; Visit Provider Anesthesiology Pain Medicine | DX: G89.29 Other chronic pain (principal); M51.16 Intervertebral disc disorders with radiculopathy, lumbar region; M48.062 Spinal stenosis, lumbar region with neurogenic claudication; M47.816 Spondylosis without myelopathy or radiculopathy, lumbar region; M25.562 Pain in left knee; M25.561 Pain in right knee; I63.9 Cerebral infarction, unspecified; I25.810 Atherosclerosis of coronary artery bypass graft(s) without angina pectoris; I10 Essential (primary) hypertension; E11.9 Type 2 diabetes mellitus without complications; Z79.891 Long term (current) use of opiate analgesic; Z79.4 Long term (current) use of insulin; Z87.891 Personal history of nicotine dependence | CPT/HCPCS: 99214 ==

== ENCOUNTER 2021-01-18 16:21 | Outpatient (CLI) | payer OTHER, SELFPAY ==
--- NOTE | 2021-01-18 16:34 | XR_ITS ---
WS: [id number] Chest 2 views, 01/18/2021 Clinical Data: Hilar lesion Comparison: Portable chest, 12/22/2020. Findings: No nodules or masses are seen. There is a small left effusion The heart is normal. The pulm onary vascularity is not increased. No pneumonia or pneumothorax is seen. The pulmonary opacities hav e cleared. Midline sternotomy sutures are seen. The aortic arch and descending thoracic aorta show to rtuosity. XR/XR chest 2V* [id number] Impression: 1. Clearing of pulmonary opacities. 2. Atherosclerosis.
== END 2021-01-18 16:22 | disposition home or self-care (01) ==
LOC: RAD 16:30
PROVIDERS: PCP Family Medicine; Visit Provider Internal Medicine Critical Care Medicine
DX: R91.8 Other nonspecific abnormal finding of lung field (principal)
CPT/HCPCS: 71046

== ENCOUNTER → 2021-01-25 12:18 | Outpatient (BNVA) | payer OTHER, SELFPAY | PROVIDERS: PCP Family Medicine; Visit Provider Anesthesiology Pain Medicine | DX: G89.29 Other chronic pain (principal); M48.062 Spinal stenosis, lumbar region with neurogenic claudication; M47.816 Spondylosis without myelopathy or radiculopathy, lumbar region; M51.16 Intervertebral disc disorders with radiculopathy, lumbar region; M25.561 Pain in right knee; M25.562 Pain in left knee; I25.810 Atherosclerosis of coronary artery bypass graft(s) without angina pectoris; I10 Essential (primary) hypertension; I63.9 Cerebral infarction, unspecified; Z79.899 Other long term (current) drug therapy; Z79.891 Long term (current) use of opiate analgesic; Z87.891 Personal history of nicotine dependence | CPT/HCPCS: 99214 ==

== ENCOUNTER → 2021-02-13 12:37 | Outpatient (BNVA) | payer OTHER, SELFPAY | PROVIDERS: PCP Family Medicine; Visit Provider Anesthesiology Pain Medicine | DX: Z01.812 Encounter for preprocedural laboratory examination (principal); E11.9 Type 2 diabetes mellitus without complications; M25.561 Pain in right knee; M25.562 Pain in left knee; M70.50 Other bursitis of knee, unspecified knee; M48.062 Spinal stenosis, lumbar region with neurogenic claudication; M47.816 Spondylosis without myelopathy or radiculopathy, lumbar region; M51.16 Intervertebral disc disorders with radiculopathy, lumbar region; I63.9 Cerebral infarction, unspecified; I25.810 Atherosclerosis of coronary artery bypass graft(s) without angina pectoris; I10 Essential (primary) hypertension; Z79.891 Long term (current) use of opiate analgesic; Z79.4 Long term (current) use of insulin; Y93.9 Activity, unspecified | CPT/HCPCS: 20610; 36416; 82962; 99213; 99214; J1030; J3490 ==

== ENCOUNTER → 2021-03-20 09:02 | Outpatient (BNVA) | payer OTHER, SELFPAY | PROVIDERS: PCP Family Medicine; Visit Provider Anesthesiology Pain Medicine | DX: M51.16 Intervertebral disc disorders with radiculopathy, lumbar region (principal); M47.816 Spondylosis without myelopathy or radiculopathy, lumbar region; M48.062 Spinal stenosis, lumbar region with neurogenic claudication; M25.561 Pain in right knee; M25.562 Pain in left knee; I63.9 Cerebral infarction, unspecified; I25.810 Atherosclerosis of coronary artery bypass graft(s) without angina pectoris; I10 Essential (primary) hypertension; Z79.891 Long term (current) use of opiate analgesic; Z87.891 Personal history of nicotine dependence | CPT/HCPCS: 99214 ==

== ENCOUNTER 2021-04-16 13:39 | Outpatient (CLI) | payer OTHER, SELFPAY ==
--- NOTE | 2021-04-16 13:51 | CT_ITS ---
WS: [id number] CT CHEST WITH INTRAVENOUS CONTRAST HISTORY: R HILAR MASS ON CHEST XRAY/HX OF PNEUMONIA TECHNIQUE: Contiguous 5 mm axial imaging performed on the thorax. Coronal and sagittal reformats are submitted. All CT scans at [facility] use at least one of these dose optimization techniques: automated exposure control; mA and/or kV adjustment per patient size (includes targeted exams where dose is matched to clinical indication); or iterative reconstruction. CONTRAST: Omnipaque 300; 95 mL IV. DLP: 1035.16 mGy.cm COMPARISON: 11/24/2020 and chest radiograph 01/18/2021 Lungs and central airway: Improved aeration throughout both lungs. Resolved pulmonary edema and areas of consolidation. There is still very mild thickening of the interstitium in the distal airways. No focal area of residual consolidation. Pleura: There is a small layering LEFT pleural effusion which is improved since the prior study. Heart and pericardium: Mild LEFT heart enlargement. No pericardial effusion. Mediastinum and priscilla: There are small mediastinal and hilar lymph nodes which may be reactive. No inc rease in size or number. Vessels: Mild atherosclerosis aorta. Normal size pulmonary artery. Chest wall and lower neck: Prior median sternotomy. Upper abdomen: Mild hepatic steatosis. Stable cyst upper pole RIGHT kidney measures 2.5 cm. No adrena l mass. Prior cholecystectomy. Osseous structures: Moderate spondylitic changes throughout the thoracic spine. Large anterior and la teral osteophytes. CT/CT chest w con* [id number] IMPRESSION: 1. No RIGHT hilar mass or pneumonia identified. 2. Significant improvement in aeration since the prior study. 3. Small LEFT pleural effusion has significantly improved since 11/24/2020. 4. Prior median sternotomy. 5. No increase in size or number of lymph nodes. 6. Prior cholecystectomy.
[2021-04-16] MEDS: iohexol 300 mg/mL 100 mL Btl IV (14:14)
== END 2021-04-16 13:40 | disposition home or self-care (01) ==
LOC: RAD 13:41
PROVIDERS: PCP Family Medicine; Visit Provider Family Medicine
DX: Z01.89 Encounter for other specified special examinations (principal); M48.062 Spinal stenosis, lumbar region with neurogenic claudication; M47.816 Spondylosis without myelopathy or radiculopathy, lumbar region; M51.16 Intervertebral disc disorders with radiculopathy, lumbar region; M25.561 Pain in right knee; M25.562 Pain in left knee; I63.9 Cerebral infarction, unspecified; I25.810 Atherosclerosis of coronary artery bypass graft(s) without angina pectoris; I10 Essential (primary) hypertension; Z79.899 Other long term (current) drug therapy; Z79.891 Long term (current) use of opiate analgesic; Z87.891 Personal history of nicotine dependence
CPT/HCPCS: 71260; 99214

== ENCOUNTER → 2021-05-10 09:45 | Outpatient (BNVA) | payer OTHER, SELFPAY | PROVIDERS: PCP Family Medicine; Visit Provider Anesthesiology Pain Medicine | DX: M48.062 Spinal stenosis, lumbar region with neurogenic claudication (principal); M51.16 Intervertebral disc disorders with radiculopathy, lumbar region; M47.816 Spondylosis without myelopathy or radiculopathy, lumbar region; M25.561 Pain in right knee; M25.562 Pain in left knee; I63.9 Cerebral infarction, unspecified; I25.810 Atherosclerosis of coronary artery bypass graft(s) without angina pectoris; I10 Essential (primary) hypertension; Z79.899 Other long term (current) drug therapy; Z79.891 Long term (current) use of opiate analgesic; Z87.891 Personal history of nicotine dependence | CPT/HCPCS: 99214 ==

== ENCOUNTER 2021-05-30 12:24 | Outpatient (CLI) | payer OTHER, SELFPAY ==
--- NOTE | 2021-05-30 12:29 | USCV_ITS ---
Victorino Stevenson Age: 71 Gender: M : 1950 Exam Date: 05/30/2021 12:57 Ordering Phys: Aki Trujillo MD (Andy) [email or web address] [place] Technologist[place] [facility] [place]: lt side endart Risk Factors: Previous Vascular Surgery: Right Brachial BP: / Left Brachial BP: / Right Left Velocity (cm/s) Spectral Plaque Velocity (cm/s) Spectral Plaque Syst/Diast Broadening Syst/Diast Broadening 89.30/ 8.80 Prox CCA 61.80 / 12.60 71.70/ 14.30 Mid CCA 64.30 / 12.00 73.90/ 11.00 Distal CCA 94.40 / 17.30 66.00/ 11.70 Prox ICA 75.70 / 16.40 64.00/ 11.00 Mid ICA 63.90 / 16.50 44.40/ 8.25 Distal ICA 71.70 / 19.80 87.10 ECA 122.80 0.74 ICA/CCA 0.80 Antegrade Vertebral Antegrade 24.00/ cm/s 36.40/ 8.80 cm/s Subclavian Tri 63.70 112.5 0 FINDINGS Moderate heterogeneous plaques at the left bifurcation and proximal internal carotid artery Minimal plaques at the right bifurcation and internal carotid artery Antegrade flow in the vertebral arteries bilaterally. CONCLUSIONS 1. Moderate heterogeneous plaques at the left bifurcation and proximal internal carotid artery suggesting less than 50% stenosis. 2. Minimal scattered plaques at the right bifurcation and in the carotid artery 3. No evidence of any significant stenosis in the external carotid, subclavian or vertebral arteries Comparison with the previous study from 10/11/2020 is difficult because of the differences in technical quality. However there may not be a significant change. Dr Patricai Joy MD [facility] (Electronically Signed) Final Date: 01 June 2021 16:10 S
== END 2021-05-30 12:25 | disposition home or self-care (01) ==
LOC: RAD 12:25
PROVIDERS: PCP Family Medicine; Visit Provider Thoracic Surgery (Cardiothoracic Vascular Surgery)
DX: I65.23 Occlusion and stenosis of bilateral carotid arteries (principal)
CPT/HCPCS: 93880

== ENCOUNTER → 2021-06-07 09:34 | Outpatient (BNVA) | payer OTHER, SELFPAY | PROVIDERS: PCP Family Medicine; Visit Provider Anesthesiology Pain Medicine | DX: M48.062 Spinal stenosis, lumbar region with neurogenic claudication (principal); M47.816 Spondylosis without myelopathy or radiculopathy, lumbar region; M51.16 Intervertebral disc disorders with radiculopathy, lumbar region; M25.561 Pain in right knee; M25.562 Pain in left knee; I63.9 Cerebral infarction, unspecified; I25.810 Atherosclerosis of coronary artery bypass graft(s) without angina pectoris; I10 Essential (primary) hypertension; Z87.891 Personal history of nicotine dependence; Z79.899 Other long term (current) drug therapy; Z79.891 Long term (current) use of opiate analgesic | CPT/HCPCS: 99214 ==

== ENCOUNTER → 2021-06-14 12:35 | Outpatient (BNVA) | payer OTHER, SELFPAY | PROVIDERS: PCP Family Medicine; Visit Provider Thoracic Surgery (Cardiothoracic Vascular Surgery) | DX: G45.9 Transient cerebral ischemic attack, unspecified (principal) | CPT/HCPCS: 99213 ==

== ENCOUNTER 2021-06-18 19:02 | Emergency (ER) | payer OTHER, MEDICARE, SELFPAY ==
[2021-06-18 19:04] VITALS: BP 129/64; PULSE 61; RESP 18; TEMP 36.5; O2SAT 95; BMI 34.0
[2021-06-18 19:12] VITALS: BP 129/64; PULSE 61; RESP 16; O2SAT 98
[2021-06-18] MEDS: sodium chloride 0.9% 500 ML IV (19:23)
--- NOTE | 2021-06-18 19:24 | ED_ITS ---
HPI - General Adult General: Chief complaint: General Medical Stated complaint: DIABETIC/FREQUENT FALLS Time Seen by Provider: 06/18/21 19:09 History of Present Illness: Patient is a 71-year-old male with history of type 2 diabetes on Lantus only presenting to the emergency room for concerns of elevated glucose. Patient tells me that he checked his glucose today and it read high. Patient then called EMS was brought to the emergency room for evaluation. Patient reports that he is compliant with his Lantus. Over the last 3 weeks, patient has urinary incontinence. Patient denies any dysuria, hematuria, bowel incontinence, or leg weakness or numbness. Patient denies any associate back pain or fever or chills. Patient denies any chest pain, shortness with, palpitation, headedness, diarrhea, melena hematochezia. No focal abdominal complaints. Onset:unknown Duration:ong Location:home Severity:moderate Associated symptoms: Deny chest pain, dyspnea, nausea, rash, palpitations or vomiting Review of Systems Const: Reports: fatigue; Denies: fever(s) or chills Eyes: Denies: change in vision ENMT: Denies: mouth pain Card: Denies: chest pain or palpitations Resp: Denies: dyspnea or non-productive cough GI: Denies: abdominal pain, nausea, vomiting or diarrhea : Reports: other (+polyuria); Denies: dysuria Musc: Denies: extremity pain Skin/Breast: Denies: rash or new lesions Neuro: Denies: weakness in extremities Psych: Reports: other (Normal mood) Redd/Lymph: Denies: easy bruising PFSH ED PFSH: Medical History Accelerated essential hypertension CAD (coronary artery disease) Carotid artery stenosis, symptomatic Closed fracture of distal end of right fibula COPD (chronic obstructive pulmonary disease) Diabetes Dyslipidemia GERD (gastroesophageal reflux disease) HTN (hypertension) Lower extremity edema Peripheral Vascular Disease Varicose veins of bilateral lower extremities with other complications Surgical History H/O heart bypass surgery Hx of CABG Hx of cholecystectomy Hx of cholecystectomy Family History Father CAD (coronary artery disease) Diabetes Hypertension Lung disease Grandfather CAD (coronary artery disease) Diabetes Hypertension Son CAD (coronary artery disease) Family history of premature coronary artery disease Grandmother Cancer Denies family history of Clotting disorder Dementia Hyperlipidemia Psychiatric illness Chronic kidney disease (CKD) Suicide Anesthesia complication Bleeding disorder Stroke Social History Smoking and tobacco status: former smoker Quit status (tobacco): has quit using tobacco Year quit tobacco: 20 YEARS AGO Alcohol intake: former 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 Caregiver/support person: Yes Lives independently: Yes Household members: spouse service: Yes History of recent travel: No Physical Exam Const: COMMON NORMALS: alert HENMT: COMMON NORMALS: atraumatic HEAD & SCALP: atraumatic MOUTH: moist mucous membranes not abnormal Eye: COMMON NORMALS: EOMs intact bilaterally and conjunctivae normal CONJUNCTIVA: Yes conjunctivae normal Neck/C-Spine: COMMON NORMALS: full ROM and supple Resp: COMMON NORMALS: normal respiratory effort and clear to auscultation bilaterally AUSCULTATION: clear to auscultation bilaterally Cardio: COMMON NORMALS: regular rate RATE: regular rate GI: COMMON NORMALS: Soft to palpation and non-tender PALPATION: Yes Soft to palpation Extremity: COMMON NORMALS: full ROM Neuro: SENSORIUM/ORIENTATION: Yes alert MOTOR EXAM: No Abnormal motor strength present and Other motor observations present (no focal motor deficits) Psych: COMMON NORMALS: speech normal SPEECH: Yes normal speech MOOD & AFFECT: Yes euthymic mood Course Vital Signs: Vital signs: Vital Signs Temperature 97.7 F 06/18/21 19:04 Pulse Rate 61 06/18/21 19:12 Respiratory Rate 16 06/18/21 19:12 Blood Pressure 129/64 06/18/21 19:12 Pulse Oximetry 98 06/18/21 19:12 MDM - General Adult Medical Decision Making 31-year-old male with a history of type 2 diabetes presenting to the emergency room concerns of hyperglycemia and polyuria. On exam, patient hemodynamically stable, with no focal complaints. Patient has glucose of 234. Ketones negative. No signs of anion gap. pH within normal limit. UA is negative for UTI. At present time, do not suspect the source of polyuria is epidural abscess or cord compression as patient does not have any bowel incontinence, back pain, fever, leukocytosis or focal tenderness palpation of the back. Patient struck to follow-up with his PCP for further adjustment of his glucose. Patient may require mealtime insulin and I have discussed this extensively with patient who agrees to follow closely with his primary care provider. Disposition: Discharge. Patient counseled regarding diagnostic impression, treatment plan. Patient given ED strict return precautions to return for continuation, worsening, or development of new symptoms. Instructed to f/u w/ PCP regarding symptoms today. Patient verbalized understanding. Lab Data : 06/18/21 19:17 06/18/21 19:17 Laboratory Results WBC 5.7 10^3/uL (4.0-10.0) 06/18/21 19:17 RBC 4.82 10^6/uL (4.1-5.3) 06/18/21 19:17 Hgb 14.8 g/dL (11.7-16.6) 06/18/21 19:17 Hct 43.8 % (42.0-52.0) 06/18/21 19:17 MCV 90.9 fl (80-94) 06/18/21 19:17 MCH 30.7 pg (28.0-34.0) 06/18/21 19:17 MCHC 33.8 g/dL (30.0-36.0) 06/18/21 19:17 RDW 13.0 % (12.1-15.1) 06/18/21 19:17 Plt Count 145 10^3/cmm (130-400) 06/18/21 19:17 MPV 11.2 fL (7.4-10.4) H 06/18/21 19:17 Neut % (Auto) 41.2 % 06/18/21 19:17 Lymph % (Auto) 47.2 % 06/18/21 19:17 [place] % (Auto) 8.2 % 06/18/21 19:17 Eos % (Auto) 2.1 % 06/18/21 19:17 Baso % (Auto) 1.0 % 06/18/21 19:17 Neut # (Auto) 2.35 10^3/uL (1.8-7.7) 06/18/21 19:17 Lymph # (Auto) 2.7 10^3/uL (0.8-4.8) 06/18/21 19:17 [place] # (Auto) 0.5 10^3/uL (0.2-0.9) 06/18/21 19:17 Eos # (Auto) 0.1 10^3/uL (0.0-0.8) 06/18/21 19:17 Baso # (Auto) 0.1 10^3/uL (0.0-0.1) 06/18/21 19:17 Nucleated RBC % (auto) 0 % 06/18/21 19:17 Nucleated RBCs # 0.0 /100WBC 06/18/21 19:17 Specimen Type Arterial 06/18/21 19:18 Sample Site Brachial, right 06/18/21 19:18 ABG pH 7.40 (7.35-7.45) 06/18/21 19:18 ABG pCO2 42.2 mmHg (35-45) 06/18/21 19:18 ABG pO2 70.7 mmHg (80.0-100.0) L 06/18/21 19:18 ABG HCO3 26.2 mmol/L (22-26) H 06/18/21 19:18 ABG Base Excess 1.1 mmol/L (-2.0-2.0) 06/18/21 19:18 Raffy Test N/a 06/18/21 19:18 Hematocrit 44.3 % (42-52) 06/18/21 19:18 O2 Delivery Device Room air 06/18/21 19:18 Lathe Set Up Person ID lev 06/18/21 19:18 Sodium 136 mmol/L (136-145) 06/18/21 19:17 Potassium 4.5 mmol/L (3.5-5.1) 06/18/21 19:17 Chloride 98 mmol/L (98-107) 06/18/21 19:17 Carbon Dioxide 28 mmol/L (22-29) 06/18/21 19:17 Anion Gap 14.5 (5-19) 06/18/21 19:17 BUN 22 mg/dL (8-23) 06/18/21 19:17 Creatinine 1.1 mg/dL (0.7-1.2) 06/18/21 19:17 GFR Calculation Not Reportable 06/18/21 19:17 Glucose 234 mg/dL (65-115) H 06/18/21 19:17 Calculated Osmolality 293 mOsm/kg (285-295) 06/18/21 19:17 Calcium 9.3 mg/dL (8.5-10.5) 06/18/21 19:17 Total Bilirubin 0.5 mg/dL (0.15-1.2) 06/18/21 19:17 AST 30 U/L (0-40) 06/18/21 19:17 ALT 43 U/L (0-41) H 06/18/21 19:17 Alkaline Phosphatase 103 IU/L (40-130) 06/18/21 19:17 Troponin T Baseline 14 ng/L (0-15) 06/18/21 19:17 Total Protein 8.2 g/dL (6.6-8.7) 06/18/21 19:17 Albumin 4.0 g/dL (3.5-5.2) 06/18/21 19:17 Globulin 4.2 g/dL (1.3-4.6) 06/18/21 19:17 Lipase 16 U/L (13-60) 06/18/21 19:17 Urine Color Yellow (Yellow) 06/18/21 20:09 Urine Appearance Clear (CLEAR) 06/18/21 20:09 Urine pH 5 (5-7) 06/18/21 20:09 Ur Specific [place] 1.030 (1.005-1.030) 06/18/21 20:09 Urine Protein Trace (Negative) 06/18/21 20:09 Urine Glucose (UA) 2+ (Normal) H 06/18/21 20:09 Urine Ketones Negative (Negative) 06/18/21 20:09 Urine Blood Neg (Negative) 06/18/21 20:09 Urine Nitrate Negative (Negative) 06/18/21 20:09 Urine Bilirubin Neg (Negative) 06/18/21 20:09 Urine Urobilinogen 1 mg/dL (Negative) H 06/18/21 20:09 Ur Leukocyte Esterase Negative (Negative) 06/18/21 20:09 Urine RBC None /hpf (0-2) 06/18/21 20:09 Urine WBC None /hpf (0-5) 06/18/21 20:09 Ur Squamous Epith Cells Rare /hpf (0-5) 06/18/21 20:09 Amorphous Sediment Not Reportable 06/18/21 20:09 Urine Bacteria None /hpf (NONE) 06/18/21 20:09 Urine Mucus 2+ /hpf 06/18/21 20:09 Serum Ketones Negative (Negative) 06/18/21 19:17 Discharge Plan Discharge Patient Disposition: Home Clinical Impression: Hyperglycemia, Polyuria Condition: Stable Prescriptions: No Action citalopram 40 mg tablet 20 mg PO DAILY@1000 0RF nitroglycerin [Nitrostat] 0.4 mg tablet, sublingual 0.4 mg SUBLINGUAL Q5M PRN (Reason: chest pain) Qty: 25 4RF omega-3 fatty acids [Fish Oil Concentrate] 1,000 mg capsule 1,000 mg PO DAILY@1000 0RF cholecalciferol (vitamin D3) 25 mcg (1,000 unit) capsule 75 mcg PO DAILY@1000 0RF sulfamethoxazole-trimethoprim [Bactrim DS] 800-160 mg tablet 1 tab PO BID 10 Days Qty: 20 0RF hydrocodone-acetaminophen 10-325 mg tablet 1 tab PO Q8H PRN (Reason: pain (scale score 7-10)) 30 Days Qty: 90 0RF Rx Instructions: may fill 30 days after previous refill clopidogrel 75 mg tablet 75 mg PO DAILY@1000 0RF insulin glargine 100 unit/mL solution 90 unit SUBCUT BID@1000,2200 0RF tamsulosin 0.4 mg capsule 0.4 mg PO DAILY@1000 0RF Hold Instructions: Doctor's Order levalbuterol HCl 0.63 mg/3 mL solution for nebulization 0.63 mg INHALATION TID PRN (Reason: Shortness Of Breath) 0RF atorvastatin 40 mg tablet 80 mg PO DAILY@1000 Qty: 180 3RF midodrine 2.5 mg tablet 2.5 mg PO BID Qty: 60 6RF Rx Instructions: do not give last dose of day after 6PM or within 4 hrs of bedtime elderberry fruit and flower 460-115 mg Capsule 1 cap PO DAILY@1000 0RF pantoprazole [Protonix] 40 mg tablet,delayed release (DR/EC) 40 mg PO DAILY@1000 0RF gabapentin 300 mg capsule 300 mg PO TID 0RF Rx Instructions: at 1000, 1500, 1800 ondansetron HCl [Zofran] 4 mg tablet 4 mg PO Q6H PRN (Reason: nausea and vomiting) Qty: 10 0RF levothyroxine 75 mcg Tablet 37.5 mcg PO DAILY 0RF nystatin 100,000 unit/gram Cream 1 applic TOPICAL TID 0RF Discharge Orders: Discharge ED (Routine); Ordered 06/18/21 Ordered By: Megan Dickens Referrals: Sujata Macedo MD [Primary Care Provider] - Discharge Diet: Advance as tolerated Discharge Activity: Increase activity as tolerated Patient Instructions: Diabetes and Nutrition (ED) Activity Restrictions/Additional Instructions: Come back to the emergency room if you have any fever or chills, worsening shortness of breath, chest pain, exertional lightheadedness, or any new or concerning complaints. Coding Level of Care Code ED Voyage Management System Operator for Chg Fwd Exam Comprehensive
[2021-06-18 19:26] LABS: Basophils # 0.1 10^3/uL (0.0-0.1); Eosinophils # 0.1 10^3/uL (0.0-0.8); Eosinophils % 2.1 %; Hematocrit 43.8 % (42.0-52.0); Hemoglobin 14.8 g/dL (11.7-16.6); Lymphocytes # 2.7 10^3/uL (0.8-4.8); Lymphocytes % 47.2 %; Mean Corpuscular HGB Conc 33.8 g/dL (30.0-36.0); Mean Corpuscular Hemoglobin 30.7 pg (28.0-34.0); Mean Corpuscular Volume 90.9 fl (80-94); Mean Platelet Volume 11.2 fL (7.4-10.4); Monocytes # 0.5 10^3/uL (0.2-0.9); Monocytes % 8.2 %; Neutrophils # 2.35 10^3/uL (1.8-7.7); Neutrophils % 41.2 %; Nucleated Red Blood Cells % 0 %; Platelet Count 145 10^3/cmm (130-400); Red Blood Count 4.82 10^6/uL (4.1-5.3); White Blood Count 5.7 10^3/uL (4.0-10.0)
--- NOTE | 2021-06-18 19:26 | ECG_ITS ---
[facility] Test Date: 2021-06-18 Pat Name: Victorino Stevenson Department: Room: Gender: Male Machine Clipper: : 1950 Requested By: Megan Dickens Order Number: [id number] Katie MD: Patricia Joy M.D. Measurements Intervals [place] Rate: 58 P: 43 WA: 173 QRS: 42 QRSD: 90 T: 91 QT: 388 QTc: 383 Interpretive Statements SINUS BRADYCARDIA POSSIBLE LEFT ATRIAL ENLARGEMENT [-0.1mV P-WAVE IN V1/V2] MODERATE T-WAVE ABNORMALITY, CONSIDER ANTERIOR ISCHEMIA [-0.1+ mV T-WAVE IN V3/V4] Compared to ECG 12/15/2020 11:05:39 Possible ischemia now present T-wave abnormality still present Electronically Signed On 06-18-2021 23:02:31 CDT by Patricia Joy M.D. [id number]
[2021-06-18 19:33] LABS: ABG PCO2 42.2 mmHg (35-45); Arterial Blood Gas Hematocrit 44.3 % (42-52); Base Excess ABG 1.1 mmol/L (-2.0-2.0); Blood Gas Sample Site Brachial, right; Blood Gas Sample Type Arterial; HCO3 ABG 26.2 mmol/L (22-26); Oxygen Device ROOM AIR; PO2 ABG 70.7 mmHg (80.0-100.0)
[2021-06-18 19:39] LABS: Ketone (Acetest) Serum Negative (Negative)
[2021-06-18 19:46] LABS: Alanine Aminotransferase 43 U/L (0-41); Alkaline Phosphatase 103 IU/L (40-130); Anion Gap 14.5 (5-19); Aspartate Amino Transferase 30 U/L (0-40); Blood Urea Nitrogen 22 mg/dL (8-23); Calcium 9.3 mg/dL (8.5-10.5); Carbon Dioxide 28 mmol/L (22-29); Chloride 98 mmol/L (98-107); Globulin 4.2 g/dL (1.3-4.6); Glucose 234 mg/dL (65-115); Lipase 16 U/L (13-60); Osmolality Calculated 293 mOsm/kg (285-295); Potassium 4.5 mmol/L (3.5-5.1); Sodium 136 mmol/L (136-145); Total Bilirubin 0.5 mg/dL (0.15-1.2); Total Protein 8.2 g/dL (6.6-8.7)
[2021-06-18 19:47] LABS: Troponin(5th) Baseline 14 ng/L (0-15)
[2021-06-18 20:24] LABS: Add Urine Microscopic? YES; Bilirubin Urine Neg (Negative); Blood Urine Neg (Negative); Glucose Urine UA 2+ (Normal); Ketones Urine Negative (Negative); Leukocyte Esterase Urine Negative (Negative); Nitrate Urine Negative (Negative); Protein Urine Trace (Negative); Urine Appearance Clear (CLEAR); Urine Color Yellow (Yellow); Urobilinogen Urine 1 mg/dL (Negative); pH Urine 5 (5-7)
[2021-06-18 20:25] LABS: Add Urine Culture? No; Mucus Urine 2+ /hpf; Squamous Epithelial Cell Urine RARE /hpf (0-5)
[2021-06-18 20:31] VITALS: BP 119/71; PULSE 63; RESP 16; O2SAT 98
== END 2021-06-18 20:33 | disposition home or self-care (01) ==
PROVIDERS: Emergency Provider Emergency Medicine; PCP Family Medicine
DX: E11.65 Type 2 diabetes mellitus with hyperglycemia (principal); R35.89 Other polyuria; I10 Essential (primary) hypertension; I25.10 Atherosclerotic heart disease of native coronary artery without angina pectoris; J44.9 Chronic obstructive pulmonary disease, unspecified; E78.5 Hyperlipidemia, unspecified; K21.9 Gastro-esophageal reflux disease without esophagitis; Z79.4 Long term (current) use of insulin
CPT/HCPCS: 36600; 80053; 81001; 82009; 82803; 83690; 84484; 85025; 93005; 96360; 99284; J7040

== ENCOUNTER → 2021-07-04 13:11 | Outpatient (BNVA) | payer OTHER, SELFPAY | PROVIDERS: PCP Family Medicine; Visit Provider Internal Medicine | DX: I25.810 Atherosclerosis of coronary artery bypass graft(s) without angina pectoris (principal); I73.9 Peripheral vascular disease, unspecified; I95.0 Idiopathic hypotension; Z87.891 Personal history of nicotine dependence; Z95.1 Presence of aortocoronary bypass graft | CPT/HCPCS: 99214 ==

== ENCOUNTER → 2021-07-05 09:28 | Outpatient (BNVA) | payer OTHER, SELFPAY | PROVIDERS: PCP Family Medicine; Visit Provider Anesthesiology Pain Medicine | DX: M17.0 Bilateral primary osteoarthritis of knee (principal); M48.062 Spinal stenosis, lumbar region with neurogenic claudication; M47.816 Spondylosis without myelopathy or radiculopathy, lumbar region; M51.16 Intervertebral disc disorders with radiculopathy, lumbar region; I63.9 Cerebral infarction, unspecified; I25.810 Atherosclerosis of coronary artery bypass graft(s) without angina pectoris; I10 Essential (primary) hypertension; Z79.899 Other long term (current) drug therapy; Z79.891 Long term (current) use of opiate analgesic; Z87.891 Personal history of nicotine dependence | CPT/HCPCS: 20610; 99214 ==

== ENCOUNTER → 2021-07-31 09:27 | Outpatient (BNVA) | payer OTHER, SELFPAY | PROVIDERS: PCP Family Medicine; Visit Provider Anesthesiology Pain Medicine | DX: M48.062 Spinal stenosis, lumbar region with neurogenic claudication (principal); M47.816 Spondylosis without myelopathy or radiculopathy, lumbar region; M51.16 Intervertebral disc disorders with radiculopathy, lumbar region; M25.561 Pain in right knee; M25.562 Pain in left knee; I63.9 Cerebral infarction, unspecified; I25.810 Atherosclerosis of coronary artery bypass graft(s) without angina pectoris; I10 Essential (primary) hypertension; Z79.899 Other long term (current) drug therapy; Z79.891 Long term (current) use of opiate analgesic; Z87.891 Personal history of nicotine dependence | CPT/HCPCS: 99214 ==

== ENCOUNTER → 2021-10-09 14:07 | Outpatient (BNVA) | payer OTHER, SELFPAY | PROVIDERS: PCP Family Medicine; Visit Provider Podiatrist Foot & Ankle Surgery | DX: E11.8 Type 2 diabetes mellitus with unspecified complications (principal); E11.42 Type 2 diabetes mellitus with diabetic polyneuropathy; L60.3 Nail dystrophy; I73.9 Peripheral vascular disease, unspecified; Z79.4 Long term (current) use of insulin | CPT/HCPCS: 11721; 99204 ==

== ENCOUNTER 2022-05-01 22:51 | Emergency (ER) | payer OTHER, SELFPAY ==
[2022-05-01 22:52] VITALS: BMI 38.6
[2022-05-01 22:56] VITALS: BP 148/68; PULSE 88; RESP 17; TEMP 37.1; O2SAT 95
--- NOTE | 2022-05-01 22:59 | XRR_ITS ---
PROCEDURE INFORMATION: Exam: XR Chest Exam date and time: 05/01/2022 11:26 PM Age: 72 years old Clinical indication: Prior surgery; Surgery type: Cabg. Gb; Patient HX: Fall yesterday at home. C/O increased general weakness and lethargy. TECHNIQUE: Imaging protocol: Radiologic exam of the chest. Views: 1 view. COMPARISON: CT chest w con* [id number] 04/16/2021 2:11 PM FINDINGS: Lungs: Unremarkable. No consolidation. Pleural spaces: Unremarkable. No pleural effusion. No pneumothorax. Heart/Mediastinum: Stable heart size. Bones/joints: Stable sternotomy changes. XR/XR chest 1V portable [id number] IMPRESSION: No acute findings.
--- NOTE | 2022-05-01 23:00 | ECG_ITS ---
[facility] Test Date: 2022-05-01 Pat Name: Victorino Stevenson Department: Room: Gender: Male Dock Operator: : 1950 Requested By: Presley Taylor Order Number: [id number] Katie MD: Patricia Joy M.D. Measurements Intervals [place] Rate: 84 P: 50 CT: 182 QRS: 57 QRSD: 86 T: 81 QT: 322 QTc: 383 Interpretive Statements SINUS RHYTHM LEFT ATRIAL ENLARGEMENT [-0.15mV P-WAVE IN V1/V2] NONSPECIFIC T-WAVE ABNORMALITY Compared to ECG 06/18/2021 19:29:59 Sinus bradycardia no longer present Possible ischemia no longer present T-wave abnormality still present Electronically Signed On 05-02-2022 22:18:54 ASSURANCE SERVICES MANAGER HEALTH CARE by Patricia Joy M.D. [email or web address] [email or web address] [employer]/store/OM/[id number]
--- NOTE | 2022-05-01 23:06 | CTR_ITS ---
PROCEDURE INFORMATION: Exam: CT Head Without Contrast Exam date and time: 05/01/2022 11:40 PM Age: 72 years old Clinical indication: Injury or trauma; Blunt trauma (contusions or hematomas); Patient HX: Fall yesterday at home. C/O increased general weakness and lethargy. TECHNIQUE: Imaging protocol: Computed tomography of the head without contrast. Radiation optimization: All CT scans at this facility use at least one of these dose optimization techniques: automated exposure control; mA and/or kV adjustment per patient size (includes targeted exams where dose is matched to clinical indication); or iterative reconstruction. REPORTING DATA: Count of CT and Cardiac NM exams in prior 12 months: This patient has received 0 known CTs and 0 known cardiac nuclear medicine studies in the 12 months prior to the current study. 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 No acute infarct. No hemorrhage. Stable involutional changes of the brain. No mass effect. Cerebral ventricles: No ventriculomegaly. Paranasal sinuses: Moderate chronic appearing left maxillary sinus opacification with chronic osteitis changes are stable. No air-fluid level. Mastoid air cells: Visualized mastoid air cells are well aerated. Bones/joints: See Paranasal sinuses finding. Soft tissues: Unremarkable. CT/CT head wo con* [id number] IMPRESSION: 1. No acute intracranial abnormality. 2. Chronic left maxillary sinusitis changes.
--- NOTE | 2022-05-01 23:14 | ED_ITS ---
HPI - Weakness General: Chief complaint: Weakness Stated complaint: DECREASED LOC Time Seen by Provider: 05/01/22 22:59 Source: patient and EMS Mode of arrival: EMS Limitations: no limitations History of Present Illness: 72-year-old male he states that he fell out of bed last night he did hit his head he is unsure of any loss conscious she states that throughout the day they just had some fatigue and increased weakness and just not feeling quite right. He has had a headache that he states is mild in nature denies any abdominal or chest pain he has had some slight confusion as well. Associated symptoms: Reports headache(s); Denies chest pain, dysuria, easy bruising, nausea or vomiting Review of Systems Const: Reports: fatigue and malaise Eyes: Denies: blurry vision or eye discomfort ENMT: Denies: throat pain or dental pain Card: Denies: chest pain Resp: Denies: dyspnea GI: Denies: abdominal pain, nausea, vomiting or diarrhea : Denies: dysuria Musc: Denies: neck pain or back pain Skin/Breast: Denies: rash Neuro: Reports: headache(s) Psych: Denies: depression Redd/Lymph: Denies: easy bruising All/Imm: Denies: urticaria PFSH ED PFSH: Medical History Accelerated essential hypertension CAD (coronary artery disease) Carotid artery stenosis, symptomatic Closed fracture of distal end of right fibula COPD (chronic obstructive pulmonary disease) Diabetes Dyslipidemia GERD (gastroesophageal reflux disease) HTN (hypertension) Lower extremity edema Peripheral Vascular Disease Varicose veins of bilateral lower extremities with other complications Surgical History H/O heart bypass surgery Hx of CABG Hx of cholecystectomy Hx of cholecystectomy Family History Father CAD (coronary artery disease) Diabetes Hypertension Lung disease Grandfather CAD (coronary artery disease) Diabetes Hypertension Son CAD (coronary artery disease) Family history of premature coronary artery disease Grandmother Cancer Denies family history of Clotting disorder Dementia Hyperlipidemia Psychiatric illness Chronic kidney disease (CKD) Suicide Anesthesia complication Bleeding disorder Stroke Social History Smoking and tobacco status: former smoker Second hand smoke exposure: Yes Alcohol intake: former 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 Caregiver/support person: Yes Lives independently: Yes Household members: spouse service: Yes Physical Exam Const: COMMON NORMALS: no acute distress, patient oriented x3 and healthy appearing HENMT: COMMON NORMALS: normocephalic and atraumatic HEAD & SCALP: normocephalic and atraumatic Eye: COMMON NORMALS: Equal, round and reactive pupils present and EOMs intact bilaterally PUPIL: Yes Equal, round and reactive pupils present Neck/C-Spine: COMMON NORMALS: full ROM and supple Chest: COMMONS NORMALS: normal inspection of the chest and normal palpation of entire chest wall Resp: COMMON NORMALS: normal respiratory effort, No retractions, No use of accessory muscles and clear to auscultation bilaterally AUSCULTATION: clear to auscultation bilaterally Cardio: COMMON NORMALS: regular rate, regular rhythm and No murmurs present (Cardio) RATE: regular rate RHYTHM: regular rhythm GI: COMMON NORMALS: Normal to inspection, nondistended, normoactive bowel sounds present, Soft to palpation, non-tender and no masses PALPATION: Yes Soft to palpation Extremity: COMMON NORMALS: normal to inspection and full ROM Neuro: COMMON NORMALS: patient oriented x3, moves all extremities and no focal motor deficits Psych: COMMON NORMALS: mental status grossly normal, Normal thought process present and cooperative THOUGHT PROCESS: Normal thought process present Skin: COMMON NORMALS: no rashes or lesions noted and no wounds GENERAL SKIN EXAM: no rashes or lesions noted Course Vital Signs: Vital signs: Vital Signs Temperature 98.8 F 05/01/22 22:56 Pulse Rate 88 05/01/22 22:56 Respiratory Rate 17 05/01/22 22:56 Blood Pressure 148/68 05/01/22 22:56 Pulse Oximetry 95 05/01/22 22:56 Oxygen Delivery Me thod 05/01/22 22:56 MDM - Weakness Medical Decision Making Patient presents here with closed head injury some weakness he had some slight confusion but he is able answer my question appropriate he is able to ambulate head CT blood work are all normal he is stable for discharge back home with family member he is return if worsening they understand agree to plan. Lab Data 05/01/22 23:15 05/01/22 23:15 Radiology Impressions Chest X-Ray 05/01/22 22:59 IMPRESSION: No acute findings. Head CT 05/01/22 23:06 IMPRESSION: 1. No acute intracranial abnormality. 2. Chronic left maxillary sinusitis changes. Laboratory Results WBC 6.3 10^3/uL (4.0-10.0) 05/01/22 23:15 RBC 4.34 10^6/uL (4.1-5.3) 05/01/22 23:15 Hgb 13.5 g/dL (11.7-16.6) 05/01/22 23:15 Hct 41.6 % (42.0-52.0) L 05/01/22 23:15 MCV 95.9 fl (80-94) H 05/01/22 23:15 MCH 31.1 pg (28.0-34.0) 05/01/22 23:15 MCHC 32.5 g/dL (30.0-36.0) 05/01/22 23:15 RDW 14.1 % (12.1-15.1) 05/01/22 23:15 Plt Count 172 10^3/cmm (130-400) 05/01/22 23:15 MPV 10.2 fL (7.4-10.4) 05/01/22 23:15 Neut % (Auto) 52.5 % 05/01/22 23:15 Lymph % (Auto) 30.9 % 05/01/22 23:15 [place] % (Auto) 13.9 % 05/01/22 23:15 Eos % (Auto) 1.7 % 05/01/22 23:15 Baso % (Auto) 0.8 % 05/01/22 23:15 Neut # (Auto) 3.31 10^3/uL (1.8-7.7) 05/01/22 23:15 Lymph # (Auto) 2.0 10^3/uL (0.8-4.8) 05/01/22 23:15 [place] # (Auto) 0.9 10^3/uL (0.2-0.9) 05/01/22 23:15 Eos # (Auto) 0.1 10^3/uL (0.0-0.8) 05/01/22 23:15 Baso # (Auto) 0.1 10^3/uL (0.0-0.1) 05/01/22 23:15 Nucleated RBC % (auto) 0 % 05/01/22 23:15 Nucleated RBCs # 0.0 /100WBC 05/01/22 23:15 PT 13.70 SECONDS (12.1-14.9) 05/01/22 23:15 INR 1.02 (0.8-1.2) 05/01/22 23:15 Sodium 141 mmol/L (136-145) 05/01/22 23:15 Potassium 4.9 mmol/L (3.5-5.1) 05/01/22 23:15 Chloride 106 mmol/L (98-107) 05/01/22 23:15 Carbon Dioxide 26 mmol/L (22-29) 05/01/22 23:15 Anion Gap 13.9 (5-19) 05/01/22 23:15 BUN 26 mg/dL (8-23) H 05/01/22 23:15 Creatinine 1.4 mg/dL (0.7-1.2) H 05/01/22 23:15 GFR Calculation Not Reportable 05/01/22 23:15 Glucose 92 mg/dL (65-115) 05/01/22 23:15 POC Glucose 93 mg/dL (70-110) 05/01/22 23:21 Calculated Osmolality 296 mOsm/kg (285-295) H 05/01/22 23:15 Calcium 9.2 mg/dL (8.5-10.5) 05/01/22 23:15 Magnesium 2.1 mg/dL (1.7-2.3) 05/01/22 23:15 Total Bilirubin 0.5 mg/dL (0.15-1.2) 05/01/22 23:15 AST 32 U/L (0-40) 05/01/22 23:15 ALT 32 U/L (0-41) 05/01/22 23:15 Alkaline Phosphatase 74 U/L (40-130) 05/01/22 23:15 Troponin T Baseline 29 ng/L (0-15) H 05/01/22 23:15 Total Protein 7.4 g/dL (6.6-8.7) 05/01/22 23:15 Albumin 4.0 g/dL (3.5-5.2) 05/01/22 23:15 Globulin 3.4 g/dL (1.3-4.6) 05/01/22 23:15 TSH 4.29 uIU/mL (0.27-4.20) H 05/01/22 23:15 Urine Color Yellow (Yellow) 05/01/22 23:15 Urine Appearance Clear (CLEAR) 05/01/22 23:15 Urine pH 5 (5-7) 05/01/22 23:15 Ur Specific [place] 1.025 (1.005-1.030) 05/01/22 23:15 Urine Protein Neg (Negative) 05/01/22 23:15 Urine Glucose (UA) Norm (Normal) 05/01/22 23:15 Urine Ketones Negative (Negative) 05/01/22 23:15 Urine Blood Neg (Negative) 05/01/22 23:15 Urine Nitrate Negative (Negative) 05/01/22 23:15 Urine Bilirubin Neg (Negative) 05/01/22 23:15 Urine Urobilinogen Norm mg/dL (Negative) 05/01/22 23:15 Ur Leukocyte Esterase Negative (Negative) 05/01/22 23:15 EKG Data EKG 1: I personally reviewed and interpreted this EKG as follows: EKG interpretation date: 05/01/22 EKG interpretation time: 23:07 Interpretation: nsr hr [address] or t wave abnormalities qrs 86 qtc 364 Discharge Plan Discharge Patient Disposition: Home Clinical Impression: Closed head injury Condition: Stable Prescriptions: No Action citalopram 40 mg tablet 20 mg PO DAILY@1000 nitroglycerin [Nitrostat] 0.4 mg tablet, sublingual 0.4 mg SUBLINGUAL Q5M PRN (Reason: chest pain) Qty: 25 4RF omega-3 fatty acids [Fish Oil Concentrate] 1,000 mg capsule 1,000 mg PO DAILY@1000 cholecalciferol (vitamin D3) 25 mcg (1,000 unit) capsule 75 mcg PO DAILY@1000 clopidogrel 75 mg tablet 75 mg PO DAILY@1000 insulin glargine 100 unit/mL solution 90 unit SUBCUT BID@1000,2200 tamsulosin 0.4 mg capsule 0.4 mg PO DAILY@1000 Hold Instructions: Doctor's Order levalbuterol HCl 0.63 mg/3 mL solution for nebulization 0.63 mg INHALATION TID PRN (Reason: Shortness Of Breath) methylprednisolone acetate [Depo-Medrol] 80 mg/mL suspension 80 mg Infiltration ONCE Qty: 1 0RF bupivacaine (PF) 0.25 % (2.5 mg/mL) solution 10 ml Infiltration ONCE Qty: 1 0RF hydrocodone-acetaminophen 10-325 mg tablet 1 tab PO Q8H PRN (Reason: pain (scale score 7-10)) 30 Days Qty: 90 0RF Rx Instructions: may fill 30 days after previous refill atorvastatin 40 mg tablet 80 mg PO DAILY@1000 Qty: 180 3RF midodrine 2.5 mg tablet 2.5 mg PO BID Qty: 60 6RF Rx Instructions: do not give last dose of day after 6PM or within 4 hrs of bedtime pantoprazole [Protonix] 40 mg tablet,delayed release (DR/EC) 40 mg PO DAILY@1000 gabapentin 300 mg capsule 300 mg PO TID Rx Instructions: at 1000, 1500, 1800 ondansetron HCl [Zofran] 4 mg tablet 4 mg PO Q6H PRN (Reason: nausea and vomiting) Qty: 10 0RF levothyroxine 75 mcg Tablet 37.5 mcg PO DAILY nystatin 100,000 unit/gram Cream 1 applic TOPICAL TID Discharge Orders: Discharge ED (Routine); Ordered 05/02/22 Ordered By: Presley Taylor Referrals: Sujata Macedo MD [Primary Care Provider] - 1-3 days Discharge Diet: Advance as tolerated Discharge Activity: Resume usual activity Patient Instructions: Head Injury (ED) Coding Level of Care Code ED Assistant Front Desk Manager for Natalie Chu
[2022-05-01] MEDS: sodium chloride 0.9% 500 ML IV (23:19)
[2022-05-01 23:20] LABS: Basophils # 0.1 10^3/uL (0.0-0.1); Basophils % 0.8 %; Eosinophils # 0.1 10^3/uL (0.0-0.8); Eosinophils % 1.7 %; Hematocrit 41.6 % (42.0-52.0); Hemoglobin 13.5 g/dL (11.7-16.6); Lymphocytes % 30.9 %; Mean Corpuscular HGB Conc 32.5 g/dL (30.0-36.0); Mean Corpuscular Hemoglobin 31.1 pg (28.0-34.0); Mean Corpuscular Volume 95.9 fl (80-94); Mean Platelet Volume 10.2 fL (7.4-10.4); Monocytes # 0.9 10^3/uL (0.2-0.9); Monocytes % 13.9 %; Neutrophils # 3.31 10^3/uL (1.8-7.7); Neutrophils % 52.5 %; Nucleated Red Blood Cells % 0 %; Platelet Count 172 10^3/cmm (130-400); Red Blood Count 4.34 10^6/uL (4.1-5.3); Red Cell Distribution Width 14.1 % (12.1-15.1); White Blood Count 6.3 10^3/uL (4.0-10.0)
[2022-05-01 23:22] LABS: Add Urine Microscopic? NO; Charge for UA Resulting for Rev
[2022-05-01 23:24] LABS: Glucose Point of Care 93 mg/dL (70-110)
[2022-05-01 23:24] LABS: Bilirubin Urine Neg (Negative); Blood Urine Neg (Negative); Glucose Urine UA Norm (Normal); Ketones Urine Negative (Negative); Leukocyte Esterase Urine Negative (Negative); Nitrate Urine Negative (Negative); Protein Urine Neg (Negative); Specific Gravity, Urine 1.025 (1.005-1.030); Urine Appearance Clear (CLEAR); Urine Color Yellow (Yellow); Urobilinogen Urine Norm (Negative); pH Urine 5 (5-7)
[2022-05-01 23:33] LABS: INR 1.02 (0.8-1.2)
[2022-05-01 23:47] LABS: Troponin(5th) Baseline 29 ng/L (0-15)
[2022-05-01 23:54] LABS: Alanine Aminotransferase 32 U/L (0-41); Alkaline Phosphatase 74 U/L (40-130); Anion Gap 13.9 (5-19); Aspartate Amino Transferase 32 U/L (0-40); Blood Urea Nitrogen 26 mg/dL (8-23); Calcium 9.2 mg/dL (8.5-10.5); Carbon Dioxide 26 mmol/L (22-29); Chloride 106 mmol/L (98-107); Globulin 3.4 g/dL (1.3-4.6); Glucose 92 mg/dL (65-115); Magnesium 2.1 mg/dL (1.7-2.3); Osmolality Calculated 296 mOsm/kg (285-295); Potassium 4.9 mmol/L (3.5-5.1); Sodium 141 mmol/L (136-145); Thyroid Stimulating Hormone 4.29 uIU/mL (0.27-4.20); Total Bilirubin 0.5 mg/dL (0.15-1.2); Total Protein 7.4 g/dL (6.6-8.7)
[2022-05-01 23:59] LABS: Creatinine Clr Calc Pharmacy 65.3181
[2022-05-02 01:13] VITALS: BP 134/77; RESP 20; O2SAT 96
== END 2022-05-02 01:20 | disposition home or self-care (01) ==
PROVIDERS: Emergency Provider Emergency Medicine; PCP Family Medicine
DX: S09.8XXA Other specified injuries of head, initial encounter (principal); Z79.4 Long term (current) use of insulin; Z79.02 Long term (current) use of antithrombotics/antiplatelets; Z87.891 Personal history of nicotine dependence; I10 Essential (primary) hypertension; I25.10 Atherosclerotic heart disease of native coronary artery without angina pectoris; J44.9 Chronic obstructive pulmonary disease, unspecified; E11.9 Type 2 diabetes mellitus without complications; E78.5 Hyperlipidemia, unspecified; Z95.1 Presence of aortocoronary bypass graft; W06.XXXA Fall from bed, initial encounter
CPT/HCPCS: 36416; 70450; 71045; 80053; 81003; 82962; 83735; 84443; 84484; 85025; 85610; 93005; 96360; 99285; J7040

== ENCOUNTER 2022-05-08 12:27 | Outpatient (CLI) | payer OTHER, SELFPAY ==
--- NOTE | 2022-05-08 12:45 | USCV_ITS ---
Victorino Stevenson Age: 72 Gender: M : 1950 Exam Date: 05/08/2022 13:18 Ordering Phys: Sujata Macedo MD Technologist: CT Exam Location: [facility] [place] Indication: aaa seen on ct HISTORY: Diameter (cm) AP x Transverse x Length Velocity (cm/s) Waveform Prox Aorta: 2.18 x 2.17 x 99.20 Triphasic Mid Aorta: 3.05 x 3.19 x 59.50 Triphasic Distal Aorta: 1.81 x 1.89 x 46.30 Triphasic Right Iliac Prox: 1.12 x 1.12 x 153.90 Triphasic Left Iliac Prox: 1.15 x 1.18 x 105.80 Triphasic Stent Prox Landing x x Aneurysmal Sac Max x x Lt Lat Sac Dim Rt Lat Sac Dim Stent Dist Landing x x Right Iliac Stent x x Left Iliac Stent x x Right Renal Art Left Renal Art FINDINGS: Comparison:. 09/21/19. Ectatic abdominal aorta with evidence of atherosclerotic plaque noted. A fusiform abdominal aortic aneurysm is noted with a maximal diameter of 3.1 cm. There is no evidence of right common iliac artery stenosis. There is no evidence of left common iliac artery stenosis. CONCLUSIONS Ectatic abdominal aorta with evidence of atherosclerotic plaque noted. Minimal AA, 3.1 cm, no change. Dr. Celsa Anderson DO (Electronically Signed) Final Date: 08 May 2022 14:52 S
--- NOTE | 2022-05-08 13:30 | USCV_ITS ---
GrahamVictorino roth Age: 72 Gender: M : 1950 Exam Date: 05/08/2022 12:45 Ordering Phys: Aki Trujillo MD (Andy) ([email or web address] [place]) Technologist: [place] [facility] [place]: stenosis Risk Factors: Previous Vascular Surgery: Right Brachial BP: / Left Brachial BP: / Right Left Velocity (cm/s) Spectral Plaque Velocity (cm/s) Spectral Plaque Syst/Diast Broadening Syst/Diast Broadening 84.10/ 12.30 Prox CCA 77.00 / 12.20 69.20/ 11.40 Mid CCA 66.90 / 15.40 113.40/21.80 Distal CCA 78.00 / 14.60 71.50/ 8.30 Prox ICA 124.25/ 25.85 78.50/ 16.70 Mid ICA 109.80/ 26.50 54.90/ 13.20 Distal ICA 100.90/ 20.20 102.50 ECA 181.60 0.69 ICA/CCA 1.68 Antegrade Vertebral Antegrade 32.60/ 9.00 cm/s 62.70/ 5.40 cm/s Tri Subclavian Tri 112.4 153.8 0 0 FINDINGS Comparison:. 05/30/21. No significant elevation of systolic or diastolic velocities. Slight velocity elevation on the left. Diffuse bilateral scattered calcified plaque and intimal thickening throughout the common carotid arteries and extending through the bifurcation. Surface of the plaque is irregular. Antegrade vertebral arteries. CONCLUSIONS Bilateral ICA stenosis less than 50%. No interval change in stenosis since prior exam. Extensive carotid plaque with surface irregularity. Dr. Celsa Anderson DO (Electronically Signed) Final Date: 08 May 2022 14:58 S
== END 2022-05-08 12:28 | disposition home or self-care (01) ==
PROVIDERS: PCP Family Medicine; Visit Provider Thoracic Surgery (Cardiothoracic Vascular Surgery)
DX: I71.43 Infrarenal abdominal aortic aneurysm, without rupture (principal)
CPT/HCPCS: 93880; 93978

== ENCOUNTER → 2022-05-21 11:25 | Outpatient (BNVA) | payer OTHER, SELFPAY | PROVIDERS: PCP Family Medicine; Visit Provider Podiatrist Foot & Ankle Surgery | DX: I73.9 Peripheral vascular disease, unspecified (principal); E11.42 Type 2 diabetes mellitus with diabetic polyneuropathy; L60.3 Nail dystrophy; Z79.4 Long term (current) use of insulin | CPT/HCPCS: 11721 ==

== ENCOUNTER 2022-05-30 15:12 | Emergency (ER) | payer OTHER, SELFPAY ==
[2022-05-30 15:17] VITALS: BP 172/75; PULSE 84; RESP 16; TEMP 36.5; O2SAT 93; BMI 4686.6
--- NOTE | 2022-05-30 15:29 | XR_ITS ---
WS: [id number] EXAMINATION: XR foot LT min 3V* [id number] REASON FOR EXAM: swelling to left foot COMPARISON: None available. ORDER DATE: 05/30/2022 3:29 PM TECHNIQUE: 3 views of the left foot were obtained. X-RAY FINDINGS: There is severe degenerative degenerative change and narrowing at the first MTP joint with large medi al osteophyte There are no fractures or dislocations. There appears to be dorsal mid foot soft tissue swelling. The remaining joint spaces are preserved. XR/XR foot LT min 3V* [id number] IMPRESSION: Prominent degenerative changes and narrowing as described at the first MTP join t.
--- NOTE | 2022-05-30 15:30 | ED_ITS ---
HPI - Extremity Problem General: Chief complaint: Extremity Problem,Nontraumatic Stated complaint: feet swelling Time Seen by Provider: 05/30/22 15:29 History of Present Illness: Patient is a 72-year-old male comes to the ED with left foot swelling. Left foot swelling started this morning. Patient was seen [facility] today and told to come here to the ED for some antibiotics. Denies any injury or trauma to cause left foot swelling. Denies any recent wounds, redness, warmth or pain in the left foot. Patient has a history of poorly managed diabetes. Associated symptoms: Deny chest pain, fever(s) or rash Review of Systems Const: Denies: fever(s), chills or fatigue Eyes: Denies: change in vision or eye discomfort ENMT: Denies: throat pain, odynophagia, nasal discharge or nasal congestion Card: Denies: chest pain, palpitations, edema, swelling of feet/ankles, dyspnea on exertion or orthopnea Resp: Denies: dyspnea, productive cough or non-productive cough GI: Denies: abdominal pain, nausea, vomiting, diarrhea, constipation or hematochezia : Denies: flank pain, difficulty urinating, dysuria or hematuria Musc: Reports: extremity swelling (Left foot); Denies: neck pain or back pain Skin/Breast: Denies: rash or new lesions Neuro: Denies: headache(s), numbness in extremities or weakness in extremities PFSH ED PFSH: Medical History Accelerated essential hypertension CAD (coronary artery disease) Carotid artery stenosis, symptomatic Closed fracture of distal end of right fibula COPD (chronic obstructive pulmonary disease) Diabetes Dyslipidemia GERD (gastroesophageal reflux disease) HTN (hypertension) Lower extremity edema Peripheral Vascular Disease Varicose veins of bilateral lower extremities with other complications Surgical History H/O heart bypass surgery Hx of CABG Hx of cholecystectomy Hx of cholecystectomy Family History Father CAD (coronary artery disease) Diabetes Hypertension Lung disease Grandfather CAD (coronary artery disease) Diabetes Hypertension Son CAD (coronary artery disease) Family history of premature coronary artery disease Grandmother Cancer Denies family history of Clotting disorder Dementia Hyperlipidemia Psychiatric illness Chronic kidney disease (CKD) Suicide Anesthesia complication Bleeding disorder Stroke Social History Smoking and tobacco status: former smoker Second hand smoke exposure: Yes Alcohol intake: former 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 Caregiver/support person: Yes Lives independently: Yes Household members: spouse service: Yes Physical Exam Const: COMMON NORMALS: patient oriented x3 and alert GENERAL APPEARANCE: cooperative and comfortable HENMT: COMMON NORMALS: normocephalic HEAD & SCALP: normocephalic MOUTH: Normal oral and palatal mucosa present THROAT: posterior oropharynx normal and uvula midline Neck/C-Spine: COMMON NORMALS: supple GENERAL: Yes normal visual inspection Resp: COMMON NORMALS: normal respiratory effort, No retractions, No use of accessory muscles and clear to auscultation bilaterally AUSCULTATION: clear to auscultation bilaterally Cardio: COMMON NORMALS: regular rate, regular rhythm, S1 normal heart sound present, S2 normal heart sound present, No gallops present (Cardio), No clicks present (Cardio), No murmurs present (Cardio) and Peripheral pulses 2+ throughout RATE: regular rate RHYTHM: regular rhythm HEART SOUNDS: S1 normal heart sound present and S2 normal heart sound present PERIPHERAL PULSES: Peripheral pulses 2+ throughout GI: COMMON NORMALS: Normal to inspection, nondistended, normoactive bowel sounds present, Soft to palpation, non-tender and no masses PALPATION: Yes Soft to palpation : COMMON NORMALS: Yes no CVA tenderness BLADDER/KIDNEY EXAM: Yes no CVA tenderness Back/Pelvis: COMMON NORMALS: no CVA tenderness Extremity: NARRATIVE EXTREMITY EXAM: Left foot?no visible deformity seen. Swelling noted throughout the entire foot but most of swelling in the midfoot region. No erythema, warmth or tenderness noted. No wounds seen. Neuro: COMMON NORMALS: patient oriented x3 SENSORIUM/ORIENTATION: Yes alert GAIT: Yes Normal gait present Skin: GENERAL SKIN EXAM: dry skin Course Vital Signs: Vital signs: Vital Signs Temperature 97.7 F 05/30/22 15:17 Pulse Rate 84 05/30/22 15:17 Respiratory Rate 16 05/30/22 15:17 Blood Pressure 172/75 05/30/22 15:17 Pulse Oximetry 93 05/30/22 15:17 Oxygen Delivery Me thod 05/30/22 15:17 MDM - Extremity (Nontraumatic) Medical Decision Making Patient is a 72-year-old male comes to the ED with left foot swelling. Left foot swelling started this morning. Patient was seen at [facility] today and told to co me here to the ED for some antibiotics. Denies any injury or trauma to cause left foot swelling. Denies any recent wounds, redness, warmth or pain in the left foot. Patient has a history of poorly managed diabetes. Vital stable. left foot?no visible deformity seen. Swelling noted throughout the entire foot but most of swelling in the midfoot region. No erythema, warmth or tenderness noted. No wounds seen. Labs are all unremarkable, white count 4.2 and CRP 5. X-ray of left foot showed some degenerative joint disease but no other acute findings. Patient stable for discharge home diagnosed with left foot swelling. He was instructed on how to help manage swelling by elevating leg and wear compression stockings. I sent him home with a prescription for an antibiotic to cover for possible developing cellulitis. Follow-up with PCP in the next week for reevaluation. Return to ED precautions given. Patient understood agree with plan. Lab Data I reviewed the patient's lab results. 05/30/22 15:34 05/30/22 15:34 Radiology Impressions Foot X-Ray 05/30/22 15:29 IMPRESSION: Prominent degenerative changes and narrowing as described at the first MTP joint. Laboratory Results WBC 4.2 10^3/uL (4.0-10.0) 05/30/22 15:34 RBC 4.27 10^6/uL (4.1-5.3) 05/30/22 15:34 Hgb 13.1 g/dL (11.7-16.6) 05/30/22 15:34 Hct 40.6 % (42.0-52.0) L 05/30/22 15:34 MCV 95.1 fl (80-94) H 05/30/22 15:34 MCH 30.7 pg (28.0-34.0) 05/30/22 15:34 MCHC 32.3 g/dL (30.0-36.0) 05/30/22 15:34 RDW 13.2 % (12.1-15.1) 05/30/22 15:34 Plt Count 150 10^3/cmm (130-400) 05/30/22 15:34 MPV 10.5 fL (7.4-10.4) H 05/30/22 15:34 Neut % (Auto) 43.5 % 05/30/22 15:34 Lymph % (Auto) 43.0 % 05/30/22 15:34 Stone % (Auto) 10.0 % 05/30/22 15:34 Eos % (Auto) 1.9 % 05/30/22 15:34 Baso % (Auto) 1.4 % 05/30/22 15:34 Neut # (Auto) 1.83 10^3/uL (1.8-7.7) 05/30/22 15:34 Lymph # (Auto) 1.8 10^3/uL (0.8-4.8) 05/30/22 15:34 Stone # (Auto) 0.4 10^3/uL (0.2-0.9) 05/30/22 15:34 Eos # (Auto) 0.1 10^3/uL (0.0-0.8) 05/30/22 15:34 Baso # (Auto) 0.1 10^3/uL (0.0-0.1) 05/30/22 15:34 Nucleated RBC % (auto) 0 % 05/30/22 15:34 Nucleated RBCs # 0.0 /100WBC 05/30/22 15:34 Sodium 136 mmol/L (136-145) 05/30/22 15:34 Potassium 4.5 mmol/L (3.5-5.1) 05/30/22 15:34 Chloride 104 mmol/L (98-107) 05/30/22 15:34 Carbon Dioxide 23 mmol/L (22-29) 05/30/22 15:34 Anion Gap 13.5 (5-19) 05/30/22 15:34 BUN 26 mg/dL (8-23) H 05/30/22 15:34 Creatinine 1.2 mg/dL (0.7-1.2) 05/30/22 15:34 GFR Calculation Not Reportable 05/30/22 15:34 Glucose 317 mg/dL (65-115) H 05/30/22 15:34 Calculated Osmolality 299 mOsm/kg (285-295) H 05/30/22 15:34 Calcium 9.1 mg/dL (8.5-10.5) 05/30/22 15:34 C-Reactive Protein 5.0 mg/L (0.0-4.9) H 05/30/22 15:34 Discharge Plan Discharge Patient Disposition: Home Clinical Impression: Localized swelling of left foot Condition: Stable Prescriptions: New doxycycline hyclate 100 mg tablet 100 mg PO BID 7 Days Qty: 14 0RF No Action citalopram 40 mg tablet 20 mg PO DAILY@1000 nitroglycerin [Nitrostat] 0.4 mg tablet, sublingual 0.4 mg SUBLINGUAL Q5M PRN (Reason: chest pain) Qty: 25 4RF omega-3 fatty acids [Fish Oil Concentrate] 1,000 mg capsule 1,000 mg PO DAILY@1000 cholecalciferol (vitamin D3) 25 mcg (1,000 unit) capsule 75 mcg PO DAILY@1000 clopidogrel 75 mg tablet 75 mg PO DAILY@1000 insulin glargine 100 unit/mL solution 90 unit SUBCUT BID@1000,2200 tamsulosin 0.4 mg capsule 0.4 mg PO DAILY@1000 Hold Instructions: Doctor's Order levalbuterol HCl 0.63 mg/3 mL solution for nebulization 0.63 mg INHALATION TID PRN (Reason: Shortness Of Breath) methylprednisolone acetate [Depo-Medrol] 80 mg/mL suspension 80 mg Infiltration ONCE Qty: 1 0RF bupivacaine (PF) 0.25 % (2.5 mg/mL) solution 10 ml Infiltration ONCE Qty: 1 0RF hydrocodone-acetaminophen 10-325 mg tablet 1 tab PO Q8H PRN (Reason: pain (scale score 7-10)) 30 Days Qty: 90 0RF Rx Instructions: may fill 30 days after previous refill atorvastatin 40 mg tablet 80 mg PO DAILY@1000 Qty: 180 3RF midodrine 2.5 mg tablet 2.5 mg PO BID Qty: 60 6RF Rx Instructions: do not give last dose of day after 6PM or within 4 hrs of bedtime pantoprazole [Protonix] 40 mg tablet,delayed release (DR/EC) 40 mg PO DAILY@1000 gabapentin 300 mg capsule 300 mg PO TID Rx Instructions: at 1000, 1500, 1800 ondansetron HCl [Zofran] 4 mg tablet 4 mg PO Q6H PRN (Reason: nausea and vomiting) Qty: 10 0RF levothyroxine 75 mcg Tablet 37.5 mcg PO DAILY nystatin 100,000 unit/gram Cream 1 applic TOPICAL TID Discharge Orders: Discharge ED (Routine); Ordered 05/30/22 Ordered By: Rao Wheat Referrals: Sujata Macedo MD [Primary Care Provider] - Discharge Diet: Regular Discharge Activity: Increase activity as tolerated Activity Restrictions/Additional Instructions: Follow-up with medical provider as directed in the next 3 to 5 days for reevaluation. Take medications as prescribed. Wear compression stockings or Rosalio wrap foot to help with swelling. Elevate foot as well throughout the day to help with swelling. Return to the ER or your medical provider if condition worsens. Please read and understand discharge instructions. Thank you for choosing [facility] for your healthcare needs today. Please realize this is an emergency room and that we are providing you with a medical screening exam and this may not be complete and all inclusive of all the testing and or work up that you may need to determine your ailment or severity of your illness. It is very important that you follow up as instructed or that you return to the Emergency Department should you have concerns or if your condition changes or worsens in any way. Coding Level of Care Code ED Gastroenterology Manager for Natalie Chu
[2022-05-30 15:48] LABS: Basophils # 0.1 10^3/uL (0.0-0.1); Basophils % 1.4 %; Eosinophils # 0.1 10^3/uL (0.0-0.8); Eosinophils % 1.9 %; Hematocrit 40.6 % (42.0-52.0); Hemoglobin 13.1 g/dL (11.7-16.6); Lymphocytes # 1.8 10^3/uL (0.8-4.8); Mean Corpuscular HGB Conc 32.3 g/dL (30.0-36.0); Mean Corpuscular Hemoglobin 30.7 pg (28.0-34.0); Mean Corpuscular Volume 95.1 fl (80-94); Mean Platelet Volume 10.5 fL (7.4-10.4); Monocytes # 0.4 10^3/uL (0.2-0.9); Neutrophils # 1.83 10^3/uL (1.8-7.7); Neutrophils % 43.5 %; Nucleated Red Blood Cells % 0 %; Platelet Count 150 10^3/cmm (130-400); Red Blood Count 4.27 10^6/uL (4.1-5.3); Red Cell Distribution Width 13.2 % (12.1-15.1); White Blood Count 4.2 10^3/uL (4.0-10.0)
[2022-05-30 16:04] LABS: Anion Gap 13.5 (5-19); Blood Urea Nitrogen 26 mg/dL (8-23); Calcium 9.1 mg/dL (8.5-10.5); Carbon Dioxide 23 mmol/L (22-29); Chloride 104 mmol/L (98-107); Glucose 317 mg/dL (65-115); Osmolality Calculated 299 mOsm/kg (285-295); Potassium 4.5 mmol/L (3.5-5.1); Sodium 136 mmol/L (136-145)
== END 2022-05-30 16:50 | disposition home or self-care (01) ==
PROVIDERS: Emergency Provider Physician Assistant; PCP Family Medicine
DX: M79.89 Other specified soft tissue disorders (principal); Z79.02 Long term (current) use of antithrombotics/antiplatelets; Z79.4 Long term (current) use of insulin; Z87.891 Personal history of nicotine dependence; I25.10 Atherosclerotic heart disease of native coronary artery without angina pectoris; J44.9 Chronic obstructive pulmonary disease, unspecified; I10 Essential (primary) hypertension; E11.9 Type 2 diabetes mellitus without complications; E78.5 Hyperlipidemia, unspecified; Z95.1 Presence of aortocoronary bypass graft
CPT/HCPCS: 36415; 73630; 80048; 85025; 86140; 99284

== ENCOUNTER → 2022-06-20 13:25 | Outpatient (BNVA) | payer OTHER, SELFPAY | PROVIDERS: PCP Family Medicine; Visit Provider Thoracic Surgery (Cardiothoracic Vascular Surgery) | DX: I77.9 Disorder of arteries and arterioles, unspecified (principal) | CPT/HCPCS: 99213 ==

== ENCOUNTER 2022-06-25 11:39 | Observation (INO) | payer OTHER, SELFPAY ==
[2022-06-25] VITALS (8 sets, daily range): BP systolic 102–188; BP diastolic 31–101; PULSE 57–76; RESP 12–16; TEMP 36.4–36.7; O2SAT 90–99; BMI 37.3
--- NOTE | 2022-06-25 11:52 | CT_ITS ---
WS: [id number] CT CERVICAL SPINE HISTORY: fall on thinners TECHNIQUE: Contiguous 2.0 mm axial imaging performed through the entire cervical spine. Sagittal and coronal reformats also performed. All CT scans at [facility] use at least one of these dose o ptimization techniques: automated exposure control; mA and/or kV adjustment per patient size (include s targeted exams where dose is matched to clinical indication); or iterative reconstruction. DLP: 1631.78 mGy.cm COMPARISON: None available. Mild straightening of the normal cervical lordosis. Craniocervical junction is normally aligned. Pred ental spaces decreased. Disc space narrowing is moderate at C5-6 and C6-7. Hypertrophic endplate oste ophytes. C2-C3: Small central disc protrusion. C3-C4: Bilateral facet joint arthritis. No stenosis. C4-C5: Bilateral facet joint arthritis and a small central disc protrusion. No stenosis. C5-C6: Moderate osteophytic ridging and facet joint arthritis. Osteophyte encroaches upon the ventral thecal sac. Mild central and RIGHT subarticular recess encroachment. C6-C7: Mild osteophytic ridging. Mild RIGHT foraminal narrowing. C7-T1: Normal. Atherosclerosis carotid arteries. CT/CT cervical spin wo con* [id number] IMPRESSION: 1. No acute cervical spine fracture. 2. Hypertrophic vertebral body osteophytes. 3. Mild central and RIGHT subarticular recess encroachment at C5-6.
--- NOTE | 2022-06-25 11:52 | XR_ITS ---
WS: [id number] Portable AP semiupright chest, 06/25/2022 Clinical Data: cough, fall Comparison: Portable chest, 05/01/2022 Findings: No nodules, masses or effusions are seen. The heart is enlarged. The pulmonary vascularity is not increased. No pneumonia or pneumothorax is seen. Midline sternotomy sutures are present. There are monitor leads on the chest wall. XR/XR chest 1V portable [id number] Impression: Cardiomegaly and atherosclerosis.
--- NOTE | 2022-06-25 11:52 | CT_ITS ---
WS: [id number] CT HEAD NONCONTRAST HISTORY: fall on thinners TECHNIQUE: Contiguous axial imaging performed through the brain in 2.5 mm imaging. Bone and soft tiss ue windows. Sagittal and coronal reformats reviewed. All CT scans at [facility] use at least one of these dose optimization techniques: automated exposure control; mA and/or kV adjustment per pa tient size (includes targeted exams where dose is matched to clinical indication); or iterative recon struction. DLP: 1631.78 mGy.cm COMPARISON: 05/01/2022 No acute intracranial hemorrhage, midline shift or mass effect. Moderate atrophy and small vessel ischemic disease. Lacunar infarct RIGHT periventricular white matte r. No large territory infarcts. Ventricles: Normal size with no hydrocephalus. No inferior displacement of cerebellar tonsils. Paranasal sinuses: Mucoperiosteal thickening LEFT maxillary sinus extending into the ethmoid air cell s. Mastoid air cells: Well pneumatized. Calvarium and scalp: Skull is intact with no soft tissue edema or swelling. CT/CT head wo con* [id number] IMPRESSION: 1. No acute intracranial hemorrhage or edema. 2. Moderate atrophy and small vessel ischemic disease. Prior lacunar infarct L EFT periventricular white matter.
--- NOTE | 2022-06-25 11:56 | ED_ITS ---
HPI - General Adult General: Chief complaint: Fall Stated complaint: FALL Time Seen by Provider: 06/25/22 11:40 History of Present Illness: Patient with extensive past medical history including DM, CAD on Plavix, HTN, HLD, COPD, PVD, status post CABG presents the emergency department by EMS due to generalized weakness x2 to 3 days getting worse today. EMS was called today by the patient's who stated that while getting out of bed this morning just prior to arrival he tripped on the mats that she had put down next to the bed to cushion him should he fall. Per report this morning he had a mechanical slip and fall on the mats and hit his head on the wall. Unsure of any loss of consciousness. Upon EMS arrival patient was noted to have a blood sugar of 54 with slurred speech, this improved with normalization of his blood sugar after receiving 1 bag of D10. Patient denies any neck pain, nausea, or vomiting. He denies any numbness, states that he feels weak all over mostly in the legs. He denies any bowel or bladder retention or incontinence, denies any saddle ane sthesia. No other modifying factors, no other associated symptoms. Review of Systems General: Reports: 10 or more systems reviewed and unremarkable except in HPI and below PFSH ED PFSH: Medical History Accelerated essential hypertension CAD (coronary artery disease) Carotid artery stenosis, symptomatic Closed fracture of distal end of right fibula COPD (chronic obstructive pulmonary disease) Diabetes Dyslipidemia GERD (gastroesophageal reflux disease) HTN (hypertension) Lower extremity edema Peripheral Vascular Disease Varicose veins of bilateral lower extremities with other complications Surgical History H/O heart bypass surgery Hx of CABG Hx of cholecystectomy Hx of cholecystectomy Family History Father CAD (coronary artery disease) Diabetes Hypertension Lung disease Grandfather CAD (coronary artery disease) Diabetes Hypertension Son CAD (coronary artery disease) Family history of premature coronary artery disease Grandmother Cancer Denies family history of Clotting disorder Dementia Hyperlipidemia Psychiatric illness Chronic kidney disease (CKD) Suicide Anesthesia complication Bleeding disorder Stroke Social History Smoking and tobacco status: former smoker Second hand smoke exposure: Yes Alcohol intake: former 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 Caregiver/support person: Yes Lives independently: Yes Household members: spouse service: Yes Physical Exam Const: COMMON NORMALS: no acute distress and patient oriented x3 GENERAL APPEARANCE: cooperative NUTRITIONAL APPEARANCE: obese morbidly obese O RIENTATION/CONSCIOUSNESS: Yes awake, Yes oriented to person, Yes oriented to place and Yes oriented to time OTHER: Malodorous of urine HENMT: COMMON NORMALS: normocephalic, hearing grossly normal bilaterally, external ears normal and Normal external nose present HEAD & SCALP: normocephalic and contusion (Right forehead) FACE & SINUS: normal facial exam NOSE: Normal external nose present EXTERNAL EAR: Yes external ears normal MOUTH: Normal oral and palatal mucosa present THROAT: posterior oropharynx normal Eye: COMMON NORMALS: Equal, round and reactive pupils present and EOMs intact bilaterally PUPIL: Yes Equal, round and reactive pupils present Neck/C-Spine: COMMON NORMALS: full ROM and supple GENERAL: Yes normal visual inspection CERVICAL SPINE: No Cervical spine tenderness and No step off deformity Chest: CHEST: Yes Surgical scars present (Chest) Resp: COMMON NORMALS: normal respiratory effort, No retractions, No use of accessory muscles and clear to auscultation bilaterally AUSCULTATION: clear to auscultation bilaterally Cardio: COMMON NORMALS: regular rate and Peripheral pulses 2+ throughout RATE: regular rate PERIPHERAL PULSES: Peripheral pulses 2+ throughout GI: COMMON NORMALS: Soft to palpation and non-tender INSPECTION: Yes scar and Yes visible herniation PALPATION: Yes Soft to palpation, No Tenderness to palpation present (GI) and Yes Hernia present umbilical (Soft, nontender, easily reducible) : COMMON NORMALS: Yes no CVA tenderness BLADDER/KIDNEY EXAM: Yes no CVA tenderness Back/Pelvis: COMMON NORMALS: no CVA tenderness and thoracic and lumbar spine normal to inspection THORACIC SPINE/UPPER BACK: Yes normal to inspection and No thoracic spinal tenderness LUMBAR SPINE/LOWER BACK: Yes normal to inspection and No lumbar spinal tenderness Extremity: COMMON NORMALS: normal to inspection and full ROM GENERAL: No clubbing, No cyanosis and Yes edema (Trace pitting bilaterally) Neuro: COMMON NORMALS: patient oriented x3, moves all extremities, no focal motor deficits and no sensory deficits noted SENSORIUM/ORIENTATION: Yes oriented to person, Yes oriented to place and Yes oriented to time SPEECH: speech normal GAIT: Yes Unable to assess gait SENSORY EXAM: Yes Normal double simultaneous stimulation for sensation and other (No saddle anesthesia); No sensory level loss detected MOTOR EXAM: Abnormal motor strength present (4 out of 5 strength all 4 extremities) Psych: COMMON NORMALS: mental status grossly normal, Normal thought process present, cooperative and activity/motor behavior normal ATTITUDE: Yes calm THOUGHT PROCESS: Normal thought process present Skin: COMMON NORMALS: no rashes or lesions noted GENERAL SKIN EXAM: no rashes or lesions noted Course Reevaluation(s): Reevaluation #1: Updated patient and , states that patient is having tremors of all 4 extremities when he is trying to use his walker, concern for possible Parkinson's. Time: 15:10 Consultations: Consultation #1: Spoke with hospitalist Dr. Ren, discussed case including concern for hypoglycemia, GUY with hyperkalemia, dehydration, as well as the patient's fall this morning. He is in agreement with IV fluid challenge, request that we get a CK level. He will see the patient and plan to admit to observation, will consider inpatient neurology consultation for possible Parkinson's versus outpatient follow-up. Time: 15:15 Vital Signs: Vital signs: Vital Signs Temperature 98.1 F 06/25/22 11:57 Pulse Rate 59 L 06/25/22 12:14 Respiratory Rate 14 06/25/22 12:14 Blood Pressure 102/59 06/25/22 12:14 Pulse Oximetry 95 06/25/22 12:14 Oxygen Delivery Me thod Room Air 06/25/22 12:14 MDM - General Adult Medical Decision Making Concerned that this patient's fall may be due to an underlying infectious etiology possibly urinary tract infection, however other possibilities include pneumonia. Despite likely minimal head trauma, the patient is on Plavix, will obtain CT head as well as CT C-spine given his age and comorbidities, however he has no midline tenderness and no step-offs. Additional causes include possible neurologic causes as well as cardiac causes given his extensive cardiac history. Will obtain EKG, chest x-ray, and full set of labs. Patient's generalized weakness is likely due to infectious etiology, he denies any other recent trauma aside from this morning, no concern for epidural hematoma or abscess at this time. Last tetanus unknown, will update. Lab Data 06/25/22 12:14 06/25/22 12:14 Radiology Impressions Cervical Spine CT 06/25/22 11:52 IMPRESSION: 1. No acute cervical spine fracture. 2. Hypertrophic vertebral body osteophytes. 3. Mild central and RIGHT subarticular recess encroachment at C5-6. Chest X-Ray 06/25/22 11:52 Impression: Cardiomegaly and atherosclerosis. Head CT 06/25/22 11:52 IMPRESSION: 1. No acute intracranial hemorrhage or edema. 2. Moderate atrophy and small vessel ischemic disease. Prior lacunar infarct LEFT periventricular white matter. Laboratory Results WBC 4.0 10^3/uL (4.0-10.0) 06/25/22 12:14 RBC 4.40 10^6/uL (4.1-5.3) 06/25/22 12:14 Hgb 13.6 g/dL (11.7-16.6) 06/25/22 12:14 Hct 42.6 % (42.0-52.0) 06/25/22 12:14 MCV 96.8 fl (80-94) H 06/25/22 12:14 MCH 30.9 pg (28.0-34.0) 06/25/22 12:14 MCHC 31.9 g/dL (30.0-36.0) 06/25/22 12:14 RDW 13.5 % (12.1-15.1) 06/25/22 12:14 Plt Count 155 10^3/cmm (130-400) 06/25/22 12:14 MPV 9.5 fL (7.4-10.4) 06/25/22 12:14 Neut % (Auto) 70.2 % 06/25/22 12:14 Lymph % (Auto) 17.9 % 06/25/22 12:14 Dickson % (Auto) 10.2 % 06/25/22 12:14 Eos % (Auto) 0.5 % 06/25/22 12:14 Baso % (Auto) 0.7 % 06/25/22 12:14 Neut # (Auto) 2.83 10^3/uL (1.8-7.7) 06/25/22 12:14 Lymph # (Auto) 0.7 10^3/uL (0.8-4.8) L 06/25/22 12:14 Dickson # (Auto) 0.4 10^3/uL (0.2-0.9) 06/25/22 12:14 Eos # (Auto) 0.0 10^3/uL (0.0-0.8) 06/25/22 12:14 Baso # (Auto) 0.0 10^3/uL (0.0-0.1) 06/25/22 12:14 Nucleated RBC % (auto) 0 % 06/25/22 12:14 Nucleated RBCs # 0.0 /100WBC 06/25/22 12:14 Sodium 137 mmol/L (136-145) 06/25/22 12:14 Potassium 5.6 mmol/L (3.5-5.1) H 06/25/22 12:14 Chloride 102 mmol/L (98-107) 06/25/22 12:14 Carbon Dioxide 25 mmol/L (22-29) 06/25/22 12:14 Anion Gap 15.6 (5-19) 06/25/22 12:14 BUN 33 mg/dL (8-23) H 06/25/22 12:14 Creatinine 2.5 mg/dL (0.7-1.2) H 06/25/22 12:14 GFR Calculation Not Reportable 06/25/22 12:14 Glucose 89 mg/dL (65-115) 06/25/22 12:14 POC Glucose 98 mg/dL (70-110) 06/25/22 11:53 Calculated Osmolality 291 mOsm/kg (285-295) 06/25/22 12:14 Lactic Acid 1.1 mmol/L (0.5-2.2) 06/25/22 12:14 Calcium 9.1 mg/dL (8.5-10.5) 06/25/22 12:14 Magnesium 2.1 mg/dL (1.7-2.3) 06/25/22 12:14 Total Bilirubin 0.3 mg/dL (0.15-1.2) 06/25/22 12:14 AST 26 U/L (0-40) 06/25/22 12:14 ALT 15 U/L (0-41) 06/25/22 12:14 Alkaline Phosphatase 60 U/L (40-130) 06/25/22 12:14 Troponin T Baseline 98 ng/L (0-15) H 06/25/22 12:14 Troponin T 120 Minute 95.34 ng/L (0-15) H 06/25/22 14:24 Delta Troponin T -2.66 ABS# (0-10) L 06/25/22 14:24 NT-Pro-B Natriuret Pep 553 pg/mL (0-125) H 06/25/22 12:14 Total Protein 7.7 g/dL (6.6-8.7) 06/25/22 12:14 Albumin 3.8 g/dL (3.5-5.2) 06/25/22 12:14 Globulin 3.9 g/dL (1.3-4.6) 06/25/22 12:14 Urine Color Yellow (Yellow) 06/25/22 12:46 Urine Appearance Clear (CLEAR) 06/25/22 12:46 Urine pH 6 (5-7) 06/25/22 12:46 Ur Specific [place] 1.015 (1.005-1.030) 06/25/22 12:46 Urine Protein Neg (Negative) 06/25/22 12:46 Urine Glucose (UA) Norm (Normal) 06/25/22 12:46 Urine Ketones Negative (Negative) 06/25/22 12:46 Urine Blood Neg (Negative) 06/25/22 12:46 Urine Nitrate Negative (Negative) 06/25/22 12:46 Urine Bilirubin Neg (Negative) 06/25/22 12:46 Urine Urobilinogen Norm mg/dL (Negative) 06/25/22 12:46 Ur Leukocyte Esterase Negative (Negative) 06/25/22 12:46 Discharge Plan Discharge Patient Disposition: Placed in Observation Clinical Impression: GUY (acute kidney injury), Weakness generalized, Fall Condition: Stable Prescriptions: No Action citalopram 40 mg tablet 20 mg PO DAILY@1000 nitroglycerin [Nitrostat] 0.4 mg tablet, sublingual 0.4 mg SUBLINGUAL Q5M PRN (Reason: chest pain) Qty: 25 4RF cholecalciferol (vitamin D3) 25 mcg (1,000 unit) capsule 75 mcg PO DAILY@1000 clopidogrel 75 mg tablet 75 mg PO DAILY@1000 insulin glargine 100 unit/mL solution 90 unit SUBCUT BID@1000,2200 tamsulosin 0.4 mg capsule 0.4 mg PO DAILY@1000 Hold Instructions: Doctor's Order levalbuterol HCl 0.63 mg/3 mL solution for nebulization 0.63 mg INHALATION TID PRN (Reason: Shortness Of Breath) hydrocodone-acetaminophen 10-325 mg tablet 1 tab PO Q8H PRN (Reason: pain (scale score 7-10)) 30 Days Qty: 90 0RF Rx Instructions: may fill 30 days after previous refill atorvastatin 40 mg tablet 80 mg PO DAILY@1000 Qty: 180 3RF midodrine 2.5 mg tablet 2.5 mg PO BID Qty: 180 3RF Rx Instructions: do not give last dose of day after 6PM or within 4 hrs of bedtime pantoprazole [Protonix] 40 mg tablet,delayed release (DR/EC) 40 mg PO DAILY@1000 gabapentin 300 mg capsule 300 mg PO TID Rx Instructions: at 1000, 1500, 1800 levothyroxine 75 mcg Tablet 37.5 mcg PO DAILY nystatin 100,000 unit/gram Cream 1 applic TOPICAL TID ondansetron 4 mg Tablet,Disintegrating 4 mg PO Q6H PRN (Reason: Nausea And Vomiting) Fish Oil 300-1,000 mg Capsule 1 cap PO DAILY Referrals: Sujata Macedo MD [Primary Care Provider] - Coding Level of Care Code ED Technical Laboratory Asst for Natalie Chu
[2022-06-25 11:58] LABS: Glucose Point of Care 98 mg/dL (70-110)
--- NOTE | 2022-06-25 12:15 | ECG_ITS ---
[facility] Test Date: 2022-06-25 Pat Name: Victorino Stevenson Department: Room: Gender: Male Clinical Quality Analyst: : 1950 Requested By: [place] Order Number: [id number] Wilson MD: Yefri Reynoso M.D. Measurements Intervals [place] Rate: 58 P: 31 GA: 188 QRS: 41 QRSD: 86 T: 61 QT: 431 QTc: 426 Interpretive Statements SINUS BRADYCARDIA POSSIBLE LEFT ATRIAL ENLARGEMENT [-0.1mV P-WAVE IN V1/V2] Compared to ECG 05/01/2022 23:07:22 Sinus rhythm no longer present T-wave abnormality no longer present Electronically Signed On 06-25-2022 14:48:43 CDT by Yefri Reynoso M.D. [id number]
[2022-06-25 12:21] LABS: Basophils % 0.7 %; Eosinophils % 0.5 %; Hematocrit 42.6 % (42.0-52.0); Hemoglobin 13.6 g/dL (11.7-16.6); Lymphocytes # 0.7 10^3/uL (0.8-4.8); Lymphocytes % 17.9 %; Mean Corpuscular HGB Conc 31.9 g/dL (30.0-36.0); Mean Corpuscular Hemoglobin 30.9 pg (28.0-34.0); Mean Corpuscular Volume 96.8 fl (80-94); Mean Platelet Volume 9.5 fL (7.4-10.4); Monocytes # 0.4 10^3/uL (0.2-0.9); Monocytes % 10.2 %; Neutrophils # 2.83 10^3/uL (1.8-7.7); Neutrophils % 70.2 %; Nucleated Red Blood Cells % 0 %; Platelet Count 155 10^3/cmm (130-400); Red Cell Distribution Width 13.5 % (12.1-15.1)
[2022-06-25 12:41] LABS: Lactic Sepsis W/Reflex 1.1 mmol/L (0.5-2.2)
[2022-06-25 12:43] LABS: Troponin(5th) Baseline 98 ng/L (0-15)
[2022-06-25 12:52] LABS: Alanine Aminotransferase 15 U/L (0-41); Albumin Level 3.8 g/dL (3.5-5.2); Alkaline Phosphatase 60 U/L (40-130); Aspartate Amino Transferase 26 U/L (0-40); Blood Urea Nitrogen 33 mg/dL (8-23); Calcium 9.1 mg/dL (8.5-10.5); Carbon Dioxide 25 mmol/L (22-29); Chloride 102 mmol/L (98-107); Globulin 3.9 g/dL (1.3-4.6); Glucose 89 mg/dL (65-115); NT Pro B Type Natriuretic Pept 553 pg/mL (0-125); Osmolality Calculated 291 mOsm/kg (285-295); Sodium 137 mmol/L (136-145); Total Bilirubin 0.3 mg/dL (0.15-1.2); Total Protein 7.7 g/dL (6.6-8.7)
[2022-06-25 12:54] LABS: Anion Gap 15.6 (5-19); Potassium 5.6 mmol/L (3.5-5.1)
[2022-06-25 13:00] LABS: Add Urine Microscopic? NO; Charge for UA Resulting for Rev
[2022-06-25] MEDS: tetanus-dipt-pertussis 0.5 mL SDV IM (13:14)
[2022-06-25 13:19] LABS: Bilirubin Urine Neg (Negative); Blood Urine Neg (Negative); Glucose Urine UA Norm (Normal); Ketones Urine Negative (Negative); Leukocyte Esterase Urine Negative (Negative); Nitrate Urine Negative (Negative); Protein Urine Neg (Negative); Specific Gravity, Urine 1.015 (1.005-1.030); Urine Appearance Clear (CLEAR); Urine Color Yellow (Yellow); Urobilinogen Urine Norm (Negative); pH Urine 6 (5-7)
[2022-06-25 13:47] LABS: Magnesium 2.1 mg/dL (1.7-2.3)
[2022-06-25 15:01] LABS: Troponin 5 2HR 95.34 ng/L (0-15)
[2022-06-25 15:06] LABS: Troponin 5 2HR Delta -2.66 ABS# (0-10)
[2022-06-25] MEDS: lactated ringers 1,000 ML 999 ML IV (15:13)
[2022-06-25 15:37] LABS: Creatine Phosphokinase 49 U/L (39-308)
--- NOTE | 2022-06-25 17:01 | PM.HP ---
Providers/Chief Complaint Primary Care Provider: Sujata Macedo MD Chief Complaint: FALL History of Present Illness Pleasant 72-year-old gentleman with history of degenerative lower back disease, quite significant, was told it needs surgery in the past but that he was not a safe candidate, CAD, PVD, COPD, DM, HTN, HLD, other chronic morbidities, worked outside several days ago with his , then day before yesterday was mowing the lawn and when getting off lawn more needed assistance and stumbled down, progressively has been getting weaker with shaking in his upper and lower extremities, generalized weakness, fell down today try to get out of bed. No seizure-like activity noted. Has been incontinent of urine for some time. Denies any fever chills, mild headache after bumping his head today, not otherwise. No chest pain or pressure. In ER mild bradycardia 59, but this is not new for him. Blood pressure appears to be softer than usual 102/59. He otherwise is afebrile, without leukocytosis. He is found to have new GUY, creatinine 2.5, prior to 1.2 back on 05/30/2022. Troponin baseline 98, 2-hour troponin 95.3, NT proBNP 553. Magnesium 2.1. CK 49. UA unremarkable. CT head without acute intracranial hemorrhage or edema, moderate atrophy and small vessel ischemic disease. Prior concern for plan for ventricular white matter. On EMS arrival reportedly hypoglycemic, glucose 54. Review of Systems Const: Denies: fever(s), chills, body aches or malaise Eyes: Denies: change in vision ENMT: Denies: throat pain Card: Denies: chest pain, edema, pre-syncope or dyspnea on exertion Resp: Denies: dyspnea, productive cough, change in phlegm color or hemoptysis GI: Denies: abdominal pain, nausea, vomiting, diarrhea, constipation, hematochezia or melena : Reports: urinary incontinence; Denies: flank pain, urinary frequency or hematuria Musc: Reports: back pain (Chronic); Denies: joint swelling or joint redness Skin/Breast: Denies: rash or new lesions Neuro: Denies: headache(s), numbness in extremities, weakness in extremities, dizziness, confusion or seizure-like activity Medications/Allergies Home Medications Medication Instructions Recorded Confirmed Last Taken Type clopidogrel 75 mg tablet 75 mg PO DAILY@1000 05/27/20 04/18/23 04/17/23 History insulin glargine 100 unit/mL 90 unit SUBCUT BID@1000,2200 08/04/19 06/25/22 06/24/22 History subcutaneous solution tamsulosin 0.4 mg capsule 0.4 mg PO DAILY@1000 08/04/19 06/25/22 06/24/22 History citalopram 40 mg tablet 20 mg PO DAILY@1000 08/05/19 06/25/22 06/24/22 History nitroglycerin 0.4 mg sublingual 0.4 mg sublingual Q5M PRN chest 08/10/19 06/25/22 Unknown Rx tablet (Nitrostat) pain #25 tabs cholecalciferol (vitamin D3) 25 75 mcg PO DAILY@1000 11/08/19 06/25/22 06/24/22 History mcg (1,000 unit) capsule levalbuterol HCl 0.63 mg/3 mL 0.63 mg inhalation TID PRN 01/17/20 06/25/22 Unknown History solution for nebulization Shortness Of Breath gabapentin 300 mg capsule 300 mg PO TID pain 03/13/20 06/25/22 06/24/22 History pantoprazole 40 mg tablet,delayed 40 mg PO DAILY@1000 03/13/20 06/25/22 06/24/22 History release (Protonix) atorvastatin 40 mg tablet 80 mg PO DAILY@1000 #180 tabs 04/24/20 06/25/22 06/24/22 Rx levothyroxine 75 mcg tablet 37.5 mcg PO DAILY 06/01/20 06/25/22 06/24/22 History nystatin 100,000 unit/gram topical 1 applic topical TID 06/01/20 06/25/22 06/24/22 History cream hydrocodone 10 mg-acetaminophen 1 tab PO Q8H PRN pain (scale score 07/31/21 06/25/22 Unknown Rx 325 mg tablet 7-10) 30 days #90 tabs midodrine 2.5 mg tablet 2.5 mg PO BID #180 tabs 06/21/22 06/25/22 06/24/22 Rx omega [id number] oil 300 1 cap PO DAILY 06/25/22 06/25/22 06/24/22 History mg-1,000 mg capsule (Fish Oil) ondansetron 4 mg disintegrating 4 mg PO Q6H PRN Nausea And Vomiting 06/25/22 06/25/22 Unknown History tablet Allergies Allergy/AdvReac Type Severity Reaction Status Date / Time fluoxetine [From Prozac] AdvReac Intermediate ADR-Irritab Verified 06/25/22 12:44 le PFSH Acute PFSH: Medical History (Updated 06/25/22 @ 17:52 by Luciano Moore MD) Accelerated essential hypertension CAD (coronary artery disease) Carotid artery stenosis, symptomatic Closed fracture of distal end of right fibula COPD (chronic obstructive pulmonary disease) Diabetes Dyslipidemia GERD (gastroesophageal reflux disease) HTN (hypertension) coater smoking pipe (current) use of opiate analgesic Lower extremity edema Pain management contract signed Peripheral Vascular Disease Varicose veins of bilateral lower extremities with other complications Surgical History H/O heart bypass surgery Hx of CABG Hx of cholecystectomy Hx of cholecystectomy Family History Father CAD (coronary artery disease) Diabetes Hypertension Lung disease Grandfather CAD (coronary artery disease) Diabetes Hypertension Son CAD (coronary artery disease) Family history of premature coronary artery disease Grandmother Cancer Denies family history of Clotting disorder Dementia Hyperlipidemia Psychiatric illness Chronic kidney disease (CKD) Suicide Anesthesia complication Bleeding disorder Stroke Social History Smoking and tobacco status: former smoker Second hand smoke exposure: Yes Alcohol intake: former 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 Caregiver/support person: Yes Lives independently: Yes Household members: spouse service: Yes Vitals/I&O/Wt Last Vital Signs Temp 98.1 F 06/25/22 11:57 Pulse 59 L 06/25/22 12:14 Resp 14 06/25/22 12:14 BP 102/59 06/25/22 12:14 Pulse Ox 95 06/25/22 12:14 O2 Del Method Room Air 06/25/22 12:14 Weight last 48 hrs Weight 124.738 kg Physical Exam Narrative: Accompanied by his . Pleasant, conversant. Sitting up in bed. Asterixis Const: COMMON NORMALS: patient oriented x3 and alert GENERAL APPEARANCE: cooperative NUTRITIONAL APPEARANCE: overweight ORIENTATION/CONSCIOUSNESS: Yes awake HENMT: COMMON NORMALS: oropharynx normal Neck/C-Spine: COMMON NORMALS: no JVD Resp: COMMON NORMALS: normal respiratory effort and clear to auscultation bilaterally AUSCULTATION: clear to auscultation bilaterally Cardio: COMMON NORMALS: no JVD, regular rhythm, S1 normal heart sound present, S2 normal heart sound present and No murmurs present (Cardio) RHYTHM: regular rhythm HEART SOUNDS: S1 normal heart sound present and S2 normal heart sound present GI: COMMON NORMALS: Normal to inspection, nondistended, normoactive bowel sounds present, Soft to palpation and non-tender PALPATION: Yes Soft to palpation Extremity: COMMON NORMALS: no joint enlargement and no pedal edema Neuro: COMMON NORMALS: patient oriented x3 and moves all extremities SENSORIUM/ORIENTATION: Yes alert Skin: COMMON NORMALS: no rashes or lesions noted GENERAL SKIN EXAM: no rashes or lesions noted Data 06/25/22 12:14 06/25/22 12:14 A&P Assessment and plan (1) Weakness generalized: Giurgius, asterixis, suspect metabolic encephalopathy, medication toxicity in setting of GUY, most likely gabapentin. Discussed with him and his daughter. Hold gabapentin. Received fluid challenge, reassess renal function. Additionally CK was checked, unremarkable. Hold statin for now with possible statin myopathy. Check TSH. Check orthostatics as blood pressure does appear softer. Check morning serum cortisol. Complete troponin EKG series, although troponin with moderate abnormality, no chest pain or pressure. He has been continuing his cardiac medications. (2) GUY (acute kidney injury): Recent exertion, but CK normal. Possibly prerenal blood pressure is soft, possibly dehydration. Received fluid challenge. Additionally some urine incontinence for a while, possibility of overflow not excluded. Check bladder scan, kidney ultrasound. Check urine sodium and creatinine. Hold gabapentin, reduce insulin dose. (3) Hypoglycemia: Glucose reported 54 on arrival of EMS. Glucose noted currently doing better. Hold Lantus tonight, resume Lantus at half dose tomorrow 45 units. Monitor glucose. Mild sliding scale. (4) Fall: Additional assessment of weakness as above. PT assessment. Fall precautions. CT head and C-spine appreciated. Qualifiers: Encounter type: initial encounter Qualified Code(s): W19.XXXA - Unspecified fall, initial encounter (5) Goals of care, counseling/discussion: In terms of CODE STATUS, he states in case of cardiopulmonary arrest would not want CPR initiated at least at this time. He may still think about it and let us know if he changes his mind, but for now that is his decision, discussed in the presence of his . He is okay with receiving other evaluation and care. Plan Hyperkalemia: Potassium 5.6. Low potassium diet. Recheck potassium requested. At risk of adverse effects with hyperkalemia. Recheck labs tonight, telemetry monitoring. CAD:-Stable, noted troponin elevation, although in setting of GUY, without rise. No chest pain or pressure. Continue cardiac medications. Carotid artery disease, PVD: Has seen cardiovascular surgeon, and his daughter says received favorable feedback about stable conditions. DM2: Decreased long-acting and on as above. Sliding scale insulin. Accu-Cheks monitoring. HTN: Currently blood pressure soft. HLD COPD: Not in exacerbation History obtained partially from his as he is not the best historian at the moment. Discussed with ER physician, ER documentation reviewed. Attestations Medical Necessity Statement*: Place in observation for additional assessment management of generalized weakness, fall, GUY, hypoglycemia. Diagnoses Weakness generalized R53.1 GUY (acute kidney injury) N17.9 Hypoglycemia E16.2 Fall W19.XXXA Encounter type: initial encounter Goals of care, counseling/discussion Z71.89
--- NOTE | 2022-06-25 17:22 | US_ITS ---
WS: [id number] RENAL ULTRASOUND HISTORY: rere COMPARISON: 10/01/2012 TECHNIQUE: 2-D and color Doppler imaging of the kidney submitted. Right kidney: 15.6 cm x 8.5 cm x 4.5 cm. Cortex: 2.3 cm Normal size kidney. Minimally complex cyst lower pole measures 5.3 x 5.5 x 5.6 cm. Very slight increa se in size of this cystic mass since 2012. No solid component. Left kidney: 12.8 cm x 5.5 cm x 4.7 cm. Cortex: 1.5 cm Normal size kidney. Cortical cyst superior pole measures 2.0 x 1.8 x 1.6 cm. No solid mass. Aorta: Obscured by bowel gas. Urinary Bladder: Normal distention. US/US renal BI* [id number] IMPRESSION: 1. No renal atrophy or obstruction. 2. Bilateral renal cysts. No solid mass.
[2022-06-25 18:18] LABS: Potassium 5.1 mmol/L (3.5-5.1)
--- NOTE | 2022-06-25 18:33 | PC.NURSE ---
Attempted nurse report @ 4800
[2022-06-25 18:57] LABS: Urine Creatinine 50 mg/dL (39-259); Urine Random Sodium 91 mmol/L
[2022-06-25] MEDS: nystatin cream 30 gm 1 APPLIC TOPICAL (21:22)
[2022-06-25 21:55] LABS: Troponin 5 6HR 114.5 ng/L (0-15); Troponin 5 6HR Delta 16.5 ng/L (0-12)
--- NOTE | 2022-06-25 22:06 | USCV_ITS ---
Victorino Stevenson Age: 72 Gender: M : 1950 Exam Date: 06/26/2022 02:20 Ordering Phys: Adam Willams MD Technologist: GADIEL [place]am [place] [facility] [place]ication: nstemi, DM, CAD on Plavix, HTN, HLD, PVD s/p CABG 2012. BP: 178 / 79 HR: 66 Rhythm: Sinus Technical Quality: Poor MEASUREMENTS (Male / Female) Normal Values 2D ECHO LV Diastolic Diameter PLAX 3.9 cm 4.2 - 5.9 / 3.9 - 5.3 cm LV Systolic Diameter PLAX 2.4 cm IVS Diastolic Thickness 1.4 cm 0.6 - 1.0 / 0.6 - 0.9 cm IVS Systolic Thickness 1.6 cm LVPW Diastolic Thickness 1.2 cm 0.6 - 1.0 / 0.6 - 0.9 cm LVPW Systolic Thickness 1.8 cm LVOT Diameter 2.0 cm LV Ejection Fraction 2D Teich 68.0 % LV Ejection Fraction MOD 2C 61.7 % LV Ejection Fraction 2C AL 63.6 % LA Diameter 5.0 cm LA Width 4.5 cm LA Height 6.2 cm RA Width 3.9 cm RA Height 4.4 cm Aorta at Sinotubular Diameter 3.3 cm IVC Diameter 2.7 cm M-MODE Aortic Annulus Diameter 3.3 cm LA Ao Ratio MM 1.6 MV E Point Septal Separation 0.3 cm DOPPLER AV Peak Velocity 142.0 cm/s LVOT Peak Velocity 82.0 cm/s AV Area Cont Eq vti 2.2 cm squared AV Area Cont Eq pk 1.9 cm squared MV Peak Velocity 131.0 cm/s MV Area PHT 3.1 cm squared Mitral E to A Ratio 1.1 MV E' Velocity 58.0 cm/s Mitral E to MV E' Ratio 13.1 Mitral E to LV E' Lateral Ratio 11.2 Mitral E to LV E' Septal Ratio 16.1 TR Peak Velocity 254.3 cm/s TR Peak Gradient 25.9 mmHg TV Peak E Velocity 63.0 cm/s Right Atrial Pressure 15.0 mmHg Pulmonary Artery Systolic Pressu 40.9 mmHg PV Peak Velocity 106.0 cm/s RV Acceleration Time 0.1 s RV Ejection Time 0.3 s RV AcT/ET 0.3 FINDINGS Left Ventricle Examination is poor. Echo contrast, Optison was used. There is probably normal LV size and function. The overall ejection fraction is 60 to 65%. Diastolic function could not be determined. No obvious wall motion disturbances. Right Ventricle Right ventricle not well visualized. Normal right ventricular size and systolic function. Mild pulmonary hypertension, RVSP 40.9 mmHg. Right Atrium Normal right atrial size. Left Atrium Mildly increased left atrial size. Mitral Valve Mitral valve not well visualized. Mitral annular calcification. Trace mitral valve regurgitation. Aortic Valve Structurally normal trileaflet aortic valve. Mild aortic valve calcification. Aortic valve sclerosis without stenosis or regurgitation. Tricuspid Valve Structurally normal tricuspid valve. Trace tricuspid valve regurgitation. Pulmonic Valve Pulmonic valve not well visualized. Trace pulmonary valve regurgitation. Pericardium Normal pericardium without effusion. Aorta Normal ascending aorta dimension. IVC The inferior vena cava is mildly dilated. It does not collapse normally with respiration. Right atrial pressure approximately 15 mmHg. CONCLUSIONS Examination is poor. Echo contrast, Optison was used. There is probably normal LV size and function. The overall ejection fraction is 60 to 65%. Diastolic function could not be determined. No obvious wall motion disturbances. Right ventricle not well visualized. Normal right ventricular size and systolic function. Mild pulmonary hypertension, RVSP 40.9 mmHg. Mildly increased left atrial size. Mitral valve not well visualized. Mitral annular calcification. Trace mitral valve regurgitation. Structurally normal trileaflet aortic valve. Mild aortic valve calcification. Aortic valve sclerosis without stenosis or regurgitation. The inferior vena cava is mildly dilated. It does not collapse normally with respiration. Right atrial pressure approximately 15 mmHg. There is no change from the previous study done 11/25/2020. Dr. Tree Arreola MD (Electronically Signed) Final Date: 26 June 2022 08:12 S
--- NOTE | 2022-06-25 22:38 | ECG_ITS ---
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 Measurements Intervals [place] Rate: 73 P: 40 MS: 204 QRS: 57 QRSD: 86 T: 62 QT: 392 QTc: 435 Interpretive Statements SINUS RHYTHM POSSIBLE LEFT ATRIAL ENLARGEMENT [-0.1mV P-WAVE IN V1/V2] NONSPECIFIC T-WAVE ABNORMALITY Compared to ECG 06/25/2022 12:15:04 T-wave abnormality now present Sinus bradycardia no longer present Electronically Signed On 06-26-2022 1:42:33 CDT by Yefri Reynoso M.D. [id number]
[2022-06-26] VITALS (10 sets, daily range): BP systolic 100–175; BP diastolic 67–85; PULSE 57–71; RESP 16–18; TEMP 36.7–37; O2SAT 91–96; BMI 31.6
[2022-06-26 00:22] LABS: Adenovirus Not Detected (NOT DETECT); Chlamydia Pneumoniae Not Detected (NOT DETECT); Coronavirus 229E,HKU1,NL63,OC4 Not Detected (NOT DETECT); Human Metapneumovirus Not Detected (NOT DETECT); Human Rhinovirus/Enterovirus Not Detected (NOT DETECT); Influenza A Not Detected (NOT DETECT); Influenza A H1 Not Detected (NOT DETECT); Influenza A H1-2009 Not Detected (NOT DETECT); Influenza A H3 Not Detected (NOT DETECT); Influenza B Not Detected (NOT DETECT); Mycoplasma Pneumoniae Not Detected (NOT DETECT); Parainfluenza Virus Type 1 Not Detected (NOT DETECT); Parainfluenza Virus Type 2 Not Detected (NOT DETECT); Parainfluenza Virus Type 3 Not Detected (NOT DETECT); Parainfluenza Virus Type 4 Not Detected (NOT DETECT); Respiratory Syncytial Virus A Not Detected (NOT DETECT); Respiratory Syncytial Virus B Not Detected (NOT DETECT); SARS-COV-2 Not Detected (NOT DETECT)
--- NOTE | 2022-06-26 01:11 | PC.NURSE ---
patient was bladder scanned, showed 297mL in bladder after episode of incontinence. dr pat notified, order given to this nurse to place addison catheter. catheter placed per orders, 450mL urine returned into addison bag. patient tolerated well, will continue to monitor.
[2022-06-26 05:12] LABS: Basophils % 0.6 %; Eosinophils # 0.1 10^3/uL (0.0-0.8); Eosinophils % 1.4 %; Hemoglobin 13.1 g/dL (11.7-16.6); Lymphocytes # 2.4 10^3/uL (0.8-4.8); Lymphocytes % 37.6 %; Mean Corpuscular HGB Conc 32.8 g/dL (30.0-36.0); Mean Corpuscular Hemoglobin 31.3 pg (28.0-34.0); Mean Corpuscular Volume 95.7 fl (80-94); Mean Platelet Volume 9.9 fL (7.4-10.4); Monocytes # 0.6 10^3/uL (0.2-0.9); Monocytes % 9.5 %; Neutrophils # 3.19 10^3/uL (1.8-7.7); Neutrophils % 50.6 %; Nucleated Red Blood Cells % 0 %; Platelet Count 162 10^3/cmm (130-400); Red Blood Count 4.18 10^6/uL (4.1-5.3); Red Cell Distribution Width 13.4 % (12.1-15.1); White Blood Count 6.3 10^3/uL (4.0-10.0)
[2022-06-26 05:36] LABS: Troponin T (5th) Once 160 ng/L (0-15)
[2022-06-26 05:38] LABS: Cortisol Random 8.44 ug/dL (2.47-19.5)
[2022-06-26 05:42] LABS: Alanine Aminotransferase 13 U/L (0-41); Albumin Level 3.5 g/dL (3.5-5.2); Alkaline Phosphatase 56 U/L (40-130); Anion Gap 16.4 (5-19); Aspartate Amino Transferase 21 U/L (0-40); Blood Urea Nitrogen 36 mg/dL (8-23); Calcium 9.2 mg/dL (8.5-10.5); Carbon Dioxide 23 mmol/L (22-29); Chloride 107 mmol/L (98-107); Globulin 3.6 g/dL (1.3-4.6); Glucose 54 mg/dL (65-115); Osmolality Calculated 300 mOsm/kg (285-295); Potassium 4.4 mmol/L (3.5-5.1); Sodium 142 mmol/L (136-145); Thyroid Stimulating Hormone 2.63 uIU/mL (0.27-4.20); Total Bilirubin 0.3 mg/dL (0.15-1.2); Total Protein 7.1 g/dL (6.6-8.7)
[2022-06-26 05:43] LABS: Creatinine Clr Calc Pharmacy 35.4715
[2022-06-26] MEDS: perflutren protein-a microsphr 0.22 mg/mL SDV 3 mL IV (06:28)
[2022-06-26 07:06] LABS: Glucose Point of Care 47 mg/dL (70-110)
[2022-06-26 07:06] LABS: Glucose Point of Care 115 mg/dL (70-110)
[2022-06-26 07:06] LABS: Glucose Point of Care 119 mg/dL (70-110)
[2022-06-26 10:26] LABS: Glucose Point of Care 103 mg/dL (70-110)
--- NOTE | 2022-06-26 10:46 | PC.NURSE ---
Hold insulin glargine today per Dr. Moore due to hypoglycemia
[2022-06-26] MEDS: tamsulosin 0.4 mg Capsule PO (10:47)
[2022-06-26] MEDS: citalopram 20 mg Tablet PO (10:47)
[2022-06-26] MEDS: levothyroxine 75 mcg Tablet 37.5 MCG PO (10:47)
[2022-06-26] MEDS: pantoprazole DR 40 mg Tablet PO (10:48)
[2022-06-26] MEDS: nystatin cream 30 gm 1 APPLIC TOPICAL ×3 (10:48→20:32)
[2022-06-26] MEDS: clopidogrel 75 mg Tablet PO (10:48)
[2022-06-26] MEDS: midodrine 5 mg TABLET 2.5 MG PO (10:48)
[2022-06-26] MEDS: HYDROcodone-acetaminophen 5-325 mg Tablet 1 TAB PO (11:08)
[2022-06-26 12:18] LABS: Glucose Point of Care 72 mg/dL (70-110)
[2022-06-26 15:08] LABS: Partial Thromboplastin Time 29.8 SECONDS (23.9-36.7)
[2022-06-26] MEDS: heparin 5,000 unit/mL INJ 1 mL IV (15:35)
[2022-06-26] MEDS: heparin drip 25,000 UNIT/500 ML PREMIX 31 UNIT IV (15:46)
[2022-06-26 17:03] LABS: Glucose Point of Care 52 mg/dL (70-110)
[2022-06-26 18:11] LABS: Glucose Point of Care 126 mg/dL (70-110)
--- NOTE | 2022-06-26 18:44 | P.PN_ITS ---
Subjective Subjective: Today he is feeling better. Asterixis has resolved. Denies chest pain. Overnight Bose placed. Vitals/I&O/Wt Last Vital Signs Temp 98.1 F 06/26/22 16:00 Pulse 57 L 06/26/22 16:00 Resp 16 06/26/22 16:00 BP 175/84 06/26/22 16:00 Pulse Ox 93 06/26/22 16:00 O2 Del Method Room Air 06/26/22 16:00 06/26/22 06/26/22 06/26/22 06:59 14:59 22:59 Intake Total 1000 / 1000 360 / 360 240 / 600 Output Total 950 / 950 Balance 50 / 50 360 / 360 240 / 600 Weight last 48 hrs Weight 108.862 kg Weight 124.738 kg Physical Exam Narrative: Accompanied by his . Sitting up in bed. Asterixis resolved Const: COMMON NORMALS: patient oriented x3 and alert GENERAL APPEARANCE: cooperative NUTRITIONAL APPEARANCE: overweight ORIENTATION/CONSCIOUSNESS: Yes awake HENMT: COMMON NORMALS: oropharynx normal Neck/C-Spine: COMMON NORMALS: no JVD Resp: COMMON NORMALS: normal respiratory effort and clear to auscultation bilaterally AUSCULTATION: clear to auscultation bilaterally Cardio: COMMON NORMALS: no JVD, regular rhythm, S1 normal heart sound present, S2 normal heart sound present and No murmurs present (Cardio) RHYTHM: regular rhythm HEART SOUNDS: S1 normal heart sound present and S2 normal heart sound present GI: COMMON NORMALS: Normal to inspection, nondistended, normoactive bowel sounds present, Soft to palpation and non-tender PALPATION: Yes Soft to palpation Extremity: COMMON NORMALS: no joint enlargement and no pedal edema Neuro: COMMON NORMALS: patient oriented x3 and moves all extremities S ENSORIUM/ORIENTATION: Yes alert Skin: COMMON NORMALS: no rashes or lesions noted GENERAL SKIN EXAM: no rash es or lesions noted Urinary Catheter Management: Bose: Cath Placed During This Visit: yes Reason for Continuing Indwelling Catheter: Other Urinary Catheter Date of Insertion: 06/26/22 Urinary Catheter Time of Insertion: 01:10 Data 06/26/22 04:53 06/26/22 04:53 A&P Assessment and plan (1) Weakness generalized: With holding his medications asterixis so far resolved. Still hypoglycemic this morning. Held insulin. PT evaluation. Discussed with him and his troponin elevation, nonspecific T wave abnormality on EKG, concern for possible NSTEMI, although he is chest pain-free. Does have underlying coronary disease. Echocardiogram reviewed, discussed with them, EF is normal, no obvious WMA. Discussed with them and they are agreeable to assist with stress test. Requested. With possible type I NSTEMI he was started on heparin drip. With heparin drip, risk of bleeding, requires close monitoring of PTT. Improved metabolic encephalopathy, medication toxicity in setting of GUY, most likely gabapentin. Discussed with him and his daughter. Hold gabapentin. Received fluid challenge, reassess renal function. Discussed with them with urine retention possibility of postrenal failure. Now possibly ATN. Does not appear to have responded very much to fluid challenge, creatinine down to only 2.4. Obstruction resolved, Bose placed. Keep in place. Start Proscar in addition to Flomax. However, he does also have degenerative disc disease reportedly not amenable to surgical intervention, and there is past neutral bladder. Additionally CK was checked, unremarkable. Hold statin for now with possible statin myopathy. Unremarkable TSH. Orthostatics noted okay Serum cortisol noted okay Complete troponin EKG series, although troponin with moderate abnormality, no chest pain or pressure. He has been continuing his cardiac medications. (2) GUY (acute kidney injury): Discussed with them with urine retention possibility of postrenal failure. Now possibly ATN. Does not appear to have responded very much to fluid challenge, creatinine down to only 2.4. Obstruction resolved, Bose placed. Keep in place. Start Proscar in addition to Flomax. However, he does also have degenerative disc disease reportedly not amenable to surgical intervention, and there is past neutral bladder. Hold gabapentin, insulin dose was cut in half but still had to hold insulin this morning. (3) Hypoglycemia: Lantus dose was cut this morning after holding nighttime dose, but still hypoglycemic morning at 54. Morning Lantus held. Glucose noted improving. (4) Fall: Additional assessment of weakness as above. PT assessment. Fall precautions. CT head and C-spine appreciated. Qualifiers: Encounter type: initial encounter Qualified Code(s): W19.XXXA - Unspecified fall, initial encounter (5) Goals of care, counseling/discussion: In terms of CODE STATUS, he states in case of cardiopulmonary arrest would not want CPR initiated at least at this time. He may still think about it and let us know if he changes his mind, but for now that is his decision, discussed in the presence of his . He is okay with receiving other evaluation and care. Plan Hyperkalemia: Noted resolved. Follow-up chemistry requested. Telemetry monitoring. CAD:-Stable, noted troponin elevation, although in setting of GUY, without rise. No chest pain or pressure. Continue cardiac medications. Carotid artery disease, PVD: Has seen cardiovascular surgeon, and his daughter says received favorable feedback about stable conditions. DM2: Decreased long-acting and on as above. Sliding scale insulin. Accu-Cheks monitoring. HTN: Currently blood pressure soft. HLD COPD: Not in exacerbation He is good historian, discussed again with his . Attestations Medical Necessity Statement*: Continue admission for assessment management of generalized weakness, GUY, possible NSTEMI. Diagnoses Weakness generalized R53.1 GUY (acute kidney injury) N17.9 Hypoglycemia E16.2 Fall W19.XXXA Encounter type: initial encounter Goals of care, counseling/discussion Z71.89
[2022-06-26 20:30] LABS: Glucose Point of Care 140 mg/dL (70-110)
[2022-06-26 22:19] LABS: Partial Thromboplastin Time 73.3 SECONDS (23.9-36.7)
[2022-06-27 03:41] LABS: Basophils # 0.1 10^3/uL (0.0-0.1); Basophils % 0.8 %; Eosinophils # 0.1 10^3/uL (0.0-0.8); Eosinophils % 1.4 %; Hemoglobin 13.9 g/dL (11.7-16.6); Lymphocytes # 2.6 10^3/uL (0.8-4.8); Mean Corpuscular HGB Conc 31.6 g/dL (30.0-36.0); Mean Corpuscular Hemoglobin 30.3 pg (28.0-34.0); Mean Corpuscular Volume 96.1 fl (80-94); Mean Platelet Volume 9.7 fL (7.4-10.4); Monocytes # 0.7 10^3/uL (0.2-0.9); Monocytes % 10.7 %; Neutrophils # 3.15 10^3/uL (1.8-7.7); Neutrophils % 47.8 %; Nucleated Red Blood Cells % 0 %; Platelet Count 171 10^3/cmm (130-400); Red Blood Count 4.58 10^6/uL (4.1-5.3); Red Cell Distribution Width 13.2 % (12.1-15.1); White Blood Count 6.6 10^3/uL (4.0-10.0)
[2022-06-27 04:00] VITALS: BP 162/73; PULSE 64; RESP 16; TEMP 36.7; O2SAT 92
[2022-06-27 04:05] LABS: Partial Thromboplastin Time 60.3 SECONDS (23.9-36.7)
[2022-06-27 04:09] LABS: Alanine Aminotransferase 14 U/L (0-41); Albumin Level 3.6 g/dL (3.5-5.2); Alkaline Phosphatase 54 U/L (40-130); Anion Gap 15.5 (5-19); Aspartate Amino Transferase 21 U/L (0-40); Blood Urea Nitrogen 35 mg/dL (8-23); Calcium 9.2 mg/dL (8.5-10.5); Carbon Dioxide 22 mmol/L (22-29); Chloride 106 mmol/L (98-107); Globulin 3.9 g/dL (1.3-4.6); Glucose 85 mg/dL (65-115); Osmolality Calculated 295 mOsm/kg (285-295); Potassium 4.5 mmol/L (3.5-5.1); Sodium 139 mmol/L (136-145); Total Bilirubin 0.5 mg/dL (0.15-1.2); Total Protein 7.5 g/dL (6.6-8.7)
[2022-06-27 06:32] LABS: Glucose Point of Care 86 mg/dL (70-110)
[2022-06-27 06:34] VITALS: PULSE 67
[2022-06-27] MEDS: regadenoson 0.4 Mg/5 ml Syringe IVP (07:40)
[2022-06-27 07:54] VITALS: BP 130/76; PULSE 72
--- NOTE | 2022-06-27 08:00 | ECG_ITS ---
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 Interpretive Statements NAME OF STUDY: LEXISCAN SESTAMIBI STRESS TEST INDICATION: [TROPONIN ELEVATION; HX OF CAD] Procedure: At the baseline, the blood pressure was 131/74 mmHg with a heart rate of 66 bpm. The electrocardiogram showed normal sinus rhythm, normal axis with normal ST and T's. The Lexiscan was infused over a period of 20 seconds. A total of 0.4 mg of Lexiscan was infused. The stress phase was continued for a total of 5 minutes. Heart rate was at the end of stress phase was 94 bpm and a blood pressure of 132/72 mmHg. The EKG at the peak infusion revealed normal sinus rhythm with no significant ST-T wave changes. Sestamibi was injected 20 seconds after the Lexiscan infusion. Blood pressure at the end of recovery phase was 139/64 mmHg with a heart rate of 74 bpm. Conclusion: 1. Normal EKG response to Lexiscan infusion 2. No Lexiscan induced chest pain or cardiac arrhythmia. 3. Normal blood pressure and heart rate response. 4. Sestamibi/sestamibi perfusion scan pending; see separate report. Electronically Signed On 07-15-2022 10:44:54 CDT by Yefri Reynoso M.D. [id number]
[2022-06-27] MEDS: heparin drip 25,000 UNIT/500 ML PREMIX 31 UNIT IV (08:23)
[2022-06-27] MEDS: finasteride 5 mg Tablet PO (08:24)
[2022-06-27] MEDS: midodrine 5 mg TABLET 2.5 MG PO (08:25)
[2022-06-27] MEDS: levothyroxine 75 mcg Tablet 37.5 MCG PO (08:25)
[2022-06-27] MEDS: pantoprazole DR 40 mg Tablet PO (08:27)
[2022-06-27] MEDS: tamsulosin 0.4 mg Capsule PO (08:27)
[2022-06-27] MEDS: clopidogrel 75 mg Tablet PO (08:27)
[2022-06-27] MEDS: nystatin cream 30 gm 1 APPLIC TOPICAL (08:28)
[2022-06-27] MEDS: citalopram 20 mg Tablet PO (08:28)
[2022-06-27] MEDS: HYDROcodone-acetaminophen 5-325 mg Tablet 1 TAB PO (08:37)
--- NOTE | 2022-06-27 09:27 | PC.NURSE ---
insulin glargine not detective precinct per Dr. Moore due to hypoglycemia
[2022-06-27 09:51] LABS: Partial Thromboplastin Time 41.4 SECONDS (23.9-36.7)
[2022-06-27] MEDS: heparin 5,000 unit/mL INJ 1 mL IV (10:33)
[2022-06-27 11:14] LABS: Glucose Point of Care 184 mg/dL (70-110)
[2022-06-27 11:51] VITALS: BP 107/67; PULSE 62; RESP 16; TEMP 36.6; O2SAT 93
[2022-06-27] MEDS: insulin lispro 100 unit/1 mL SUBCUT (12:15)
[2022-06-27 16:00] VITALS: BP 116/73; PULSE 65; RESP 15; TEMP 36.8; O2SAT 96
[2022-06-27 16:45] VITALS: BP 116/73; PULSE 65; RESP 15; TEMP 36.8; O2SAT 96
--- NOTE | 2022-06-27 16:49 | PC.NURSE ---
patient and family verbalized understanding of discharge instructions, home medications, and follow up appointments. verbalized understanding that case management would be in contact with them about home health and the bedside commode. extra education provided for addison catheter care, and instructions, on how to switch from leg bag to the regular catheter bag. patient family verbalized understanding.
--- NOTE | 2022-06-27 18:37 | NMCV_ITS ---
NM tyler perf SPECT r/s* [id number] Victorino Stevenson Age: 72 Gender: M : 1950 Exam Date: 06/27/2022 06:54 Ordering Phys: Luciano Moore MD Technologist: CISOC Burr Exam Location: [facility] Indications: CHEST PAIN STRESS TEST [facility] IMAGE PROTOCOL Rest/Stress 1 Lexiscan Day Radiopharmaceutical Dose (mCi) Administration Site Administered by Rest: Tc-99m 10.4 IV CISCO Hernandez Sestamibi Stress:Tc-99m 33.0 IV CISCO Hernandez Sestamibi Rest: 27-Jun-2022 60 Discovery 630 Stress: 27-Jun-2022 30 Discovery 630 0.4mg Lexiscan. Supine position only as patient was unable to lay prone. SPECT RESULTS Technical Quality: Excellent Raw Data Analysis: Normal Image Corrections: No attenuation or motion correction applied Summed Stress Score: 1 Summed Rest Score: 0 Summed Difference Score: 1 PERFUSION FINDINGS There is a very small in size, partially reversible perfusion defect noted in the anterolateral wall. This is consistent with small sized prior infarct with minimal lisbet-infarct ischemia in left circumflex artery territory. FUNCTIONAL RESULTS (calculated via Gated SPECT) Stress Image LV EF (%): 72 Stress EDV (mL):90 TID: 0.87 Stress ESV (mL):25 FUNCTIONAL FINDINGS: There is normal left ventricular systolic function. IMPRESSIONS 1. 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 LV systolic function is normal Yefri Reynoso MD (Electronically Signed) Final Date: 27 June 2022 11:20 S
--- NOTE | 2022-06-27 21:21 | P.DS_ITS ---
Discharge Providers Date of Admission: 06/25/22 18:25 Date of Discharge: June 27, 2022 Attending Provider at Admission: Luciano Moore Attending Provider at Discharge: Luciano Moore Primary Care Provider: Sujata Macedo MD Diagnoses at Discharge Discharge Diagnosis (1) Weakness generalized: Status: Acute (2) GUY (acute kidney injury): Status: Acute (3) Hypoglycemia: Status: Acute (4) Fall: Status: Acute Qualifiers: Encounter type: initial encounter Qualified Code(s): W19.XXXA - Unspecified fall, initial encounter (5) Goals of care, counseling/discussion: Status: Acute Reason for Visit Reason for Visit: FALL Brief History: Pleasant 72-year-old gentleman with history of degenerative lower back disease, quite significant, was told it needs surgery in the past but that he was not a safe candidate, CAD, PVD, COPD, DM, HTN, HLD, other chronic morbidities, worked outside several days ago with his , then day before yesterday was mowing the lawn and when getting off lawn more needed assistance and stumbled down, progressively has been getting weaker with shaking in his upper and lower extremities, generalized weakness, fell down today try to get out of bed.? No seizure-like activity noted.? Has been incontinent of urine for some time.? Denies any fever chills, mild headache after bumping his head today, not otherwise.? No chest pain or pressure.? In ER mild bradycardia 59, but this is not new for him.? Blood pressure appears to be softer than usual 102/59.? He otherwise is afebrile, without leukocytosis.? He is found to have new GUY, creatinine 2.5, prior to 1.2 back on 05/30/2022.? Troponin baseline 98, 2-hour troponin 95.3, NT proBNP 553.? Magnesium 2.1.? CK 49.? UA unremarkable. CT head without acute intracranial hemorrhage or edema, moderate atrophy and small vessel ischemic disease.? Prior concern for plan for ventricular white matter. On EMS arrival reportedly hypoglycemic, glucose 54. Hospital Course Hospital Course With noted GUY on presentation, received initial fluid challenge, with only minimal response. With urinary retention from the hospital Bose catheter was placed. Proscar added to tamsulosin, however, with significant degenerative spine disease not amenable to intervention as per patient and his , consideration of neurogenic bladder discussed with them as well. Bose catheter will be kept in place as concern is for postobstructive GUY until he can follow- up with urology for removal and voiding trial and consideration of management with neurogenic bladder. With resolution of retention, renal function appears to be improving, creatinine down to 2.2. Initial generalized weakness, asterixis, suspected toxic effect of medication, likely gabapentin, possibly in combination with hypoglycemia, likely also effect of GUY and continued insulin. Insulin had to be held in the hospital, and they were instructed to hold at discharge until blood glucose reliably rising. Please assist him in resumption of insulin. Gabapentin for now held at discharge, please revisit and if medication still needed resume once renal function continues to improve. Please reassess renal function, electrolytes at next visit. Mild hypokalemia noted at 5.6 on presentation improving with dietary limitation, improving GUY. On admission also noted to have elevation of troponin, although remained chest pain-free. With history of CAD additionally assessed by stress testing which showed a fixed defect with small amount of surrounding ischemia. Discussed with him and his , continue to optimize risk factors and he is asked to follow-up with cardiology. Home health care is requested, mother to assist management of Bose catheter as well as physical therapy. Physical Exam Narrative: Sitting up in chair after stress test. Reports doing well. Denies chest pain or pressure. Asterixis has resolved. Overall he is feeling much stronger. Const: COMMON NORMALS: patient oriented x3 and alert GENERAL APPEARANCE: cooperative NUTRITIONAL APPEARANCE: overweight ORIENTATION/CONSCIOUSNESS: Yes awake HENMT: COMMON NORMALS: oropharynx normal Neck/C-Spine: COMMON NORMALS: no JVD Resp: COMMON NORMALS: normal respiratory effort and clear to auscultation bilaterally AUSCULTATION: clear to auscultation bilaterally Cardio: COMMON NORMALS: no JVD, regular rhythm, S1 normal heart sound present, S2 normal heart sound present and No murmurs present (Cardio) RHYTHM: regular rhythm HEART SOUNDS: S1 normal heart sound present and S2 normal heart sound present GI: COMMON NORMALS: Normal to inspection, nondistended, normoactive bowel sounds present, Soft to palpation and non-tender PALPATION: Yes Soft to palpation Extremity: COMMON NORMALS: no joint enlargement and no pedal edema Neuro: COMMON NORMALS: patient oriented x3 and moves all extremities SENSORIUM/ORIENTATION: Yes alert Skin: COMMON NORMALS: no rashes or lesions noted GENERAL SKIN EXAM: no rashes or lesions noted Urinary Catheter Management: Bose: Cath Placed During This Visit: yes Reason for Continuing Indwelling Catheter: Acute Urinary Retention or Obstruction Urinary Catheter Date of Insertion: 06/26/22 Urinary Catheter Time of Insertion: 01:10 Discharge Data Studies Completed and Pending Completed Studies During Hospitalization Category Date Time Status CT cervical spin wo con* [id number] Stat Cat Scan 06/25/22 11:[address] head wo con* [id number] Stat Cat Scan 06/25/22 11:52 Completed Sestamibi Stress Test Request Routine Exams 06/27/22 08:00 Draft XR chest 1V portable [id number] Stat Exams 06/25/22 11:52 Completed NM tyler perf SPECT r/s* [id number] Routine Nuc Med 06/27/22 18:37 Completed CV. echo wo/w contrast [id number] Routine Ultrasound 06/25/22 22:06 Completed US renal BI* [id number] Routine Ultrasound 06/25/22 17:22 Completed Radiology Impressions Cervical Spine CT 06/25/22 11:52 IMPRESSION: 1. No acute cervical spine fracture. 2. Hypertrophic vertebral body osteophytes. 3. Mild central and RIGHT subarticular recess encroachment at C5-6. Chest X-Ray 06/25/22 11:52 Impression: Cardiomegaly and atherosclerosis. Head CT 06/25/22 11:52 IMPRESSION: 1. No acute intracranial hemorrhage or edema. 2. Moderate atrophy and small vessel ischemic disease. Prior lacunar infarct LEFT periventricular white matter. Renal Ultrasound 06/25/22 17:22 IMPRESSION: 1. No renal atrophy or obstruction. 2. Bilateral renal cysts. No solid mass. Laboratory Results WBC 6.6 10^3/uL (4.0-10.0) 06/27/22 03:20 RBC 4.58 10^6/uL (4.1-5.3) 06/27/22 03:20 Hgb 13.9 g/dL (11.7-16.6) 06/27/22 03:20 Hct 44.0 % (42.0-52.0) 06/27/22 03:20 MCV 96.1 fl (80-94) H 06/27/22 03:20 MCH 30.3 pg (28.0-34.0) 06/27/22 03:20 MCHC 31.6 g/dL (30.0-36.0) 06/27/22 03:20 RDW 13.2 % (12.1-15.1) 06/27/22 03:20 Plt Count 171 10^3/cmm (130-400) 06/27/22 03:20 MPV 9.7 fL (7.4-10.4) 06/27/22 03:20 Neut % (Auto) 47.8 % 06/27/22 03:20 Lymph % (Auto) 39.0 % 06/27/22 03:20 [place] % (Auto) 10.7 % 06/27/22 03:20 Eos % (Auto) 1.4 % 06/27/22 03:20 Baso % (Auto) 0.8 % 06/27/22 03:20 Neut # (Auto) 3.15 10^3/uL (1.8-7.7) 06/27/22 03:20 Lymph # (Auto) 2.6 10^3/uL (0.8-4.8) 06/27/22 03:20 [place] # (Auto) 0.7 10^3/uL (0.2-0.9) 06/27/22 03:20 Eos # (Auto) 0.1 10^3/uL (0.0-0.8) 06/27/22 03:20 Baso # (Auto) 0.1 10^3/uL (0.0-0.1) 06/27/22 03:20 Nucleated RBC % (auto) 0 % 06/27/22 03:20 Nucleated RBCs # 0.0 /100WBC 06/27/22 03:20 APTT 41.4 SECONDS (23.9-36.7) H 06/27/22 09:18 Sodium 139 mmol/L (136-145) 06/27/22 03:20 Potassium 4.5 mmol/L (3.5-5.1) 06/27/22 03:20 Chloride 106 mmol/L (98-107) 06/27/22 03:20 Carbon Dioxide 22 mmol/L (22-29) 06/27/22 03:20 Anion Gap 15.5 (5-19) 06/27/22 03:20 BUN 35 mg/dL (8-23) H 06/27/22 03:20 Creatinine 2.2 mg/dL (0.7-1.2) H 06/27/22 03:20 GFR Calculation Not Reportable 06/27/22 03:20 Glucose 85 mg/dL (65-115) 06/27/22 03:20 POC Glucose 184 mg/dL (70-110) H 06/27/22 11:07 Calculated Osmolality 295 mOsm/kg (285-295) 06/27/22 03:20 Lactic Acid 1.1 mmol/L (0.5-2.2) 06/25/22 12:14 Calcium 9.2 mg/dL (8.5-10.5) 06/27/22 03:20 Magnesium 2.1 mg/dL (1.7-2.3) 06/25/22 12:14 Total Bilirubin 0.5 mg/dL (0.15-1.2) 06/27/22 03:20 AST 21 U/L (0-40) 06/27/22 03:20 ALT 14 U/L (0-41) 06/27/22 03:20 Alkaline Phosphatase 54 U/L (40-130) 06/27/22 03:20 Creatine Kinase 49 U/L (39-308) 06/25/22 11:55 Troponin T Gen 5 ng/L 160 ng/L (0-15) H* 06/26/22 04:53 Troponin T Baseline 98 ng/L (0-15) H 06/25/22 12:14 Troponin T 120 Minute 95.34 ng/L (0-15) H 06/25/22 14:24 Delta Troponin T -2.66 ABS# (0-10) L 06/25/22 14:24 Troponin T Hi Sens 6Hr 114.5 ng/L (0-15) H 06/25/22 21:12 Troponin T Hi Sens 6Hr Delta 16.5 ng/L (0-12) H* 06/25/22 21:12 NT-Pro-B Natriuret Pep 553 pg/mL (0-125) H 06/25/22 12:14 Total Protein 7.5 g/dL (6.6-8.7) 06/27/22 03:20 Albumin 3.6 g/dL (3.5-5.2) 06/27/22 03:20 Globulin 3.9 g/dL (1.3-4.6) 06/27/22 03:20 TSH 2.63 uIU/mL (0.27-4.20) 06/26/22 04:53 Random Cortisol 8.44 ug/dL (2.47-19.5) 06/26/22 04:53 Urine Color Yellow (Yellow) 06/25/22 12:46 Urine Appearance Clear (CLEAR) 06/25/22 12:46 Urine pH 6 (5-7) 06/25/22 12:46 Ur Specific [place] 1.015 (1.005-1.030) 06/25/22 12:46 Urine Protein Neg (Negative) 06/25/22 12:46 Urine Glucose (UA) Norm (Normal) 06/25/22 12:46 Urine Ketones Negative (Negative) 06/25/22 12:46 Urine Blood Neg (Negative) 06/25/22 12:46 Urine Nitrate Negative (Negative) 06/25/22 12:46 Urine Bilirubin Neg (Negative) 06/25/22 12:46 Urine Urobilinogen Norm mg/dL (Negative) 06/25/22 12:46 Ur Leukocyte Esterase Negative (Negative) 06/25/22 12:46 Ur Random Sodium 91 mmol/L 06/25/22 17:41 Urine Creatinine 50 mg/dL (39-259) 06/25/22 17:41 Coronavirus 229E (PCR) Not detected (NOT DETECT) 06/25/22 22:05 SARS-CoV-2 (PCR) Not detected (NOT DETECT) 06/25/22 22:05 Vitals Last Vital Signs Temp 98.3 F 06/27/22 16:45 Pulse 65 06/27/22 16:45 Resp 15 06/27/22 16:45 BP 116/73 06/27/22 16:45 Pulse Ox 96 06/27/22 16:45 O2 Del Method Room Air 06/27/22 16:00 Discharge Plan Discharge Patient Disposition: Home Health Service Condition: Stable Prescriptions: New aspirin 81 mg tablet,delayed release (DR/EC) 81 mg PO DAILY Qty: 90 0RF Continued citalopram 40 mg tablet 20 mg PO DAILY@1000 nitroglycerin [Nitrostat] 0.4 mg tablet, sublingual 0.4 mg SUBLINGUAL Q5M PRN (Reason: chest pain) Qty: 25 4RF cholecalciferol (vitamin D3) 25 mcg (1,000 unit) capsule 75 mcg PO DAILY@1000 clopidogrel 75 mg tablet 75 mg PO DAILY@1000 tamsulosin 0.4 mg capsule 0.4 mg PO DAILY@1000 Hold Instructions: Doctor's Order levalbuterol HCl 0.63 mg/3 mL solution for nebulization 0.63 mg INHALATION TID PRN (Reason: Shortness Of Breath) hydrocodone-acetaminophen 10-325 mg tablet 1 tab PO Q8H PRN (Reason: pain (scale score 7-10)) 30 Days Qty: 90 0RF Rx Instructions: may fill 30 days after previous refill atorvastatin 40 mg tablet 80 mg PO DAILY@1000 Qty: 180 3RF midodrine 2.5 mg tablet 2.5 mg PO BID Qty: 180 3RF Rx Instructions: do not give last dose of day after 6PM or within 4 hrs of bedtime pantoprazole [Protonix] 40 mg tablet,delayed release (DR/EC) 40 mg PO DAILY@1000 levothyroxine 75 mcg Tablet 37.5 mcg PO DAILY nystatin 100,000 unit/gram Cream 1 applic TOPICAL TID ondansetron 4 mg Tablet,Disintegrating 4 mg PO Q6H PRN (Reason: Nausea And Vomiting) Fish Oil 300-1,000 mg Capsule 1 cap PO DAILY Discontinued insulin glargine 100 unit/mL solution 90 unit SUBCUT BID@1000,2200 gabapentin 300 mg capsule 300 mg PO TID Rx Instructions: at 1000, 1500, 1800 Discharge Orders: Discharge Order (Routine); Ordered 06/27/22 Ordered By: Luciano Moore Other Ambulatory Orders: DME: [employer] (Order) Location: None Selected Ordered By: Luciano Moore Referrals: Minor Ramírez MD [Physician] - 07/11/22 2:45 pm (Dr. Ramírez's office should call you with an appointment. If you don't hear from them by Friday please call and talk with them.) Sujata Macedo MD [Primary Care Provider] - 07/04/22 3:30 pm Lorena Rodríguez FNP [Nurse Practitioner] - 07/10/22 11:45 am (Abnormal stress, trop elev) [facility], [Staff Physician] - Discharge Diet: Diabetic Patient Instructions: Bose Catheter Care, Hypoglycemia, Coronary Artery Disease (GEN), Acute Kidney Injury (GEN), Potassium Content of Foods List (GEN), Urinary Leg Bag (GEN), How to Change a Catheter Drainage Bag (DC), Opioid Safety Activity Restrictions/Additional Instructions: Keep monitoring your blood glucose every 6 hours at home. In case blood glucose is getting below 80, please take some sugary snacks. Hold your insulin entirely for now. Follow-up with your primary doctor for reassessment. In case her blood glucose starts rising consistently above 200, please contact your primary doctor's office about resuming smaller dose of insulin to avoid hypoglycemia (low blood glucose) which can be dangerous including with risk of brain damage. Avoid hypoglycemia (low blood sugar) at all costs. Follow-up with cardiology in office for reassessment due to abnormal stress test, with noted old heart attack with small area of ischemia around it. In case you experience any chest pain or pressure, shortness of breath, or other concerning symptoms seek medical attention immediately. Maintain Bose catheter for now. Follow-up with urology regarding urinary retention. Possibilities may include prostate enlargement and/or possibly neurogenic bladder from the degenerative back disease. You are started on Proscar. Please discuss voiding trial with urology at next follow-up and discuss further options for management in case voiding trial not successful. Continue follow-up with your primary doctor regarding degenerative disc disease of your back. Please continue to hold gabapentin, please follow-up with your primary doctor regarding when it may be safe to resume this medication with improving kidney function, if this medication is needed. Please have a primary doctor follow-up your kidney function and electrolytes at appointment next week to assess for continually improving acute kidney injury. Please have your primary doctor follow-up your potassium level which was elevated when he came in but has been improving. Do not supplement potassium, avoid potassium rich foods. Discharge Attestations Time Spent in Discharge Care*: greater than 30 min Quality Metrics Clinical Quality Measures [ No reported AMI, CVA or VTE this stay] Coding Level of Care Code Acute Code for Chg Fwd Diagnoses Weakness generalized R53.1 GUY (acute kidney injury) N17.9 Hypoglycemia E16.2 Fall W19.XXXA Encounter type: initial encounter Goals of care, counseling/discussion Z71.89
== END 2022-06-27 16:40 | disposition home health service (06) ==
LOC: ER 15:44 → MEDSURG 18:25
PROVIDERS: Family Medicine; Admitting Provider Internal Medicine; Emergency Provider Emergency Medicine; PCP Family Medicine; Visit Provider Internal Medicine
DX: N17.9 Acute kidney failure, unspecified (principal); R53.1 Weakness; Z91.81 History of falling; M47.816 Spondylosis without myelopathy or radiculopathy, lumbar region; I25.10 Atherosclerotic heart disease of native coronary artery without angina pectoris; J44.9 Chronic obstructive pulmonary disease, unspecified; I10 Essential (primary) hypertension; E78.5 Hyperlipidemia, unspecified; E87.5 Hyperkalemia; E11.649 Type 2 diabetes mellitus with hypoglycemia without coma; E11.51 Type 2 diabetes mellitus with diabetic peripheral angiopathy without gangrene; Z79.4 Long term (current) use of insulin; Z87.891 Personal history of nicotine dependence
CPT/HCPCS: 36415; 36416; 51702; 51798; 70450; 71045; 72125; 76770; 78452; 80053; 81003; 82533; 82550; 82570; 82962; 83605; 83735; 83880; 84132; 84300; 84443; 84484; 85025; 85730; 87635; 90471; 90715; 93005; 93017; 93306; 96361; 96365; 96372; 96374; 96375; 97110; 97161; 99285; A9500; C8929; G0378; J1644; J1815; J2785; J7120; Q9956

== ENCOUNTER → 2022-07-03 13:19 | Outpatient (BNVA) | payer OTHER, SELFPAY | PROVIDERS: PCP Family Medicine; Visit Provider Internal Medicine | DX: I25.810 Atherosclerosis of coronary artery bypass graft(s) without angina pectoris (principal); I73.9 Peripheral vascular disease, unspecified; I95.0 Idiopathic hypotension; Z87.891 Personal history of nicotine dependence; I10 Essential (primary) hypertension | CPT/HCPCS: 99214 ==

== ENCOUNTER → 2022-07-11 13:30 | Outpatient (BNVA) | payer OTHER, SELFPAY | PROVIDERS: PCP Family Medicine; Visit Provider Urology | DX: R33.9 Retention of urine, unspecified (principal) | CPT/HCPCS: 52000; 99203 ==

== ENCOUNTER 2022-08-27 17:14 | Emergency (ER) | payer OTHER, SELFPAY ==
[2022-08-27 17:29] VITALS: BP 104/64; PULSE 66; RESP 18; TEMP 36.9; O2SAT 98
--- NOTE | 2022-08-27 18:28 | XRR_ITS ---
PROCEDURE INFORMATION: Exam: XR Right Knee Exam date and time: 08/27/2022 6:39 PM Age: 72 years old Clinical indication: Pain; Knee; Right; Additional info: Fall injury TECHNIQUE: Imaging protocol: Radiologic exam of the right knee. Views: 3 views. COMPARISON: No relevant prior studies available. FINDINGS: Bones/joints: Severe tricompartmental osteoarthritis of the knee. Soft tissues: Normal. Vasculature: Scattered vascular calcifications. XR/XR knee RT 3V* [id number] IMPRESSION: 1. Severe tricompartmental osteoarthritis of the knee. 2. Scattered vascular calcifications.
--- NOTE | 2022-08-27 18:28 | ED_ITS ---
HPI - Fall General: Chief Complaint: Fall Stated Complaint: Fall/ RT Knee pain Time Seen by Provider: 08/27/22 17:15 History of Present Illness: 72-year-old male patient comes in today for complaints of injury to the right knee. Patient fallen last night and hit his right knee. Patient denies any other pain or discomfort. Patient reports most of the pain is in the right knee. Patient appears nontoxic. Patient appears in mild pain. Associated symptoms-after fall: Denies chest pain Review of Systems General: Reports: 10 or more systems reviewed and unremarkable except in HPI and below Const: Denies: fever(s) Card: Denies: chest pain Resp: Denies: dyspnea GI: Denies: vomiting : Denies: difficulty urinating Musc: Reports: joint pain (Right knee) PFSH ED PFSH: Medical History Accelerated essential hypertension CAD (coronary artery disease) Carotid artery stenosis, symptomatic Closed fracture of distal end of right fibula COPD (chronic obstructive pulmonary disease) Diabetes Dyslipidemia GERD (gastroesophageal reflux disease) HTN (hypertension) senior living (current) use of opiate analgesic Lower extremity edema Pain management contract signed Peripheral Vascular Disease Varicose veins of bilateral lower extremities with other complications Surgical History H/O heart bypass surgery Hx of CABG Hx of cholecystectomy Hx of cholecystectomy Family History Father CAD (coronary artery disease) Diabetes Hypertension Lung disease Grandfather CAD (coronary artery disease) Diabetes Hypertension Son CAD (coronary artery disease) Family history of premature coronary artery disease Grandmother Cancer Denies family history of Clotting disorder Dementia Hyperlipidemia Psychiatric illness Chronic kidney disease (CKD) Suicide Anesthesia complication Bleeding disorder Stroke Social History Smoking and tobacco status: former smoker Second hand smoke exposure: Yes Alcohol intake: former 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 Substance/Drug Use: never Caregiver/support person: Yes Lives independently: Yes Household members: spouse service: Yes Physical Exam Const: COMMON NORMALS: alert HENMT: COMMON NORMALS: normocephalic HEAD & SCALP: normocephalic Neck/C-Spine: COMMON NORMALS: full ROM Resp: COMMON NORMALS: normal respiratory effort Cardio: COMMON NORMALS: regular rate RATE: regular rate Back/Pelvis: COMMON NORMALS: thoracic and lumbar spine normal to inspection Extremity: RIGHT LOWER EXTREMITY: Yes knee joint (Distal bruising, minimal swelling, normal range of motion) Right knee: Yes inspection, Yes palpation, Yes ROM and Yes neurovascular exam Neuro: SENSORIUM/ORIENTATION: Yes alert Skin: COMMON NORMALS: turgor normal GENERAL SKIN EXAM: turgor normal Course Vital Signs: Vital signs: Vital Signs Temperature 98.5 F 08/27/22 17:29 Pulse Rate 67 08/27/22 18:35 Respiratory Rate 16 08/27/22 18:35 Blood Pressure 134/60 08/27/22 18:35 Pulse Oximetry 95 08/27/22 18:35 Oxygen Delivery Me thod Room Air 08/27/22 18:35 MDM - Fall Medical Decision Making 72-year-old male patient fell last night and came into the ER for concerns of pain. Patient appears nontoxic. Patient appears in no acute distress. Minimal swelling is noted to the anterior right knee with an area of bruising distally. Pulses and sensation are intact. No redness or heat is noted in the knee joint. Differential diagnosis includes fracture, sprain, contusion, osteoarthritis. X-ray notes significant arthritic changes. No signs of fracture. Reviewed exam with patient recommended follow-up with orthopedics for further evaluation of osteoarthritis reassured patient no fracture. Recommend celecoxib 100 mg twice a day for osteoarthritis pain. Discharge Plan Discharge Patient Disposition: Home Clinical Impression: Contusion of knee, right Qualifiers: Encounter type: initial encounter Qualified Code(s): S80.01XA - Contusion of right knee, initial encounter Osteoarthritis of knee Qualifiers: Osteoarthritis type: unspecified Laterality: right Qualified Code(s): M17.11 - Unilateral primary osteoarthritis, right knee Condition: Stable Prescriptions: New celecoxib 100 mg capsule 100 mg PO BID Qty: 20 0RF No Action citalopram 40 mg tablet 20 mg PO DAILY@1000 nitroglycerin [Nitrostat] 0.4 mg tablet, sublingual 0.4 mg SUBLINGUAL Q5M PRN (Reason: chest pain) Qty: 25 4RF cholecalciferol (vitamin D3) 25 mcg (1,000 unit) capsule 75 mcg PO DAILY@1000 clopidogrel 75 mg tablet 75 mg PO DAILY@1000 tamsulosin 0.4 mg capsule 0.4 mg PO DAILY@1000 Hold Instructions: Doctor's Order levalbuterol HCl 0.63 mg/3 mL solution for nebulization 0.63 mg INHALATION TID PRN (Reason: Shortness Of Breath) hydrocodone-acetaminophen 10-325 mg tablet 1 tab PO Q8H PRN (Reason: pain (scale score 7-10)) 30 Days Qty: 90 0RF Rx Instructions: may fill 30 days after previous refill atorvastatin 40 mg tablet 80 mg PO DAILY@1000 Qty: 180 3RF midodrine 2.5 mg tablet 2.5 mg PO BID Qty: 180 3RF Rx Instructions: do not give last dose of day after 6PM or within 4 hrs of bedtime pantoprazole [Protonix] 40 mg tablet,delayed release (DR/EC) 40 mg PO DAILY@1000 levothyroxine 75 mcg Tablet 37.5 mcg PO DAILY nystatin 100,000 unit/gram Cream 1 applic TOPICAL TID ondansetron 4 mg Tablet,Disintegrating 4 mg PO Q6H PRN (Reason: Nausea And Vomiting) Fish Oil 300-1,000 mg Capsule 1 cap PO DAILY aspirin 81 mg tablet,delayed release (DR/EC) 81 mg PO DAILY Qty: 90 0RF Discharge Orders: Discharge ED (Routine); Ordered 08/27/22 Ordered By: Aki Downey Referrals: Sujata Macedo MD [Primary Care Provider] - Discharge Diet: Usual diet Discharge Activity: Increase activity as tolerated Patient Instructions: Osteoarthritis (ED), Pain Management Activity Restrictions/Additional Instructions: Maintain activity as tolerated. Take celecoxib 100 mg twice a day for arthritic pain. Continue with routine medications as directed. Use ice or heat for further pain relief. Follow-up with orthopedist for further instructions. Follow-up with primary care as needed. Coding Level of Care Code ED Guest Services Assistant for Natalie Chu
[2022-08-27 18:35] VITALS: BP 134/60; PULSE 67; RESP 16; O2SAT 95
[2022-08-27] MEDS: ketorolac 30 mg/mL INJ IM (19:09)
--- NOTE | 2022-08-28 09:01 | PC.SOCIAL ---
Addendum entered by Comfort Desai 09/13/22 13:51: Patient had a follow up appointment scheduled for 09.04.[address] Arboleda at ortho - patient did attend appointment. Original Note: Ortho Referral Messaged ortho clinic for referral appt. Clinic to contact patient with appt date/time.
== END 2022-08-27 19:13 | disposition home or self-care (01) ==
PROVIDERS: Emergency Provider Nurse Practitioner Family; PCP Family Medicine
DX: S80.01XA Contusion of right knee, initial encounter (principal); M17.11 Unilateral primary osteoarthritis, right knee; Z79.02 Long term (current) use of antithrombotics/antiplatelets; Z79.82 Long term (current) use of aspirin; Z87.891 Personal history of nicotine dependence; I25.10 Atherosclerotic heart disease of native coronary artery without angina pectoris; J44.9 Chronic obstructive pulmonary disease, unspecified; E11.9 Type 2 diabetes mellitus without complications; E78.5 Hyperlipidemia, unspecified; I10 Essential (primary) hypertension; Z95.1 Presence of aortocoronary bypass graft; W19.XXXA Unspecified fall, initial encounter
CPT/HCPCS: 73562; 96372; 99284; J1885

== ENCOUNTER → 2022-09-04 14:06 | Outpatient (BNVA) | payer OTHER, SELFPAY | PROVIDERS: PCP Family Medicine; Referring Provider Nurse Practitioner Family; Visit Provider Specialist | DX: M17.11 Unilateral primary osteoarthritis, right knee (principal) | CPT/HCPCS: 20610; 73560; 73565; 99204; J7326 ==

== ENCOUNTER → 2022-09-05 13:09 | Outpatient (BNVA) | payer OTHER, SELFPAY | PROVIDERS: PCP Family Medicine; Visit Provider Podiatrist Foot & Ankle Surgery | DX: E11.42 Type 2 diabetes mellitus with diabetic polyneuropathy (principal); L60.3 Nail dystrophy; I73.9 Peripheral vascular disease, unspecified | CPT/HCPCS: 11721 ==

== ENCOUNTER → 2022-12-25 14:09 | Outpatient (BNVA) | payer OTHER, SELFPAY | PROVIDERS: PCP Family Medicine; Visit Provider Podiatrist Foot & Ankle Surgery | DX: E11.42 Type 2 diabetes mellitus with diabetic polyneuropathy (principal); L60.3 Nail dystrophy; I73.9 Peripheral vascular disease, unspecified | CPT/HCPCS: 11721 ==

== ENCOUNTER 2022-12-31 19:29 | Emergency (ER) | payer OTHER, SELFPAY ==
[2022-12-31 19:31] VITALS: BP 139/64; PULSE 58; RESP 20; TEMP 36.5; O2SAT 95; BMI 36.9
--- NOTE | 2022-12-31 19:32 | XRR_ITS ---
PROCEDURE INFORMATION: Exam: XR Chest Exam date and time: 12/31/2022 7:35 PM Age: 72 years old Clinical indication: Other: Syncope; Prior surgery; Surgery date: 6+ months; Surgery type: Open heart TECHNIQUE: Imaging protocol: Radiologic exam of the chest. Views: 1 view. COMPARISON: CR XR chest 1V portable [id number] 06/25/2022 12:07 PM FINDINGS: Tubes, catheters and devices: EKG monitoring leads overlie the thoracic wall. Lungs: There is a nonspecific retrocardiac consolidation. Pleural spaces: No pleural effusion or pneumothorax. Heart/Mediastinum: Normal in size. There has been a median sternotomy for coronary revascularization. The pulmonary vascularity is within normal limits. Bones/joints: No acute fracture. XR/XR chest 1V portable [id number] IMPRESSION: 1. Nonspecific retrocardiac consolidation that may represent atelectasis or in the appropriate clinical setting, pneumonia. 2. Status post median sternotomy for coronary revascularization.
--- NOTE | 2022-12-31 19:38 | ECG_ITS ---
[facility] Test Date: 2022-12-31 Pat Name: Victorino Stevenson Department: Room: Gender: Male Pharmaceutical Physician: : [id number] Requested By: Jose C Arias Order Number: [id number] Katie MD: Yefri Reynoso M.D. Measurements Intervals [place] Rate: 55 P: 23 LA: 171 QRS: 31 QRSD: 86 T: 68 QT: 426 QTc: 409 Interpretive Statements SINUS BRADYCARDIA POSSIBLE LEFT ATRIAL ENLARGEMENT [-0.1mV P-WAVE IN V1/V2] NONSPECIFIC T-WAVE ABNORMALITY Compared to ECG 06/25/2022 22:38:03 Sinus rhythm no longer present T-wave abnormality still present Electronically Signed On 01-01-2023 8:02:12 CDT by Yefri Reynoso M.D. [id number]
[2022-12-31 19:55] LABS: Basophils # 0.1 10^3/uL (0.0-0.1); Basophils % 0.8 %; Eosinophils # 0.1 10^3/uL (0.0-0.8); Eosinophils % 1.4 %; Hematocrit 41.1 % (37-53); Lymphocytes # 2.6 10^3/uL (0.8-4.8); Lymphocytes % 41.2 %; Mean Corpuscular HGB Conc 33.1 g/dL (30-55); Mean Corpuscular Hemoglobin 31.1 pg (27-33); Mean Corpuscular Volume 93.8 fl (82-101); Mean Platelet Volume 10.4 fL (7.4-10.4); Monocytes # 0.6 10^3/uL (0.2-0.9); Monocytes % 10.3 %; Neutrophils # 2.85 10^3/uL (1.8-7.7); Nucleated Red Blood Cells % 0 %; Platelet Count 154 10^3/cmm (157-399); Red Blood Count 4.38 10^6/uL (3.85-5.65); Red Cell Distribution Width 14.1 % (12.1-15.1); White Blood Count 6.21 10^3/uL (3.29-11.43)
[2022-12-31 19:59] LABS: INR 1.05 (0.8-1.2)
[2022-12-31 20:04] LABS: Alanine Aminotransferase 16 U/L (0-41); Albumin Level 3.4 g/dL (3.5-5.2); Alkaline Phosphatase 67 U/L (40-130); Anion Gap 14.2 (5-19); Aspartate Amino Transferase 16 U/L (0-40); Blood Urea Nitrogen 28 mg/dL (8-23); Calcium 9.1 mg/dL (8.5-10.5); Carbon Dioxide 23 mmol/L (22-29); Chloride 105 mmol/L (98-107); Globulin 3.9 g/dL (1.3-4.6); Glucose 193 mg/dL (65-115); Magnesium 2.1 mg/dL (1.7-2.3); Osmolality Calculated 297 mOsm/kg (285-295); Potassium 4.2 mmol/L (3.5-5.1); Sodium 138 mmol/L (136-145); Total Bilirubin 0.4 mg/dL (0.15-1.2); Total Protein 7.3 g/dL (6.6-8.7)
--- NOTE | 2022-12-31 20:19 | ED_ITS ---
HPI - Syncope General: Chief Complaint: Syncope Stated Complaint: near syncope Time Seen by Provider: 12/31/22 19:32 History of Present Illness: Patient presents to the ER with complaints of near syncope today x1. Patient's family says he is just not felt good at all last week but has had no discrete symptoms such as respiratory cardiac urinary. He just not felt good all over. Patient was standing at the sink this time and did not have any symptoms but then began to fall backwards and his son was able to catch him and put him on a couch. Patient did not technically fall or have any trauma but he did just about passed out during his episode. Patient denies any complaints at this time now. Patient says he saw Dr. Snyder the honing machine operator semiautomatic earlier today and had low blood pressure at his office and then when they rechecked his blood pressure was improved. Per records the blood pressure and Dr. Snyder's office at one time was 84/56 and then when he rechecked it was 148/60. Review of Systems General: Reports: 10 or more systems reviewed and unremarkable except in HPI and below PFSH ED PFSH: Medical History Accelerated essential hypertension CAD (coronary artery disease) Carotid artery stenosis, symptomatic Closed fracture of distal end of right fibula COPD (chronic obstructive pulmonary disease) Diabetes Dyslipidemia GERD (gastroesophageal reflux disease) HTN (hypertension) detention (current) use of opiate analgesic Lower extremity edema Pain management contract signed Peripheral Vascular Disease Varicose veins of bilateral lower extremities with other complications Surgical History H/O heart bypass surgery Hx of CABG Hx of cholecystectomy Hx of cholecystectomy Family History Father CAD (coronary artery disease) Diabetes Hypertension Lung disease Grandfather CAD (coronary artery disease) Diabetes Hypertension Son CAD (coronary artery disease) Family history of premature coronary artery disease Grandmother Cancer Denies family history of Clotting disorder Dementia Hyperlipidemia Psychiatric illness Chronic kidney disease (CKD) Suicide Anesthesia complication Bleeding disorder Stroke Social History Smoking and tobacco/nicotine status: former use of tobacco/nicotine Second hand smoke exposure: Yes Alcohol intake: former 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 Substance/Drug Use: never Caregiver/support person: Yes Lives independently: Yes Household members: spouse service: Yes Physical Exam Const: COMMON NORMALS: no acute distress, average body habitus, patient oriented x3, no limitations, healthy appearing, alert and well nourished HENMT: COMMON NORMALS: normocephalic, atraumatic, hearing grossly normal bilaterally, external ears normal, Normal external nose present, moist oral mucous membranes and oropharynx normal HEAD & SCALP: normocephalic and atraumatic NOSE: Normal external nose present EXTERNAL EAR: Yes external ears normal Eye: COMMON NORMALS: Equal, round and reactive pupils present, EOMs intact bilaterally, conjunctivae normal and no scleral icterus CONJUNCTIVA: Yes conjunctivae normal PUPIL: Yes Equal, round and reactive pupils present Neck/C-Spine: COMMON NORMALS: full ROM, no lymphadenopathy, supple, no meningeal signs, no JVD and Thyroid normal THYROID: Thyroid normal Chest: COMMONS NORMALS: normal inspection of the chest and normal palpation of entire chest wall Resp: COMMON NORMALS: normal respiratory effort, No retractions, No use of accessory muscles and clear to auscultation bilaterally AUSCULTATION: clear to auscultation bilaterally Cardio: COMMON NORMALS: no JVD, regular rate, regular rhythm, S1 normal heart sound present, S2 normal heart sound present, No gallops present (Cardio), No clicks present (Cardio), No murmurs present (Cardio) and No rub (Cardio) RATE: regular rate RHYTHM: regular rhythm HEART SOUNDS: S1 normal heart sound present and S2 normal heart sound present GI: COMMON NORMALS: Normal to inspection, nondistended, normoactive bowel sounds present, Soft to palpation, non-tender, No hepatosplenomegaly present and no masses PALPATION: Yes Soft to palpation and Yes No hepatosplenomegaly present Neuro: COMMON NORMALS: patient oriented x3 SENSORIUM/ORIENTATION: Yes alert MENINGEAL SIGNS: Yes no meningeal signs Course Vital Signs: Vital signs: Vital Signs Temperature 97.7 F 12/31/22 19:31 Pulse Rate 52 L 12/31/22 20:34 Respiratory Rate 20 H 12/31/22 19:31 Blood Pressure 145/86 12/31/22 20:34 Pulse Oximetry 94 12/31/22 20:34 Oxygen Delivery Me thod Room Air 12/31/22 20:34 MDM - Syncope Medical Decision Making Lab work was obtained which showed a mildly elevated BUN/creatinine of 28 and 1.3, white blood cell count was normal, urinalysis showed 1+ ketones, 2+ blood, positive leukocyte esterase and 55-80 white blood cells. 4+ bacteria. Chest x- ray was nonspecific showed a consolidation may represent atelectasis or, pneumonia. I do not think it is pneumonia at this time because he is not having any respiratory symptoms. However we will treat the urinary tract infection with an antibiotic that will cover pneumonia as well. Patient was given 1 g of Rocephin IM here. Patient be discharged on Bactrim DS for the next 10 days. Patient will follow-up with his PCP within the next 7 to 10 days Differential Diagnosis Likely syncope due to orthostatic hypotension; Unlikely vasovagal syncope, complete atrioventricular block, subarachnoid hemorrhage, pulmonary embolism or dehydration Medical Records I reviewed the patient's medical records. Lab Data I reviewed the patient's lab results. 12/31/22 19:39 12/31/22 19:39 Radiology Impressions Chest X-Ray 12/31/22 19:32 IMPRESSION: 1. Nonspecific retrocardiac consolidation that may represent atelectasis or in the appropriate clinical setting, pneumonia. 2. Status post median sternotomy for coronary revascularization. Laboratory Results WBC 6.21 10^3/uL (3.29-11.43) 12/31/22 19:39 RBC 4.38 10^6/uL (3.85-5.65) 12/31/22 19:39 Hgb 13.60 g/dL (11.27-16.99) 12/31/22 19:39 Hct 41.1 % (37-53) 12/31/22 19:39 MCV 93.8 fl (82-101) 12/31/22 19:39 MCH 31.1 pg (27-33) 12/31/22 19:39 MCHC 33.1 g/dL (30-55) 12/31/22 19:39 RDW 14.1 % (12.1-15.1) 12/31/22 19:39 Plt Count 154 10^3/cmm (157-399) L 12/31/22 19:39 MPV 10.4 fL (7.4-10.4) 12/31/22 19:39 Neut % (Auto) 46.0 % 12/31/22 19:39 Lymph % (Auto) 41.2 % 12/31/22 19:39 [place] % (Auto) 10.3 % 12/31/22 19:39 Eos % (Auto) 1.4 % 12/31/22 19:39 Baso % (Auto) 0.8 % 12/31/22 19:39 Neut # (Auto) 2.85 10^3/uL (1.8-7.7) 12/31/22 19:39 Lymph # (Auto) 2.6 10^3/uL (0.8-4.8) 12/31/22 19:39 [place] # (Auto) 0.6 10^3/uL (0.2-0.9) 12/31/22 19:39 Eos # (Auto) 0.1 10^3/uL (0.0-0.8) 12/31/22 19:39 Baso # (Auto) 0.1 10^3/uL (0.0-0.1) 12/31/22 19:39 Nucleated RBC % (auto) 0 % 12/31/22 19:39 Nucleated RBCs # 0.0 /100WBC 12/31/22 19:39 PT 14.00 SECONDS (12.1-14.9) 12/31/22 19:39 INR 1.05 (0.8-1.2) 12/31/22 19:39 Sodium 138 mmol/L (136-145) 12/31/22 19:39 Potassium 4.2 mmol/L (3.5-5.1) 12/31/22 19:39 Chloride 105 mmol/L (98-107) 12/31/22 19:39 Carbon Dioxide 23 mmol/L (22-29) 12/31/22 19:39 Anion Gap 14.2 (5-19) 12/31/22 19:39 BUN 28 mg/dL (8-23) H 12/31/22 19:39 Creatinine 1.3 mg/dL (0.7-1.2) H 12/31/22 19:39 GFR Calculation Not Reportable 12/31/22 19:39 Glucose 193 mg/dL (65-115) H 12/31/22 19:39 Calculated Osmolality 297 mOsm/kg (285-295) H 12/31/22 19:39 Calcium 9.1 mg/dL (8.5-10.5) 12/31/22 19:39 Magnesium 2.1 mg/dL (1.7-2.3) 12/31/22 19:39 Total Bilirubin 0.4 mg/dL (0.15-1.2) 12/31/22 19:39 AST 16 U/L (0-40) 12/31/22 19:39 ALT 16 U/L (0-41) 12/31/22 19:39 Alkaline Phosphatase 67 U/L (40-130) 12/31/22 19:39 Total Protein 7.3 g/dL (6.6-8.7) 12/31/22 19:39 Albumin 3.4 g/dL (3.5-5.2) L 12/31/22 19:39 Globulin 3.9 g/dL (1.3-4.6) 12/31/22 19:39 Urine Color Yellow (Yellow) 12/31/22 20:37 Urine Appearance Cloudy (CLEAR) A 12/31/22 20:37 Urine pH 5 (5-7) 12/31/22 20:37 Ur Specific [place] 1.020 (1.005-1.030) 12/31/22 20:37 Urine Protein Trace (Negative) 12/31/22 20:37 Urine Glucose (UA) Norm (Normal) 12/31/22 20:37 Urine Ketones 1+ (Negative) H 12/31/22 20:37 Urine Blood 2+ (Negative) H 12/31/22 20:37 Urine Nitrate Negative (Negative) 12/31/22 20:37 Urine Bilirubin Neg (Negative) 12/31/22 20:37 Urine Urobilinogen Neg mg/dL (Negative) 12/31/22 20:37 Ur Leukocyte Esterase 2+ (Negative) H 12/31/22 20:37 Urine RBC 5-10 /hpf (0-2) H 12/31/22 20:37 Urine WBC 55-80 /hpf (0-5) H 12/31/22 20:37 Ur Squamous Epith Cells None /hpf (0-5) 12/31/22 20:37 Ur Transition Epith Cell 0-4 /hpf 12/31/22 20:37 Amorphous Sediment Not Reportable 12/31/22 20:37 Urine Bacteria 4+ /hpf (NONE) H 12/31/22 20:37 Urine Mucus 2+ /hpf 12/31/22 20:37 All radiology interpretation(s) finalized by discharge EKG Data EKG 1: I personally reviewed and interpreted this EKG as follows: EKG interpretation date: 12/31/22 EKG interpretation time: 19:38 Prior EKG tracings: not available for review Interpretation: EKG showed ventricular rate 55 bpm, ND interval 171, QRS duration 86, QTc of 415, sinus bradycardia, nonspecific T wave abnormality Discharge Plan Discharge Patient Disposition: Home Clinical Impression: Near syncope Urinary tract infection Qualifiers: Urinary tract infection type: acute cystitis Hematuria presence: with hematuria Qualified Code(s): N30.01 - Acute cystitis with hematuria Condition: Stable Prescriptions: New Bactrim DS 800-160 mg tablet 1 tab PO BID Qty: 10 0RF No Action citalopram 40 mg tablet 20 mg PO DAILY@1000 nitroglycerin [Nitrostat] 0.4 mg tablet, sublingual 0.4 mg SUBLINGUAL Q5M PRN (Reason: chest pain) Qty: 25 4RF cholecalciferol (vitamin D3) 25 mcg (1,000 unit) capsule 75 mcg PO DAILY@1000 clopidogrel 75 mg tablet 75 mg PO DAILY@1000 tamsulosin 0.4 mg capsule 0.4 mg PO DAILY@1000 Hold Instructions: Doctor's Order levalbuterol HCl 0.63 mg/3 mL solution for nebulization 0.63 mg INHALATION TID PRN (Reason: Shortness Of Breath) omeprazole 40 mg capsule,delayed release(DR/EC) 40 mg PO DAILY gemfibrozil 600 mg tablet 600 mg PO DAILY empagliflozin 25 mg tablet 25 mg PO DAILY rosuvastatin 20 mg tablet 20 mg PO DAILY glipizide 10 mg tablet 10 mg PO DAILY hydrocodone-acetaminophen 10-325 mg tablet 1 tab PO Q8H PRN (Reason: pain (scale score 7-10)) 30 Days Qty: 90 0RF Rx Instructions: may fill 30 days after previous refill atorvastatin 40 mg tablet 80 mg PO DAILY@1000 Qty: 180 3RF midodrine 2.5 mg tablet 2.5 mg PO BID Qty: 180 3RF Rx Instructions: do not give last dose of day after 6PM or within 4 hrs of bedtime pantoprazole [Protonix] 40 mg tablet,delayed release (DR/EC) 40 mg PO DAILY@1000 levothyroxine 75 mcg Tablet 37.5 mcg PO DAILY nystatin 100,000 unit/gram Cream 1 applic TOPICAL TID celecoxib 100 mg capsule 100 mg PO BID Qty: 20 0RF ondansetron 4 mg Tablet,Disintegrating 4 mg PO Q6H PRN (Reason: Nausea And Vomiting) Fish Oil 300-1,000 mg Capsule 1 cap PO DAILY aspirin 81 mg tablet,delayed release (DR/EC) 81 mg PO DAILY Qty: 90 0RF Discharge Orders: Discharge ED (Routine); Ordered 12/31/22 Ordered By: Jose C Arias Referrals: Sujata Macedo MD [Primary Care Provider] - 7-10 days Patient Instructions: Near Syncope (ED), Urinary Tract Infection - Men Activity Restrictions/Additional Instructions: Please take all your antibiotics as directed. Please follow-up with your family practice physician within the next 7 to 10 days for further evaluation and treatment. If your symptoms return please feel free to return to the ER. 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
[2022-12-31] MEDS: sodium chloride 0.9% 1,000 ML 999 ML IV (20:31)
[2022-12-31 20:34] VITALS: BP 145/86; PULSE 52; O2SAT 94
[2022-12-31 20:51] LABS: Add Urine Microscopic? YES; Bilirubin Urine Neg (Negative); Blood Urine 2+ (Negative); Glucose Urine UA Norm (Normal); Ketones Urine 1+ (Negative); Leukocyte Esterase Urine 2+ (Negative); Nitrate Urine Negative (Negative); Protein Urine Trace (Negative); Urine Appearance Cloudy (CLEAR); Urine Color Yellow (Yellow); Urobilinogen Urine Neg (Negative); pH Urine 5 (5-7)
[2022-12-31 20:52] LABS: Add Urine Culture? Yes; Bacteria Urine 4+ /hpf; Mucus Urine 2+ /hpf; Transitional Epi Cells Urine 0-4 /hpf; WBC Urine 55-80 /hpf (0-5)
[2022-12-31] MEDS: cefTRIAXone 1,000 MG in sodium chloride 0.9% (plus) 50 ML 100 MG IV (21:35)
[2022-12-31 22:14] VITALS: BP 145/86; PULSE 52; RESP 20; TEMP 36.5; O2SAT 94
== END 2022-12-31 22:15 | disposition home or self-care (01) ==
PROVIDERS: Emergency Provider Emergency Medicine; PCP Family Medicine
DX: R55 Syncope and collapse (principal); N30.01 Acute cystitis with hematuria; Z79.02 Long term (current) use of antithrombotics/antiplatelets; Z79.82 Long term (current) use of aspirin; Z87.891 Personal history of nicotine dependence; I25.10 Atherosclerotic heart disease of native coronary artery without angina pectoris; J44.9 Chronic obstructive pulmonary disease, unspecified; E11.9 Type 2 diabetes mellitus without complications; E78.5 Hyperlipidemia, unspecified; I10 Essential (primary) hypertension; Z95.1 Presence of aortocoronary bypass graft
CPT/HCPCS: 71045; 80053; 81001; 83735; 85025; 85610; 87077; 87086; 87186; 93005; 96365; 99285; J0696; J7030

== ENCOUNTER → 2023-01-06 13:25 | Outpatient (BNVA) | payer OTHER, MEDICARE, SELFPAY | PROVIDERS: PCP Family Medicine; Visit Provider Specialist | DX: M17.0 Bilateral primary osteoarthritis of knee | CPT/HCPCS: 20610; 73560; 73565; 99213; J1100; J2795; J3301 ==

== ENCOUNTER 2023-01-07 14:30 | Emergency (ER) | payer OTHER, SELFPAY ==
[2023-01-07 14:51] VITALS: BP 116/57; PULSE 87; RESP 18; TEMP 36.3; O2SAT 94; BMI 33.0
[2023-01-07 16:27] LABS: Basophils % 0.1 %; Hematocrit 43.9 % (37-53); Lymphocytes # 1.5 10^3/uL (0.8-4.8); Lymphocytes % 8.1 %; Mean Corpuscular HGB Conc 32.6 g/dL (30-55); Mean Corpuscular Hemoglobin 30.9 pg (27-33); Mean Corpuscular Volume 94.8 fl (82-101); Mean Platelet Volume 10.1 fL (7.4-10.4); Monocytes % 5.8 %; Neutrophils # 15.19 10^3/uL (1.8-7.7); Neutrophils % 85.3 %; Nucleated Red Blood Cells % 0 %; Platelet Count 190 10^3/cmm (157-399); Red Blood Count 4.63 10^6/uL (3.85-5.65); Red Cell Distribution Width 14.2 % (12.1-15.1); White Blood Count 17.82 10^3/uL (3.29-11.43)
[2023-01-07 16:30] LABS: Add Urine Microscopic? NO; Charge for UA Resulting for Rev
[2023-01-07 16:36] LABS: Bilirubin Urine Neg (Negative); Blood Urine Neg (Negative); Glucose Urine UA 4+ (Normal); Ketones Urine Negative (Negative); Leukocyte Esterase Urine Negative (Negative); Nitrate Urine Negative (Negative); Protein Urine Neg (Negative); Specific Gravity, Urine 1.015 (1.005-1.030); Urine Appearance Clear (CLEAR); Urine Color Light yellow (Yellow); Urobilinogen Urine Norm (Negative); pH Urine 5 (5-7)
--- NOTE | 2023-01-07 16:37 | ECG_ITS ---
[facility] Test Date: 2023-01-07 Pat Name: Victorino Stevenson Department: Room: Gender: Male Track Dresser: : 1950 Requested By: Jose C Arias Order Number: [id number] Katie MD: Esther Yanez M.D. Measurements Intervals [place] Rate: 62 P: 39 [place]: 197 QRS: 54 QRSD: 86 T: 71 QT: 330 QTc: 338 Interpretive Statements SINUS RHYTHM POSSIBLE LEFT ATRIAL ENLARGEMENT [-0.1mV P-WAVE IN V1/V2] NONSPECIFIC T-WAVE ABNORMALITY Compared to ECG 12/31/2022 19:38:00 Sinus bradycardia no longer present T-wave abnormality still present Electronically Signed On 01-07-2023 17:46:41 CDT by Esther Yanez M.D. [id number]
--- NOTE | 2023-01-07 16:40 | XRR_ITS ---
PROCEDURE INFORMATION: Exam: XR Chest Exam date and time: 01/07/2023 4:48 PM Age: 72 years old Clinical indication: Other: Dizziness; Additional info: Dizziness, leukocytosis TECHNIQUE: Imaging protocol: Radiologic exam of the chest. Views: 1 view. COMPARISON: CR (CHEST, ) 12/31/2022 7:35 PM FINDINGS: Lungs: Lungs are clear bilaterally. Pleural spaces: No pleural effusion. No pneumothorax. Heart/Mediastinum: Stable moderate enlargement of the cardiac silhouette. Mediastinal contours are unremarkable. Vasculature: Stable vascular calcifications in the aorta. Bones/joints: Poststernotomy changes in the chest. Degenerative changes in the spine and shoulders. Bones are diffusely osteopenic. Osseous findings are stable. XR/XR chest 1V portable [id number] IMPRESSION: 1. No acute cardiopulmonary process. 2. Incidental/nonacute findings are listed in the report.
[2023-01-07 16:55] LABS: Alanine Aminotransferase 16 U/L (0-41); Albumin Level 4.5 g/dL (3.5-5.2); Alkaline Phosphatase 101 U/L (40-130); Anion Gap 18.2 (5-19); Aspartate Amino Transferase 14 U/L (0-40); Blood Urea Nitrogen 48 mg/dL (8-23); Carbon Dioxide 22 mmol/L (22-29); Chloride 99 mmol/L (98-107); Globulin 4.2 g/dL (1.3-4.6); Glucose 393 mg/dL (65-115); Magnesium 2.4 mg/dL (1.7-2.3); Osmolality Calculated 307 mOsm/kg (285-295); Potassium 5.2 mmol/L (3.5-5.1); Sodium 134 mmol/L (136-145); Total Bilirubin 0.3 mg/dL (0.15-1.2); Total Protein 8.7 g/dL (6.6-8.7)
--- NOTE | 2023-01-07 17:00 | ED_ITS ---
HPI - Dizziness General: Chief Complaint: Dizziness Stated Complaint: [facility] Time Seen by Provider: 01/07/23 15:55 History of Present Illness: HPI Narrative: Patient presents to the ER with complaining of dizziness starting this morning when he got up out of bed. Patient states it is worse when he gets up tries to move around. When he is laying down or sitting down does not there at all. Patient just finished a round of Bactrim for urinary tract infection. Yesterday patient was fine with no complaints. Patient's urine appears to be much better for the . Last night patient's said patient's blood glucose spiked to approximately 400 for no apparent reason. 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 Lower extremity edema Pain management contract signed Peripheral Vascular Disease Varicose veins of bilateral lower extremities with other complications Surgical History H/O heart bypass surgery Hx of CABG Hx of cholecystectomy Hx of cholecystectomy Family History Father CAD (coronary artery disease) Diabetes Hypertension Lung disease Grandfather CAD (coronary artery disease) Diabetes Hypertension Son CAD (coronary artery disease) Family history of premature coronary artery disease Grandmother Cancer Denies family history of Clotting disorder Dementia Hyperlipidemia Psychiatric illness Chronic kidney disease (CKD) Suicide Anesthesia complication Bleeding disorder Stroke Social History Smoking and tobacco/nicotine status: former use of tobacco/nicotine Second hand smoke exposure: Yes Alcohol intake: former 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 Substance/Drug Use: never Caregiver/support person: Yes Lives independently: Yes Household members: spouse service: Yes Physical Exam Const: COMMON NORMALS: no acute distress, average body habitus, patient oriented x3, no limitations, healthy appearing, alert and well nourished HENMT: COMMON NORMALS: normocephalic, atraumatic, hearing grossly normal bilaterally, external ears normal, Normal external nose present, moist oral mucous membranes and oropharynx normal HEAD & SCALP: normocephalic and atraumatic NOSE: Normal external nose present EXTERNAL EAR: Yes external ears normal Eye: COMMON NORMALS: Equal, round and reactive pupils present, EOMs intact bilaterally, conjunctivae normal and no scleral icterus CONJUNCTIVA: Yes conjunctivae normal PUPIL: Yes Equal, round and reactive pupils present Neck/C-Spine: COMMON NORMALS: full ROM, no lymphadenopathy, supple, no meningeal signs, no JVD and Thyroid normal THYROID: Thyroid normal Chest: COMMONS NORMALS: normal inspection of the chest and normal palpation of entire chest wall Resp: COMMON NORMALS: normal respiratory effort, No retractions, No use of accessory muscles and clear to auscultation bilaterally AUSCULTATION: clear to auscultation bilaterally Cardio: COMMON NORMALS: no JVD, regular rate, regular rhythm, S1 normal heart sound present, S2 normal heart sound present, No gallops present (Cardio), No clicks present (Cardio), No murmurs present (Cardio) and No rub (Cardio) RATE: regular rate RHYTHM: regular rhythm HEART SOUNDS: S1 normal heart sound present and S2 normal heart sound present GI: COMMON NORMALS: Normal to inspection, nondistended, normoactive bowel sounds present, Soft to palpation, non-tender, No hepatosplenomegaly present and no masses PALPATION: Yes Soft to palpation and Yes No hepatosplenomegaly present : COMMON NORMALS: Yes no CVA tenderness BLADDER/KIDNEY EXAM: Yes no CVA tenderness Back/Pelvis: COMMON NORMALS: no CVA tenderness Neuro: COMMON NORMALS: patient oriented x3 SENSORIUM/ORIENTATION: Yes alert MENINGEAL SIGNS: Yes no meningeal signs Course Vital Signs: Vital signs: Vital Signs Temperature 97.4 F L 01/07/23 14:51 Pulse Rate 87 01/07/23 14:51 Respiratory Rate 18 01/07/23 14:51 Blood Pressure 116/57 01/07/23 14:51 Pulse Oximetry 94 01/07/23 14:51 Oxygen Delivery Me thod Room Air 01/07/23 14:51 MDM - Dizziness Medical Decision Making Patient presented to the ER today complaining of dizziness when he gets up. Patient's blood pressure was on the lower side during his stay here averaging about 105/50. Orthostatics blood pressure was stable but heart rate did not increase when the patient was sitting or standing. It is thought the patient has orthostatic hypotension when he stands up as well as hyperglycemia which can make this worse. Patient's BUN and creatinine are slightly raised at 48 and 1.7 this may be due to him finishing a 1 round of antibiotics. Patient's urine looks clear. Patient will be discharged home after receiving 1 L normal saline 10 units of insulin subcu for blood sugar of 420 and anticipate that it will improve. Differential Diagnosis Likely orthostatic hypotension; Unlikely adverse reaction to drug, benign paroxysmal positional vertigo, vertebral basilar insufficiency, cerebrovascular accident, acute vestibular neuronitis or transient cerebral ischemia Medical Records I reviewed the patient's medical records. Lab Data I reviewed the patient's lab results. 01/07/23 16:20 01/07/23 16:20 Radiology Impressions Chest X-Ray 01/07/23 16:40 IMPRESSION: 1. No acute cardiopulmonary process. 2. Incidental/nonacute findings are listed in the report. Laboratory Results WBC 17.82 10^3/uL (3.29-11.43) H 01/07/23 16:20 RBC 4.63 10^6/uL (3.85-5.65) 01/07/23 16:20 Hgb 14.30 g/dL (11.27-16.99) 01/07/23 16:20 Hct 43.9 % (37-53) 01/07/23 16:20 MCV 94.8 fl (82-101) 01/07/23 16:20 MCH 30.9 pg (27-33) 01/07/23 16:20 MCHC 32.6 g/dL (30-55) 01/07/23 16:20 RDW 14.2 % (12.1-15.1) 01/07/23 16:20 Plt Count 190 10^3/cmm (157-399) 01/07/23 16:20 MPV 10.1 fL (7.4-10.4) 01/07/23 16:20 Neut % (Auto) 85.3 % 01/07/23 16:20 Lymph % (Auto) 8.1 % 01/07/23 16:20 Trigg % (Auto) 5.8 % 01/07/23 16:20 Eos % (Auto) 0.0 % 01/07/23 16:20 Baso % (Auto) 0.1 % 01/07/23 16:20 Neut # (Auto) 15.19 10^3/uL (1.8-7.7) H 01/07/23 16:20 Lymph # (Auto) 1.5 10^3/uL (0.8-4.8) 01/07/23 16:20 Trigg # (Auto) 1.0 10^3/uL (0.2-0.9) H 01/07/23 16:20 Eos # (Auto) 0.0 10^3/uL (0.0-0.8) 01/07/23 16:20 Baso # (Auto) 0.0 10^3/uL (0.0-0.1) 01/07/23 16:20 Nucleated RBC % (auto) 0 % 01/07/23 16:20 Nucleated RBCs # 0.0 /100WBC 01/07/23 16:20 Sodium 134 mmol/L (136-145) L 01/07/23 16:20 Potassium 5.2 mmol/L (3.5-5.1) H 01/07/23 16:20 Chloride 99 mmol/L (98-107) 01/07/23 16:20 Carbon Dioxide 22 mmol/L (22-29) 01/07/23 16:20 Anion Gap 18.2 (5-19) 01/07/23 16:20 BUN 48 mg/dL (8-23) H 01/07/23 16:20 Creatinine 1.7 mg/dL (0.7-1.2) H 01/07/23 16:20 GFR Calculation Not Reportable 01/07/23 16:20 Glucose 393 mg/dL (65-115) H 01/07/23 16:20 POC Glucose 420 mg/dL (70-110) H 01/07/23 17:45 Calculated Osmolality 307 mOsm/kg (285-295) H 01/07/23 16:20 Calcium 10.0 mg/dL (8.5-10.5) 01/07/23 16:20 Magnesium 2.4 mg/dL (1.7-2.3) H 01/07/23 16:20 Total Bilirubin 0.3 mg/dL (0.15-1.2) 01/07/23 16:20 AST 14 U/L (0-40) 01/07/23 16:20 ALT 16 U/L (0-41) 01/07/23 16:20 Alkaline Phosphatase 101 U/L (40-130) 01/07/23 16:20 Total Protein 8.7 g/dL (6.6-8.7) 01/07/23 16:20 Albumin 4.5 g/dL (3.5-5.2) 01/07/23 16:20 Globulin 4.2 g/dL (1.3-4.6) 01/07/23 16:20 Urine Color Light yellow (Yellow) 01/07/23 16:15 Urine Appearance Clear (CLEAR) 01/07/23 16:15 Urine pH 5 (5-7) 01/07/23 16:15 Ur Specific [place] 1.015 (1.005-1.030) 01/07/23 16:15 Urine Protein Neg (Negative) 01/07/23 16:15 Urine Glucose (UA) 4+ (Normal) H 01/07/23 16:15 Urine Ketones Negative (Negative) 01/07/23 16:15 Urine Blood Neg (Negative) 01/07/23 16:15 Urine Nitrate Negative (Negative) 01/07/23 16:15 Urine Bilirubin Neg (Negative) 01/07/23 16:15 Urine Urobilinogen Norm mg/dL (Negative) 01/07/23 16:15 Ur Leukocyte Esterase Negative (Negative) 01/07/23 16:15 All radiology interpretation(s) finalized by discharge EKG Data EKG 1: I personally reviewed and interpreted this EKG as follows: EKG interpretation date: 01/07/23 EKG interpretation time: 16:37 Prior EKG tracings: not available for review Interpretation: EKG showed ventricular rate 62 bpm, WA interval 197, QRS duration 86, QTc 336, sinus rhythm, possible left atrial lodgment, nonspecific T wave abnormality Discharge Plan Discharge Patient Disposition: Home Clinical Impression: Orthostatic hypotension, Vertigo, Acute hyperglycemia, Acute renal insufficiency Condition: Stable Prescriptions: New sulfamethoxazole-trimethoprim [Bactrim DS] 800-160 mg tablet 1 tab PO BID 10 Days Qty: 20 0RF No Action citalopram 40 mg tablet 20 mg PO DAILY@1000 nitroglycerin [Nitrostat] 0.4 mg tablet, sublingual 0.4 mg SUBLINGUAL Q5M PRN (Reason: chest pain) Qty: 25 4RF cholecalciferol (vitamin D3) 25 mcg (1,000 unit) capsule 75 mcg PO DAILY@1000 clopidogrel 75 mg tablet 75 mg PO DAILY@1000 tamsulosin 0.4 mg capsule 0.4 mg PO DAILY@1000 Hold Instructions: Doctor's Order levalbuterol HCl 0.63 mg/3 mL solution for nebulization 0.63 mg INHALATION TID PRN (Reason: Shortness Of Breath) omeprazole 40 mg capsule,delayed release(DR/EC) 40 mg PO DAILY gemfibrozil 600 mg tablet 600 mg PO DAILY empagliflozin 25 mg tablet 25 mg PO DAILY rosuvastatin 20 mg tablet 20 mg PO DAILY glipizide 10 mg tablet 10 mg PO DAILY hydrocodone-acetaminophen 10-325 mg tablet 1 tab PO Q8H PRN (Reason: pain (scale score 7-10)) 30 Days Qty: 90 0RF Rx Instructions: may fill 30 days after previous refill atorvastatin 40 mg tablet 80 mg PO DAILY@1000 Qty: 180 3RF midodrine 2.5 mg tablet 2.5 mg PO BID Qty: 180 3RF Rx Instructions: do not give last dose of day after 6PM or within 4 hrs of bedtime pantoprazole [Protonix] 40 mg tablet,delayed release (DR/EC) 40 mg PO DAILY@1000 levothyroxine 75 mcg Tablet 37.5 mcg PO DAILY nystatin 100,000 unit/gram Cream 1 applic TOPICAL TID celecoxib 100 mg capsule 100 mg PO BID Qty: 20 0RF ondansetron 4 mg Tablet,Disintegrating 4 mg PO Q6H PRN (Reason: Nausea And Vomiting) Fish Oil 300-1,000 mg Capsule 1 cap PO DAILY aspirin 81 mg tablet,delayed release (DR/EC) 81 mg PO DAILY Qty: 90 0RF Bactrim DS 800-160 mg tablet 1 tab PO BID Qty: 10 0RF Discharge Orders: Discharge ED (Routine); Ordered 01/07/23 Ordered By: Jose C Arias Referrals: Sujata Macedo MD [Primary Care Provider] - 1 week Patient Instructions: Vertigo (ED), Hypotension (ED), Diabetic Hyperglycemia (ED) Activity Restrictions/Additional Instructions: Please push plenty of fluids. Please get up slowly and pause before taking off walking. He had been provided a refill of your Bactrim DS to hold onto until you have signs and symptoms of another urinary tract infection. Please keep a blood sugar log and take it to your next family practice appointment within the next 7 days. Coding Level of Care Code ED Income Tax Return Preparer for Natalie Chu
[2023-01-07 17:50] LABS: Glucose Point of Care 420 mg/dL (70-110)
[2023-01-07] MEDS: insulin regular-human 100 units/1 mL 10 UNIT IVP (17:52)
[2023-01-07] MEDS: sodium chloride 0.9% 1,000 ML 999 ML IV (17:53)
[2023-01-07 20:12] LABS: Glucose Point of Care 227 mg/dL (70-110)
[2023-01-07 20:29] VITALS: BP 98/85; PULSE 81; O2SAT 97
== END 2023-01-07 20:38 | disposition home or self-care (01) ==
PROVIDERS: Emergency Provider Emergency Medicine; PCP Family Medicine
DX: I95.1 Orthostatic hypotension (principal); E11.65 Type 2 diabetes mellitus with hyperglycemia; N28.9 Disorder of kidney and ureter, unspecified; Z79.02 Long term (current) use of antithrombotics/antiplatelets; Z79.82 Long term (current) use of aspirin; Z79.84 Long term (current) use of oral hypoglycemic drugs; Z87.891 Personal history of nicotine dependence; I25.10 Atherosclerotic heart disease of native coronary artery without angina pectoris; J44.9 Chronic obstructive pulmonary disease, unspecified; E78.5 Hyperlipidemia, unspecified; I10 Essential (primary) hypertension; Z95.1 Presence of aortocoronary bypass graft
CPT/HCPCS: 36415; 36416; 71045; 80053; 81003; 82962; 83735; 85025; 87040; 93005; 99285; J1815; J7030

== ENCOUNTER → 2023-05-14 13:01 | Outpatient (BNVA) | payer OTHER, SELFPAY | PROVIDERS: PCP Family Medicine; Visit Provider Internal Medicine | DX: I25.810 Atherosclerosis of coronary artery bypass graft(s) without angina pectoris (principal); I95.0 Idiopathic hypotension; E11.51 Type 2 diabetes mellitus with diabetic peripheral angiopathy without gangrene; Z79.84 Long term (current) use of oral hypoglycemic drugs; I10 Essential (primary) hypertension; E11.42 Type 2 diabetes mellitus with diabetic polyneuropathy; I73.9 Peripheral vascular disease, unspecified; L60.3 Nail dystrophy | CPT/HCPCS: 11721; 99214 ==

== ENCOUNTER 2023-05-27 12:44 | Outpatient (CLI) | payer OTHER, SELFPAY ==
--- NOTE | 2023-05-27 12:52 | CTR_ITS ---
PROCEDURE INFORMATION: Exam: CT Chest Without Contrast; Diagnostic Exam date and time: 05/27/2023 1:25 PM Age: 73 years old Clinical indication: Abnormal findings; Abnormal radiologic exam of lung or chest; Patient HX: 1. Nonspecific retrocardiac consolidation that May represent atelectasis. Or in the appropriate clinical setting, pneumonia. Cxr 12/31/22; Additional info: Abnormal cxr/? Lll infiltrate TECHNIQUE: Imaging protocol: Diagnostic computed tomography of the chest without contrast. Radiation optimization: All CT scans at this facility use at least one of these dose optimization techniques: automated exposure control; mA and/or kV adjustment per patient size (includes targeted exams where dose is matched to clinical indication); or iterative reconstruction. COMPARISON: CT chest w con* [id number] 04/16/2021 2:11 PM RADIATION DOSE METRICS: Total DLP (mGy-cm): 1310.37 FINDINGS: Lungs: See pleural spaces. The Pleural spaces: Small left pleural effusion slightly larger than before. 5.1 x 2.5 cm flattened soft tissue density at the left base is probably atelectasis however it was present previously and is larger today, the possibility of a flattened mass exists. Consider PET scan for further evaluation. Heart: Unremarkable. No cardiomegaly. No pericardial effusion. Coronary arteries: Coronary artery calcifications. Lymph nodes: Visible central lymph nodes are not pathologically enlarged. Vasculature: Unremarkable. No aortic aneurysm. Gallbladder and bile ducts: Cholecystectomy. Kidneys and ureters: Right renal cyst. Bones/joints: Unremarkable. No acute fracture. Soft tissues: Unremarkable. CT/CT chest wo con [id number] IMPRESSION: 1. Small left pleural effusion. 2. Enlarging flatten masslike density at the left lung base which, while probably atelectasis, could represent an unusually shaped mass. Consider PET scan for further evaluation. COMMENTS: Consistent with the [employer]'s Incidental Findings Committee white paper (J Am Luis Fernando Radiol 2018): Any incidental renal lesion less than 1 cm or classified as too small to characterize, or any incidental cystic renal lesion characterized as simple-appearing, is likely benign. No follow-up imaging is recommended for these lesions per consensus recommendations based on imaging criteria.
== END 2023-05-27 12:45 | disposition home or self-care (01) ==
LOC: RAD 12:45
PROVIDERS: PCP Family Medicine; Visit Provider Nurse Practitioner Family
DX: R91.8 Other nonspecific abnormal finding of lung field (principal); J90 Pleural effusion, not elsewhere classified
CPT/HCPCS: 71250

== ENCOUNTER → 2023-06-06 10:53 | Outpatient (BNVA) | payer OTHER, SELFPAY | PROVIDERS: PCP Family Medicine; Visit Provider Specialist | DX: M17.0 Bilateral primary osteoarthritis of knee | CPT/HCPCS: 20610; J1100; J2795; J3301 ==

== ENCOUNTER 2023-06-27 12:17 | Outpatient (CLI) | payer OTHER, SELFPAY ==
--- NOTE | 2023-06-27 13:00 | USCV_ITS ---
Victorino Stevenson Age: 73 Gender: M : 1950 Exam Date: 06/27/2023 12:30 Ordering Phys: Aki Trujillo MD (Andy) ([email or web address] [email or web address]) Technologist: CT Exam Location: [facility] [place] Indication: pvd Risk Factors: Previous Vascular Surgery: Right Brachial BP: / Left Brachial BP: / Right Left Velocity (cm/s) Spectral Plaque Velocity (cm/s) Spectral Plaque Syst/Diast Broadening Syst/Diast Broadening 52.50/ 7.70 Prox CCA 58.00 / 11.30 51.70/ 9.10 Mid CCA 52.90 / 10.70 46.50/ 7.60 Distal CCA 55.70 / 11.60 53.80/ 9.80 Prox ICA 72.00 / 14.90 30.30/ 6.00 Mid ICA 128.20/ 32.00 30.30/ 6.00 Distal ICA 80.70 / 18.60 59.00 ECA 156.80 1.20 ICA/CCA 2.30 Antegrade Vertebral Antegrade 32.10/ 6.90 cm/s 65.60/ 35.10 cm/s Bi Subclavian Bi 59.20 115.7 0 CONCLUSIONS Right ICA stenosis <50%. Mild atheromatous plaque right carotid bulb/ICA. Left ICA stenosis <50%. Mild atheromatous plaque left carotid bulb/ICA. Normal antegrade Doppler flow noted in the right vertebral artery. Normal antegrade Doppler flow noted in the left vertebral artery. Judson Belle MD (Electronically Signed) Final Date: 01 July 2023 10:06 S
== END 2023-06-27 12:18 | disposition home or self-care (01) ==
LOC: RAD 12:17
PROVIDERS: PCP Family Medicine; Visit Provider Thoracic Surgery (Cardiothoracic Vascular Surgery)
DX: I65.23 Occlusion and stenosis of bilateral carotid arteries (principal)
CPT/HCPCS: 93880

== ENCOUNTER → 2023-07-21 15:06 | Outpatient (BNVA) | payer OTHER, SELFPAY | PROVIDERS: PCP Family Medicine; Visit Provider Thoracic Surgery (Cardiothoracic Vascular Surgery) | DX: I65.23 Occlusion and stenosis of bilateral carotid arteries (principal); Z87.891 Personal history of nicotine dependence; I10 Essential (primary) hypertension | CPT/HCPCS: 99213 ==

== ENCOUNTER 2023-07-22 14:11 | Outpatient (CLI) | payer OTHER, SELFPAY ==
--- NOTE | 2023-07-22 14:15 | PETR_ITS ---
PROCEDURE INFORMATION: Exam: PET/CT Skull Base to Mid-thigh Exam date and time: 07/22/2023 3:27 PM Age: 73 years old Clinical indication: Abnormal findings; Small left pleural effusion. 2. Enlarging flatten masslike density at the left lung base which, while probably atelectasis, could represent an unusually shaped mass. Consider pet scan for further evaluation. ; Additional info: Masslike lesion on left lower lung LABS AND CLINICAL REPORTS: Glucose: 202 mg/dl Treatment strategy for malignancy (PET staging): Initial Staging (PI) TECHNIQUE: Imaging protocol: Following at least four-hour fasting and following the injection of radiopharmaceutical, low dose CT images were obtained. Then, PET images were obtained. Attenuation corrected images were constructed using the CT scan. Fused images of PET and CT were reviewed. The standardized uptake values (SUV) reported below are maximum values within a region of interest, expressed in gm/ml. Exam includes orbital meatal line to mid-thigh. Radiopharmaceutical: 14.57 mCi F-18 FDG (Fluorodeoxyglucose), IV. Time of imaging post radiopharmaceutical administration: 1 hour Injection site: Right antecubital COMPARISON: CT chest wo con [id number] 05/27/2023 1:25 PM, CT chest 04/16/2021, CT abdomen and pelvis 05/16/2020 FINDINGS: Brain: Visualized brain has normal physiologic uptake. Paranasal sinuses: There is non radiotracer avid mild mucosal thickening of the left maxillary sinus consistent with chronic sinusitis. Pharynx: No abnormal uptake. Larynx: No abnormal uptake. Lungs, pleura and trachea: No abnormal uptake. A small to moderate left pleural effusion is present. In the posterior left lower lobe a similar ovoid region solid-appearing consolidation measuring 6.4 x 3.2 cm on series 3, image 121 is not radiotracer avid and is similar compared with 05/27/2023. Mild non radiotracer avid biapical pleural scarring is noted. Heart: Normal physiologic uptake. Mediastinal space: No abnormal uptake. Liver: No abnormal uptake. Gallbladder and bile ducts: No abnormal uptake. Pancreas: No abnormal uptake. Spleen: No abnormal uptake. Adrenal glands: No abnormal uptake. Kidneys and ureters: Normal physiologic uptake. Rounded non radiotracer avid hypodense structures in both kidneys are noted, likely related to benign cysts. Stomach and bowel: No abnormal uptake. There are scattered colonic diverticula. Vasculature: No abnormal uptake. There are diffuse atherosclerotic changes including within the coronary arteries. Lymph nodes: No abnormal uptake. No lymphadenopathy in the head, neck, chest, abdomen, pelvis, and extremities. Skeleton: No abnormal uptake in the visualized axial and appendicular skeleton. Degenerative changes in the spine are noted. Extensive appearing canal stenosis at L1-L2 appears to be present. Sternotomy wires are noted. Mild, likely inflammatory uptake in the right glenohumeral joint capsule is noted, SUV max 2.8. Soft tissues: No abnormal uptake in the visualized head, neck, chest, abdomen, pelvis, and extremities. Small to moderate sized uncomplicated appearing fat containing hernias of the anterior abdominal rectus abdominis sheath are noted. METRICS: Mediastinal blood pool: SUV max 2.3 PET/PET skulltothi INITIAL [id number] IMPRESSION: 1. No evidence of radiotracer avid malignancy. 2. Similar ovoid consolidation in the left lower lobe without elevated uptake is highly suggestive of a benign etiology such as atelectasis or infectious infiltrate. A focus of non hypermetabolic malignancy is less likely but cannot be entirely excluded. 3. Small to moderate left pleural effusion. 4. Colonic diverticulosis. 5. Additional nonurgent findings as detailed above.
== END 2023-07-22 14:12 | disposition home or self-care (01) ==
PROVIDERS: PCP Family Medicine; Visit Provider Family Medicine
DX: R91.1 Solitary pulmonary nodule (principal); J90 Pleural effusion, not elsewhere classified; K57.90 Diverticulosis of intestine, part unspecified, without perforation or abscess without bleeding
CPT/HCPCS: 78815; A9552

== ENCOUNTER → 2023-08-13 14:30 | Outpatient (BNVA) | payer OTHER, SELFPAY | PROVIDERS: PCP Family Medicine; Visit Provider Podiatrist Foot & Ankle Surgery | DX: E11.42 Type 2 diabetes mellitus with diabetic polyneuropathy (principal); L60.3 Nail dystrophy; I73.9 Peripheral vascular disease, unspecified | CPT/HCPCS: 11721 ==

== ENCOUNTER 2023-08-22 10:53 | Outpatient (CLI) | payer OTHER, SELFPAY ==
--- NOTE | 2023-08-22 11:14 | CT_ITS ---
WS: [id number] CT chest wo con [id number] HISTORY: INCIDENTAL PULMONARY FINDING; FOLLOWUP TECHNIQUE: Axial imaging performed through the thorax. Coronal and sagittal reformats are submitted. All CT scans at [facility] use at least one of these dose optimization techniques: automated exposure control; mA and/or kV adjustment per patient size (includes targeted exams where dose is mat ched to clinical indication); or iterative reconstruction. CONTRAST: None DLP: 780.83 mGy.cm COMPARISON: 05/27/2023, 04/16/2021, PET/CT 07/22/2023 Lungs and central airway: Focal consolidation in the LEFT lower lobe is reidentified. This was negati ve on the PET/CT. This mass measures 5.4 x 2.6 cm and is not changed since 05/27/2023. Suspect this ma y be an area of rounded atelectasis. There is an adjacent small LEFT pleural effusion which has been present since at least 06/01/2020 with slight increase in size. Small subpleural nodules posterior LEF T apex. Pleura: Small LEFT pleural effusion. Heart and pericardium: Normal size heart. Prior CABG. Dense coronary artery calcifications. Mediastinum and priscilla: Small mediastinal and hilar lymph nodes. No pathologically enlarged lymph nodes . Vessels: Moderate atherosclerosis aorta. Normal size pulmonary artery. Chest wall and lower neck: Small hiatal hernia. Upper abdomen: Superior pole RIGHT renal cyst 3.4 cm. LEFT renal cyst 1.7 cm. Heavy calcification in the celiac axis and SMA. Osseous structures: Thoracolumbar scoliosis. CT/CT chest wo con [id number] IMPRESSION: 1. Reidentified is a consolidation in the LEFT lower lobe measuring 5.4 x 2.6 cm which is unchanged since 05/27/2023. This may be an area of atelectasis. Note d to be negative on the recent PET/CT. 2. Small layering LEFT pleural effusion is also stable. 3. Prior CABG. 4. No mediastinal or hilar adenopathy. 5. Prior cholecystectomy.
== END 2023-08-22 10:54 | disposition home or self-care (01) ==
LOC: RAD 10:53
PROVIDERS: PCP Family Medicine; Visit Provider Family Medicine
DX: I25.10 Atherosclerotic heart disease of native coronary artery without angina pectoris (principal); J90 Pleural effusion, not elsewhere classified; Z95.1 Presence of aortocoronary bypass graft; Z90.49 Acquired absence of other specified parts of digestive tract; I70.0 Atherosclerosis of aorta; K44.9 Diaphragmatic hernia without obstruction or gangrene; M41.35 Thoracogenic scoliosis, thoracolumbar region; R91.8 Other nonspecific abnormal finding of lung field
CPT/HCPCS: 71250

== ENCOUNTER → 2023-09-19 10:27 | Outpatient (BNVA) | payer OTHER, SELFPAY | PROVIDERS: PCP Family Medicine; Visit Provider Specialist | DX: M17.0 Bilateral primary osteoarthritis of knee; Z71.89 Other specified counseling | CPT/HCPCS: 20610; J1100; J2795; J3301 ==

== ENCOUNTER → 2023-10-29 14:31 | Outpatient (BNVA) | payer OTHER, SELFPAY | PROVIDERS: PCP Family Medicine; Visit Provider Podiatrist Foot & Ankle Surgery | DX: E11.42 Type 2 diabetes mellitus with diabetic polyneuropathy (principal); L60.3 Nail dystrophy; I73.9 Peripheral vascular disease, unspecified | CPT/HCPCS: 11721 ==

== ENCOUNTER 2023-12-22 13:15 | Outpatient (CLI) | payer OTHER, SELFPAY ==
--- NOTE | 2023-12-22 14:00 | USCV_ITS ---
Victorino Stevenson Age: 73 Gender: M : 1950 Exam Date: 12/22/2023 14:02 Ordering Phys: Aki Trujillo MD (Andy) ([email or web address] [place]) Technologist: CT Exam Location: [facility] [place] Indication: Risk Factors: Previous Vascular Surgery: Right Brachial BP: / Left Brachial BP: / Right Left Velocity (cm/s) Spectral Plaque Velocity (cm/s) Spectral Plaque Syst/Diast Broadening Syst/Diast Broadening 72.40/ 8.70 Prox CCA 53.10 / 11.00 60.50/ 10.90 Mid CCA 50.10 / 13.70 59.90/ 10.40 Distal CCA 62.10 / 12.90 48.90/ 7.40 Prox ICA 75.60 / 16.70 88.20/ 20.50 Mid ICA 108.20/ 31.50 72.70/ 17.70 Distal ICA 77.40 / 14.70 53.00 ECA 163.20 1.50 ICA/CCA 1.70 Antegrade Vertebral Antegrade 32.20/ 0.00 cm/s 37.10/ 0.00 cm/s Tri Subclavian Bi 76.00 87.30 FINDINGS Comparison:. 06/26/20 Diffuse bilateral scattered calcified plaque and intimal thickening throughout the common carotid arteries and extending through the bifurcation. No progression of velocity. Antegrade vertebral arteries. CONCLUSIONS Bilateral ICA stenosis less than 50%. No interval change in stenosis since prior exam. Dr. Celsa Anderson DO (Electronically Signed) Final Date: 22 December 2023 15:23 S
== END 2023-12-22 13:16 | disposition home or self-care (01) ==
LOC: RAD 13:16
PROVIDERS: PCP Family Medicine; Visit Provider Thoracic Surgery (Cardiothoracic Vascular Surgery)
DX: I65.23 Occlusion and stenosis of bilateral carotid arteries (principal)
CPT/HCPCS: 93880

== ENCOUNTER → 2024-01-28 14:11 | Outpatient (BNVA) | payer OTHER, SELFPAY | PROVIDERS: PCP Family Medicine; Visit Provider Podiatrist Foot & Ankle Surgery | DX: E11.42 Type 2 diabetes mellitus with diabetic polyneuropathy (principal); L60.3 Nail dystrophy; I73.9 Peripheral vascular disease, unspecified | CPT/HCPCS: 11721 ==

== ENCOUNTER → 2024-02-13 10:25 | Outpatient (BNVA) | payer OTHER, SELFPAY | PROVIDERS: PCP Family Medicine; Visit Provider Specialist | DX: M17.0 Bilateral primary osteoarthritis of knee (principal); Z71.89 Other specified counseling | CPT/HCPCS: 20610; J1100; J2795; J3301 ==

== ENCOUNTER 2024-02-25 12:30 | Outpatient (CLI) | payer OTHER, SELFPAY ==
--- NOTE | 2024-02-25 12:38 | CTR_ITS ---
PROCEDURE INFORMATION: Exam: CT Chest Without Contrast; Diagnostic Exam date and time: 02/25/2024 12:42 PM Age: 74 years old Clinical indication: Abnormal findings; Abnormal radiologic exam of lung or chest; Prior surgery; Surgery date: 6+ months; Surgery type: Heart; Additional info: Follow up abnormal chest xray TECHNIQUE: Imaging protocol: Diagnostic computed tomography of the chest without contrast. Radiation optimization: All CT scans at this facility use at least one of these dose optimization techniques: automated exposure control; mA and/or kV adjustment per patient size (includes targeted exams where dose is matched to clinical indication); or iterative reconstruction. COMPARISON: 1. CT chest wo con [id number] 08/22/2023 11:13 AM 2. PT PET skull to thigh INIT [id number] 07/22/2023 3:27 PM RADIATION DOSE METRICS: Total DLP (mGy-cm): 813.29 FINDINGS: Thyroid: The thyroid gland is atrophic but otherwise normal. Trachea: Airways are patent. Lungs: Stable focal consolidation with punctate calcifications in the left lower lobe. Bilateral apical capping/scarring. Subpleural atelectasis of the dependent portions of the lungs. No new consolidations. There are no pulmonary nodules. Bilateral bronchial wall thickening. Pleural spaces: Small left layering pleural effusion. No right pleural effusion. There is no evidence of pneumothorax. Heart: Calcifications of the aortic valve annulus. There is calcification of the mitral valve annulus. Trace and likely physiologic pericardial effusion. Coronary arteries: There is severe atherosclerotic calcification of the coronary arteries. Mediastinal space: Scattered calcified granulomas throughout the mediastinum are benign. Calcified hilar granulomas, benign. Lymph nodes: There is no evidence of lymphadenopathy. Vasculature: Mild diffuse calcific atherosclerosis of the aorta. Aorta is normal in course and caliber. The pulmonary arteries are normal in course and caliber. Diaphragm: Small hiatal hernia. Gallbladder and biliary ducts: Cholecystectomy. Kidneys: Simple cyst in the right kidney measuring 3.7 cm. No follow-up is recommended. Bones/joints: Sternotomy wires and mediastinal surgical clips are present, consistent with previous coronary arterial bypass grafting. Moderate multilevel degenerative changes of the spine. No acute skeletal abnormality or aggressive osseous lesion. There are diffuse enthesopathic changes consistent with benign diffuse idiopathic skeletal hyperostosis (DISH). Soft tissues: No acute soft tissue findings. Other findings: No acute findings in the included upper abdominal organs. CT/CT chest wo con [id number] IMPRESSION: 1. Stable small left pleural effusion. 2. Stable focal consolidation with punctate calcifications in the left lower lobe. This was negative on the prior PET and is in keeping with an area of chronic scarring/atelectasis. 3. Acute bronchitis/reactive airways disease. 4. No other acute or concerning chest pathology. 5. Incidental findings as above. COMMENTS: Consistent with the [employer]'s Incidental Findings Committee white paper (J Am Luis Fernando Radiol 2018): Any incidental renal lesion less than 1 cm or classified as too small to characterize, or any incidental cystic renal lesion characterized as simple-appearing, is likely benign. No follow-up imaging is recommended for these lesions per consensus recommendations based on imaging criteria.
== END 2024-02-25 12:31 | disposition home or self-care (01) ==
LOC: RAD 12:30
PROVIDERS: PCP Family Medicine; Visit Provider Family Medicine
DX: R91.8 Other nonspecific abnormal finding of lung field (principal); J90 Pleural effusion, not elsewhere classified; J84.10 Pulmonary fibrosis, unspecified; E03.4 Atrophy of thyroid (acquired); J47.9 Bronchiectasis, uncomplicated; K44.9 Diaphragmatic hernia without obstruction or gangrene; Z90.49 Acquired absence of other specified parts of digestive tract; N28.1 Cyst of kidney, acquired; Z95.1 Presence of aortocoronary bypass graft; M46.09 Spinal enthesopathy, multiple sites in spine
CPT/HCPCS: 71250

== ENCOUNTER 2024-03-01 16:13 | Emergency (ER) | payer OTHER, MEDICARE, SELFPAY ==
[2024-03-01] VITALS (12 sets, daily range): BP systolic 132–171; BP diastolic 72–97; PULSE 53–71; RESP 15–21; TEMP 36.7; O2SAT 92–98; BMI 29.7
--- NOTE | 2024-03-01 16:17 | CTR_ITS ---
PROCEDURE INFORMATION: Exam: CT Head Without Contrast Exam date and time: 03/01/2024 4:14 PM Age: 74 years old Clinical indication: Altered mental status/memory loss; Left sided weak TECHNIQUE: Imaging protocol: Computed tomography of the head without contrast. Radiation optimization: All CT scans at this facility use at least one of these dose optimization techniques: automated exposure control; mA and/or kV adjustment per patient size (includes targeted exams where dose is matched to clinical indication); or iterative reconstruction. Other technique: STROKE PROTOCOL was implemented. COMPARISON: CT head wo con* [id number] 06/25/2022 1:56 PM RADIATION DOSE METRICS: Total DLP (mGy-cm): 1088.68 FINDINGS: Brain: There is mild diffuse cerebral atrophy present, consistent with this patient's age. Periventricular and subcortical white matter low densities are present which at this age likely represent microvascular ischemic change. There are chronic lacunar infarcts in the left caudate, internal/external capsules, and thalami.No evidence for large acute ischemic infarction. Please note acute ischemia can be occult by head CT. No evidence for acute intracranial hemorrhage. Calcified plaque is present within the intracranial vasculature. Cerebral ventricles: No ventriculomegaly. Paranasal sinuses: There is mucosal thickening of the left maxillary sinus and several ethmoid air cells. Mastoid air cells: Visualized mastoid air cells are well aerated. Bones: Unremarkable. No acute fracture. Soft tissues: Unremarkable. CT/CT head thrombolytic [id number] IMPRESSION: There are senescent changes of the brain as described above. No evidence for large acute ischemic infarction or acute intracranial injury. ASSESSMENT: ASPECTS ([place] Stroke Program Early CT Score) is 10.
--- NOTE | 2024-03-01 16:21 | PC.PHAR ---
[facility] at 410pm
--- NOTE | 2024-03-01 16:26 | ECG_ITS ---
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 Measurements Intervals [place] Rate: 53 P: 40 VT: 194 QRS: 58 QRSD: 89 T: 77 QT: 431 QTc: 407 Interpretive Statements SINUS BRADYCARDIA Compared to ECG 01/07/2023 16:37:45 Sinus rhythm no longer present T-wave abnormality no longer present Electronically Signed On 03-01-2024 19:55:25 PAINT SPECIALIST by Yefri Reynoso M.D. [email or web address]
[2024-03-01] MEDS: tenecteplase 50mg Kit (STROKE) 25 MG IVP (16:32)
--- NOTE | 2024-03-01 16:37 | PC.PHAR ---
stephen [facility] of [place], Faxed and called them, went out to the waiting room to speak to family and doesn't know any of what he takes... im trying every avenue that i can and cannot get any answers at this time
[2024-03-01 16:39] LABS: Basophils % 0.6 %; Eosinophils # 0.1 10^3/uL (0.0-0.8); Hematocrit 46.8 % (37-53); Lymphocytes # 2.2 10^3/uL (0.8-4.8); Lymphocytes % 34.5 %; Mean Corpuscular HGB Conc 32.5 g/dL (30-55); Mean Corpuscular Hemoglobin 30.6 pg (27-33); Mean Corpuscular Volume 94.2 fl (82-101); Mean Platelet Volume 10.6 fL (7.4-10.4); Monocytes # 0.4 10^3/uL (0.2-0.9); Monocytes % 7.1 %; Neutrophils # 3.54 10^3/uL (1.8-7.7); Neutrophils % 56.6 %; Nucleated Red Blood Cells % 0 %; Platelet Count 186 10^3/cmm (157-399); Red Blood Count 4.97 10^6/uL (3.85-5.65); Red Cell Distribution Width 13.2 % (12.1-15.1); White Blood Count 6.24 10^3/uL (3.29-11.43)
--- NOTE | 2024-03-01 16:48 | P.PNCC_ITS ---
Stroke Alert Activation ED Arrival Date: 03/01/24 ED Arrival Time: 16:21 ED Physican at Bedside: 16:25 Last Known Normal/at Baseline: 1-2 hours ago Other Last Known Well Infomation: I called patient's and daughter. He has his days and nights mixed up he got up at 1:00 this afternoon and ate lunch. He and his were continuing to visit at 3:00 in the afternoon when she gave him some ice cream. He had to hold the ice cream with both hands and then he could not talk to her. She called her daughter and then called 911. Stroke alert was activated while the patient was in route at 1602. I called the emergency department and talked with triage/staff and was told that Dr. De La Torre was already getting ready to accompany the patient to CAT scan. I watch for the patient to arrive and Dr. De La Torre called me right away as soon as he had assessed the patient. I came directly to the ER. The patient had expressive aphasia, severe dysarthria and moderate right upper extremity weakness with a total stroke scale score of 10. Transiently initially I thought he had a left gaze preference but that improved. The patient had no contraindications to TNK. His blood pressure was under con trol. He is not on a blood thinner. He received his bolus at 1632, 20 minutes after arrival. Stroke Alert Activated by: EMS Stroke Alert Activation Time: 16:02 Stroke MD @ Bedside Time: 16:03 NIH Stroke Scale Time: 16:28 NIH stroke score NIHSS: Level Of Consciousness - 1a: 3 Level Of Consciousness Questions - 1b: Neither Correct Level Of Consciousness Commands - 1c: Both Correct Best Gaze - 2: Normal Visual Mast - 3: No Visual Loss Facial Palsy - 4: Partial Paralysis Motor Arm Right - 5: Effort Against [place] Motor Arm Left - 5: No Drift Motor Leg Right - 6: No Drift Motor Leg Left - 6: No Drift Limb Ataxia - 7: Absent Sensory - 8: Normal Best Language - 9: Severe Aphasia Dysarthia - 10: Mild/Moderate Dysarthia Extinction And Inattention - 11: 1 (Inattentive to the right) Score: Total Score: 13 Stroke Alert Data/Treatment Time to CT of Head: 16:17 CT Results Time: 16:14 CT Impression: 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 Dense left middle cerebral artery that was present on previous CT several years ago. Diffuse white matter changes and atrophy. Stroke Risk Factors: coronary artery disease, hyperlipidemia, hypertension, previous [place] (Previous stroke), obesity, diabetes mellitus and smoker tPA Started Time: tPA Started - Time: 16:32 tPA Admin Prior to Arrival: No Patient & Family Educated on: Cause of Stroke, Risk Factors, Treament Plan and tPA Risks/Benefits Other Patient & Family Education: I talked with his and daughter. I explained the risks of the clot Buster. I talked about the plan to do CTA and admit him to the hospital or transfer him if he has a large thrombus Critical Care Time Critical Care Time: 30 - 74 mins A&P Assessment and plan (1) Left acute arterial ischemic stroke, MCA (middle cerebral artery): He is in the middle of an acute left middle cerebral artery stroke manifested by expressive aphasia, severe, and right hemiparesis. He is not following commands well which indicates some degree of receptive aphasia as well and with a stroke scale score of 13 it was appropriate for him to receive TNK promptly since he is not on a blood thinner and his CT head was unremarkable. I talked with his and his daughter. They know that he has dementia (I diagnosed him with dementia when I saw him for stroke 3 years ago). He is already on Plavix and aspirin and those will be continued. He is already on a atorvastatin 80 mg daily. Watch for atrial fibrillation. I am hoping he will resolve and be able to return home. (2) Alzheimer disease: Coding Level of Care Code Acute Code for [facility] Fwd Diagnoses Left acute arterial ischemic stroke, MCA (middle cerebral artery) I63.512 Alzheimer disease G30.9; F02.80
--- NOTE | 2024-03-01 17:01 | W.ED.NEUROSD ---
HPI - Neuro Symptoms/Deficit General: Chief Complaint: Neuro Symptoms/Deficit Stated Complaint: stroke alert Time Seen by Provider: 03/01/24 16:22 History of Present Illness: 74-year-old man with a history of heavy tobacco use, history of stroke in the past, chronic pain control on chronic opiate analgesics, carotid artery stenosis, COPD, GERD, coronary artery disease, hypertension, diabetes who presents to the emergency room by ambulance with neurologic symptoms. He is left-hand dominant. He is having right hand weakness and drift. Speech salad, slightly slurred speech, and has some slight right-sided neglect. He also appears to have some slight right facial droop. Related Data Home Medications Medication Instructions Recorded Confirmed clopidogrel 75 mg tablet 75 mg PO DAILY@99908/04/19 02/13/24 tamsulosin 0.4 mg capsule 0.4 mg PO DAILY@99908/04/19 02/13/24 citalopram 40 mg tablet 20 mg PO DAILY@99908/05/19 02/13/24 cholecalciferol (vitamin D3) 25 75 mcg PO DAILY@99911/08/19 02/13/24 mcg (1,000 unit) capsule levalbuterol HCl 0.63 mg/3 mL 0.63 mg inhalation TID PRN 01/17/20 02/13/24 solution for nebulization Shortness Of Breath pantoprazole 40 mg tablet,delayed 40 mg PO DAILY@99903/13/20 02/13/24 release (Protonix) levothyroxine 75 mcg tablet 37.5 mcg PO DAILY 06/01/20 02/13/24 nystatin 100,000 unit/gram topical 1 applic topical TID 06/01/20 02/13/24 cream omega 5-nms-wda-fish oil 300 1 cap PO DAILY 06/25/22 02/13/24 mg-1,000 mg capsule (Fish Oil) ondansetron 4 mg disintegrating 4 mg PO Q6H PRN Nausea And Vomiting 06/25/22 02/13/24 tablet empagliflozin 25 mg tablet 25 mg PO DAILY 09/04/22 02/13/24 gemfibrozil 600 mg tablet 600 mg PO DAILY 09/04/22 02/13/24 glipizide 10 mg tablet 10 mg PO DAILY 09/04/22 02/13/24 omeprazole 40 mg capsule,delayed 40 mg PO DAILY 09/04/22 02/13/24 release rosuvastatin 20 mg tablet 20 mg PO DAILY 09/04/22 02/13/24 Previous Rx's Medication Instructions Recorded nitroglycerin 0.4 mg sublingual 0.4 mg sublingual Q5M PRN chest 08/10/19 tablet (Nitrostat) pain #25 tabs atorvastatin 40 mg tablet 80 mg (2 x 40 mg) PO DAILY@1000 04/24/20 #180 tabs hydrocodone 10 mg-acetaminophen 1 tab PO Q8H PRN pain (scale score 07/31/21 325 mg tablet 7-10) 30 days #90 tabs midodrine 2.5 mg tablet 2.5 mg PO BID #180 tabs 06/21/22 aspirin 81 mg tablet,delayed 81 mg PO DAILY #90 tabs 06/27/22 release celecoxib 100 mg capsule 100 mg PO BID #20 caps 08/27/22 Allergies Allergy/AdvReac Type Severity Reaction Status Date / Time albuterol [From DuoNeb] Allergy Unknown Verified 02/13/24 11:28 ipratropium [From DuoNeb] Allergy Unknown Verified 02/13/24 11:28 fluoxetine [From Prozac] AdvReac Intermediate ADR-Irritab Verified 02/13/24 11:28 le Review of Systems Narrative: Constitutional symptoms: Negative except as documented in HPI. Skin symptoms: Negative except as documented in HPI. Eye symptoms: Negative except as documented in HPI. ENMT symptoms: Negative except as documented in HPI. Respiratory symptoms: Negative except as documented in HPI. Cardiovascular symptoms: Negative except as documented in HPI. Gastrointestinal symptoms: Negative except as documented in HPI. Genitourinary symptoms: Negative except as documented in HPI. Musculoskeletal symptoms: Negative except as documented in HPI. Neurologic symptoms: Negative except as documented in HPI. Psychiatric symptoms: Negative except as documented in HPI. Endocrine symptoms: Negative except as documented in HPI. 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 Pain management contract signed Carotid artery stenosis, symptomatic Peripheral Vascular Disease Accelerated essential hypertension Dyslipidemia COPD (chronic obstructive pulmonary disease) GERD (gastroesophageal reflux disease) Varicose veins of bilateral lower extremities with other complications Lower extremity edema CAD (coronary artery disease) HTN (hypertension) Diabetes Closed fracture of distal end of right fibula Surgical History Hx of cholecystectomy H/O heart bypass surgery Hx of cholecystectomy Hx of CABG Family History Father CAD (coronary artery disease) Diabetes Hypertension Lung disease Grandfather CAD (coronary artery disease) Diabetes Hypertension Son CAD (coronary artery disease) Family history of premature coronary artery disease Grandmother Cancer Denies family history of Clotting disorder Dementia Hyperlipidemia Psychiatric illness Chronic kidney disease (CKD) Suicide Anesthesia complication Bleeding disorder Stroke Social History Smoking and tobacco/nicotine status: current every day tobacco/nicotine user cigarettes Packs smoked per day: 1.5 Years cigarettes smoked: 15 Second hand smoke exposure: Yes Alcohol intake: former 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 Substance/Drug Use: never Caregiver/support person: Yes Lives independently: Yes Household members: spouse service: Yes Physical Exam Narrative: EXAM NARRATIVE: General: Alert, no acute distress. Skin: Warm, dry. Head: Normocephalic, atraumatic. Neck: Supple, trachea midline. Eye: Extraocular movements are intact. Ears, nose, mouth and throat: mucosa moist. Cardiovascular: Regular, Normal peripheral perfusion. Respiratory: Lungs are clear to auscultation, respirations are non-labored, breath sounds are equal, Symmetrical chest wall expansion. Gastrointestinal: Soft, Nontender, Non distended Musculoskeletal: Normal ROM, no deformity. Neurological: Alert and oriented, patient has word salad, some difficulty following commands, can follow simple commands but not more complicated. Some dysphasia, right sided drift to the bed on his arm. Not on his legs. He has some right sided neglect. Of note he is left-hand dominant. Psychiatric: Cooperative, appropriate mood & affect. Course Vital Signs: Vital signs: Vital Signs Temperature 98.1 F 03/01/24 16:24 Pulse Rate 55 L 03/01/24 18:45 Respiratory Rate 19 H 03/01/24 18:45 Blood Pressure 152/88 03/01/24 18:45 Pulse Oximetry 96 03/01/24 18:45 Oxygen Delivery Me thod Room Air 03/01/24 16:35 MDM - Neuro Symptoms/Deficit Medical Decision Making Medical decision making: Differential diagnosis for patient with focal neurologic deficit(s) includes but not limited to and based on the above HPI, review of systems and physical exam: ischemic stroke, hemorrhagic stroke and embolic stroke secondary to atrial fibrillation), TIA, Mcclure's palsey, metabolic encephalopathy with previous stroke. Orders placed to evaluate differential diagnosis based on the above differential, HPI and physical exam Stroke alert was called prior to patient arrival. This was called by EMS Consultation: I consulted Dr. Winter immediately after my exam which was on arrival to the emergency room in the CT scanner. She has examined the patient and recommends TNKase. In her discussion with the patient and the family his symptoms started actually 1 hour prior to arrival rather than the initial thought to be around 3 hours. She said he acutely started having to use his other hand to hold a cup at the dinner table and they acutely noticed the change in his speech. NIH Stroke Scale/Score (NIHSS) from [employer] on 03/01/2024 All calculations should be rechecked by clinician prior to use RESULT SUMMARY: 10 points NIH Stroke Scale INPUTS: 1A: Level of consciousness ?> 0 = Alert; keenly responsive 1B: Ask month and age ?> 1 = 1 question right 1C: 'Blink eyes' & 'squeeze hands' ?> 1 = Performs 1 task 2: Horizontal extraocular movements ?> 1 = Partial gaze palsy: can be overcome 3: Visual brizuela ?> 0 = No visual loss 4: Facial palsy ?> 1 = Minor paralysis (flat nasolabial fold, smile asymmetry) 5A: Left arm motor drift ?> 0 = No drift for 10 seconds 5B: Right arm motor drift ?> 2 = Drift, hits bed 6A: Left leg motor drift ?> 0 = No drift for 5 seconds 6B: Right leg motor drift ?> 0 = No drift for 5 seconds 7: Limb Ataxia ?> 1 = Ataxia in 1 Limb 8: Sensation ?> 0 = Normal; no sensory loss 9: Language/aphasia ?> 2 = Severe aphasia: fragmentary expression, inference needed, cannot identify materials 10: Dysarthria ?> 1 = Mild-moderate dysarthria: slurring but can be understood 11: Extinction/inattention ?> 0 = No abnormality CT head: No acute intracranial process. There is some old encephalomalacia. No intracranial hemorrhage, no evidence of infarct. no evidence of acute fracture.This was reviewed and interpreted by myself the ER physician. EKG: Time 1639. Rate 53. Sinus bradycardia, No ST-T changes, no ectopy, normal ND & QRS intervals, This was reviewed and interpreted by myself the ER physician at 1641 Reexamination: Patient reported by nursing to have a worsening in his speech difficulty. This did seem evident. CTA had not quite been done yet so I had a noncontrast CT repeated prior to the contrast CT. Repeat noncontrast head CT: There are some left frontal intraparenchymal hemorrhage. I discussed this with the radiologist and with the neurologist. Neurology recommends transfer at this time as he is converted to hemorrhagic stroke and we do not have neurosurgery if they are needed. CTA head and neck: There is some atherosclerotic disease in the carotids. See full report by radiology. This was reviewed and interpreted by myself the emergency room physician. I also reviewed the radiology report. Lab Review: Laboratory results were reviewed and interpreted by myself the emergency room physician. No leukocytosis. No anemia. I reviewed the patient's medical record. Reexamination: Patient has remained stable after that initial change.-Think his speech has improved slightly. No oxygen requirements. No new motor deficits. Consultation: I spoke with Dr. Winter again about the patient. She reviewed the films. She recommends transfer to a tertiary care center that has neurosurgery. Assessment and plan: Acute cerebrovascular accident Hemorrhagic conversion Right sided weakness Word salad Dysphasia Tobacco dependence ?TNKase was given as directed. Patient has had a hemorrhagic conversion. -We have attempted air ambulance transport but weather is not permitting. -I discussed the patient with the hospitalist on-call who is admitting the patient. - Discussed findings and plan with patient. Answered any questions. - All laboratory values were reviewed and interpreted personally by myself, the ER physician - All imaging was reviewed and interpreted personally by myself, the ER physician. - Evaluation and treatment of this problem were appropriate in the emergency setting Critical care -I spent a total of >35 minutes of critical care time managing the patient, independent of any other practitioner. -The time involved in the performance of separately reportable procedures was not counted towards critical care time. Lab Data 03/01/24 16:29 03/01/24 18:[address] 12/23/24 16:17 IMPRESSION: There are senescent changes of the brain as described above. No evidence for large acute ischemic infarction or acute intracranial injury. ASSESSMENT: ASPECTS ([place] Stroke Program Early CT Score) is 10. ADDENDUM: 03/01/24 1639 CRITICAL RESULT: The study was personally discussed on the telephone with Dr. De La Torre on 03/01/2024 4:36 PM DIRECTOR EMERGENCY SERVICES. The results were understood and acknowledged. Head/Neck CTA 03/01/24 17:24 IMPRESSION: 1. There is paranasal sinusitis as described above. 2. There is scattered atherosclerotic plaque in the intracranial internal carotid arteries with regions of mild narrowing. IMPRESSION: 1. There is atherosclerotic plaque in the proximal left internal carotid artery with moderate stenosis. A short segment of moderate to severe stenosis is present approximately 1.9 cm distal to the bifurcation. 2. There is a short segment of moderate stenosis of the proximal right internal carotid artery. 3. There is atherosclerotic plaque in the proximal left common carotid artery with uvii-uc-jkqhciep stenosis. 4. There is consolidation at the posterior aspect of the lungs, left greater than right. This is only partially visualized. Consider CT scan of the thorax for further evaluation. REFERENCES: NASCET CRITERIA. The degree of stenosis in the cervical segment of the internal carotid artery is based on NASCET criteria. Normal is no stenosis. Mild is less than 50% stenosis. Moderate is 50-69% stenosis. Severe is 70% to 99% stenosis. Total occlusion is no detectable patent lumen. ADDENDUM: 03/01/24 1850 There is faint acute intraparenchymal hemorrhage involving the left frontal lobe. Results were discussed with Dr. Houston at the time of this addendum. Laboratory Results WBC 6.24 10^3/uL (3.29-11.43) 03/01/24 16:29 RBC 4.97 10^6/uL (3.85-5.65) 03/01/24 16:29 Hgb 15.20 g/dL (11.27-16.99) 03/01/24 16:29 Hct 46.8 % (37-53) 03/01/24 16:29 MCV 94.2 fl (82-101) 03/01/24 16:29 MCH 30.6 pg (27-33) 03/01/24 16:29 MCHC 32.5 g/dL (30-55) 03/01/24 16: RDW 13.2 % (12.1-15.1) 03/01/24 16:29 Plt Count 186 10^3/cmm (157-399) 03/01/24 16:29 MPV 10.6 fL (7.4-10.4) H 03/01/24 16:29 Neut % (Auto) 56.6 % 03/01/24 16:29 Lymph % (Auto) 34.5 % 03/01/24 16:29 [place] % (Auto) 7.1 % 03/01/24 16: Eos % (Auto) 1.0 % 03/01/24 16: Baso % (Auto) 0.6 % 03/01/24 16:29 Neut # (Auto) 3.54 10^3/uL (1.8-7.7) 03/01/24 16:29 Lymph # (Auto) 2.2 10^3/uL (0.8-4.8) 03/01/24 16:29 [place] # (Auto) 0.4 10^3/uL (0.2-0.9) 03/01/24 16:29 Eos # (Auto) 0.1 10^3/uL (0.0-0.8) 03/01/24 16:29 Baso # (Auto) 0.0 10^3/uL (0.0-0.1) 03/01/24 16:29 Nucleated RBC % (auto) 0 % 03/01/24 16:29 Nucleated RBCs # 0.0 /100WBC 03/01/24 16:29 PT 13.80 SECONDS (12.1-14.9) 03/01/24 17:17 INR 1.02 (0.8-1.2) 03/01/24 17:17 APTT 27.1 SECONDS (23.9-36.7) 03/01/24 17:17 Sodium 138 mmol/L (136-145) 03/01/24 18:52 Potassium 4.4 mmol/L (3.5-5.1) 03/01/24 18:52 Chloride 106 mmol/L (98-107) 03/01/24 18:52 Carbon Dioxide 26 mmol/L (22-29) 03/01/24 18:52 Anion Gap 10.4 (5-19) 03/01/24 18:52 BUN 25 mg/dL (8-23) H 03/01/24 18:52 Creatinine 1.3 mg/dL (0.7-1.2) H 03/01/24 18:52 GFR Calculation Not Reportable 03/01/24 18:52 Glucose 76 mg/dL (65-115) 03/01/24 18:52 Calculated Osmolality 289 mOsm/kg (285-295) 03/01/24 18:52 Calcium 9.1 mg/dL (8.5-10.5) 03/01/24 18:52 Total Bilirubin 0.3 mg/dL (0.15-1.2) 03/01/24 18:52 AST 16 U/L (0-40) 03/01/24 18:52 ALT 12 U/L (0-41) 03/01/24 18:52 Alkaline Phosphatase 81 U/L (40-130) 03/01/24 18:52 Troponin T Baseline 17 ng/L (0-15) H 03/01/24 17:17 Total Protein 7.3 g/dL (6.6-8.7) 03/01/24 18:52 Albumin 3.5 g/dL (3.5-5.2) 03/01/24 18:52 Globulin 3.8 g/dL (1.3-4.6) 03/01/24 18:52 All radiology interpretation(s) finalized by discharge Discharge Plan Discharge Patient Disposition: Xfer Short-Term Hosp Clinical Impression: Acute cerebrovascular accident, Adverse effect of tenecteplase, Intracranial hemorrhage, Dysphasia, Right sided weakness Condition: Stable Referrals: Sujata Macedo MD [Primary Care Provider] - Coding Level of Care Code ED Soil Engineer for Natalie Chu
--- NOTE | 2024-03-01 17:23 | PC.NURSE ---
PT seems to have worsening dysarthria since last nursing assessment. This nurse called and informed dr. akers of change
--- NOTE | 2024-03-01 17:24 | CTR_ITS ---
PROCEDURE INFORMATION: Exam: CTA Head With Contrast, Arteriography Exam date and time: 03/01/2024 5:39 PM Age: 74 years old Clinical indication: Other: Left sided weakness; Additional info: Possible stroke TECHNIQUE: Imaging protocol: Computed tomographic angiography of the head with contrast. Exam focused on the arteries. 3D rendering (Not supervised by radiologist): MIP and/or 3D reconstructed images were created by the technologist. Radiation optimization: All CT scans at this facility use at least one of these dose optimization techniques: automated exposure control; mA and/or kV adjustment per patient size (includes targeted exams where dose is matched to clinical indication); or iterative reconstruction. Contrast material: OMNIPAQUE 350; Contrast volume: 100 ml; Contrast route: INTRAVENOUS (IV); COMPARISON: CT head thrombolytic [id number] 03/01/2024 4:14 PM RADIATION DOSE METRICS: Total DLP (mGy-cm): 1062.82 FINDINGS: ANTERIOR CIRCULATION: Right internal carotid artery: There is scattered atherosclerotic plaque with regions of mild narrowing. No aneurysm. Right middle cerebral artery: No occlusion or significant stenosis. No aneurysm. Right anterior cerebral artery: No occlusion or significant stenosis. No aneurysm. Left internal carotid artery: There is scattered atherosclerotic plaque with regions of mild narrowing. No aneurysm. Left middle cerebral artery: No occlusion or significant stenosis. No aneurysm. Left anterior cerebral artery: No occlusion or significant stenosis. No aneurysm. POSTERIOR CIRCULATION: Right vertebral artery: There is a short segment of severe stenosis of the right vertebral artery at the craniovertebral junction seen on series 8, images 182 and 183) calcified plaque. Left vertebral artery: Normal variant hypoplastic left vertebral artery terminates in the PICA. Basilar artery: Normal variant communication between the left internal carotid artery and the basilar artery. Right posterior cerebral artery: No occlusion or significant stenosis. No aneurysm. Left posterior cerebral artery: No occlusion or significant stenosis. No aneurysm. Brain: No definite mass, mass effect, or midline shift. Cerebral ventricles: No ventriculomegaly. Paranasal sinuses: There is a frothy air-fluid level in the left maxillary sinus. Bilateral maxillary mucosal thickening. There is thickening of the left maxillary sinus landers consistent with chronic sinusitis change. Mucosal thickening of several ethmoid air cells. Bones/joints: Unremarkable. No acute fracture. Soft tissues: Unremarkable. PROCEDURE INFORMATION: Exam: CTA Neck With Contrast Exam date and time: 03/01/2024 5:39 PM Age: 74 years old Clinical indication: Other: Left sided weakness; Additional info: Possible stroke TECHNIQUE: Imaging protocol: Computed tomographic angiography of the neck with contrast. Exam focused on the cervical segments of the vasculature. 3D rendering (Not supervised by radiologist): MIP and/or 3D reconstructed images were created by the technologist. Radiation optimization: All CT scans at this facility use at least one of these dose optimization techniques: automated exposure control; mA and/or kV adjustment per patient size (includes targeted exams where dose is matched to clinical indication); or iterative reconstruction. Contrast material: OMNIPAQUE 350; Contrast volume: 100 ml; Contrast route: INTRAVENOUS (IV); COMPARISON: MR angio neck w con* [id number] 08/11/2020 8:12 AM RADIATION DOSE METRICS: Total DLP (mGy-cm): 1062.82 FINDINGS: Right common carotid artery: Mild calcified plaque. No stenosis. No dissection or occlusion. Right internal carotid artery: Scattered atherosclerotic plaque. There is a short segment of moderate stenosis of the proximal right internal carotid artery 8 mm distal to the bifurcation seen on series 8, image 115. No occlusion or dissection. Right external carotid artery: No occlusion or stenosis of the origin. Left common carotid artery: There is atherosclerotic plaque in the proximal left common carotid artery with mzjk-bn-gvknwcda stenosis. Left internal carotid artery: There is atherosclerotic plaque in the proximal left internal carotid artery with moderate stenosis. A short segment of moderate to severe stenosis is present approximately 1.9 cm distal to the bifurcation caused by irregular appearing plaque along the left side of the internal carotid artery. This is seen on series 8, image 109 through 111. Left external carotid artery: No occlusion or stenosis of the origin. Right vertebral artery: No stenosis. No dissection or occlusion. Left vertebral artery: No stenosis. No dissection or occlusion. Teeth: The patient is edentulous. Soft tissues: There are benign-appearing soft tissue calcifications. Bones/joints: There are degenerative changes throughout the visualized spine including marginal osteophyte formations, endplate degenerative changes, and facet arthropathy. Multilevel disc space narrowing. There are multilevel broad-based disc osteophyte complexes which indent the anterior thecal sac and result in varying degrees of bilateral neuroforamina narrowing. Lungs: There is consolidation at the posterior aspect of the lungs, left greater than right. CT/CT angio headneck* [id number] IMPRESSION: 1. There is paranasal sinusitis as described above. 2. There is scattered atherosclerotic plaque in the intracranial internal carotid arteries with regions of mild narrowing. IMPRESSION: 1. There is atherosclerotic plaque in the proximal left internal carotid artery with moderate stenosis. A short segment of moderate to severe stenosis is present approximately 1.9 cm distal to the bifurcation. 2. There is a short segment of moderate stenosis of the proximal right internal carotid artery. 3. There is atherosclerotic plaque in the proximal left common carotid artery with syil-eq-mqjgkgfv stenosis. 4. There is consolidation at the posterior aspect of the lungs, left greater than right. This is only partially visualized. Consider CT scan of the thorax for further evaluation. REFERENCES: NASCET CRITERIA. The degree of stenosis in the cervical segment of the internal carotid artery is based on NASCET criteria. Normal is no stenosis. Mild is less than 50% stenosis. Moderate is 50-69% stenosis. Severe is 70% to 99% stenosis. Total occlusion is no detectable patent lumen.
[2024-03-01] MEDS: iohexol 350 mg/mL 500 mL Btl (per mL) IV (17:43)
[2024-03-01 17:56] LABS: INR 1.02 (0.8-1.2)
[2024-03-01 17:57] LABS: Partial Thromboplastin Time 27.1 SECONDS (23.9-36.7)
[2024-03-01 17:58] LABS: Troponin(5th) Baseline 17 ng/L (0-15)
--- NOTE | 2024-03-01 18:26 | ECG_ITS ---
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 Measurements Intervals Victor Rate: 55 P: 38 IL: 218 QRS: 52 QRSD: 94 T: 73 QT: 443 QTc: 427 Interpretive Statements SINUS BRADYCARDIA WITH FIRST DEGREE AV BLOCK POSSIBLE LEFT ATRIAL ENLARGEMENT [-0.1mV P-WAVE IN V1/V2] Compared to ECG 03/01/2024 16:39:46 First degree AV block now present Electronically Signed On 03-01-2024 20:24:19 SUSTAINABLE SYSTEMS ANALYST by Yefri Reynoso M.D. [email or web address]
[2024-03-01 19:16] LABS: Alanine Aminotransferase 12 U/L (0-41); Albumin Level 3.5 g/dL (3.5-5.2); Alkaline Phosphatase 81 U/L (40-130); Aspartate Amino Transferase 16 U/L (0-40); Blood Urea Nitrogen 25 mg/dL (8-23); Calcium 9.1 mg/dL (8.5-10.5); Carbon Dioxide 26 mmol/L (22-29); Chloride 106 mmol/L (98-107); Creatinine Clr Calc Pharmacy 61.6411; Globulin 3.8 g/dL (1.3-4.6); Glucose 76 mg/dL (65-115); Osmolality Calculated 289 mOsm/kg (285-295); Sodium 138 mmol/L (136-145); Total Bilirubin 0.3 mg/dL (0.15-1.2); Total Protein 7.3 g/dL (6.6-8.7)
[2024-03-01 19:18] LABS: Anion Gap 10.4 (5-19); Potassium 4.4 mmol/L (3.5-5.1)
[2024-03-01] MEDS: morphine 4 mg/mL SDV 1 mL 2 MG IVP (19:33)
[2024-03-01] MEDS: ondansetron 2 mg/ML SDV 2 mL 4 MG IVP (19:33)
--- NOTE | 2024-03-01 19:51 | PC.NURSE ---
Tao discharged with the pt for EMS to use if needed en route per ED physician
[2024-03-01 20:16] LABS: Troponin 5 2HR 17.17 ng/L (0-15); Troponin 5 2HR Delta 0.17 ABS# (0-10)
== END 2024-03-01 20:05 | disposition short-term general hospital (02) ==
PROVIDERS: Emergency Provider Emergency Medicine; PCP Family Medicine
DX: I63.89 Other cerebral infarction (principal); T45.615A Adverse effect of thrombolytic drugs, initial encounter; I62.9 Nontraumatic intracranial hemorrhage, unspecified; F17.210 Nicotine dependence, cigarettes, uncomplicated; I25.10 Atherosclerotic heart disease of native coronary artery without angina pectoris; Z86.73 Personal history of transient ischemic attack (TIA), and cerebral infarction without residual deficits; E11.9 Type 2 diabetes mellitus without complications; I10 Essential (primary) hypertension; J44.9 Chronic obstructive pulmonary disease, unspecified; E78.5 Hyperlipidemia, unspecified; X58.XXXA Exposure to other specified factors, initial encounter
CPT/HCPCS: 36415; 70450; 70496; 70498; 80053; 84484; 85025; 85610; 85730; 93005; 96374; 96375; 99285; J2270; J2405; J3101

== ENCOUNTER → 2024-05-21 10:40 | Outpatient (BNVA) | payer OTHER, SELFPAY | PROVIDERS: PCP Family Medicine; Visit Provider Specialist | DX: M17.0 Bilateral primary osteoarthritis of knee (principal); Z71.89 Other specified counseling | CPT/HCPCS: 20610; J1100; J2795; J3301; J9999 ==

== ENCOUNTER → 2024-05-24 12:51 | Outpatient (BNVA) | payer OTHER, SELFPAY | PROVIDERS: PCP Family Medicine; Visit Provider Podiatrist Foot & Ankle Surgery | DX: E11.42 Type 2 diabetes mellitus with diabetic polyneuropathy (principal); L60.3 Nail dystrophy; I73.9 Peripheral vascular disease, unspecified | CPT/HCPCS: 11721 ==

== ENCOUNTER → 2024-06-21 15:47 | Outpatient (BNVA) | payer OTHER, SELFPAY | PROVIDERS: PCP Family Medicine; Visit Provider Internal Medicine Cardiovascular Disease | DX: I25.810 Atherosclerosis of coronary artery bypass graft(s) without angina pectoris (principal); I10 Essential (primary) hypertension; E78.5 Hyperlipidemia, unspecified; Z79.01 Long term (current) use of anticoagulants; Z79.82 Long term (current) use of aspirin; Z95.1 Presence of aortocoronary bypass graft; F17.200 Nicotine dependence, unspecified, uncomplicated | CPT/HCPCS: 99214 ==

== ENCOUNTER → 2024-08-25 13:01 | Outpatient (BNVA) | payer OTHER, SELFPAY | PROVIDERS: PCP Family Medicine; Visit Provider Podiatrist Foot & Ankle Surgery | DX: E11.42 Type 2 diabetes mellitus with diabetic polyneuropathy (principal); L60.3 Nail dystrophy; I73.9 Peripheral vascular disease, unspecified | CPT/HCPCS: 11721 ==

== ENCOUNTER → 2024-09-03 10:45 | Outpatient (BNVA) | payer OTHER, SELFPAY | PROVIDERS: PCP Family Medicine; Visit Provider Specialist | DX: M17.0 Bilateral primary osteoarthritis of knee (principal) | CPT/HCPCS: 20610; J1100; J2795; J3301; J9999 ==

== ENCOUNTER 2024-09-24 17:13 | Emergency (ER) | payer OTHER, SELFPAY ==
[2024-09-24 17:17] VITALS: PULSE 0; RESP 0
--- OUTSIDE RECORDS SUMMARY | 2024-09-24 17:25 | XMS_ITS | Encounter Summary ---
Author Organization [facility] Address [address] [place] [address] Care Team Providers Care Supervisor Trust Accounts Name Role Phone [facility], External Provider Primary Care Provider [phone]- [phone] Encounter Details Date Type Department Care Team (Late st Contact Info) Description 08/17/2012 Ancillary Orders [facility] General Laboratory Services [place] [address] [place] [address] Sick Social History Tobacco Use Types Packs/Day Years Used Date Smoking Tobacco: Never Assessed Sex and Gender Information Value Date Recorded Sex Assigned at Not on file Legal Sex Male 9:19 PM CDT Gender Identity Not on file Sexual Orientation Not on file documented as of this encounter Plan of Treatment Not on file documented as of this encounter Procedures Procedure Name Priority Date/Time Associated Diagnosis Comments CBC WITH DIFFERENTIAL Routine 08/17/2012 8:03 PM CDT Sick [ICD-9-CM] BRAIN NATRIURETIC PEPTIDE, BNP OR PROBNP Routine 08/17/2012 8:03 PM CDT Sick [ICD-9-CM] HEMOGLOBIN A1C Routine 08/17/2012 8:03 PM CDT Sick [ICD-9-CM] BASIC METABOLIC PANEL Routine 08/17/2012 8:03 PM CDT Sick [ICD-9-CM] documented in this encounter Results * CBC WITH DIFFERENTIAL (08/17/2012 8:03 PM CDT) WBC 5.8 4.2 - 9.1 K/uL 08/17/2012 9:50 PM CDT [facility] RBC 4.81 4.63 - 6.08 M/uL 08/17/2012 9:50 PM CDT [facility] HEMOGLOBIN 14.7 13.7 - 17.5 g/dL 08/17/2012 9:50 PM CDT [facility] HEMATOCRIT 43.8 40.1 - 51.0 % 08/17/2012 9:50 PM CDT [facility] MCV 91.1 79.0 - 92.2 fL 08/17/2012 9:50 PM CDT [facility] MCH 30.6 25.7 - 32.2 pg 08/17/2012 9:50 PM CDT [facility] MCHC 33.6 32.3 - 36.5 g/dL 08/17/2012 9:50 PM CDT [facility] RDW 14.2 11.0 - 14.5 % 08/17/2012 9:50 PM CDT [facility] RDW-STDEV 45.8 37.0 - 54.0 fL 08/17/2012 9:50 PM CDT [facility] PLATELETS 197 130 - 400 K/uL 08/17/2012 9:50 PM CDT [facility] MPV 10.3 10.0 - 14.8 fL 08/17/2012 9:50 PM CDT [facility] NEUTROPHILS 36 34 - 68 % 08/17/2012 9:50 PM CDT [facility] LYMPHOCYTES 50 22 - 53 % 08/17/2012 9:50 PM CDT [facility] MONOCYTES 12 5 - 12 % 08/17/2012 9:50 PM CDT [facility] EOSINOPHILS 2 1 - 7 % 08/17/2012 9:50 PM CDT [facility] BASOPHILS 1 0 - 1 % 08/17/2012 9:50 PM CDT [facility] NEUTROPHIL ABSOLUTE 2.08 1.78 - 5.38 K/uL 08/17/2012 9:50 PM CDT [facility] [place] LYMPHOCYTE ABSOLUTE 2.91 1.20 - 3.40 K/uL 08/17/2012 9:50 PM CDT [facility] [place] MONOCYTE ABSOLUTE 0.67 0.30 - 0.82 K/uL 08/17/2012 9:50 PM CDT [facility] [place] EOSINOPHIL ABSOLUTE 0.14 0.04 - 0.54 K/uL 08/17/2012 9:50 PM CDT [facility] [place] BASOPHILS ABSOLUTE 0.04 0.01 - 0.08 K/uL 08/17/2012 9:50 PM CDT [facility] [place] Blood specimen (specimen) Venipuncture - Lab Collect / Unknown 08/17/2012 8:03 PM CDT 08/17/2012 9:23 PM CDT Khai ZURITA HEMATOLOGY ORDERABLES Final R esult Performing Organization Address City/[facility]/ZIP Co de Phone Number [facility] [employer] [facility] CLIA # [id number] [address] [place] [phone] * BRAIN NATRIURETIC PEPTIDE, BNP OR PROBNP (08/17/2012 8:03 PM CDT) [facility] PROBNP, N TERMINAL 33 <=125 pg/mL 08/17/2012 10:12 PM CDT [facility] [employer] [facility] Blood specimen (specimen) Venipuncture - Lab Collect / Unknown 08/17/2012 8:03 PM CDT 08/17/2012 9:23 PM CDT Khai ZURITA CHEMISTRY ORDERABLES Final Re sult [facility] [employer] [facility] CLIA # [id number] [address] [place] [address] * (ABNORMAL) BASIC METABOLIC PANEL (08/17/2012 8:03 PM CDT) [facility] SODIUM 142 136 - 145 mmol/L 08/17/2012 10:12 PM [facility] POT[facility] 3.9 3.5 - 5.1 mmol/L 08/17/2012 10:12 PM [facility] CHLORIDE 104 98 - 107 mmol/L 08/17/2012 10:12 PM [facility] CO2 30 21 - 32 mmol/L 08/17/2012 10:12 PM [facility] CALCIUM 9.2 8.5 - 10.1 mg/dL 08/17/2012 10:12 PM [facility] BUN 19(H) 7 - 18 mg/dL 08/17/2012 10:12 PM [facility] CREATININE 1.10 0.60 - 1.30 mg/dL 08/17/2012 10:12 PM [facility] GLUCOSE 201(H) 74 - 106 mg/dL 08/17/2012 10:12 PM [facility] GFR 68 >=60 mL/min/1.7 3 sq meter 08/17/2012 10:12 PM [facility] GFR, 82 >=60 mL/min/1.7 3 sq meter 08/17/2012 10:12 PM [facility] Blood specimen (specimen) Venipuncture - Lab Collect / Unknown 08/17/2012 8:03 PM CDT 08/17/2012 9:23 PM CDT Narrative [facility] - 08/17/2012 10:12 PM CDT eGFR has not been validated for use in the elderly (> 70 years of age), women, patients with serious co-morbid conditions, or persons with extremes of body size or muscle mass and should also be interpreted with caution in patients with acute kidney failure, dialysis dependant patients, patients reporting exceptional dietary intake (e.g. vegetarian diet, high protein diets, creatine supplementation), and patients with severe liver disease. Based on National Kidney Disease Education Program us Khai ZURITA CHEMISTRY ORDERABLES Final Re sult [facility] [employer] [facility] CLIA # [id number] [address] [place] [address] * (ABNORMAL) HEMOGLOBIN A1C (08/17/2012 8:03 PM CDT) HEMOGLOBIN A1C 8.3(H) 4.5 - 6.2 % 08/17/2012 10:46 PM CDT [facility] EST. AVG GLUCOSE, A1C 192 mg/dL 08/17/2012 10:46 PM CDT [facility] Blood specimen (specimen) Venipuncture - Lab Collect / Unknown 08/17/2012 8:03 PM CDT 08/17/2012 9:23 PM CDT Khai ZURITA CHEMISTRY ORDERABLES Final Re sult [facility] CLIA # [id number] [address] [place] [address] [address] [place] [address] documented in this encounter Visit Diagnoses Diagnosis Sick Other unknown and unspecified cause of morbidity or mortality documented in this encounter Care Teams Supervisor Trust Accounts Relationship Specialty Start Date End Date [facility], External Provider [address] [place] [id number] PCP - General Family Practice 05/13/15 documented as of this encounter
--- OUTSIDE RECORDS SUMMARY | 2024-09-24 17:25 | XMS_ITS | Clinical Summary ---
Author Organization [facility] Address [address] [place] [address] Phone Care Team Providers Care Chuck Tender Name Role Phone [facility], External Provider Primary Care Provider +1- [phone] Allergies No known active allergies Medications nitroglycerin (NITROSTAT) 0.4 mg Tablet, Sublingual Place 0.4 mg under tongue every 5 minutes as needed for Chest Pain. Active levothyroxine 25 mcg tablet Take 25 mcg by mouth daily heat treater. Active HYDROcodone-nicholas taminophen (NORCO) 7.5-325 mg Tablet Take 1 Tablet by mouth every 4 hours as needed for Pain, Moderate. Active omeprazole (PRILOSEC) 40 mg Capsule, Delayed Release(E.C.) Take 40 mg by mouth daily. Active aspirin (JUAN M) 325 mg tablet Take 1 Tablet (325 mg) by mouth daily. 6 Active amiodarone (CORDARONE) 200 mg tablet 400mg (2 tabs) BID for 2 weeks, then decrease to 200mg BID for 3 weeks, then decrease to 200mg daily for 3 weeks, then stop.. 119 Tablet 0 6 Active metoprolol tartrate (LOPRESSOR) 25 mg tablet Take 0.5 Tablet (12.5 mg) by mouth 2 times daily. 30 Tablet 1 6 Active insulin glargine (LANTUS) 100 unit/mL solution for injection Inject 40 Units by subcutaneous injection daily. 10 mL 1 6 Active metoprolol tartrate (LOPRESSOR) 25 mg tablet Take 0.5 Tablet (12.5 mg) by mouth 2 times daily. 14 Tablet 0 6 Active amoxicillin-cla vulanate (AUGMENTIN) 500-125 mg tablet Take 1 Tablet by mouth every 8 hours. Active HYDROcodone-nicholas taminophen (NORCO) 7.5-325 mg Tablet Take 1 Tablet by mouth every 4 hours as needed for Pain, Moderate. Max Daily Amount: 6 Tablet 60 Tablet 0 6 Active Active Problems Problem Noted Date Diagnosed Date S/P CABG x 3 05/17/2015 Prerenal azotemia 05/17/2015 Hyperlipidemia 05/14/2015 CAD (coronary atherosclerotic disease) 6 Benign hypertension 05/13/2015 DM (diabetes mellitus) 05/13/2015 COPD (chronic obstructive pulmonary disease) 07/2015 Simple chronic bronchitis Type 2 diabetes mellitus without complication Resolved Problems Problem Noted Date Diagnosed Date Resolved Date On mechanically assisted ventilation 05/17/2015 05/29/2015 Social History Tobacco Use Types Packs/Day Years Used Date Smoking Tobacco: Former Cigarettes Q uit: 05/12/1997 Smokeless Tobacco: Never Alcohol Use Standard Drinks/Week Comments No 0 (1 standard drink = 0.6 oz pur e alcohol) Sex and Gender Information Value Date Recorded Sex Assigned at Not on file Legal Sex Male 9:19 PM CDT Gender Identity Not on file Sexual Orientation Not on file Last Filed Vital Signs Vital Sign Reading Time Taken Comments Blood Pressure 134/70 06/13/2015 1:47 PM CDT Pulse 63 06/13/2015 1:47 PM CDT Temperature 36.9 C (98.4 F) 05/22/2015 7:36 AM CDT Respiratory Rate 20 05/22/2015 7:36 AM CDT Oxygen Saturation 95% 06/13/2015 1:47 PM CDT Inhaled Oxygen Concentration - - Weight 117.5 kg (259 lb) 06/13/2015 1:47 PM CDT Height 185.4 cm (6' 1 ) 06/13/2015 1:47 PM CDT Body Mass Index 34.17 06/13/2015 1:47 PM CDT Plan of Treatment Health Maintenance Due Date Last Done Comments DIABETES ANNUAL FOOT EXAM 1967 DIABETES ANNUAL RETINAL EXAM 1967 DIABETES MICROALBUMIN ANNUAL SCREEN 1967 LDL CHOLESTEROL ANNUAL 1967 DTAP/TDAP/TD VACCINES (1 - Tdap) 01/26/1968 PNEUMOCOCCAL VACCINE 50+ YEA RS (1 of 2 - PCV) 01/26/1968 COLORECTAL SCREENING 1994 Colorectal Cancer Screening 1994 FIT-DNA Q 3 years 1994 FIT/FOBT Q 1 year 1994 Flex Sig/CT Colonography Q 5 years 1994 ZOSTER VACCINE (1 of 2) 1999 RSV VACCINE (60+ or ) (1 - 1-dose 75+ series) 01/26/2024 DIABETES HBA1C Q 6 MONTHS 08/31/20242023, 05/15/2015, 05/13/2015, Additional history exists INFLUENZA VACCINE (#1) 2024 Medical Devices Implanted Type Area Sewing Machine Operator Device Identifier Shelf Expiration Date Model / Serial / Lot Sealant Coseal 4ml [id number] - [id number] Implanted:Qty: 1 on 05/17/2015 by Faisal Figueroa MD at [facility] Biological Chest [employer] DAV[employer] [id number] / / [id number] [place] Ptfe Thck 1.6mmx2.5x10.2 cm [id number] - [id number] Implanted:Qty: 1 on 05/17/2015 by Faisal Figueroa MD at [facility] Graft CR [employer] 02/05/2020 [id number] / / [id number] Hemostatic Gelfoam Lg Sz [id number] - [facility] - [id number] Implanted:Qty: 1 on 05/17/2015 by Faisal Figueroa MD at [facility] Hemostatic Chest PFIZER- PHARM [id number] / / Procedures Procedure Name Priority Date/Time Associated Diagnosis Comments HEMOGLOBIN A1C Routine 05/15/2015 3:19 PM MASH TUB COOKER from Last 3 Months or Most Recently Relevant to Health Maintenance Results * (ABNORMAL) HEMOGLOBIN A1C (05/15/2015 3:19 PM MASH TUB COOKER) HEMOGLOBIN A1C 11.7(H) 4.0 - 6.0 % 05/16/2015 11:51 AM [facility]OOK[facility] [employer] [facility] EST. AVG GLUCOSE, A1C 289 mg/dL 05/16/2015 11:51 AM [facility] Blood Venipuncture - L ab Collect / Unknown 05/15/2015 3:19 PM MASH TUB COOKER 05/15/2015 3:42 PM [facility] COOKER Narrative [facility] - 05/16/2015 11:51 AM MASH TUB COOKER Test performed on [employer] instrumentation using HPLC methodology us Faisal Figueroa MD CHEMISTRY ORDERABLES F inal Result [facility] CLIA# [id number] [address] [place] [address] from Last 3 Months or Most Recently Relevant to Health Maintenance Insurance MEDICARE PART A AND B VISN [address] [facility] [place] [address] Advance Directives For more information, please contact: [phone] * Full Code (Latest Code Status on File) Date Activated Date Inactivated Comments 05/17/2015 11:29 AM 05/22/2015 4:09 PM * Full Code Date Activated Date Inactivated Comments 05/15/2015 2:17 PM 05/17/2015 11:29 AM * Full Code Date Activated Date Inactivated Comments 05/15/2015 11:22 AM 05/15/2015 2:17 PM * Full Code Date Activated Date Inactivated Comments 05/13/2015 5:55 PM 05/15/2015 11:22 AM Care Teams Chuck Tender Relationship Specialty Start Date End Date [facility], External Provider [address] [place] [address] PCP - General Family Practice 05/13/15
--- OUTSIDE RECORDS SUMMARY | 2024-09-24 17:25 | XMS_ITS | Encounter Summary ---
Author Organization [facility] Address [address] [place] [address] Care Team Providers Care Postdoctoral Fellow Name Role Phone [facility], External Provider Primary Care Provider + [phone] Encounter Details Date Type Department Care Team (Late st Contact Info) Description 09/22/2024 External Device Data [facility] ABSTRACTION Provider, Abstract NO ADDRESS ON FILE Social History Tobacco Use Types Packs/Day Years Used Date Smoking Tobacco: Every Day Cigarettes Last attempted to quit: 05/12/1997 Smokeless Tobacco: Never Alcohol Use Standard Drinks/Week Comments No 0 (1 standard drink = 0.6 oz pur e alcohol) Sex and Gender Information Value Date Recorded Sex Assigned at Not on file 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
--- OUTSIDE RECORDS SUMMARY | 2024-09-24 17:25 | XMS_ITS | Patient Health Record ---
Author Organization [facility] Address [address] [place], [place] [address] Care Team Providers Care Shotgun Shell Assembly Machine Adjuster Name Role Phone [facility] Primary Care Provider Iliana Pulido MD, Jerrod Unavailable [phone] [place], [place] Unavailable Unavailable Deandra Hargrove Unavailable [phone] Allergies Allergen (clinical drug ingredient) Drug/Non Drug Allergy documented on EMR Reaction Allergy Type Onset Date Status albuterol albuterol Unknown Drug Allergy Active Reason For Referral Diagnosis 1 Vertebrogenic low ba ck pain (M54.51) Referring Provider First Name [place] Martín ff Referring Provider Last Name OR Referred Organization [facility] Referred Provider Jerrod Pulido Referred Address [address] [place], [id number], Referred Provider Specialty Pain Managem ent Referral Priority Routine Medications Medication SIG (Take, Route, Frequency, Duration) Notes Start Date End Date Status Jardiance 25 mg 1 tab(s) orally once a day Active Fish Oil 1000 mg 1 cap(s) orally once a day for 30 day(s) Active gabapentin 300 mg 1 cap(s) orally 3 times a day for 30 day(s) Active cholecalciferol 25 mcg 1 tab(s) orally o nce a day for 30 day(s) Active citalopram 40 mg 1 tab(s) orally once a day Active acetaminophen-hydrocodo ne 325 mg-10 mg 1 tab orally Q4-6H prn pain (max 3/day; hold within 4H of planned sleep) for 28 days Do not fill prior to 08/24/24. ICD-10: G89.29 07/26/2024 Active acetaminophen-hydrocodo ne 325 mg-10 mg 1 tab orally Q4-6H prn pain (max 3/day; hold within 4H of planned sleep) for 28 days Do not fill prior to 09/21/24. ICD-10: G89.29 07/26/2024 Active omeprazole 40 mg 1 cap(s) orally once a day Active aspirin 81 mg 1 tab(s) orally once a day for 30 day(s) Active tamsulosin 0.4 mg 2 cap(s) orally once a day Active midodrine 2.5 mg 1 tab(s) orally 2 times a day Active acetaminophen-hydrocodo ne 325 mg-10 mg 1 tab orally Q4-6H prn pain (max 3/day; hold within 4H of planned sleep) for 28 days ICD-10: G89.29 07/27/2024 Active Nitrofurantoin Monohydrate/Macrocrysta ls macrocrystals-monohydra te 100 mg 1 cap(s) orally 2 times a day for 7 day(s) 06/01/2024 Active Lantus 100 units/mL as directed subcutaneously 2 times a day Active levothyroxine 75 mcg (0.075 mg) 1 tab(s) orally once a day for 30 day(s) Active Social History Tobacco Use: Social History Observation Description Date Details (start date - stop date) Former Smoker NA - NA Tobacco use: Question Answer Notes : former smoker When did you stop smoking? 2001 AUDIT-C (Standard) Question Answer Notes Did you have a drink containing alcohol in the p ast year? No Points 0 Interpretation Negative Problems Problem Type SNOMED Code ICD Code Onset Dates Problem Status W/U Status Risk Notes Problem Solitary sacroiliitis (376577877) Sacroiliitis, not elsewhere classified (M46.1) Active confirmed Problem Lumbosacral spondylosis without myelopathy (06813214) Spondylosis without myelopathy or radiculopathy, lumbar region (M47.816) Active confirmed Problem High risk drug monitoring status (025447395) FPC (current) use of opiate analgesic (Z79.891) Active confirmed Problem Sleep disorder (25659400) Other sleep disorders (G47.8) Active confirmed Problem Chronic pain (91200195) Other chronic pain (G89.29) Active confirmed Problem Neurogenic claudication (026370801) Spinal stenosis, lumbar region with neurogenic claudication (M48.062) Active confirmed Problem Pain in lumbar spine (532388131) Vertebrogenic low back pain (M54.51) Active confirmed Problem Back pain (578023868) Other low back pain (M54.59) Active confirmed Vital Signs Temperature 97.3 degrees Fahrenheit 07/27/2024 Blood pressure diastolic 69 mm Hg 07/27/2024 Oximetry 92 % 07/27/2024 Height 74 in 07/27/2024 Blood pressure systolic 93 mm Hg 07/27/2024 Weight 235.8 lbs 07/27/2024 BMI 30.27 kg/m2 07/27/2024 Encounters Encounter Location Date Provider Diagnosis [facility] [address] [place], [place] [id number] 11/12/2023 Deandra Hernandez Vertebrogenic low ba ck pain M54.51 ; Other chronic pain G89.29 and Other sleep disorders G47.8 [facility] [address] [place], [place] [id number] 01/07/2024 Jerrod Pulido Vertebrogenic low ba ck pain M54.51 ; Other chronic pain G89.29 and Other sleep disorders G47.8 [facility] [address] [place], [place] [id number] 04/13/2024 Jerrod Pulido Vertebrogenic low ba ck pain M54.51 ; Other chronic pain G89.29 and Other sleep disorders G47.8 [facility] [address] [place], [place] [id number] 06/01/2024 Jerrod Pulido Vertebrogenic low ba ck pain M54.51 ; Other chronic pain G89.29 and Other sleep disorders G47.8 [facility] [address] [place], [place] [id number] 07/27/2024 Jerrod Pulido Vertebrogenic low ba ck pain M54.51 ; Other chronic pain G89.29 and Other sleep disorders G47.8 [facility] [address] [place], [place] [id number] 10/15/2023 Jerrod Pulido [facility] [address] [place], [place] [id number] 12/10/2023 Jerrod Pulido [facility] [address] [place], [place] [id number] 02/04/2024 Jerrod Pulido [facility] [address] [place], [place] [id number] 02/25/2024 Jerrod Tess [facility] [address] [place], [place] [id number] 05/11/2024 Jerrod Pulido [facility] [address] [place], [place] [id number] 06/24/2024 Jerrod Pulido Assessments Encounter Date Diagnosis (ICD Code) Assessment Notes Treatment Notes Treatment Clinical Notes Section Notes 07/27/2024 Vertebrogenic low back pain (ICD-10 - M54.51) Chronic lumbar spine pain. 06/01/2024 Vertebrogenic low back pain (ICD-10 - M54.51) Chronic lumbar spine pain. 11/12/2023 Vertebrogenic low back pain (ICD-10 - M54.51) Chronic lumbar spine pain. 01/07/2024 Other chronic pain (ICD-10 - G89.29) Patient reports that taking his pain medication allows him to walk to the mailbox and back home every day. Plan to continue oral opioid medication management. 01/07/2024 Vertebrogenic low back pain (ICD-10 - M54.51) Chronic lumbar spine pain. 04/13/2024 Vertebrogenic low back pain (ICD-10 - M54.51) Chronic lumbar spine pain. 04/13/2024 Other chronic pain (ICD-10 - G89.29) Patient reports that taking his pain medication allows him to continue therapy s/p CVA. Plan to continue oral opioid medication management. 01/07/2024 Other sleep disorders (ICD-10 - G47.8) Plan to continue to restrict opioid use in relation to sleep for safety concerns. 11/12/2023 Other sleep disorders (ICD-10 - G47.8) Plan to continue to restrict opioid use in relation to sleep for safety concerns. 11/12/2023 Other chronic pain (ICD-10 - G89.29) Patient reports that taking his pain medication allows him to care for his yard. Plan to continue oral opioid medication management. 07/27/2024 Other chronic pain (ICD-10 - G89.29) Patient's reports that taking his pain medication allows him to continue therapy s/p CVA. Plan to continue oral opioid medication at today's visit. 06/01/2024 Other chronic pain (ICD-10 - G89.29) Patient's reports that taking his pain medication allows him to continue therapy s/p CVA. Plan to continue oral opioid medication management. 06/01/2024 Other sleep disorders (ICD-10 - G47.8) Plan to continue to restrict opioid use in relation to sleep for safety concerns. 07/27/2024 Other sleep disorders (ICD-10 - G47.8) Plan to continue to restrict opioid use in relation to sleep for safety concerns. 04/13/2024 Other sleep disorders (ICD-10 - G47.8) Plan to continue to restrict opioid use in relation to sleep for safety concerns. 01/07/2024 Other Due to the [place] Pharmacy's inability to store more than 1 month of opioid prescriptions at a time, remaining eRx will be sent in 28 days. The service was provided by GEETHA Ortiz, as part of the ongoing care plan established by Jerrod Pulido MD, who was present in the office for direct supervision during the encounter. 06/01/2024 Other Due to the [place] Pharmacy's inability to store more than 1 month of opioid prescriptions at a time, remaining eRx will be sent in 28 days. The service was provided by GEETHA Ortiz, as part of the ongoing care plan established by Jerrdo Pulido MD, who was present in the office for direct supervision during the encounter. 07/27/2024 Other The service was provided by GEETHA Ortiz, as part of the ongoing care plan established by Jerrod Pulido MD, who was present in the office for direct supervision during the encounter. Patient was provided with a letter at today's visit informing patient that this clinic is closing due to Dr. Pulido's correction; see scanned document. Terminal prescriptions were given to the patient along with tapering instructions. [facility] 1 month of opioid prescriptions at a time, remaining 2 prescriptions printed and given to patient to fill in 28 and 56 days. 04/13/2024 Other Due to the [place] Pharmacy's inability to store more than 1 month of opioid prescriptions at a time, remaining eRx will be sent in 28 days. The service was provided by GEETHA Ortiz, as part of the ongoing care plan established by Jerrod Pulido MD, who was present in the office for direct supervision during the encounter. 11/12/2023 Other Due to the [place] Pharmacy's inability to store more than 1 month of opioid prescriptions at a time, remaining eRx will be sent in 28 days. Plan Of Treatment No Information Insurance Providers Payer Name Payer Address Payer Phone Subscriber Number Group Number Insured Name Patient Relationship to Insured Coverage Start Date Coverage End Date [employer] [address] [place] [id number] Victorino Stevenson Self - patient is the insured Medical (General) History Medical History History ICD Code Chronic pain Low back pain Lumbar spondylosis and spinal stenosis Sacroiliitis Knee pain (history of knee i njection by Dr. Shrestha with only short - term benefit) Major depressive disorder Tinnitus Limitation of motion, thumb Abdominal aortic aneurysm, without ruptu re Atherosclerotic heart disease CAD, history of CABG Atherosclerosis Bradycardia Occlusion and stenosis of unspecified ca rotid artery Transient cerebral ischemia attack Cerebral infarction / CVA COVID-19 (2019) Hyperlipidemia Hypertensive heart disease with heart fa ilure Hypothyroidism Polyp of colon Type 2 diabetes mellitus with diabetic r adiculopathy Type 2 diabetes mellitus with hyperglyce cesia PTSD History of tobacco use, possible COPD Sleep disorder with restless legs, morning headaches and some hypersomnia (patient declined prior offer for a sleep study and possible treatment) Obesity, mild Surgical History Surgery Date(Month/Year) Hernia repair Open heart surgery, performed at [facility], [place] Cholecystectomy, performed at [facility] in [place], [place], 2011 Hospitalization History Reason Date(Month/Year) Stroke 03/01/24 Low blood sugar, treated at [facility], 06/2022 Strokes, treated at [facility]2019
--- OUTSIDE RECORDS SUMMARY | 2024-09-24 17:25 | XMS_ITS | Clinical Summary ---
Author Organization [facility] Address [address] [facility] Attn: [place] [address] Care Team Providers Care Electron Microprobe Operator Name Role Phone [facility], External Provider Primary Care Provider [phone] Allergies No known active allergies Medications naloxone (NARCAN) 4 mg/spray [place], Non-Aerosol EMERGENCY USE ONLY: Administer 1 spray (4 mg) in one nostril one time. May repeat in alternating nostrils every 2-3 min until responsive or EMS arrives. 2 Each 3 5 Active aspirin (JUAN M CHEWABLE) 81 mg Tablet, Chewable Take 1 Tablet (81 mg) by mouth daily with breakfast. 5 Active clopidogreL (PLAVIX) 75 mg Tablet Take 1 Tablet (75 mg) by mouth daily. 30 Tablet 5 Active citalopram (CeleXA) 40 mg tablet Take 1 Tablet (40 mg) by mouth daily. 30 Tablet 5 Active insulin lispro (HumaLOG,ADMELO G) 100 unit/mL pen syringe Inject 6 Units by subcutaneous injection 3 times daily with meals. 15 mL 5 Active levothyroxine 75 mcg tablet Take 1 Tablet (75 mcg) by mouth daily in the morning. 30 Tablet 5 Active tamsulosin (FLOMAX) 0.4 mg capsule Take 1 Capsule (0.4 mg) by mouth daily at bedtime. 30 Capsule 5 Active acetaminophen (TYLENOL) 325 mg tablet Take 2 Tablets (650 mg) by mouth every 6 hours as needed for Pain or Temperature (See admin instructions). 5 Active insulin glargine-yfgn 100 unit/mL pen syringe Inject 18 Units by subcutaneous injection 2 times daily. 15 mL 5 Active insulin lispro (HumaLOG,ADMELO G) 100 unit/mL pen syringe Inject 0-3 Units by subcutaneous injection daily at bedtime. * MUST be given at least 4 hours after last insulin dose. CONTACT PHYSICIAN/CLAIRE - If blood sugar greater than 250 mg/dL - If blood sugar greater than 180 mg/dL for two consecutive readings Low-Dose Bedtime Correction: Less than or equal to 250 = no correctional insulin 251 - 300 = give and/or add 1 units 301 - 350 = give and/or add 2 units 351 and greater = give and/or add 3 units 15 mL 5 Active insulin lispro (HumaLOG,ADMELO G) 100 unit/mL pen syringe Inject 0-6 Units by subcutaneous injection 3 times daily with meals. Give when NPO or WITH MEAL. CONTACT PHYSICIAN/CLAIRE - If blood sugar greater than 250 mg/dL - If blood sugar greater than 180 mg/dL for two consecutive readings Low-Dose Meal Correction: Less than or equal to 180 = no correctional insulin 181 - 200 = give and/or add 1 unit 201 - 250 = give and/or add 2 units 251 - 300 = give and/or add 3 units 301 - 350 = give and/or add 4 units 351 - 400 = give and/or add 5 units 401 and greater = give and/or add 6 units 15 mL 5 Active pantoprazole (PROTONIX) 40 mg Tablet, Delayed Release (E.C.) Take 1 Tablet (40 mg) by mouth daily before breakfast. 30 Tablet 5 Active atorvastatin (LIPITOR) 80 mg tablet Take 1 Tablet (80 mg) by mouth daily. 30 Tablet 5 Active insulin aspart U-100 (NovoLOG Flexpen U-100 Insulin) 100 unit/mL pen syringe Please take 6 units three times daily with meals. 15 mL Active Active Problems Problem Noted Date Diagnosed Date Constipation 03/18/2024 Type 2 diabetes mellitus with hyperglycemia 02/09 Impaired mobility and ADLs 03/09/2024 Obesity (BMI 30.0-34.9) 03/09/2024 Dysphagia, post-stroke 03/03/2024 Cerebrovascular accident (CV A) due to stenosis of left middle cerebral artery 03/02/2024 Overview (03/07/2024): Acute frontal infarct SAH (subarachnoid hemorrhage) 03/02/2024 Aphasia 03/02/2024 Carotid stenosis, left 03/02/2024 GUY (acute kidney injury) 03/02/2024 Diabetes mellitus with hypoglycemia 03/02/2024 Acute right hemiparesis 03/02/2024 S/P CABG x 3 05/17/2015 Prerenal azotemia 05/17/2015 Hyperlipidemia 05/14/2015 DM (diabetes mellitus) 05/13/2015 CAD (coronary atherosclerotic disease) COPD (chronic obstructive pulmonary disease) 07/2015 Benign hypertension 05/13/2015 Simple chronic bronchitis Type 2 diabetes mellitus without complication Resolved Problems Problem Noted Date Diagnosed Date Resolved Date On mechanically assisted ventilation 05/17/2015 05/29/2015 Encounters Date Type Department Care Team Description 09/22/2024 External Device Data ST[facility] ABSTRACTION Provider, Abstract 08/25/2024 External Device Data [facility] ABSTRACTION Provider, Abstract 08/25/2024 External Device Data [facility] ABSTRACTION Provider, Abstract 08/03/2024 External Device Data [facility] ABSTRACTION Provider, Abstract 07/30/2024 External Device Data [place] ABSTRACTION Provider, Abstract 07/29/2024 External Device Data [facility] ABSTRACTION Provider, Abstract 07/28/2024 External Device Data [facility] ABSTRACTION Provider, Abstract from Last 3 Months Social History Tobacco Use Types Packs/Day Years Used Date Smoking Tobacco: Every Day Cigarettes Last attempted to quit: 05/12/1997 Smokeless Tobacco: Never Tobacco Cessation:Ready to Q uit: Not Asked; Counseling Given: Not Answered Alcohol Use Standard Drinks/Week Comments No 0 (1 standard drink = 0.6 oz pur e alcohol) Sex and Gender Information Value Date Recorded Sex Assigned at Not on file Legal Sex Male 6:10 AM TYRE FINISHER AND EXAMINER Gender Identity Not on file Sexual Orientation Not on file Last Filed Vital Signs Vital Sign Reading Time Taken Comments Blood Pressure 103/64 03/26/2024 8:36 AM TYRE FINISHER AND EXAMINER Pulse 67 03/26/2024 8:36 AM TYRE FINISHER AND EXAMINER Temperature 36.8 C (98.3 F) 03/26/2024 3:40 AM TYRE FINISHER AND EXAMINER Respiratory Rate 16 03/26/2024 8:36 AM TYRE FINISHER AND EXAMINER Oxygen Saturation 98% 03/26/2024 8:36 AM TYRE FINISHER AND EXAMINER Inhaled Oxygen Concentration - - Weight 106.2 kg (234 lb 3.2 oz) 03/24/2024 8:00 AM TYRE FINISHER AND EXAMINER Height 177.8 cm (5' 10 ) 03/09/2024 1:00 PM TYRE FINISHER AND EXAMINER Body Mass Index 33.6 03/09/2024 1:00 PM TYRE FINISHER AND EXAMINER Plan of Treatment Health Maintenance Due Date Last Done Comments DIABETES ANNUAL FOOT EXAM 1967 DIABETES ANNUAL RETINAL EXAM 1967 DIABETES MICROALBUMIN ANNUAL SCREEN 1967 COLORECTAL SCREENING 1994 Colorectal Cancer Screening 1994 FIT-DNA Q 3 years 1994 FIT/FOBT Q 1 year 1994 Flex Sig/CT Colonography Q 5 years 1994 Abdominal Aortic Aneurysm (A AA) Screening 2014 RSV VACCINE (60+ or ) (1 - 1-dose 75+ series) 01/26/2024 DIABETES HBA1C Q 6 MONTHS 08/31/20242023, 05/15/2015, 05/15/2015, Additional history exists INFLUENZA VACCINE (#1) 2024 , 12/10/2022, 02/15/2022, Additional history exists LDL CHOLESTEROL ANNUAL 03/02/2025 03/02/2024 DTAP/TDAP/TD VACCINES (4 - T d or Tdap) 06/25/2032 06/25/2022, 03/19/2022, 03/10/2012, Additional history exists PNEUMOCOCCAL VACCINE 50+ YEARS Completed 1 , 08/23/2014, 03/22/2013, Additional history exists ZOSTER VACCINE Completed 06/10/2022, 03/19/2022 Medical Devices Implanted Type Area Solid Waste Facility Supervisor Device Identifier Shelf Expiration Date Model / Serial / Lot Sealant Coseal 4ml [id number] - [id number] Implanted:Qty : 1 on 05/17/2015 by Faisal Figueroa MD Biological Chest [employer]- [facility] [id number] / / [id number] [place] Ptfe Thck 1.6mmx2.5x10. 2cm [id number] - [id number] Implanted:Qty : 1 on 05/17/2015 by Faisal Figueroa MD Graft CR [employer] 02/05/2020 [id number] / / [id number] Hemostatic Gelfoam Lg Sz [id number] - [facility] [place] - [id number] Implanted:Qty : 1 on 05/17/2015 by Faisal Figueroa MD Hemostatic Chest PFIZER- [employer]ARM [id number] / / Procedures Procedure Name Priority Date/Time Associated Diagnosis Comments LIPID PANEL Routine 03/02/2024 4:23 AM TYRE FINISHER AND EXAMINER HEMOGLOBIN A1C Routine 03/02/2024 4:23 AM TYRE FINISHER AND EXAMINER from Last 3 Months or Most Recently Relevant to Health Maintenance Results * (ABNORMAL) HEMOGLOBIN A1C (03/02/2024 4:23 AM TYRE FINISHER AND EXAMINER) HEMOGLOBIN A1C 6.7(H) <=5.6 % 03/05/2024 8:57 AM TYRE FINISHER AND EXAMINER [facility] Rivalfox [facility] EST. AVG GLUCOSE, A1C 146 mg/dL 03/05/2024 8:57 AM TYRE FINISHER AND EXAMINER [facility] Blood Venipuncture / Unknown 03/02/2024 4:23 AM TYRE FINISHER AND EXAMINER 03/02/2024 4:34 AM TYRE FINISHER AND EXAMINER Narrative [facility] LABORATORY [facility] - 03/05/2024 8:57 AM TYRE FINISHER AND EXAMINER HGB A1C INTERPRETATION NORMAL: <5.7% PRE-DIABETES: 5.7 - 6.4% DIABETES: 6.5% OR GREATER Caryn Foster MD CHEMISTRY ORDERABLES Marilia nix Result [facility] CLIA # [id number] [address] [address] [place] [address] * (ABNORMAL) LIPID PANEL (03/02/2024 4:23 AM TYRE FINISHER AND EXAMINER) CHOLESTEROL 110 <200 mg/dL 03/03/2024 12:41 AM [facility] TRIGLYCERIDE 91 <150 mg/dL 03/03/2024 12:41 AM [facility] HDL 29(L) 40 - 59 mg/dL 03/03/2024 12:41 AM [facility] LDL CALCULATED 63 <100 mg/dL 03/03/2024 12:41 AM [facility] NON-HDL CHOLESTEROL 81 <130 mg/dL 03/03/2024 12:41 AM [facility] Blood Venipuncture / Unknown 03/02/2024 4:23 AM TYRE FINISHER AND EXAMINER 03/02/2024 4:34 AM [facility] - 03/03/2024 12:41 AM TYRE FINISHER AND EXAMINER TOTAL CHOLESTEROL mg/dL Desirable <200 Borderline high 200-239 High >=240 TRIGLYCERIDES mg/dL Normal <150 Borderline high 150-199 High 200-499 Very high >=500 HDL CHOLESTEROL mg/dL Low <40 Normal 40-59 Desirable >=60 NON HDL CHOLESTEROL mg/dL Optimal <130 Near Optimal 130-159 Borderline High 160-189 Very High >=190 CALCULATED LDL mg/dL LDL <70, OPTIMAL if have Atherosclerotic cardiovascular disease (ASCVD) or intermediate or higher (>7.5%) 10 year risk of ASCVD including most adults with diabetes. LDL <100, Optimal in adult patients with low (<7.5%) 10 year ASCVD risk LDL 100-160, Suboptimal LDL >160, High LDL >190, Very high ATPIII Guidelines Reference Ranges for Lipid Panels (NCEP/AMA) . Caryn Foster MD CHEMISTRY ORDERABLES Marilia nix Result [facility] CLIA # [id number] [address] [place] [id number] from Last 3 Months or Most Recently Relevant to Health Maintenance Insurance [employer] G[employer] O [facility] RX [employer] Medicare Part D RX INFOCROSSING Medicaid * Guarantor: SHARONDA Rick (C) Account Type Relation to Patient Date of Phone Billing Address Corporate Other DEFAULT ADDRESS [address] [employer] Advance Directives For more information, please contact: [phone] * Full Code (Latest Code Status on File) Date Activated Date Inactivated Comments 03/09/2024 12:31 PM 03/26/2024 1:58 PM * Full Code Date Activated Date Inactivated Comments 03/02/2024 12:31 AM 03/09/2024 12:10 PM Care Teams Electron Microprobe Operator Relationship Specialty Start Date End Date [facility], External Provider [address] [place] [id number] PCP - General Family Practice 05/13/15
--- NOTE | 2024-09-24 17:39 | PC.NURSE ---
Pt arrived via [facility]. cpr in progress upon arrival to ED. at bedside during the following events. 1712: CPR continued by ED staff 1712: 1 mg epi IVP 1714: PC - asystole noted on monitor - CPR continued 1714: 1 gm calcium IVP 1715: 1 mg epi IVP 1716: PC - asystole noted on monitor - CPR continued 1718: PC - asystole notied on monitor - CPR continued 1718: 1 mg epi IVP 1720: PC - asystole noted on monitor - CPR continued 1721: 1 gm calcium & 50 mEq bicarb IVP 1722: 1 mg epi IVP 1723: PC - asystole noted on monitor - CPR continued 1725: PC - asystole noted on monitor - CPR continued 1725: 1 mg epi IVP 1727: PC - asystole noted on monitor - CPR continued 1728: 1 mg epi IVP 1729: PC - asystole noted on monitor - CPR contined 1731: pronounced TOD at 1731
--- NOTE | 2024-09-24 17:46 | W.ED.CPR ---
HPI - CPR General: Chief Complaint: Cardiac Arrest/CPR Stated Complaint: CPR Time Seen by Provider: 09/24/24 17:35 History of Present Illness: 74-year-old male presents to the emergency room via EMS with CPR in progress. Per EMS he had a witnessed collapse by family members they called EMS who been doing CPR for 30 minutes prior to arrival I have not been able to achieve ROSC. He was in asystole at their last pulse check. Was given 3 epis prior to arrival. Related Data Home Medications ?Medication ?Instructions ?Recorded ?Confirmed clopidogrel 75 mg tablet 75 mg PO DAILY@99908/04/19 09/03/24 tamsulosin 0.4 mg capsule 0.4 mg PO DAILY@99908/04/19 09/03/24 citalopram 40 mg tablet 20 mg PO DAILY@99908/05/19 09/03/24 cholecalciferol (vitamin D3) 25 75 mcg PO DAILY@99911/08/19 09/03/24 mcg (1,000 unit) capsule levalbuterol HCl 0.63 mg/3 mL 0.63 mg inhalation TID PRN 01/17/20 09/03/24 solution for nebulization Shortness Of Breath pantoprazole 40 mg tablet,delayed 40 mg PO DAILY@99903/13/20 09/03/24 release (Protonix) levothyroxine 75 mcg tablet 37.5 mcg PO DAILY 06/01/20 09/03/24 nystatin 100,000 unit/gram topical 1 applic topical TID 06/01/20 09/03/24 cream ondansetron 4 mg disintegrating 4 mg PO Q6H PRN Nausea And Vomiting 06/25/22 09/03/24 tablet empagliflozin 25 mg tablet 25 mg PO DAILY 09/04/22 09/03/24 gemfibrozil 600 mg tablet 600 mg PO DAILY 09/04/22 09/03/24 glipizide 10 mg tablet 10 mg PO DAILY 09/04/22 09/03/24 omeprazole 40 mg capsule,delayed 40 mg PO DAILY 09/04/22 09/03/24 release rosuvastatin 20 mg tablet 20 mg PO DAILY 09/04/22 09/03/24 Previous Rx's ?Medication ?Instructions ?Recorded nitroglycerin 0.4 mg sublingual 0.4 mg sublingual Q5M PRN chest 08/10/19 tablet (Nitrostat) pain #25 tabs atorvastatin 40 mg tablet 80 mg (2 x 40 mg) PO DAILY@1000 04/24/20 #180 tabs hydrocodone 10 mg-acetaminophen 1 tab PO Q8H PRN pain (scale score 07/31/21 325 mg tablet 7-10) 30 days #90 tabs midodrine 2.5 mg tablet 2.5 mg PO BID #180 tabs 06/21/22 aspirin 81 mg tablet,delayed 81 mg PO DAILY #90 tabs 06/27/22 release celecoxib 100 mg capsule 100 mg PO BID #20 caps 08/27/22 Diabetic shoes with 3 sets of #1 ea 05/24/24 custom insoles Allergies Allergy/AdvReac Type Severity Reaction Status Date / Time albuterol (From DuoNeb) Allergy Unknown Verified 09/03/24 07:53 ipratropium (From DuoNeb) Allergy Unknown Verified 09/03/24 07:53 fluoxetine (From Prozac) AdvReac Intermediate ADR-Irritab Verified 09/03/24 07:53 le Review of Systems General: Reports: ROS unobtainable due to endotracheal tube PFSH ED PFSH: Medical History jail (current) use of opiate analgesic Pain management contract signed Carotid artery stenosis, symptomatic Peripheral Vascular Disease Accelerated essential hypertension Dyslipidemia COPD (chronic obstructive pulmonary disease) GERD (gastroesophageal reflux disease) Varicose veins of bilateral lower extremities with other complications Lower extremity edema CAD (coronary artery disease) HTN (hypertension) Diabetes Closed fracture of distal end of right fibula Surgical History Hx of cholecystectomy H/O heart bypass surgery Hx of cholecystectomy Hx of CABG Family History Father CAD (coronary artery disease) Diabetes Hypertension Lung disease Grandfather CAD (coronary artery disease) Diabetes Hypertension Son CAD (coronary artery disease) Family history of premature coronary artery disease Grandmother Cancer Denies family history of Clotting disorder Dementia Hyperlipidemia Psychiatric illness Chronic kidney disease (CKD) Suicide Anesthesia complication Bleeding disorder Stroke Social History Smoking and tobacco/nicotine status: former use of tobacco/nicotine Second hand smoke exposure: Yes Alcohol intake: former 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 Substance/Drug Use: never Caregiver/support person: Yes Lives independently: Yes Household members: spouse service: Yes Physical Exam Narrative: EXAM NARRATIVE: CPR in progress no respiratory effort no palpable pulses are auscultated with pulses Procedures Intubation sedative: none Assist Device Used: fiber optic device ET Tube Size: 8 ET Tube Uncuffed: No Tube Secured Depth (cm): 22 Tube Secured Location: teeth Tube Placement Confirmation: visualized tube passing through cords, equal breath sounds bilaterally and confirmation by capnometry Intubation Complications: none Course Vital Signs: Vital signs: Vital Signs Pulse Rate 0 L 09/24/24 17:17 Respiratory Rate 0 L 09/24/24 17:17 MDM - Cardiac Arrest/CPR Medical Decision Making CPR continued to see the note. After 5 approximately 12 minutes discussed with the family patient had a total CPR time of 42 minutes at this point. I had reviewed his notes he did have some renal problems he had been given several rounds of epi he is also given bicarb and calcium chloride had no response. After consulting with the family the came to the trauma by and shortly after arriving asked that we cease resuscitative efforts. Resuscitative efforts ceased at 1731. Patient was intubated during CPR successfully confirmed by auscultation bilaterally and capnography. We noted blood in the ET tube several minutes after intubating. We also then noted blood beginning to come from the chest there is a laceration to the upper portion of the sternum. Per EMS this was not present when he they first encountered patient. Medical Records I reviewed the patient's medical records. No radiology studies performed this visit Discharge Plan Discharge Patient Disposition: Clinical Impression: Cardiac arrest, CAD (coronary artery disease), Acute myocardial infarction Coding Level of Care Code ED [employer] for Natalie Chu
--- NOTE | 2024-09-24 18:18 | PC.NURSE ---
[facility] contacted on patient expiration. Reference number is [id number]. Patient has been released from [facility] and saving site. Patient has also been released from [facility]. Patient family has chosen [facility] and they have been contacted and on their way.
--- NOTE | 2024-09-24 18:50 | PC.NURSE ---
Received report from Robyn MYERS at this time.
== END 2024-09-24 20:44 | disposition expired ==
PROVIDERS: Emergency Provider Family Medicine; PCP Family Medicine
DX: I46.9 Cardiac arrest, cause unspecified (principal); I25.10 Atherosclerotic heart disease of native coronary artery without angina pectoris; I21.9 Acute myocardial infarction, unspecified; Z87.891 Personal history of nicotine dependence; Z95.1 Presence of aortocoronary bypass graft; J44.9 Chronic obstructive pulmonary disease, unspecified; E78.5 Hyperlipidemia, unspecified; E11.9 Type 2 diabetes mellitus without complications; I10 Essential (primary) hypertension
CPT/HCPCS: 31500; 99285